=== PATIENT | female | born 1955 | race Caucasian/White ===

== ENCOUNTER → 2016-07-16 | Outpatient (CLI) | payer BC, OTHER ==
[~2016-07-16] MED LIST: AMLO-110 PO; ISOS30TA51 PO; LABE100T16 PO; LISI40TA PO; MULT-506 PO
--- NOTE | 2016-07-16 12:46 | DIAGNOSTIC IMAGING REPORT ---
CT OF THE ABDOMEN AND PELVIS WITHOUT CONTRAST CLINICAL HISTORY: Evaluate for abdominal vascular calcifications. COMPARISON STUDY: CT of the abdomen and pelvis October 08, 2013 and abdominal ultrasound July 08, 2015. TECHNIQUE: Axial images of the abdomen and pelvis were obtained without IV contrast. Images were reviewed in the axial, sagittal, and coronal planes. FINDINGS: A 4 mm right middle lobe nodule shown on axial image 28 of 481 is unchanged since earlier exams. This is benign given stability. The liver is essentially replaced by numerous simple and complex cysts. The appearance is unchanged. The liver is markedly enlarged. Similarly, the kidneys are replaced by innumerable simple and complex cysts. These lesions are suboptimally assessed on this unenhanced exam. The appearance is similar to CT of October 08, 2013. Mild splenomegaly is unchanged. A small amount of abdominal and pelvic ascites is unchanged. There is a small amount of ascites within an umbilical hernia which was present on prior exam. There is sigmoid diverticulosis without evidence for acute diverticulitis. No pneumatosis, free air or portal venous gas is present. There is no evidence for a bowel obstruction. No lymphadenopathy is identified on this unenhanced study. No suspicious skeletal lesions are identified. The adrenal glands are obscured on this examination. The pancreas is also largely obscured but no gross abnormalities identified. There is mild calcified atherosclerotic plaque of the abdominal aorta which is normal in caliber. No significant calcified plaque of the celiac axis or superior mesenteric artery is identified. No calcified plaque of the bilateral common iliac, internal iliac, external iliac or common femoral arteries is noted. There is no significant calcified atherosclerotic plaque of the visualized portions of the bilateral superficial femoral arteries. IMPRESSION: 1. Mild calcified atherosclerotic plaque of the abdominal aorta with no significant calcified plaque of the bilateral common iliac, internal iliac, external iliac or common femoral arteries. 2. Innumerable hepatic and renal cysts consistent with autosomal dominant polycystic kidney disease. Stable marked hepatomegaly and bilateral renal enlargement. Stable mild splenomegaly. 3. No significant change in a small amount of abdominal and pelvic ascites. 4. No bowel obstruction. Electronically signed by: Reji Shelley M.D. 07/16/2016 12:45 PM Dictated Date/Time: 07/16/2016 12:33 PM
== END ==
LOC: C.CTS 11:47
PROVIDERS: ATTEND Transplant Surgery
DX: N18.6 End stage renal disease (principal)

== ENCOUNTER → 2017-02-27 | Outpatient (CLI) | payer OTHER ==
--- NOTE | 2017-02-27 08:43 | DIAGNOSTIC IMAGING REPORT ---
ABD/PELVIS WITHOUT FOR STONE CLINICAL HISTORY: 61 years-old Female presenting with evaluate liver, gallbladder, pancreas, spleen, needed kidneys for calcifications prior to transplant. TECHNIQUE: Multidetector CT of the abdomen and pelvis was performed without the use of intravenous contrast. IV contrast: None. A dose lowering technique was used consistent with the principles of ALARA (as low as reasonably achievable). COMPARISON: 07/16/2016. CT DOSE (mGy.cm): The estimated cumulative dose is 1107.41 mGy.cm. FINDINGS: [employer] topogram: Unremarkable. Lung bases: Minimal dependent changes likely atelectasis. Top normal heart size. Aortic valve and coronary artery calcification. Trace pericardial effusion. Trace left pleural effusion. Liver: Hepatomegaly secondary to innumerable hepatic cysts. There may be exophytic extension of a cyst or rupture of the cyst into a ventral hernia, which contains multilocular fluid collection similar to the appearance of the subjacent hepatic cysts, though this may represent loculated ascites. Calcification of cyst andrea noted at the right hepatic dome similar to prior exam. Biliary: Evaluation of the bowel ducts is limited. Normal gallbladder. Pancreas: Normal noncontrast appearance. Spleen: Enlarged measuring over 15 cm in maximal sagittal dimension. No parenchymal calcification. Adrenal glands: Normal noncontrast appearance of the left adrenal gland. Right adrenal gland not well visualized.. Kidneys and ureters: Innumerable cysts of varying densities expand the bilateral kidneys as on prior exam. Few scattered small calcifications may represent nonobstructing calculi, measuring up to 3 mm on the right. Additionally, scattered parenchymal calcification is evident in the left kidney predominantly in the interpolar region to lower pole. No gross evidence of hydronephrosis. Ureters poorly visualized. Bladder: Incompletely evaluated secondary to underdistention. Pelvic organs: Normal noncontrast appearance. Bowel: Diverticulosis of the sigmoid colon. Mild colonic wall thickening primarily involving the transverse colon to the splenic flexure. No bowel obstruction. Peritoneal cavity: Small amount of abdominal pelvic ascites. Either dependent hyperdense debris or hemorrhage or alternatively peritoneal thickening is noted in the pelvis (series 3 image 73). Lymph nodes: No gross lymphadenopathy allowing for noncontrast technique. Vasculature: Atherosclerosis of the normal caliber abdominal aorta. IVC patent. Abdominal wall: Periumbilical hernia containing loculated fluid which appears to be emanating from the anterior aspect of the left hepatic lobe and may either represent an exophytic cyst or loculated fluid in the hernia sac. Musculoskeletal: Deformity of the left inferior pubic ramus consistent with old fracture. Degenerative changes of the spine and sacroiliac joints. IMPRESSION: 1. Unchanged degree of parenchymal calcification at the hepatic dome and parenchymal calcifications in the left kidney. Innumerable hepatic cysts and renal cysts compatible with autosomal dominant polycystic liver and kidney disease. 2. Remaining viscera do not demonstrate parenchymal calcifications. 3. Spinal megaly. 4. Small abdominal pelvic ascites either with layering high density fluid or peritoneal thickening. This is similar in appearance to prior exam in June. This potentially could be from prior cyst rupture. 5. Umbilical hernia containing either loculated fluid or an exophytic hepatic cyst. Electronically signed by: Blaine Faye M.D. 02/27/2017 8:42 AM Dictated Date/Time: 02/27/2017 8:32 AM
== END | disposition home or self-care (01) ==
LOC: C.CTS 08:11
PROVIDERS: ATTEND Internal Medicine Nephrology
DX: N18.6 End stage renal disease (principal); K76.89 Other specified diseases of liver; N28.1 Cyst of kidney, acquired; R18.8 Other ascites; K42.9 Umbilical hernia without obstruction or gangrene

== ENCOUNTER 2017-07-27 06:18 | Inpatient (IN) | payer BC, OTHER ==
[~2017-07-27] VITALS: Ht 157.5 cm; Wt 66.2 kg
[2017-07-27] VITALS (21 sets, daily range): BP systolic 138–176; BP diastolic 74–96; PULSE 79–97; TEMP 36.3–36.6; O2SAT 92–98; Ht 157.5 cm; Wt 66.2 kg
[~2017-07-27 06:18] MED LIST changes: -ISOS30TA51 PO; +ISR/30 PO
--- NOTE | 2017-07-27 06:43 | EMERGENCY ROOM VISIT NOTE ---
History First contact with patient: 06:35 Chief Complaint: FLU LIKE SX Stated Complaint: FLU LIKE SYMPTOMS History of Present Illness The patient is a 61 year old female who presents to the Emergency Room with complaints of cough x 1 week, shortness of breath and left sided back pain. She reports having gone to dialysis this morning and was sent here to the ED because she wasn't feeling well. She also reports 3 episodes of diarrhea without melena, hematochezia. Her cough is non-productive. She is oliguric but denies any urinary symptoms. She is nauseous. Denies h/o smoking. She has a history of PCKD. She does dialysis Saturday, and Saturday denies h/o smoking Denies calf tenderness, denies recent travel. pckd, HTN dialysis , , sat- kidney care Review of Systems See above for pertinent positives & negatives. A total of 10 systems reviewed and were otherwise negative. Past Medical/Surgical History Medical Problems: (1) Anemia (2) Chronic Kidney Disease, Stage Iii (Moderate) (3) End-stage renal disease on hemodialysis (4) Flank pain (5) Fracture Of Pubis-Closed (6) Hypertension (7) Hypertension Nos (8) Hypoxia (9) Hyptnsv Chr Kid Dis, Unspec, W Chr Kd Stage I-Iv Or Unsp (10) Polycystic Kidney,Autosomal Dominant (11) Secondary hyperparathyroidism of renal origin Social History Smoking Status: Never Smoker Alcohol Use: none Marital Status: Housing Status: lives with family Current/Historical Medications Scheduled Amlodipine (Norvasc), 5 MG PO BID Calcium Acetate (Phoslo 667 Mg), 2,668 MG PO WM Calcium Acetate (Phoslo 667 Mg), 1 CAP PO WITH SNACKS Isosorbide Mononitrate Ext Rel (Imdur Ext Rel), 30 MG PO QAM Labetalol Hcl (Normodyne), 100 MG PO BID Lisinopril (Zestril), 40 MG PO HS Multivitamin (Multivitamin), 1 TAB PO DAILY Physical Exam Vital Signs Date Time Temp Pulse Resp B/P (MAP) Pulse Ox O2 Delivery O2 Flow Rate FiO2 07/27/17 10:21 93 20 159/85 92 Nasal Cannula 2.0 07/27/17 09:44 93 Nasal Cannula 2.0 07/27/17 09:44 89 Room Air 07/27/17 08:35 96 18 181/98 95 Nasal Cannula 2.0 07/27/17 07:53 98 07/27/17 07:38 93 Nasal Cannula 3.0 07/27/17 07:37 100 18 175/97 86 Room Air 07/27/17 06:23 36.4 107 22 184/95 92 Room Air Physical Exam GENERAL: Patient is awake alert in no acute distress EYES: The conjunctivae are clear. The pupils are round and reactive. EARS, NOSE, MOUTH AND THROAT: The nose is without any evidence of any deformity. Mucous membranes are moist NECK: The neck is nontender and supple. RESPIRATORY: Normal respiratory effort is noted, crackles at the bases bilaterally, no wheezing CARDIOVASCULAR: Regular rate and rhythm noted there no murmurs rubs or gallops normal S1 normal S2 GASTROINTESTINAL: The abdomen is soft. Bowel sounds are present in all quadrants. Abdomen is nontender PELVIS: The Pelvis is stable. No tenderness to palpation is noted. BACK: left cva tenderness SKIN: There is no obvious evidence of any rash. There are no petechiae, pallor or cyanosis noted. NEUROLOGIC: Patient is awake alert and oriented x3 Medical Decision & Procedures Laboratory Results Test 07/27/17 06:40 07/27/17 07:30 07/27/17 07:48 Influenza Type A Antigen Neg for Influ A (NEG) Influenza Type B Antigen Neg for Influ B (NEG) Total Bilirubin 0.7 mg/dl (0.2-1) Aspartate Amino Transf (AST/SGOT) 17 U/L (15-37) Alanine Aminotransferase (ALT/SGPT) 16 U/L (12-78) Alkaline Phosphatase 108 U/L (45-117) Troponin I 0.016 ng/ml (0-0.045) Total Protein 8.1 gm/dl (6.4-8.2) Albumin 4.0 gm/dl (3.4-5.0) Globulin 4.1 gm/dl (2.5-4.0) Albumin/Globulin Ratio 1.0 (0.9-2) Hepatitis B Surface Antigen NEG (NEG) Hepatitis B Surface Antibody POS Bedside Hemoglobin 12.6 g/dl (12.0-16.0) Bedside Hematocrit 37 % (37-47) Bedside Sodium 139 mEq/L (135-144) Bedside Potassium 4.2 mEq/L (3.3-5.0) Bedside Chloride 102 mEq/L (101-112) Bedside Total CO2 27 mEq/l (24-31) Bedside Blood Urea Nitrogen 48 mg/dl (7-18) Bedside Creatinine 8.5 mg/dl (0.6-1.3) Bedside Glucose (other) 129 mg/dl (70-99) Bedside Ionized Calcium (Gage) 1.21 mmol/l (1.12-1.32) Medications Administered Medications (Trade) Dose Ordered Sig/Jose C Route Start Time Stop Time Status Last Admin Dose Admin Ondansetron HCl (Zofran Inj) 4 mg NOW STAT IV 07/27/17 07:26 07/27/17 07:27 DC 07/27/17 07:33 4 MG Labetalol HCl (Normodyne Tab) 100 mg NOW STAT PO 07/27/17 09:13 07/27/17 09:15 DC 07/27/17 09:48 100 MG Isosorbide Dinitrate (Isordil Tab) 30 mg NOW STAT PO 07/27/17 09:14 07/27/17 09:15 DC 07/27/17 09:48 30 MG Amlodipine Besylate (Norvasc Tab) 5 mg NOW STAT PO 07/27/17 09:14 07/27/17 09:15 DC 07/27/17 09:47 5 MG Al Hydrox/Mg Hydrox/Simethicone (Maalox Max Susp) 15 ml Q4H PRN PO 07/27/17 11:00 08/26/17 10:59 07/27/17 22:49 15 ML ED Course 0630 Patient was seen in B2. A complete history and physical was performed 0650 Labs and imaging ordered 0725 Patient had an episode of vomiting. Zofran ordered Medical Decision This is a 61 y/o F who presents with non productive cough, mild shortness of breath. DDx: Pneumonia, CHF, Bronchitis, PE, anemia, influenza, viral illness etc. Chest X-ray does show signs of volume overload but also questions aspiration. CBC does not reveal any leucocytosis or anemia. CMP shows elevated creatinine consistent with ESRD. There is concern for CHF as well as aspiration pneumonia (though not obvious on X-ray). She is not aware of any cardiac abnormalities and does not recall having an echo recently. She was not in any acute resp distress but required 2-3 L of O2 to maintain her saturations. I explained that she would need further evaluation to investigate the cause of her shortness of breath and new oxygen requirement. The case was discussed with [facility] hospitalist and they will evaluate the patient further. She was also complaining of diarrhea; C.diff and stool cultures are pending collection. Impression Primary Impression: Shortness of breath Departure Information Dispostion Being Evaluated By Hospitalist Referrals Isaias Dickerson M.D. (PCP) Patient Instructions My [facility]
[2017-07-27] MEDS ORDERED: ISOS30TA3 PO (06:54)
[2017-07-27] MEDS ORDERED: CALC667C4 PO ×2 (06:57→06:59)
--- NOTE | 2017-07-27 07:12 | DIAGNOSTIC IMAGING REPORT ---
CHEST ONE VIEW PORTABLE CLINICAL HISTORY: 61 years-old Female presenting with shortness of breath. TECHNIQUE: Portable upright AP view of the chest was obtained. COMPARISON: 05/19/2014. FINDINGS: Atherosclerosis of aortic arch. Cardiac silhouette enlarged. Pulmonary vascular prominence. Bibasilar opacities greater on the right. Trace pleural effusions may be present. No pneumothorax. Calcification projects over the right hemidiaphragm, possibly pleural plaque. Osseous structures normal. Upper abdomen normal. IMPRESSION: 1. Mild cardiomegaly with findings most suggestive of volume overload and pulmonary edema. Differential considerations include aspiration. Electronically signed by: Blaine Faye M.D. 07/27/2017 7:10 AM Dictated Date/Time: 07/27/2017 7:09 AM
[2017-07-27 07:13] LABS: INFLUENZA B ANTIGEN Neg for Influ B (NEG)
[2017-07-27] MEDS ORDERED: ONDANSETRON INJ 2 MG/ML 2 ML VIAL IV STA (07:26)
[2017-07-27 08:01] LABS: ISTAT CREATININE 8.5 mg/dl (0.6-1.3); ISTAT IONIZED CALCIUM 1.21 mmol/l (1.12-1.32); ISTAT POTASSIUM 4.2 mEq/L (3.3-5.0)
[2017-07-27 08:11] LABS: CALCIUM 9.9 mg/dl (8.5-10.1); CREATININE 8.27 mg/dl (0.60-1.20); POTASSIUM 4.2 mmol/L (3.5-5.1); TOTAL PROTEIN 8.1 gm/dl (6.4-8.2)
[2017-07-27 08:18] LABS: BASO % 0.1 %; BASO ABS # 0.01 K/uL (0-0.2); EOS % 2.1 %; EOS ABS # 0.16 K/uL (0-0.5); HEMATOCRIT 37.6 % (37-47); HEMOGLOBIN 11.8 g/dL (12.0-16.0); IG# 0.03 K/uL (0.00-0.02); LYMPH ABS # 1.13 K/uL (1.2-3.4); MEAN CELL VOLUME 93.5 fL (80-100); MEAN CORPUSCULAR HEMOGLOBIN 29.4 pg (25-34); MEAN CORPUSCULAR HGB CONC 31.4 g/dl (32-36); MEAN PLATELET VOLUME 10.7 fL (7.4-10.4); MONO % 5.7 %; MONO ABS # 0.43 K/uL (0.11-0.59); NEUT % 76.7 %; NEUT ABS # 5.75 K/uL (1.4-6.5); PLATELET COUNT 230 K/uL (130-400); RED CELL DISTRIBUTION WIDTH CV 15.1 % (11.5-14.5); RED CELL DISTRIBUTION WIDTH SD 51.5 fL (36.4-46.3); WHITE BLOOD COUNT 7.51 K/uL (4.8-10.8)
[2017-07-27] MEDS ORDERED: NURSING DECISION MEDICATION ORDER SCH (08:45)
[2017-07-27] MEDS ORDERED: LABETALOL HCL 100 MG TAB PO STA (09:13)
[2017-07-27] MEDS ORDERED: ISOSORBIDE DINITRATE 10 MG TAB PO STA (09:14)
[2017-07-27] MEDS ORDERED: AMLODIPINE BESYLATE 5 MG TAB PO STA (09:14)
[2017-07-27] MEDS ORDERED: ONDANSETRON INJ 2 MG/ML 2 ML VIAL IV PRN (11:00)
[2017-07-27] MEDS ORDERED: ALUMINUM/MAGNESIUM/SIMETH (MAALOX MAX) 30 ML UDC PO PRN (11:00)
[2017-07-27] MEDS ORDERED: ACETAMINOPHEN 325 MG TAB PO PRN (11:00)
[2017-07-27] MEDS ORDERED: NITROGLYCERIN 0.4 MG SL PER TAB CHARGE SL PRN (11:00)
--- NOTE | 2017-07-27 11:57 | Nephrology Consultation ---
Nephrology Consultation Date & Providers Date of Consultation: Jul 27, 2017. Primary Care Provider: Isaias Dickerson M.D. Referring Provider: Reason for Consultation End-stage renal disease on hemodialysis. History of Present Illness Ary is a 61-year-old female with past medical history significant for hypertension and end-stage renal disease secondary to polycystic kidney disease presented to the hospital with left flank pain, shortness of breath and . Electronic medical records including labs and imaging are reviewed in detail during patient's visit. Orly has end-stage renal disease has been on dialysis for several years, via left brachiocephalic AV fistula. End-stage renal disease secondary to polycystic kidney disease. She is currently on 4 hours dialysis at [facility] unit on Saturday, , Saturday. Last dialysis was and she was due for dialysis this morning went to the unit but was not feeling well and brought to the ER by her daughter. She has been otherwise feeling well until last night when she started to have cough and shortness of breath. Denies any fever or chills. She still have makes urine but denies any hematuria or dysuria. She also started to have left flank pain since this morning which now slightly better. On admission electrolyte panel was normal. Blood pressure stable. Chest x-ray showed mild pulmonary vascular congestion. She has history of polycystic kidney disease, has bilateral enlarged kidney. She is currently on wait list for transplant however during her recent visit at the transplant center, surgeon recommended unilateral nephrectomy in upcoming months because of increased size of the kidneys however node date was set yet. She has been very regular for dialysis, never had issues with fluid overload. Currently her flank pain is slightly better. She is waiting for CT abdomen pelvis. Allergies Uncoded Allergies: NARCOTIC ANALGESICS (Adverse Reaction, Intermediate, N/V, 07/27/17) Social History Smoking Status: Never Smoker Marital Status: Housing Status: lives alone Review of Systems A complete review of systems was performed. Pertinent positives are noted above. All other systems are negative. Physical Exam Date Time Temp Pulse Resp B/P (MAP) Pulse Ox O2 Delivery O2 Flow Rate FiO2 07/27/17 10:21 93 20 159/85 92 Nasal Cannula 2.0 07/27/17 09:44 93 Nasal Cannula 2.0 07/27/17 09:44 89 Room Air 07/27/17 08:35 96 18 181/98 95 Nasal Cannula 2.0 07/27/17 07:53 98 07/27/17 07:38 93 Nasal Cannula 3.0 07/27/17 07:37 100 18 175/97 86 Room Air 07/27/17 06:23 36.4 107 22 184/95 92 Room Air GENERAL: Middle-aged female, AAA x 3, pleasant, healthy-appearing, in mild distress. HEENT: Atraumatic, normocephalic. NECK: Supple, no JVD, no carotid bruit appreciated. ENT: No sinus tenderness MOUTH and THROAT: Moist oral mucosa, no oral ulcer or pharyngeal erythema RESPIRATORY: Normal breathing efforts, no accessory muscle use, clear to auscultation bilaterally, no wheezes or rales. CARDIOVASCULAR: S1, S2 normal, rate rhythm regular. ABDOMEN: Soft, nontender, positive bowel sound. MUSCULOSKELETAL: No CVA tenderness. No joint swelling, erythema or tenderness. Normal range of motion. SKIN: No skin rash EXTREMITY: No lower extremity edema, left radiocephalic AVF with thrill, bruit, stable aneurysm. NEURO: No gross focal neurological deficit, speech fluent. PSYCHIATRY: Normal mood and judgment Laboratory Results Last 24 Hours Test 07/27/17 06:40 07/27/17 07:30 07/27/17 07:48 Influenza Type A Antigen Neg for Influ A Influenza Type B Antigen Neg for Influ B White Blood Count 7.51 K/uL Red Blood Count 4.02 M/uL Hemoglobin 11.8 g/dL Hematocrit 37.6 % Mean Corpuscular Volume 93.5 fL Mean Corpuscular Hemoglobin 29.4 pg Mean Corpuscular Hemoglobin Concent 31.4 g/dl Platelet Count 230 K/uL Mean Platelet Volume 10.7 fL Neutrophils (%) (Auto) 76.7 % Lymphocytes (%) (Auto) 15.0 % Monocytes (%) (Auto) 5.7 % Eosinophils (%) (Auto) 2.1 % Basophils (%) (Auto) 0.1 % Neutrophils # (Auto) 5.75 K/uL Lymphocytes # (Auto) 1.13 K/uL Monocytes # (Auto) 0.43 K/uL Eosinophils # (Auto) 0.16 K/uL Basophils # (Auto) 0.01 K/uL RDW Standard Deviation 51.5 fL RDW Coefficient of Variation 15.1 % Immature Granulocyte % (Auto) 0.4 % Immature Granulocyte # (Auto) 0.03 K/uL Sodium Level 137 mmol/L Potassium Level 4.2 mmol/L Chloride Level 100 mmol/L Carbon Dioxide Level 26 mmol/L Anion Gap 10.0 mmol/L 15.0 mmol/L Blood Urea Nitrogen 50 mg/dl Creatinine 8.27 mg/dl Est Creatinine Clear Calc Drug Dose 6.2 ml/min Estimated GFR () 5.4 Estimated GFR (Non- 4.7 BUN/Creatinine Ratio 6.2 Random Glucose 129 mg/dl Calcium Level 9.9 mg/dl Total Bilirubin 0.7 mg/dl Aspartate Amino Transf (AST/SGOT) 17 U/L Alanine Aminotransferase (ALT/SGPT) 16 U/L Alkaline Phosphatase 108 U/L Troponin I 0.016 ng/ml Total Protein 8.1 gm/dl Albumin 4.0 gm/dl Globulin 4.1 gm/dl Albumin/Globulin Ratio 1.0 Bedside Hemoglobin 12.6 g/dl Bedside Hematocrit 37 % Bedside Sodium 139 mEq/L Bedside Potassium 4.2 mEq/L Bedside Chloride 102 mEq/L Bedside Total CO2 27 mEq/l Bedside Blood Urea Nitrogen 48 mg/dl Bedside Creatinine 8.5 mg/dl Bedside Glucose (other) 129 mg/dl Bedside Ionized Calcium (Gage) 1.21 mmol/l Impression (1) End-stage renal disease on hemodialysis (2) Anemia (3) Secondary hyperparathyroidism of renal origin (4) Hypertension (5) Hematuria (6) Flank pain (7) Polycystic Kidney,Autosomal Dominant Ary is a 61-year-old female with end-stage renal disease secondary to polycystic kidney disease, currently on hemodialysis, Saturday, , Saturday at [facility] via left Radiocephalic AV fistula. She had last dialysis , missed dialysis this morning as she presented to ER. She was having left flank pain, cough and shortness of breath and presented to ER for further evaluation. Has history of polycystic kidney disease with bilateral enlarged kidney, recently there was plan for unilateral nephrectomy for increased size of the kidney however no state was no date was set yet. On admission her blood pressure, electrolyte acceptable. Chest x-ray showing have pulmonary edema. She is currently saturating well on 2 liters binasal cannula. Pending abdomen pelvis CT scan considering left flank pain and bilateral enlarged kidney. Recommendations --Will schedule for urgent dialysis with 3 K bath as her regular schedule, UF as tolerated to reach estimated dry weight. --unclear etiology for her symptoms including fluid overload which is pretty unusual for her. CXR with no pneumonia, no leukocytosis. May need cardiac evaluation and evaluation for possible PE. --suggest checking EKG, troponin, Echo. --hemoglobin acceptable and no need for PATI at this point. --avoid IV fluid, dose medications for GFR less than 10, left arm nephrology precaution. --continue on renal diet --continue renal vitamin and phosphate binder with meal --if there is any concerning finding from CT abdomen pelvis such as cyst rupture or increased size of the kidney or cyst may need urological evaluation Thank you for allowing me to participate in your patient's care. It was a pleasure to see Orly
--- NOTE | 2017-07-27 12:10 | HISTORY & PHYSICAL EXAMINATION ---
DATE OF ADMISSION: 07/27/2017 CHIEF COMPLAINT: Shortness of breath and left flank pain. HISTORY OF PRESENT ILLNESS: This is a 61-year-old male with past medical history significant for polycystic kidney disease and anemia, congenital cystic liver disease, hypertension, chronic kidney disease, requiring chronic dialysis, comes because of having left flank pain since last night and also had episode of nausea and vomiting. Pain is about 5/10 in severity. Denies any fever, chills, no cough, no chest pain, no shortness of breath, mild abdominal discomfort. No headaches, occasional dizziness after dialysis. No blurred vision, no earache, no sore throat, no difficulty swallowing. Appetite is okay. Normal bowel and bladder movements. Ambulates okay at home. Lives with her son and at dialysis today as she was not feeling well. She was sent here, in the ER, she was slightly hypoxic, requiring 2 liters of oxygen. Chest x-ray shows volume overload. ALLERGIES: No known drug allergies. PAST MEDICAL HISTORY: As mentioned above. PAST SURGICAL HISTORY: Colonoscopy with polypectomy, tubal ligation, and D&C. MEDICATIONS: The patient is on amlodipine 5 mg p.o. b.i.d., Imdur 30 mg p.o. daily, Lipitor 100 mg p.o. b.i.d., lisinopril 40 mg p.o. daily, multivitamins with minerals 1 tablet daily. FAMILY HISTORY: Daughter has polycystic kidney disease, son has polycystic kidney disease on peritoneal dialysis. SOCIAL HISTORY: . No alcohol use. No smoking history. No drug use. REVIEW OF SYMPTOMS: As per HPI. Rest of review of symptoms negative. PHYSICAL EXAMINATION: GENERAL: The patient is thin and frail, not in distress. VITAL SIGNS: Temperature 36.4, pulse 93, respiratory rate 20, blood pressure 159/85, oxygen 92% on 2 liters. HEENT: No pallor, no icterus. Pupils equal, round react to light. NECK: No JVD, no neck masses, no carotid bruit. RESPIRATORY: Clear to auscultation bilaterally. No wheezing. Mild bibasilar crackles. CARDIOVASCULAR: S1, S2 heard, regular rate and rhythm, no murmur, no gallop. ABDOMEN: Soft, bowel sounds present. Nontender. No distention. CENTRAL NERVOUS SYSTEM: Cranial nerves II-XII grossly intact. Nonfocal. EXTREMITIES: No edema, no erythema. LABS: WBC 7.5, hemoglobin 11.8, hematocrit 37.6, platelets 230. Sodium 137, potassium 4.2, chloride 100, bicarbonate 26, BUN 50, creatinine 8.2, serum glucose 129, calcium 9.9. Ionized calcium 1.2, total bilirubin 0.7, AST 17, ALT 16, alkaline phosphatase 108. Troponin 1 0.016. Influenza A and B negative. IMAGING DATA: Chest x-ray - mild cardiomegaly with findings most suggestive of volume overload and pulmonary edema. Differential considerations include aspiration. EKG: Sinus tachycardia at a rate of 101, nonspecific T-wave abnormalities. ASSESSMENT AND PLAN: This 61-year-old female who presents with episode of nausea and vomiting and left flank pain. 1. Left flank pain. The patient has history of polycystic kidney disease. We will get a CT scan of the abdomen and pelvis and monitor. 2. Hypoxia, volume overload on chest x-ray is due for dialysis today. volume overload secondary to renal failure?. Notified nephrology. Plan for dialysis today. 3. Episode of nausea and vomiting. Follow the CAT scan of the abdomen and pelvis. We will place on clears for now. 4. Hypertension. Continue amlodipine and Imdur, and lisinopril. Monitor blood pressure 5. Anemia of chronic disease. Will follow the labs. 6. Deep venous thrombosis prophylaxis. SCDs and TEDs for now. 7. Disposition: Admit to tele floor. Expect to discharge home and follow with family doctor. Level 1 full code. MTDD
--- NOTE | 2017-07-27 13:52 | DIAGNOSTIC IMAGING REPORT ---
ABD/PELVIS NO IV OR ORAL CONT CLINICAL HISTORY: 61 years-old Female presenting with nausea. left flank pain. hx of Polycystic kidney disease. TECHNIQUE: Multidetector CT of the abdomen and pelvis was performed without the use of intravenous contrast. IV contrast: None. A dose lowering technique was used consistent with the principles of ALARA (as low as reasonably achievable). COMPARISON: 02/27/2017. CT DOSE (mGy.cm): The estimated cumulative dose is 531.49 mGy.cm. FINDINGS: Tool Pusher topogram: Unremarkable. Lung bases: Interval development of extensive peribronchovascular consolidation and peripheral consolidation in the bilateral lower lobes. Small to moderate right and small left pleural effusions. Normal heart size. No pericardial or pleural effusion. Liver: Hepatomegaly with innumerable hypodense lesions compatible with known polycystic liver disease. Complex lesions in the right hepatic lobe near the dome which demonstrates suggestion of a thicker rim of soft tissue or complexity (series 3 image 64 and image 89). These are not significantly changed from the prior exam. Scattered parenchymal calcification as on prior. Biliary: No gross biliary ductal dilatation allowing for noncontrast technique. Poor visualization of the gallbladder. Pancreas: Normal noncontrast appearance. Spleen: Enlarged measuring over 13 cm in sagittal dimension. Adrenal glands: None visualization. Kidneys and ureters: Extensive cystic lesions expanding the renal contours with scattered parenchymal calcifications. Poor visualization of the ureters. No gross evidence of cyst rupture or new hemorrhage. Bladder: Normal. Pelvic organs: Normal noncontrast appearance. Bowel: Diverticulosis of the sigmoid colon. No bowel obstruction. Poor evaluation of the bowel. Peritoneal cavity: Moderate ascites minimally in the pelvis. Lymph nodes: No gross lymphadenopathy allowing for noncontrast technique. . Vasculature: Atherosclerosis of the normal caliber abdominal aorta. Abdominal wall: Periumbilical herniation containing ascites, which may be loculated in hernia sac. Skin thickening and subcutaneous infiltration in the infraumbilical region. Musculoskeletal: Degenerative changes of the spine. IMPRESSION: 1. Extensive peribronchovascular consolidation in the bilateral lower lobes concerning for aspiration or pneumonia. 2. Small to moderate right and small left pleural effusions. 3. Redemonstration of findings consistent with known polycystic liver and kidney disease. No gross evidence of cyst hemorrhage. Redemonstration of slightly complex appearing cysts in the right hepatic dome, which are incompletely characterized without contrast. 4. Overall limited evaluation without contrast. 5. Splenomegaly. 6. Moderate predominantly pelvic ascites. Electronically signed by: Blaine Faye M.D. 07/27/2017 1:51 PM Dictated Date/Time: 07/27/2017 1:43 PM
[2017-07-27] MEDS: CALCIUM ACETATE 667MG GELCAP PO SCH (15:02)
[2017-07-27 15:33] LABS: INFLUENZA A PCR Neg for Influ A (NEG); INFLUENZA B PCR Neg for Influ B (NEG)
--- NOTE | 2017-07-27 15:46 | EMERGENCY ROOM VISIT NOTE ---
ED Visit Note First contact with patient: 06:35 Resident Physician Supervision Note: I interviewed and examined the patient. Discussed with Dr. Betancourt and agree with findings and plan as documented in the note. Any exceptions or clarifications are listed here: This patient was evaluated and appeared to be in no significant distress. She was given IV Zofran for vomiting. Patient is found to be hypoxic on room air, likely combination of fluid overload and possibly aspiration from her vomiting. The patient's case was discussed with the hospitalist service will evaluate the patient for admission and further management. She will require hemodialysis. The patient and family are aware of the plan and agree. Documented By: Eloisa Pinedo
[2017-07-27] MEDS ORDERED: AMPICILLIN/SULBACTAM SOD INJ 1,500 MG in SODIUM CHLORIDE 0.9% 100ML 100 ML IV SCH (18:45)
[2017-07-27] MEDS ORDERED: AMPICILLIN/SULBACTAM CONSULT ACTIVE PRN (19:30)
[2017-07-27] MEDS: AMPICILLIN/SULBACTAM SOD INJ 3,000 MG in SODIUM CHLORIDE 0.9% 100ML 100 ML IV SCH (20:03)
[2017-07-27] MEDS ORDERED: LISINOPRIL 40 MG TAB PO ONE (21:00)
[2017-07-27] MEDS: LABETALOL HCL 100 MG TAB PO SCH (21:31)
[2017-07-27] MEDS: AMLODIPINE BESYLATE 5 MG TAB PO SCH (21:32)
[2017-07-28] VITALS (8 sets, daily range): BP systolic 135–158; BP diastolic 71–79; PULSE 83–98; TEMP 36.5–37.1; O2SAT 93–97
[2017-07-28 07:32] LABS: BASO % 0.2 %; BASO ABS # 0.01 K/uL (0-0.2); EOS % 2.2 %; EOS ABS # 0.11 K/uL (0-0.5); HEMATOCRIT 31.2 % (37-47); HEMOGLOBIN 9.9 g/dL (12.0-16.0); IG# 0.02 K/uL (0.00-0.02); LYMPH % 16.3 %; LYMPH ABS # 0.81 K/uL (1.2-3.4); MEAN CORPUSCULAR HEMOGLOBIN 29.2 pg (25-34); MEAN CORPUSCULAR HGB CONC 31.7 g/dl (32-36); MEAN PLATELET VOLUME 9.5 fL (7.4-10.4); MONO % 10.7 %; MONO ABS # 0.53 K/uL (0.11-0.59); NEUT % 70.2 %; NEUT ABS # 3.49 K/uL (1.4-6.5); PLATELET COUNT 151 K/uL (130-400); RED CELL DISTRIBUTION WIDTH CV 15.1 % (11.5-14.5); RED CELL DISTRIBUTION WIDTH SD 51.2 fL (36.4-46.3); WHITE BLOOD COUNT 4.97 K/uL (4.8-10.8)
[2017-07-28 08:14] LABS: CALCIUM 8.8 mg/dl (8.5-10.1); CREATININE 5.93 mg/dl (0.60-1.20); POTASSIUM 4.1 mmol/L (3.5-5.1)
[2017-07-28] MEDS ORDERED: LISINOPRIL 40 MG TAB PO SCH (09:00)
[2017-07-28] MEDS: CALCIUM ACETATE 667MG GELCAP PO SCH ×3 (09:32→17:45)
[2017-07-28] MEDS: ISOSORBIDE MONONITRATE 30 MG TABCR PO SCH (09:32)
[2017-07-28] MEDS: MULTIVITAMIN TAB PO SCH (09:32)
[2017-07-28] MEDS: LABETALOL HCL 100 MG TAB PO SCH ×2 (09:33→21:45)
[2017-07-28] MEDS: AMLODIPINE BESYLATE 5 MG TAB PO SCH ×2 (09:33→21:46)
--- NOTE | 2017-07-28 11:25 | DIAGNOSTIC IMAGING REPORT ---
NUCLEAR PULMONARY VENTILATION/PERFUSION SCAN CLINICAL HISTORY: Hypoxia. COMPARISON STUDY: Chest x-ray dated 07/27/2017. TECHNIQUE: Initially, ventilation images of both lungs are obtained following the inhalation of 33 mCi of aerosolized technetium 99m DTPA. Subsequently, perfusion images of both lungs were obtained following the IV administration of 5.2 mCi of technetium 99m MAA. Ventilation and perfusion images were acquired in the anterior, posterior, and oblique projections. FINDINGS: A chest x-ray performed 07/27/2017 shows cardiomegaly with evidence of congestive failure. There is bibasilar consolidation. The ventilation of both lungs is markedly heterogeneous. Inhaled tracer is seen within the esophagus and stomach. No perfusion defects are identified on the perfusion imaging. IMPRESSION: Findings are considered low probability for pulmonary embolus. Electronically signed by: Gustabo Levy M.D. 07/28/2017 11:24 AM Dictated Date/Time: 07/28/2017 11:22 AM
--- NOTE | 2017-07-28 11:27 | Progress Note ---
Internal Med Progress Note Date of Service: Jul 28, 2017. Provider Documentation: SUBJECTIVE: ambulating comfortably in room denies sob has some cough left flank pain improved tolerating clears ok no chest pain OBJECTIVE: Vital Signs-as noted below Exam: General-alert and Oriented. Not in distress. ENT-Normal hearing Neck-no neck masses Lungs-cta b/l no wheezing or crackles Heart-s1 and s2 heard regular no murmurs Abdomen-soft bowel sounds present non tender no distension Extremities-no erythema no edema Neuro-alert and awake moves extremities Lab data as noted below. ASSESSMENT & PLAN: This 61-year-old female who presents with episode of nausea and vomiting. 1. Left flank pain. The patient has history of polycystic kidney disease. CT scan of the abdomen and pelvis no cyst rupture. 2. Hypoxia, volume overload on chest x-ray is/p dialysis yesterday also aspiration ct scan starred on Unasyn speech evaluation. also check echo and v/q sacn di sia elevated 3. Episode of nausea and vomiting. Follow the CAT scan of the abdomen unremarkable. tolerating clears will advance diet. 4. Hypertension. Continue amlodipine and Imdur, and lisinopril. Monitor blood pressure 5. Anemia of chronic disease. Will follow the labs. 6. Deep venous thrombosis prophylaxis. SCDs and TEDs for now. 7. Disposition: Monitor in tele floor. Expect to discharge home and follow with family doctor. Level 1 full code. Vital Signs: Date Time Temp Pulse Resp B/P (MAP) Pulse Ox O2 Delivery O2 Flow Rate FiO2 07/28/17 07:25 36.9 83 18 153/79 (103) 93 Nasal Cannula 2.0 07/28/17 04:00 36.5 87 16 143/79 (100) 97 Nasal Cannula 2.0 07/28/17 04:00 97 Nasal Cannula 2.0 07/27/17 23:59 94 Nasal Cannula 2.0 07/27/17 23:59 36.6 84 16 144/77 (99) 94 Nasal Cannula 2.0 07/27/17 20:00 Nasal Cannula 2.0 07/27/17 18:56 36.5 97 20 170/81 (110) 98 Nasal Cannula 2.0 07/27/17 18:30 Nasal Cannula 2.0 07/27/17 18:07 36.4 95 20 173/79 (110) 95 Room Air 3.0 07/27/17 17:50 36.6 90 176/96 (122) 07/27/17 17:30 90 170/90 07/27/17 17:15 94 176/95 07/27/17 17:00 88 151/85 07/27/17 16:45 90 148/87 07/27/17 16:30 84 151/81 07/27/17 16:15 83 152/85 07/27/17 16:00 84 158/92 07/27/17 15:45 82 154/90 07/27/17 15:30 83 155/91 07/27/17 15:15 83 148/92 07/27/17 15:00 83 159/88 07/27/17 14:45 79 148/85 07/27/17 14:30 79 152/84 07/27/17 14:15 85 148/85 07/27/17 14:00 36.6 92 158/85 (109) 07/27/17 13:12 36.3 87 16 138/74 (95) 95 Nasal Cannula 3.0 07/27/17 12:00 Nasal Cannula 2.0 Lab Results: Results Past 24 Hours Test 07/27/17 14:20 07/27/17 14:25 07/27/17 19:03 07/28/17 07:16 Range/Units Influenza Type A (RT-PCR) Neg for Influ A NEG Influenza Type B (RT-PCR) Neg for Influ B NEG Urine Color YELLOW Urine Appearance CLEAR CLEAR Urine pH >= 9.0 4.5-7.5 Urine Specific [place] 1.009 1.000-1.030 Urine Protein 2+ NEG Urine Glucose (UA) TRACE NEG Urine Ketones NEG NEG Urine Occult Blood 1+ NEG Urine Nitrite NEG NEG Urine Bilirubin NEG NEG Urine Urobilinogen NEG NEG Urine Leukocyte Esterase MODERATE NEG Urine WBC (Auto) 0-5 /hpf Urine RBC (Auto) 0-4 /hpf Urine Hyaline Casts (Auto) 0-5 /lpf Urine Epithelial Cells (Auto) 0-5 /lpf Urine Bacteria (Auto) NEG Urine RBC 0-4 0-4 /hpf Urine WBC 5-10 0-5 /hpf Urine Epithelial Cells >30 0-5 /lpf Urine Bacteria 1+ NEG D-Dimer 5500 0-500 ug/L FEU White Blood Count 4.97 4.8-10.8 K/uL Red Blood Count 3.39 4.2-5.4 M/uL Hemoglobin 9.9 12.0-16.0 g/dL Hematocrit 31.2 37-47 % Mean Corpuscular Volume 92.0 80-100 fL Mean Corpuscular Hemoglobin 29.2 25-34 pg Mean Corpuscular Hemoglobin Concent 31.7 32-36 g/dl Platelet Count 151 130-400 K/uL Mean Platelet Volume 9.5 7.4-10.4 fL Neutrophils (%) (Auto) 70.2 % Lymphocytes (%) (Auto) 16.3 % Monocytes (%) (Auto) 10.7 % Eosinophils (%) (Auto) 2.2 % Basophils (%) (Auto) 0.2 % Neutrophils # (Auto) 3.49 1.4-6.5 K/uL Lymphocytes # (Auto) 0.81 1.2-3.4 K/uL Monocytes # (Auto) 0.53 0.11-0.59 K/uL Eosinophils # (Auto) 0.11 0-0.5 K/uL Basophils # (Auto) 0.01 0-0.2 K/uL RDW Standard Deviation 51.2 36.4-46.3 fL RDW Coefficient of Variation 15.1 11.5-14.5 % Immature Granulocyte % (Auto) 0.4 % Immature Granulocyte # (Auto) 0.02 0.00-0.02 K/uL Sodium Level 136 136-145 mmol/L Potassium Level 4.1 3.5-5.1 mmol/L Chloride Level 99 98-107 mmol/L Carbon Dioxide Level 29 21-32 mmol/L Anion Gap 8.0 3-11 mmol/L Blood Urea Nitrogen 29 7-18 mg/dl Creatinine 5.93 0.60-1.20 mg/dl Est Creatinine Clear Calc Drug Dose 8.6 ml/min Estimated GFR () 8.1 Estimated GFR (Non- 7.0 BUN/Creatinine Ratio 4.9 10-20 Random Glucose 96 70-99 mg/dl Calcium Level 8.8 8.5-10.1 mg/dl Magnesium Level 2.2 1.8-2.4 mg/dl
--- NOTE | 2017-07-28 11:48 | DIAGNOSTIC IMAGING REPORT ---
ULTRASOUND BILATERAL LOWER EXTREMITY VENOUS CLINICAL HISTORY: Hypoxia. COMPARISON STUDY: No priors. TECHNIQUE: Real-time, grayscale, and color Doppler sonography of the deep veins of the right and left lower extremity was performed from the inguinal crease to the calf. Compression and augmentation were utilized. FINDINGS: There is no sonographic evidence of deep venous thrombosis identified in the right or left lower extremity. The common femoral, superficial femoral, and popliteal veins are patent and normally compressible bilaterally. The greater saphenous vein and the profunda femoris vein at the junction with the common femoral vein are clear in both legs. The visualized calf veins are patent bilaterally. IMPRESSION: There is no sonographic evidence of deep venous thrombosis identified in the right or left lower extremity. Electronically signed by: Gustabo Levy M.D. 07/28/2017 11:47 AM Dictated Date/Time: 07/28/2017 11:46 AM
--- NOTE | 2017-07-28 12:32 | Nephrology Progress Note ---
Nephrology Progress Note Date of Service Jul 28, 2017. Chief Complaint End-stage renal disease on hemodialysis. Subjective Orly was seen and examined this morning. She has been feeling better shortness of breath improved and denies any further episode of cough. No fever or chills. Had dialysis yesterday, 2 liters UF. Blood pressure running slightly elevated. Electrolyte acceptable. Review of Systems A complete review of systems was performed. Pertinent positives are noted above. All other systems are negative. Vital Signs Last 8 Hrs Date Time Temp Pulse Resp B/P (MAP) Pulse Ox O2 Delivery O2 Flow Rate FiO2 07/28/17 07:25 36.9 83 18 153/79 (103) 93 Nasal Cannula 2.0 07/28/17 04:00 36.5 87 16 143/79 (100) 97 Nasal Cannula 2.0 07/28/17 04:00 97 Nasal Cannula 2.0 Last Recorded Weight Weight (Kilograms): 65.300 Physical Exam GENERAL: Middle-aged female , AAA x 3, pleasant, healthy-appearing, not in any distress. NECK: Supple, no JVD. RESPIRATORY: Normal breathing efforts, no accessory muscle use, decreased BS at bases, no wheezes or rales. CARDIOVASCULAR: S1, S2 normal, rate rhythm regular. EXTREMITY: No lower extremity edema NEURO: speech fluent. PSYCHIATRY: Normal mood and judgment Social History Smoking Status: Never smoker Marital Status: Housing Status: lives alone Laboratory Results Past 24 Hours 07/28/17 07:16 Red Blood Count 3.39, Mean Corpuscular Volume 92.0, Mean Corpuscular Hemoglobin 29.2, Mean Corpuscular Hemoglobin Concent 31.7, Mean Platelet Volume 9.5, Neutrophils (%) (Auto) 70.2, Lymphocytes (%) (Auto) 16.3, Monocytes (%) (Auto) 10.7, Eosinophils (%) (Auto) 2.2, Basophils (%) (Auto) 0.2, Neutrophils # (Auto ) 3.49, Lymphocytes # (Auto) 0.81, Monocytes # (Auto) 0.53, Eosinophils # (Auto ) 0.11, Basophils # (Auto) 0.01 07/28/17 07:16 Test 07/27/17 14:20 07/27/17 14:25 07/27/17 19:03 07/28/17 07:16 Influenza Type A (RT-PCR) Neg for Influ A (NEG) Influenza Type B (RT-PCR) Neg for Influ B (NEG) Urine Color YELLOW Urine Appearance CLEAR (CLEAR) Urine pH >= 9.0 (4.5-7.5) Urine Specific [place] 1.009 (1.000-1.030) Urine Protein 2+ (NEG) Urine Glucose (UA) TRACE (NEG) Urine Ketones NEG (NEG) Urine Occult Blood 1+ (NEG) Urine Nitrite NEG (NEG) Urine Bilirubin NEG (NEG) Urine Urobilinogen NEG (NEG) Urine Leukocyte Esterase MODERATE (NEG) Urine WBC (Auto) /hpf (0-5) Urine RBC (Auto) /hpf (0-4) Urine Hyaline Casts (Auto) /lpf (0-5) Urine Epithelial Cells (Auto) /lpf (0-5) Urine Bacteria (Auto) (NEG) Urine RBC 0-4 /hpf (0-4) Urine WBC 5-10 /hpf (0-5) Urine Epithelial Cells >30 /lpf (0-5) Urine Bacteria 1+ (NEG) D-Dimer 5500 ug/L FEU (0-500) White Blood Count 4.97 K/uL (4.8-10.8) Red Blood Count 3.39 M/uL (4.2-5.4) Hemoglobin 9.9 g/dL (12.0-16.0) Hematocrit 31.2 % (37-47) Mean Corpuscular Volume 92.0 fL (80-100) Mean Corpuscular Hemoglobin 29.2 pg (25-34) Mean Corpuscular Hemoglobin Concent 31.7 g/dl (32-36) Platelet Count 151 K/uL (130-400) Mean Platelet Volume 9.5 fL (7.4-10.4) Neutrophils (%) (Auto) 70.2 % Lymphocytes (%) (Auto) 16.3 % Monocytes (%) (Auto) 10.7 % Eosinophils (%) (Auto) 2.2 % Basophils (%) (Auto) 0.2 % Neutrophils # (Auto) 3.49 K/uL (1.4-6.5) Lymphocytes # (Auto) 0.81 K/uL (1.2-3.4) Monocytes # (Auto) 0.53 K/uL (0.11-0.59) Eosinophils # (Auto) 0.11 K/uL (0-0.5) Basophils # (Auto) 0.01 K/uL (0-0.2) RDW Standard Deviation 51.2 fL (36.4-46.3) RDW Coefficient of Variation 15.1 % (11.5-14.5) Immature Granulocyte % (Auto) 0.4 % Immature Granulocyte # (Auto) 0.02 K/uL (0.00-0.02) Anion Gap 8.0 mmol/L (3-11) Est Creatinine Clear Calc Drug Dose 8.6 ml/min Estimated GFR () 8.1 Estimated GFR (Non- 7.0 BUN/Creatinine Ratio 4.9 (10-20) Calcium Level 8.8 mg/dl (8.5-10.1) Magnesium Level 2.2 mg/dl (1.8-2.4) Allergies Uncoded Allergies: NARCOTIC ANALGESICS (Adverse Reaction, Intermediate, N/V, 07/27/17) Medications Current Inpatient Medications Medications (Trade) Dose Ordered Sig/Jose C Route Start Time Stop Time Status Last Admin Dose Admin Acetaminophen (Tylenol Tab) 650 mg Q4H PRN PO 07/27/17 11:00 08/26/17 10:59 Al Hydrox/Mg Hydrox/Simethicone (Maalox Max Susp) 15 ml Q4H PRN PO 07/27/17 11:00 08/26/17 10:59 07/27/17 22:49 15 ML Ondansetron HCl (Zofran Inj) 4 mg Q6H PRN IV 07/27/17 11:00 08/26/17 10:59 Nitroglycerin (Nitrostat Tab) 0.4 mg UD PRN SL 07/27/17 11:00 08/26/17 10:59 Amlodipine Besylate (Norvasc Tab) 5 mg BID PO 07/27/17 21:00 08/26/17 20:59 07/28/17 09:33 5 MG Calcium Acetate (Phoslo Cap) 667 mg TIDM PO 07/27/17 16:45 08/26/17 16:44 07/28/17 09:32 667 MG Isosorbide Mononitrate (Imdur Ext Rel Tab) 30 mg QAM PO 07/28/17 09:00 08/27/17 08:59 07/28/17 09:32 30 MG Labetalol HCl (Normodyne Tab) 100 mg BID PO 07/27/17 21:00 08/26/17 20:59 07/28/17 09:33 100 MG Multivitamins (Multivitamin Tab) 1 tab DAILY PO 07/28/17 09:00 08/27/17 08:59 07/28/17 09:32 1 TAB Ampicillin Sodium/ Sulbactam Sodium (Consult) 1 ea UD PRN N/A 07/27/17 19:30 08/26/17 19:29 Ampicillin Sodium/ Sulbactam Sodium 3000 mg/Sodium Chloride 108 ml @ 216 mls/hr Q24H IV 07/27/17 20:00 08/03/17 19:59 07/27/17 20:03 216 MLS/HR Lisinopril (Zestril Tab) 40 mg HS PO 07/28/17 21:00 08/27/17 08:59 Impression (1) End-stage renal disease on hemodialysis (2) Anemia (3) Secondary hyperparathyroidism of renal origin (4) Hypertension (5) Hematuria (6) Flank pain (7) Polycystic Kidney,Autosomal Dominant Ary is a 61-year-old female with end-stage renal disease secondary to polycystic kidney disease, currently on hemodialysis, Saturday, , Saturday at [facility] via left Radiocephalic AV fistula. She had last dialysis , missed dialysis this morning as she presented to ER. She was having left flank pain, cough and shortness of breath and presented to ER for further evaluation. Has history of polycystic kidney disease with bilateral enlarged kidney, recently there was plan for unilateral nephrectomy for increased size of the kidney however no state was no date was set yet. On admission her blood pressure, electrolyte acceptable. Chest x-ray showing have pulmonary edema. She is currently saturating well on 2 liters nasal cannula. Pending abdomen pelvis CT scan considering left flank pain and bilateral enlarged kidney. VQ scan and LE doppler was negative. Troponin normal. Recommendations --had dialysis yesterday currently electrolyte, volume status and blood pressure acceptable. --on antibiotic for pneumonia, may switch to oral soon --hemoglobin acceptable and no need for PATI at this point. --avoid IV fluid, dose medications for GFR less than 10, left arm nephrology precaution. --continue on renal diet --continue renal vitamin and phosphate binder with meal Will follow
--- NOTE | 2017-07-28 16:45 | ECHOCARDIOGRAM REPORT ---
*NOTICE TO RECEIVING LIBERTARIAN AGENCY This information is strictly Confidential and protected under [place] law. [place] law prohibits you from making any further disclosure of this information unless further disclosure is expressly permitted by the written consent of the person to whom it pertains or is authorized by law. A general authorization for the release of medical or other information is not sufficient for this purpose. Hospital accepts no responsibility if the information is made available to any other person, INCLUDING THE PATIENT. Interpretation Summary * Name: CHARITY DELACRUZ Study Date: 07/28/2017 09:03 AM BP: 143/79 mmHg * Patient Location: C.2T\S\E221\S\1 HR: 87 * : 1955 (M/d/yyyy) Gender: Female Height: 62 in * Age: 61 yrs Ethnicity: CA Weight: 143 lb * Ordering Physician: Artie Wolf * Referring Physician: Self, Referred * Performed By: Cailin Whiting RDCS * * Reason For Study: Pulmonary Embolism, Congestive Heart Failure * BSA: 1.7 m2 * -- Conclusions -- * The left ventricle is moderately dilated. * There is moderate concentric left ventricular hypertrophy. * Left ventricular systolic function is severely reduced. * Ejection Fraction = 15-20%. * No thrombus but spontaneous contrast noted in the cardiac chambers. * The right ventricular systolic function is normal. * The left atrium is moderately dilated. * Right atrial size is normal. * No significant valvular pathology. Procedure Details * A complete two-dimensional transthoracic echocardiogram was performed (2D, M-mode, Doppler and color flow Doppler). Left Ventricle * The left ventricle is moderately dilated. * No thrombus but spontaneous contrast noted in the cardiac chambers. * There is moderate concentric left ventricular hypertrophy. * Ejection Fraction = 15-20%. * Left ventricular systolic function is severely reduced. Right Ventricle * The right ventricle is normal size. * The right ventricular systolic function is normal. Atria * The left atrium is moderately dilated. * Right atrial size is normal. * No ASD detected; PFO is not assessed. Mitral Valve * The mitral valve leaflets appear thickened, but open well. * Significant mitral regurgitation is absent. Tricuspid Valve * The tricuspid valve leaflets are thickened and/or calcified, but open well. * Significant tricuspid regurgitation is absent. Aortic Valve * The aortic valve is tricuspid. The leaflet thickness if normal. There is no aortic stenosis, and no significant insufficiency. * Aortic stenosis is absent. * There is no significant aortic regurgitation. Pulmonic Valve * The pulmonic valve is not well seen, but is grossly normal. * There is no significant pulmonary regurgitation. Great Vessels * The aortic root and proximal ascending aorta are normal sized. Pericardium/Pleural * Small pericardial effusion. Left Ventricular Diastolic Function * Grade I diastolic dysfunction, (abnormal relaxation pattern). MMode 2D Measurements and Calculations IVSd 1.0 cm IVSs 1.1 cm LVIDd 3.9 cm LVIDs 2.9 cm LVPWd 1.2 cm LVPWs 1.3 cm IVS/LVPW 0.84 FS 24.6 % EDV(Teich) 65.2 ml ESV(Teich) 33.0 ml EF(Teich) 49.5 % EDV(cubed) 58.6 ml ESV(cubed) 25.1 ml EF(cubed) 57.2 % % IVS thick 9.4 % % LVPW thick 10.1 % LV mass(C)d 139.6 grams LV mass(C)dI 84.2 grams/m\S\2 LV mass(C)s 107.0 grams LV mass(C)sI 64.5 grams/m\S\2 SV(Teich) 32.3 ml SI(Teich) 19.5 ml/m\S\2 SV(cubed) 33.5 ml SI(cubed) 20.2 ml/m\S\2 Ao root diam 2.7 cm Ao root area 5.6 cm\S\2 ACS 1.6 cm LA dimension 3.5 cm LA/Ao 1.3 LVAd ap4 37.5 cm\S\2 LVLd ap4 9.1 cm EDV(MOD-sp4) 127.9 ml EDV(sp4-el) 131.6 ml LVAs ap4 25.3 cm\S\2 LVLs ap4 7.8 cm ESV(MOD-sp4) 70.5 ml ESV(sp4-el) 70.0 ml EF(MOD-sp4) 44.8 % EF(sp4-el) 46.8 % LVAd ap2 40.9 cm\S\2 LVLd ap2 9.6 cm EDV(MOD-sp2) 150.8 ml EDV(sp2-el) 148.6 ml LVAs ap2 26.7 cm\S\2 LVLs ap2 8.6 cm ESV(MOD-sp2) 75.4 ml ESV(sp2-el) 70.3 ml EF(MOD-sp2) 50.0 % EF(sp2-el) 52.7 % LVLd %diff 4.9 % EDV(MOD-bp) 141.8 ml LVLs %diff 9.6 % ESV(MOD-bp) 77.0 ml EF(MOD-bp) 45.7 % SV(MOD-sp4) 57.3 ml SI(MOD-sp4) 34.6 ml/m\S\2 SV(MOD-sp2) 75.4 ml SI(MOD-sp2) 45.5 ml/m\S\2 SV(MOD-bp) 64.8 ml SI(MOD-bp) 39.1 ml/m\S\2 SV(sp4-el) 61.6 ml SI(sp4-el) 37.1 ml/m\S\2 SV(sp2-el) 78.3 ml SI(sp2-el) 47.2 ml/m\S\2 Doppler Measurements and Calculations MV E max scot 85.7 cm/sec MV A max scot 111.1 cm/sec MV E/A 0.77 MV dec time 0.23 sec Ao V2 max 130.5 cm/sec Ao max PG 6.8 mmHg Ao max PG (full) 2.5 mmHg LV V1 max PG 4.3 mmHg LV V1 max 104.1 cm/sec PA V2 max 101.7 cm/sec PA max PG 4.1 mmHg PI max scot 195.3 cm/sec PI max PG 15.3 mmHg PI dec slope 71.9 cm/sec\S\2 PI P1/2t 795.5 msec TR max scot 305.8 cm/sec
[2017-07-28] MEDS: AMPICILLIN/SULBACTAM SOD INJ 3,000 MG in SODIUM CHLORIDE 0.9% 100ML 100 ML IV SCH (20:07)
[2017-07-28] MEDS: LISINOPRIL 40 MG TAB PO SCH (21:45)
[2017-07-29] VITALS (8 sets, daily range): BP systolic 150–185; BP diastolic 78–88; PULSE 72–102; TEMP 36.7–37.1; O2SAT 93–95
[2017-07-29 07:48] LABS: BASO % 0.2 %; BASO ABS # 0.01 K/uL (0-0.2); EOS % 2.7 %; EOS ABS # 0.14 K/uL (0-0.5); HEMOGLOBIN 9.9 g/dL (12.0-16.0); IG# 0.01 K/uL (0.00-0.02); LYMPH % 16.3 %; LYMPH ABS # 0.86 K/uL (1.2-3.4); MEAN CELL VOLUME 90.6 fL (80-100); MEAN CORPUSCULAR HEMOGLOBIN 28.9 pg (25-34); MEAN CORPUSCULAR HGB CONC 31.9 g/dl (32-36); MEAN PLATELET VOLUME 10.1 fL (7.4-10.4); MONO % 10.2 %; MONO ABS # 0.54 K/uL (0.11-0.59); NEUT % 70.4 %; NEUT ABS # 3.72 K/uL (1.4-6.5); PLATELET COUNT 148 K/uL (130-400); RED CELL DISTRIBUTION WIDTH CV 14.9 % (11.5-14.5); RED CELL DISTRIBUTION WIDTH SD 49.9 fL (36.4-46.3); WHITE BLOOD COUNT 5.28 K/uL (4.8-10.8)
[2017-07-29] MEDS: VANCOMYCIN HCL 125 MG/2.5ML SOLN PO SCH ×4 (08:19→23:46)
[2017-07-29] MEDS: RASPBERRY SYRUP 5 ML UDP PO SCH ×4 (08:19→23:46)
[2017-07-29] MEDS: MULTIVITAMIN TAB PO SCH (08:20)
[2017-07-29] MEDS: AMLODIPINE BESYLATE 5 MG TAB PO SCH ×2 (08:20→21:00)
[2017-07-29] MEDS: CALCIUM ACETATE 667MG GELCAP PO SCH ×3 (08:20→16:52)
[2017-07-29] MEDS: ISOSORBIDE MONONITRATE 30 MG TABCR PO SCH (08:20)
[2017-07-29] MEDS: LABETALOL HCL 100 MG TAB PO SCH ×2 (08:20→20:57)
[2017-07-29 08:27] LABS: CALCIUM 8.7 mg/dl (8.5-10.1); CREATININE 7.92 mg/dl (0.60-1.20); POTASSIUM 4.2 mmol/L (3.5-5.1)
--- NOTE | 2017-07-29 09:54 | Progress Note ---
Internal Med Progress Note Date of Service: Jul 29, 2017. Provider Documentation: SUBJECTIVE: resting comfortably had one episode of loose stools today denies any nausea or abdominal pain denies chest pain sob resolved and off of oxygen afebrile OBJECTIVE: Vital Signs-as noted below Exam: General-alert and Oriented. Not in distress. ENT-Normal hearing Neck-no neck masses Lungs-cta b/l no wheezing or crackles Heart-s1 and s2 heard regular no murmurs Abdomen-soft bowel sounds present non tender no distension Extremities-no erythema no edema Neuro-alert and awake moves extremities Lab data as noted below. ASSESSMENT & PLAN: This 61-year-old female who presents with episode of nausea and vomiting, left flank pain and hypoxia.. 1. Left flank pain. The patient has history of polycystic kidney disease. CT scan of the abdomen and pelvis no cyst rupture.pain resolved 2. Hypoxia, volume overload on chest x-ray is/p dialysis yesterday also aspiration ct scan starred on Unasyn speech evaluation. di dimer elevated v/q scan-low probability No DVT on venous Doppler Echo shows new chf with EF 15-20% 3.Acute systolic chf new onset. on presentation ef 15-20% on echo consulted cardiology- adjusting meds and wants to monitor response 4. Episode of nausea and vomiting. Follow the CAT scan of the abdomen unremarkable. tolerating clears will advance diet.aspiration? await speech evaluation 5. Hypertension. Continue amlodipine and Imdur, and lisinopril. Monitor blood pressure 6 Anemia of chronic disease. hb 9.9Will follow the labs. 7. C DIFF POSITIVE STARTED ON PO VANCO- TO COMPLETE 10DAY COURSE 6. Deep venous thrombosis prophylaxis. SCDs and TEDs for now. 7. Disposition: Monitor in tele floor. Expect to discharge home and follow with family doctor. Level 1 full code. Vital Signs: Date Time Temp Pulse Resp B/P (MAP) Pulse Ox O2 Delivery O2 Flow Rate FiO2 07/29/17 19:35 37.1 90 16 150/88 (108) 95 Room Air 07/29/17 16:00 95 Room Air 07/29/17 15:57 97 162/78 (106) 07/29/17 15:33 36.7 102 18 185/83 (117) 95 Room Air 07/29/17 12:00 Room Air 3/5/18 11:31 36.9 72 16 153/80 (104) 93 Room Air 07/29/17 07:38 37.0 72 16 157/80 (105) 93 07/29/17 04:00 Room Air 07/29/17 03:45 37.0 88 17 151/82 (105) 93 Room Air 07/28/17 23:59 Room Air 07/28/17 23:30 37.1 85 17 148/76 (100) 94 Room Air 07/28/17 20:00 Room Air 07/28/17 19:56 36.9 98 16 158/71 (100) 93 Room Air Lab Results: Results Past 24 Hours Test 07/29/17 07:21 Range/Units White Blood Count 5.28 4.8-10.8 K/uL Red Blood Count 3.42 4.2-5.4 M/uL Hemoglobin 9.9 12.0-16.0 g/dL Hematocrit 31.0 37-47 % Mean Corpuscular Volume 90.6 80-100 fL Mean Corpuscular Hemoglobin 28.9 25-34 pg Mean Corpuscular Hemoglobin Concent 31.9 32-36 g/dl Platelet Count 148 130-400 K/uL Mean Platelet Volume 10.1 7.4-10.4 fL Neutrophils (%) (Auto) 70.4 % Lymphocytes (%) (Auto) 16.3 % Monocytes (%) (Auto) 10.2 % Eosinophils (%) (Auto) 2.7 % Basophils (%) (Auto) 0.2 % Neutrophils # (Auto) 3.72 1.4-6.5 K/uL Lymphocytes # (Auto) 0.86 1.2-3.4 K/uL Monocytes # (Auto) 0.54 0.11-0.59 K/uL Eosinophils # (Auto) 0.14 0-0.5 K/uL Basophils # (Auto) 0.01 0-0.2 K/uL RDW Standard Deviation 49.9 36.4-46.3 fL RDW Coefficient of Variation 14.9 11.5-14.5 % Immature Granulocyte % (Auto) 0.2 % Immature Granulocyte # (Auto) 0.01 0.00-0.02 K/uL Sodium Level 134 136-145 mmol/L Potassium Level 4.2 3.5-5.1 mmol/L Chloride Level 97 98-107 mmol/L Carbon Dioxide Level 27 21-32 mmol/L Anion Gap 10.0 3-11 mmol/L Blood Urea Nitrogen 42 7-18 mg/dl Creatinine 7.92 0.60-1.20 mg/dl Est Creatinine Clear Calc Drug Dose 6.4 ml/min Estimated GFR () 5.7 Estimated GFR (Non- 4.9 BUN/Creatinine Ratio 5.2 10-20 Random Glucose 96 70-99 mg/dl Calcium Level 8.7 8.5-10.1 mg/dl Magnesium Level 2.2 1.8-2.4 mg/dl Microbiology Results 07/29/17 C.difficile Toxin B Gene (PCR) - Final, Complete Positive for C. difficile toxin B gene 07/29/17 Shiga Toxin Test, Received Pending 07/29/17 Stool Culture, Received Pending
--- NOTE | 2017-07-29 10:19 | Nephrology Progress Note ---
Nephrology Progress Note Date of Service Jul 29, 2017. Chief Complaint End-stage renal disease on hemodialysis. Subjective Orly was seen and examined this morning. She has been feeling better, shortness of breath improved and denies any further episode of cough. No fever or chills. Had dialysis Saturday, 2 liters UF. Blood pressure , volume status and Electrolyte acceptable. Review of Systems A complete review of systems was performed. Pertinent positives are noted above. All other systems are negative. Vital Signs Last 8 Hrs Date Time Temp Pulse Resp B/P (MAP) Pulse Ox O2 Delivery O2 Flow Rate FiO2 07/29/17 07:38 37.0 72 16 157/80 (105) 93 07/29/17 04:00 Room Air 07/29/17 03:45 37.0 88 17 151/82 (105) 93 Room Air Last Recorded Weight Weight (Kilograms): 65.000 Physical Exam GENERAL: Middle-aged female , AAA x 3, pleasant, healthy-appearing, not in any distress. NECK: Supple, no JVD. RESPIRATORY: Normal breathing efforts, no accessory muscle use, decreased BS at bases, no wheezes or rales. CARDIOVASCULAR: S1, S2 normal, rate rhythm regular. EXTREMITY: No lower extremity edema NEURO: speech fluent. PSYCHIATRY: Normal mood and judgment Social History Smoking Status: Never smoker Marital Status: Housing Status: lives alone Laboratory Results Past 24 Hours 07/29/17 07:21 Red Blood Count 3.42, Mean Corpuscular Volume 90.6, Mean Corpuscular Hemoglobin 28.9, Mean Corpuscular Hemoglobin Concent 31.9, Mean Platelet Volume 10.1, Neutrophils (%) (Auto) 70.4, Lymphocytes (%) (Auto) 16.3, Monocytes (%) (Auto) 10.2, Eosinophils (%) (Auto) 2.7, Basophils (%) (Auto) 0.2, Neutrophils # (Auto ) 3.72, Lymphocytes # (Auto) 0.86, Monocytes # (Auto) 0.54, Eosinophils # (Auto ) 0.14, Basophils # (Auto) 0.01 07/29/17 07:21 Test 07/29/17 07:21 White Blood Count 5.28 K/uL (4.8-10.8) Red Blood Count 3.42 M/uL (4.2-5.4) Hemoglobin 9.9 g/dL (12.0-16.0) Hematocrit 31.0 % (37-47) Mean Corpuscular Volume 90.6 fL (80-100) Mean Corpuscular Hemoglobin 28.9 pg (25-34) Mean Corpuscular Hemoglobin Concent 31.9 g/dl (32-36) Platelet Count 148 K/uL (130-400) Mean Platelet Volume 10.1 fL (7.4-10.4) Neutrophils (%) (Auto) 70.4 % Lymphocytes (%) (Auto) 16.3 % Monocytes (%) (Auto) 10.2 % Eosinophils (%) (Auto) 2.7 % Basophils (%) (Auto) 0.2 % Neutrophils # (Auto) 3.72 K/uL (1.4-6.5) Lymphocytes # (Auto) 0.86 K/uL (1.2-3.4) Monocytes # (Auto) 0.54 K/uL (0.11-0.59) Eosinophils # (Auto) 0.14 K/uL (0-0.5) Basophils # (Auto) 0.01 K/uL (0-0.2) RDW Standard Deviation 49.9 fL (36.4-46.3) RDW Coefficient of Variation 14.9 % (11.5-14.5) Immature Granulocyte % (Auto) 0.2 % Immature Granulocyte # (Auto) 0.01 K/uL (0.00-0.02) Anion Gap 10.0 mmol/L (3-11) Est Creatinine Clear Calc Drug Dose 6.4 ml/min Estimated GFR () 5.7 Estimated GFR (Non- 4.9 BUN/Creatinine Ratio 5.2 (10-20) Calcium Level 8.7 mg/dl (8.5-10.1) Magnesium Level 2.2 mg/dl (1.8-2.4) Date/Time Source Procedure Growth Status 07/29/17 03:40 Stool C.difficile Toxin B Gene (PCR) - Final Positive for C. difficile toxin B gene Complete Allergies Uncoded Allergies: NARCOTIC ANALGESICS (Adverse Reaction, Intermediate, N/V, 07/27/17) Medications Current Inpatient Medications Medications (Trade) Dose Ordered Sig/Jose C Route Start Time Stop Time Status Last Admin Dose Admin Acetaminophen (Tylenol Tab) 650 mg Q4H PRN PO 07/27/17 11:00 08/26/17 10:59 Al Hydrox/Mg Hydrox/Simethicone (Maalox Max Susp) 15 ml Q4H PRN PO 07/27/17 11:00 08/26/17 10:59 07/27/17 22:49 15 ML Ondansetron HCl (Zofran Inj) 4 mg Q6H PRN IV 07/27/17 11:00 08/26/17 10:59 Nitroglycerin (Nitrostat Tab) 0.4 mg UD PRN SL 07/27/17 11:00 08/26/17 10:59 Amlodipine Besylate (Norvasc Tab) 5 mg BID PO 07/27/17 21:00 08/26/17 20:59 07/29/17 08:20 5 MG Calcium Acetate (Phoslo Cap) 667 mg TIDM PO 07/27/17 16:45 08/26/17 16:44 07/29/17 08:20 667 MG Isosorbide Mononitrate (Imdur Ext Rel Tab) 30 mg QAM PO 07/28/17 09:00 08/27/17 08:59 07/29/17 08:20 30 MG Labetalol HCl (Normodyne Tab) 100 mg BID PO 07/27/17 21:00 08/26/17 20:59 07/29/17 08:20 100 MG Multivitamins (Multivitamin Tab) 1 tab DAILY PO 07/28/17 09:00 08/27/17 08:59 07/29/17 08:20 1 TAB Ampicillin Sodium/ Sulbactam Sodium (Consult) 1 ea UD PRN N/A 07/27/17 19:30 08/26/17 19:29 Ampicillin Sodium/ Sulbactam Sodium 3000 mg/Sodium Chloride 108 ml @ 216 mls/hr Q24H IV 07/27/17 20:00 08/03/17 19:59 07/28/17 20:07 216 MLS/HR Lisinopril (Zestril Tab) 40 mg HS PO 07/28/17 21:00 08/27/17 08:59 07/28/17 21:45 40 MG Vancomycin HCl (Vancomycin Oral Soln) 125 mg Q6 PO 07/29/17 07:30 08/12/17 07:29 07/29/17 08:19 125 MG Raspberry (Raspberry Syrup 5ml Cup) 5 ml Q6 PO 07/29/17 07:30 08/12/17 07:29 07/29/17 08:19 5 ML Impression (1) End-stage renal disease on hemodialysis (2) Anemia (3) Secondary hyperparathyroidism of renal origin (4) Hypertension (5) Hematuria (6) Flank pain (7) Polycystic Kidney,Autosomal Dominant Ary is a 61-year-old female with end-stage renal disease secondary to polycystic kidney disease, currently on hemodialysis, Saturday, , Saturday at [facility] via left Radiocephalic AV fistula. She had last dialysis , missed dialysis this morning as she presented to ER. She was having left flank pain, cough and shortness of breath and presented to ER for further evaluation. Has history of polycystic kidney disease with bilateral enlarged kidney, recently there was plan for unilateral nephrectomy for increased size of the kidney however no state was no date was set yet. On admission her blood pressure, electrolyte acceptable. Chest x-ray showing have pulmonary edema. She is currently saturating well on 2 liters nasal cannula. Pending abdomen pelvis CT scan considering left flank pain and bilateral enlarged kidney. VQ scan and LE doppler was negative. Troponin normal. C diff positive. Echo with EF only 25% with prior known normal EF few years ago , unclear etiology. Recommendations --had dialysis Saturday currently electrolyte, volume status and blood pressure acceptable. --on antibiotic for pneumonia, may switch to oral soon --hemoglobin acceptable and no need for PATI at this point. --avoid IV fluid, dose medications for GFR less than 10, left arm nephrology precaution. --continue on renal diet --continue renal vitamin and phosphate binder with meal --getting evaluated by cardiology for significant drop in EF --on oral Vanco for c diff. Will follow
[2017-07-29] MEDS ORDERED: EPOETIN ALFA 10,000 UNITS/ML VIAL IV SCH (11:00)
--- NOTE | 2017-07-29 12:08 | Clinical Documentation Query ---
QUERY 1 OF [address] NEWMAN, In your clinical opinion is this patient being managed for: ( ) possible Aspiration Pneumonia ( ) Not Agree ( ) Other explanation of clinical findings (Please Explain) ( ) Unable to determine (Please Define) ( ) Need to Discuss The medical record reflects the following clinical findings, treatment, and risk factors. Clinical Indicators:61 yo female presenting with flank pain and N/V. CXR suggested volume overload and pulmonary edema with a differential including aspiration. Treatment:Speech therapy eval, IV ampicillin, vancomycin po, Risk Factors: nausea and vomiting QUERY 2 OF 2 In your clinical opinion is this patient being managed for: ( ) Acute combined systolic and diastolic CHF ( ) Not Agree ( ) Other explanation of clinical findings (Please Explain) ( ) Unable to determine (Please Define) ( ) Need to Discuss The medical record reflects the following clinical findings, treatment, and risk factors. Clinical Indicators: Pt presented with volume overload. Lungs with bibasilar crackles, hypoxic on O2 (92% on 2L). ECHO showed EF 15-20% and grade I diastolic dysfunction Treatment:nephrology and cardiology consult, dialysis tx, ECHO, O2 support, tele, I/O, daily wts Risk Factors: ESRD Please clarify and document your clinical opinion in the progress notes and discharge summary. Terms such as "probable", "suspected", "likely", "questionable", "possible", or "still to be ruled out" are acceptable. IF IN AGREEMENT, YOU MUST DOCUMENT ABOVE DIAGNOSTIC STATEMENT IN DAILY PROGRESS NOTES AND DISCHARGE SUMMARY. This document is not part of the patient's record. Thank You, Bree Adam, RN [phone]
--- NOTE | 2017-07-29 13:21 | Cardiology Consultation ---
Cardiology Consultation Date of Service Jul 29, 2017. Cardiology Consultation Indication: Consultation for cardiomyopathy History: This is a 61-year-old female with polycystic kidney and liver disease who has been on dialysis for the past 3-4 years. She has no prior history of heart disease. Last week she started with a dry cough. She has not been feeling well in general with malaise and dyspnea. Patient was at dialysis and mentioned her symptoms and was referred for admission. The patient had a resting echocardiogram completed that shows severe LV dysfunction consistent with a newly discovered cardiomyopathy. She denies chest pain. She's had no heart palpitations or tachycardia. Allergies: Narcotics and analgesics Reported Home Medications Medications Dose Route/Sig Max Daily Dose Days Date Category Dose Instructions Phoslo 667 Mg (Calcium Acetate) 667 Mg Cap 1 Cap PO WITH SNACKS 07/27/17 Reported Phoslo 667 Mg (Calcium Acetate) 667 Mg Cap 2,668 Mg PO WM 07/27/17 Reported 4 CAPSULE DOSE Imdur Ext Rel (Isosorbide Mononitrate) 30 Mg Ertab 30 Mg PO QAM 07/27/17 Reported Multivitamin (Multivitamins) Tab 1 Tab PO DAILY 07/06/13 Reported Zestril (Lisinopril) 40 Mg Tab 40 Mg PO HS 07/06/13 Reported Norvasc (Amlodipine Besylate) 5 Mg Tab 5 Mg PO BID 07/06/13 Reported Normodyne (Labetalol HCl) 100 Mg Tab 100 Mg PO BID 07/06/13 Reported Past medical history: The majority of her past medical history is related to her polycystic kidney and liver disease along with dialysis. Social history: The patient is a nonsmoker. Family medical history: The patient lives with her son who also has polycystic kidney disease and is on peritoneal dialysis General: The patient denies weight change, night sweats, fever, chills. Head: The patient denies headache and prior head trauma. Cardiovascular: The patient denies chest pain or chest discomfort, dyspnea on exertion, palpitations, PND, orthopnea, edema, spontaneous shortness of breath, syncope and near syncope. Pulmonary: The patient denies cough, wheeze, pleurisy, hemoptysis, sputum, and excessive snoring. Gastrointestinal: The patient denies nausea, vomiting, diarrhea, constipation, bloating, hematemesis, hematochezia, and abdominal pain. Skin: The patient denies diaphoresis and rash. Musculoskeletal: The patient denies joint pain, joint swelling, myalgia, back pain, neck pain and prior injuries. Neurological: The patient denies prior stroke and seizures Vital Signs Past 12 Hours Date Time Temp Pulse Resp B/P (MAP) Pulse Ox O2 Delivery O2 Flow Rate FiO2 07/29/17 11:31 36.9 72 16 153/80 (104) 93 Room Air 07/29/17 07:38 37.0 72 16 157/80 (105) 93 07/29/17 04:00 Room Air 07/29/17 03:45 37.0 88 17 151/82 (105) 93 Room Air General Appearance: Alert and Oriented x3. NAD. Head: Normocephalic Atraumatic. Eyes: PERRLA, EOMI, conjunctiva and sclera clear Neck: Supple. No carotid bruits noted. No JVD. No HJD. Respiratory: Breath sounds clear to auscultation bilaterally. No w/r/r. Cardiovascular: Reg rate and rhythm. S1 and S2 noted. No murmurs, rubs, gallops. PMI non displace. Abdomen: The abdomen is distended with a fluid wave Extremities: No edema, no clubbing or cyanosis. distal pulses 2/4 bilaterally. Neuro: No focal deficits. Psychiatric: Normal affect. Last 24 Hours Test 07/29/17 07:21 White Blood Count 5.28 K/uL Red Blood Count 3.42 M/uL Hemoglobin 9.9 g/dL Hematocrit 31.0 % Mean Corpuscular Volume 90.6 fL Mean Corpuscular Hemoglobin 28.9 pg Mean Corpuscular Hemoglobin Concent 31.9 g/dl Platelet Count 148 K/uL Mean Platelet Volume 10.1 fL Neutrophils (%) (Auto) 70.4 % Lymphocytes (%) (Auto) 16.3 % Monocytes (%) (Auto) 10.2 % Eosinophils (%) (Auto) 2.7 % Basophils (%) (Auto) 0.2 % Neutrophils # (Auto) 3.72 K/uL Lymphocytes # (Auto) 0.86 K/uL Monocytes # (Auto) 0.54 K/uL Eosinophils # (Auto) 0.14 K/uL Basophils # (Auto) 0.01 K/uL RDW Standard Deviation 49.9 fL RDW Coefficient of Variation 14.9 % Immature Granulocyte % (Auto) 0.2 % Immature Granulocyte # (Auto) 0.01 K/uL Sodium Level 134 mmol/L Potassium Level 4.2 mmol/L Chloride Level 97 mmol/L Carbon Dioxide Level 27 mmol/L Anion Gap 10.0 mmol/L Blood Urea Nitrogen 42 mg/dl Creatinine 7.92 mg/dl Est Creatinine Clear Calc Drug Dose 6.4 ml/min Estimated GFR () 5.7 Estimated GFR (Non- 4.9 BUN/Creatinine Ratio 5.2 Random Glucose 96 mg/dl Calcium Level 8.7 mg/dl Magnesium Level 2.2 mg/dl Impression: 1. Newly discovered dilated cardiomyopathy with severe LV dysfunction 2. Polycystic kidney and liver disease 3. Hemodialysis Recommendations: I think we should take this opportunity to switch this patient to guideline directed medicine for heart failure. I don't have a good reason why she has suddenly presented with a cardiomyopathy other than perhaps due to long-term hypertension and kidney disease. She is currently clinically stable. I would recommend that we wean her from the labetalol and start carvedilol for her. She is already on an JAEL inhibitor. I will have further recommendations following the above. Thank you Dr. Garcia
[2017-07-29] MEDS ORDERED: CARVEDILOL 3.125 MG TAB PO ONE (13:30)
[2017-07-29] MEDS: AMPICILLIN/SULBACTAM SOD INJ 3,000 MG in SODIUM CHLORIDE 0.9% 100ML 100 ML IV SCH (20:55)
[2017-07-29] MEDS: LISINOPRIL 40 MG TAB PO SCH (20:59)
[2017-07-29] MEDS ORDERED: CARVEDILOL 3.125 MG TAB PO SCH (21:00)
[2017-07-30] VITALS (24 sets, daily range): BP systolic 130–170; BP diastolic 77–98; PULSE 88–112; TEMP 36.4–37; O2SAT 92–99
[2017-07-30] MEDS ORDERED: LEVALBUTEROL/IPRATROPIUM NEB INH STA (03:46)
[2017-07-30] MEDS ORDERED: IPRATROPIUM BROMIDE NEB SOLN 0.02% 2.5 ML VIAL INH STA (03:48)
[2017-07-30] MEDS ORDERED: LEVALBUTEROL 1.25MG/0.5ML NEB INH STA (03:48)
[2017-07-30] MEDS ORDERED: METHYLPREDNISOLONE IV 40 MG in SYRINGE 0 ML IV STA (03:49)
[2017-07-30] MEDS ORDERED: LEVALBUTEROL/IPRATROPIUM NEB INH PRN (04:00)
[2017-07-30] MEDS ORDERED: LEVALBUTEROL 1.25MG/0.5ML NEB INH PRN (04:00)
[2017-07-30] MEDS ORDERED: IPRATROPIUM BROMIDE NEB SOLN 0.02% 2.5 ML VIAL INH PRN (04:00)
[2017-07-30] MEDS ORDERED: FUROSEMIDE INJ 120 MG in SYRINGE 0 ML IV SCH (04:05)
[2017-07-30 04:32] LABS: BASO % 0.2 %; BASO ABS # 0.02 K/uL (0-0.2); EOS % 3.2 %; EOS ABS # 0.29 K/uL (0-0.5); HEMATOCRIT 34.4 % (37-47); HEMOGLOBIN 11.1 g/dL (12.0-16.0); IG# 0.04 K/uL (0.00-0.02); LYMPH % 11.6 %; LYMPH ABS # 1.04 K/uL (1.2-3.4); MEAN CELL VOLUME 90.1 fL (80-100); MEAN CORPUSCULAR HEMOGLOBIN 29.1 pg (25-34); MEAN CORPUSCULAR HGB CONC 32.3 g/dl (32-36); MEAN PLATELET VOLUME 10.4 fL (7.4-10.4); MONO % 5.7 %; MONO ABS # 0.51 K/uL (0.11-0.59); NEUT % 78.9 %; PLATELET COUNT 192 K/uL (130-400); RED CELL DISTRIBUTION WIDTH CV 14.9 % (11.5-14.5); RED CELL DISTRIBUTION WIDTH SD 49.1 fL (36.4-46.3)
[2017-07-30 04:41] LABS: PTT PATIENT 33.6 SECONDS (21.0-31.0)
[2017-07-30] MEDS ORDERED: PROCHLORPERAZINE INJ 5 MG in SYRINGE 4 ML IV PRN (05:00)
[2017-07-30 05:02] LABS: CALCIUM 8.4 mg/dl (8.5-10.1); CREATININE 9.25 mg/dl (0.60-1.20); POTASSIUM 4.8 mmol/L (3.5-5.1)
[2017-07-30] MEDS: RASPBERRY SYRUP 5 ML UDP PO SCH ×4 (05:51→23:49)
[2017-07-30] MEDS: VANCOMYCIN HCL 125 MG/2.5ML SOLN PO SCH ×4 (05:51→23:49)
--- NOTE | 2017-07-30 07:20 | DIAGNOSTIC IMAGING REPORT ---
SINGLE VIEW CHEST CLINICAL HISTORY: Dyspnea. FINDINGS: An AP, portable, upright chest radiograph is compared to study dated 07/27/2017. The examination is degraded by portable technique and patient rotation. The heart is enlarged and there is atherosclerotic calcification of the thoracic aorta. There is pulmonary vascular congestion with interstitial edema. Layering pleural effusions are identified with bibasilar consolidation. No pneumothorax is seen. The skeletal structures are osteopenic. The bony thorax is grossly intact. IMPRESSION: 1. Cardiomegaly with evidence of congestive failure and interstitial edema. This is similar to the 07/27/2017 examination. 2. Layering pleural effusions with bibasilar consolidation. Electronically signed by: Gustabo Levy M.D. 07/30/2017 7:19 AM Dictated Date/Time: 07/30/2017 7:18 AM
[2017-07-30] MEDS: CALCIUM ACETATE 667MG GELCAP PO SCH ×3 (08:16→19:11)
[2017-07-30] MEDS: MULTIVITAMIN TAB PO SCH (08:16)
[2017-07-30] MEDS ORDERED: EPOETIN ALFA 10,000 UNITS/ML VIAL IV SCH (10:30)
--- NOTE | 2017-07-30 11:52 | Nephrology Progress Note ---
Nephrology Progress Note Date of Service Jul 30, 2017. Chief Complaint End-stage renal disease on hemodialysis. April Villalba was seen and examined in her room this morning. She had an episode of worsening shortness of breath and twister tender paper around 2:30 a.m., had chest x- ray suggestive of pulmonary congestion. She received nebulizer treatment, now breathing better with nasal cannula oxygen. Blood pressure stable. Review of Systems A complete review of systems was performed. Pertinent positives are noted above. All other systems are negative. Vital Signs Last 8 Hrs Date Time Temp Pulse Resp B/P (MAP) Pulse Ox O2 Delivery O2 Flow Rate FiO2 07/30/17 08:00 Nasal Cannula 4.0 07/30/17 07:30 36.4 88 18 130/78 (95) 98 Nasal Cannula 5.0 07/30/17 04:00 Non-Rebreather 15.0 07/30/17 04:00 37.0 112 18 156/90 (112) 92 Non-Rebreather 15.0 Last Recorded Weight Weight (Kilograms): 66.400 Physical Exam GENERAL: Middle-aged female , AAA x 3, pleasant, ill-appearing, not in any distress. NECK: Supple, no JVD. RESPIRATORY: Normal breathing efforts, no accessory muscle use, decreased BS and rales at bases. CARDIOVASCULAR: S1, S2 normal, rate rhythm regular. EXTREMITY: No lower extremity edema NEURO: speech fluent. PSYCHIATRY: Normal mood and judgment Social History Smoking Status: Never smoker Marital Status: Housing Status: lives alone Laboratory Results Past 24 Hours 07/30/17 04:16 Red Blood Count 3.82, Mean Corpuscular Volume 90.1, Mean Corpuscular Hemoglobin 29.1, Mean Corpuscular Hemoglobin Concent 32.3, Mean Platelet Volume 10.4, Neutrophils (%) (Auto) 78.9, Lymphocytes (%) (Auto) 11.6, Monocytes (%) (Auto) 5.7, Eosinophils (%) (Auto) 3.2, Basophils (%) (Auto) 0.2, Neutrophils # (Auto) 7.10, Lymphocytes # (Auto) 1.04, Monocytes # (Auto) 0.51, Eosinophils # (Auto) 0.29, Basophils # (Auto) 0.02 07/30/17 04:16 Test 07/30/17 04:16 White Blood Count 9.00 K/uL (4.8-10.8) Red Blood Count 3.82 M/uL (4.2-5.4) Hemoglobin 11.1 g/dL (12.0-16.0) Hematocrit 34.4 % (37-47) Mean Corpuscular Volume 90.1 fL (80-100) Mean Corpuscular Hemoglobin 29.1 pg (25-34) Mean Corpuscular Hemoglobin Concent 32.3 g/dl (32-36) Platelet Count 192 K/uL (130-400) Mean Platelet Volume 10.4 fL (7.4-10.4) Neutrophils (%) (Auto) 78.9 % Lymphocytes (%) (Auto) 11.6 % Monocytes (%) (Auto) 5.7 % Eosinophils (%) (Auto) 3.2 % Basophils (%) (Auto) 0.2 % Neutrophils # (Auto) 7.10 K/uL (1.4-6.5) Lymphocytes # (Auto) 1.04 K/uL (1.2-3.4) Monocytes # (Auto) 0.51 K/uL (0.11-0.59) Eosinophils # (Auto) 0.29 K/uL (0-0.5) Basophils # (Auto) 0.02 K/uL (0-0.2) RDW Standard Deviation 49.1 fL (36.4-46.3) RDW Coefficient of Variation 14.9 % (11.5-14.5) Immature Granulocyte % (Auto) 0.4 % Immature Granulocyte # (Auto) 0.04 K/uL (0.00-0.02) Activated Partial Thromboplast Time 33.6 SECONDS (21.0-31.0) Partial Thromboplastin Ratio 1.3 Arterial Blood pH 7.37 (7.35-7.45) Arterial Blood Partial Pressure CO2 44 mmHg (35-46) Arterial Blood Partial Pressure O2 94 mm/Hg (80-95) Arterial Blood HCO3 25 mmol/L (19-24) Arterial Blood Oxygen Saturation 92.8 % (90-95) Arterial Blood Base Excess -0.6 mEq/L (-9-1.8) Arterial Blood Gas Delivery 16L Carl Test POS (POS) Anion Gap 12.0 mmol/L (3-11) Est Creatinine Clear Calc Drug Dose 5.5 ml/min Estimated GFR () 4.7 Estimated GFR (Non- 4.1 BUN/Creatinine Ratio 6.0 (10-20) Calcium Level 8.4 mg/dl (8.5-10.1) Magnesium Level 2.3 mg/dl (1.8-2.4) Allergies Uncoded Allergies: NARCOTIC ANALGESICS (Adverse Reaction, Intermediate, N/V, 07/27/17) Medications Current Inpatient Medications Medications (Trade) Dose Ordered Sig/Jose C Route Start Time Stop Time Status Last Admin Dose Admin Acetaminophen (Tylenol Tab) 650 mg Q4H PRN PO 07/27/17 11:00 08/26/17 10:59 Al Hydrox/Mg Hydrox/Simethicone (Maalox Max Susp) 15 ml Q4H PRN PO 07/27/17 11:00 08/26/17 10:59 07/27/17 22:49 15 ML Ondansetron HCl (Zofran Inj) 4 mg Q6H PRN IV 07/27/17 11:00 08/26/17 10:59 07/30/17 03:07 4 MG Nitroglycerin (Nitrostat Tab) 0.4 mg UD PRN SL 07/27/17 11:00 08/26/17 10:59 Amlodipine Besylate (Norvasc Tab) 5 mg BID PO 07/27/17 21:00 08/26/17 20:59 07/29/17 21:00 5 MG Calcium Acetate (Phoslo Cap) 667 mg TIDM PO 07/27/17 16:45 08/26/17 16:44 07/30/17 11:35 667 MG Isosorbide Mononitrate (Imdur Ext Rel Tab) 30 mg QAM PO 07/28/17 09:00 08/27/17 08:59 07/29/17 08:20 30 MG Labetalol HCl (Normodyne Tab) 100 mg BID PO 07/27/17 21:00 08/26/17 20:59 07/29/17 20:57 100 MG Multivitamins (Multivitamin Tab) 1 tab DAILY PO 07/28/17 09:00 08/27/17 08:59 07/30/17 08:16 1 TAB Ampicillin Sodium/ Sulbactam Sodium (Consult) 1 ea UD PRN N/A 07/27/17 19:30 08/26/17 19:29 Ampicillin Sodium/ Sulbactam Sodium 3000 mg/Sodium Chloride 108 ml @ 216 mls/hr Q24H IV 07/27/17 20:00 08/03/17 19:59 07/29/17 20:55 216 MLS/HR Lisinopril (Zestril Tab) 40 mg HS PO 07/28/17 21:00 08/27/17 08:59 07/29/17 20:59 40 MG Vancomycin HCl (Vancomycin Oral Soln) 125 mg Q6 PO 07/29/17 07:30 08/12/17 07:29 07/30/17 11:35 125 MG Raspberry (Raspberry Syrup 5ml Cup) 5 ml Q6 PO 07/29/17 07:30 08/12/17 07:29 07/30/17 11:35 5 ML Carvedilol (Coreg Tab) 3.125 mg BID PO 07/29/17 21:00 08/28/17 20:59 07/29/17 20:59 3.125 MG Ipratropium [place] (Atrovent 0.02% 0.5MG/2.5ML Neb) 0.5 mg Q4H PRN INH 07/30/17 04:00 08/29/17 03:59 Levalbuterol (Xopenex 1.25MG/ 0.5ML Neb) 1.25 mg Q4H PRN INH 07/30/17 04:00 08/29/17 03:59 Prochlorperazine Edisylate 5 mg/ Syringe 5 ml @ 5 mls/min Q6H PRN IV 07/30/17 05:00 08/29/17 04:59 Epoetin Pillo (Procrit Inj) 10,000 units TODAY@1030 IV 07/30/17 10:30 07/30/17 13:59 Impression (1) End-stage renal disease on hemodialysis (2) Anemia (3) Secondary hyperparathyroidism of renal origin (4) Hypertension (5) Hematuria (6) Flank pain (7) Polycystic Kidney,Autosomal Dominant Ary is a 61-year-old female with end-stage renal disease secondary to polycystic kidney disease, currently on hemodialysis, Saturday, , Saturday at [facility] via left Radiocephalic AV fistula. She had last dialysis , missed dialysis this morning as she presented to ER. She was having left flank pain, cough and shortness of breath and presented to ER for further evaluation. Has history of polycystic kidney disease with bilateral enlarged kidney, recently there was plan for unilateral nephrectomy for increased size of the kidney however no state was no date was set yet. On admission her blood pressure, electrolyte acceptable. Chest x-ray showing have pulmonary edema. She is currently saturating well on 2 liters nasal cannula. Pending abdomen pelvis CT scan considering left flank pain and bilateral enlarged kidney. VQ scan and LE doppler was negative. Troponin normal. C diff positive. Echo with EF only 25% with prior known normal EF few years ago , unclear etiology. Recommendations --Plan for dialysis today as her regular schedule, will increase her time to 4 hours to increase the rate of ultra filtration --Epogen [id number] units with dialysis today --avoid IV fluid, dose medications for GFR less than 10, left arm nephrology precaution. --unclear etiology for this acute severe cardiomyopathy as patient never had any issues with volume overload or symptoms suggestive chronic congestive heart failure. Appreciate Cardiology recommendation regarding further management. Will follow
--- NOTE | 2017-07-30 14:47 | Cardiology Follow-Up ---
Subjective Subjective Date of Service: Jul 30, 2017. Pt evaluation today including: conversation w/ patient, physical exam, chart review, lab review, review of studies, review of inpatient medication list Additional Details: The patient had an uneventful night. She is currently receiving dialysis. Our plan will be to discontinue the labetalol today and increase her dose of carvedilol. Problem List Medical Problems: (1) Shortness of breath Status: Acute Objective Vital Signs Last Vital Signs Documentation Date Time Temp Pulse Resp B/P (MAP) Pulse Ox O2 Delivery O2 Flow Rate FiO2 07/30/17 12:00 Nasal Cannula 4.0 07/30/17 11:57 36.5 90 20 149/77 (101 97 Physical Exam: General Appearance: no apparent distress ENT: normal ENT inspection Neck: supple, thyroid normal, no JVD Respiratory/Chest: lungs clear, normal breath sounds Cardiovascular: regular rate, rhythm, no gallop, no JVD, no murmur Abdomen: normal bowel sounds, non tender, soft Extremities: normal inspection, no pedal edema 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 Polycystic kidney and liver disease 2. End-stage kidney disease on renal dialysis 3. Idiopathic dilated cardiomyopathy Recommendations: The patient is currently stable. I'm going to take this opportunity to discontinue the labetalol auto titrating the carvedilol.
--- NOTE | 2017-07-30 16:50 | Progress Note ---
Internal Med Progress Note Date of Service: Jul 30, 2017. Provider Documentation: SUBJECTIVE: Patient sitting on chair, appears comfortable No complaint of dyspnea on exertion shortness of breath Denies of any abdomen discomfort, no flank pain On 2 L oxygen via nasal cannula Was not on home O2 Had dialysis today OBJECTIVE: Vital Signs-as noted below Exam: General-very pleasant, no apparent distress Eyes-sclera anicteric, EOMI/PERRLA ENT- moist oral mucosa Neck-no JVD no carotid bruit, Lungs-diminished no wheezing Heart-regular S1-S2 Abdomen-soft nontender Extremities-no rash or different Neuro-awake alert oriented 3, no focal neurological deficit Lab data as noted below. ASSESSMENT & PLAN: 1,End-stage renal disease/polycystic kidney disease: -On Saturday hemodialysis -Has left wrist AV fistula for dialysis access -Underwent dialysis today - -Appreciate input from nephrology -Volume status/shortness of breath much improved postdialysis 2.Idiopathic dilated cardiomyopathy: New diagnosis during this admission Ejection fraction 15-20% ECHO: The left ventricle is moderately dilated. There is moderate concentric left ventricular hypertrophy. Left ventricular systolic function is severely reduced. Ejection Fraction = 15-20%. Appreciate input from cardiology Patient started on Coreg DC labetalol Continue to monitor volume status via dialysis Hypoxia shortness of breath possibly due to above will need to step exercise prior to discharge to assess home O2 needs 3. C. difficile colitis: -Continue p.o. vancomycin for total 10 days -Contact precaution CODE STATUS: Full code DVT PROPHYLAXIS SCDs and teds DISPOSITION Expected to be discharged home when medically stable. will need to step exercise prior to discharge to assess home O2 needs Service consulted for discharge planning. Vital Signs: Date Time Temp Pulse Resp B/P (MAP) Pulse Ox O2 Delivery O2 Flow Rate FiO2 07/30/17 19:48 36.6 98 20 161/82 (108) 99 Nasal Cannula 4.0 07/30/17 19:09 36.9 96 170/95 (120) 07/30/17 18:30 96 151/89 07/30/17 18:15 99 157/87 07/30/17 18:00 95 162/91 07/30/17 17:45 95 155/97 07/30/17 17:30 96 157/90 07/30/17 17:15 95 159/87 07/30/17 17:00 98 162/98 07/30/17 16:45 95 166/96 07/30/17 16:30 93 157/88 07/30/17 16:15 93 159/90 07/30/17 16:00 94 Nasal Cannula 3.0 07/30/17 16:00 94 157/92 07/30/17 15:45 92 160/91 07/30/17 15:30 94 157/93 07/30/17 15:17 36.9 90 20 154/92 (112) 94 Nasal Cannula 4.0 07/30/17 15:15 92 154/88 07/30/17 15:00 90 154/82 07/30/17 14:46 90 158/85 07/30/17 14:35 36.9 99 161/92 (115) 07/30/17 12:00 Nasal Cannula 4.0 07/30/17 11:57 36.5 90 20 149/77 (101) 97 Nasal Cannula 4.0 07/30/17 08:00 Nasal Cannula 4.0 07/30/17 07:30 36.4 88 18 130/78 (95) 98 Nasal Cannula 5.0 07/30/17 04:00 Non-Rebreather 15.0 07/30/17 04:00 37.0 112 18 156/90 (112) 92 Non-Rebreather 15.0 07/30/17 01:57 Room Air 07/29/17 23:50 37.0 97 17 159/81 (107) 93 Room Air Lab Results: Results Past 24 Hours Test 07/30/17 04:16 Range/Units White Blood Count 9.00 4.8-10.8 K/uL Red Blood Count 3.82 4.2-5.4 M/uL Hemoglobin 11.1 12.0-16.0 g/dL Hematocrit 34.4 37-47 % Mean Corpuscular Volume 90.1 80-100 fL Mean Corpuscular Hemoglobin 29.1 25-34 pg Mean Corpuscular Hemoglobin Concent 32.3 32-36 g/dl Platelet Count 192 130-400 K/uL Mean Platelet Volume 10.4 7.4-10.4 fL Neutrophils (%) (Auto) 78.9 % Lymphocytes (%) (Auto) 11.6 % Monocytes (%) (Auto) 5.7 % Eosinophils (%) (Auto) 3.2 % Basophils (%) (Auto) 0.2 % Neutrophils # (Auto) 7.10 1.4-6.5 K/uL Lymphocytes # (Auto) 1.04 1.2-3.4 K/uL Monocytes # (Auto) 0.51 0.11-0.59 K/uL Eosinophils # (Auto) 0.29 0-0.5 K/uL Basophils # (Auto) 0.02 0-0.2 K/uL RDW Standard Deviation 49.1 36.4-46.3 fL RDW Coefficient of Variation 14.9 11.5-14.5 % Immature Granulocyte % (Auto) 0.4 % Immature Granulocyte # (Auto) 0.04 0.00-0.02 K/uL Activated Partial Thromboplast Time 33.6 21.0-31.0 SECONDS Partial Thromboplastin Ratio 1.3 Arterial Blood pH 7.37 7.35-7.45 Arterial Blood Partial Pressure CO2 44 35-46 mmHg Arterial Blood Partial Pressure O2 94 80-95 mm/Hg Arterial Blood HCO3 25 19-24 mmol/L Arterial Blood Oxygen Saturation 92.8 90-95 % Arterial Blood Base Excess -0.6 -9-1.8 mEq/L Arterial Blood Gas Delivery 16L Carl Test POS POS Sodium Level 129 136-145 mmol/L Potassium Level 4.8 3.5-5.1 mmol/L Chloride Level 94 98-107 mmol/L Carbon Dioxide Level 23 21-32 mmol/L Anion Gap 12.0 3-11 mmol/L Blood Urea Nitrogen 55 7-18 mg/dl Creatinine 9.25 0.60-1.20 mg/dl Est Creatinine Clear Calc Drug Dose 5.5 ml/min Estimated GFR () 4.7 Estimated GFR (Non- 4.1 BUN/Creatinine Ratio 6.0 10-20 Random Glucose 185 70-99 mg/dl Calcium Level 8.4 8.5-10.1 mg/dl Magnesium Level 2.3 1.8-2.4 mg/dl Microbiology Results 07/30/17 Blood Culture, Received Pending 07/30/17 Blood Culture, Received Pending
[2017-07-30] MEDS: ISOSORBIDE MONONITRATE 30 MG TABCR PO SCH (19:11)
[2017-07-30] MEDS: AMLODIPINE BESYLATE 5 MG TAB PO SCH ×2 (19:12→20:26)
[2017-07-30] MEDS: AMPICILLIN/SULBACTAM SOD INJ 3,000 MG in SODIUM CHLORIDE 0.9% 100ML 100 ML IV SCH (20:25)
[2017-07-30] MEDS: CARVEDILOL 6.25 MG TAB PO SCH (20:26)
[2017-07-30] MEDS: LISINOPRIL 40 MG TAB PO SCH (20:27)
[2017-07-31 03:07] VITALS: BP 154/80; PULSE 74; TEMP 36.8; O2SAT 98
[2017-07-31] MEDS: VANCOMYCIN HCL 125 MG/2.5ML SOLN PO SCH ×4 (06:06→23:42)
[2017-07-31] MEDS: RASPBERRY SYRUP 5 ML UDP PO SCH ×4 (06:06→23:42)
[2017-07-31 07:57] VITALS: BP 152/76; PULSE 88; TEMP 36.6; O2SAT 97
[2017-07-31] MEDS: AMLODIPINE BESYLATE 5 MG TAB PO SCH ×2 (08:00→21:22)
[2017-07-31] MEDS: MULTIVITAMIN TAB PO SCH (08:00)
[2017-07-31] MEDS: CARVEDILOL 6.25 MG TAB PO SCH (08:01)
[2017-07-31] MEDS: CALCIUM ACETATE 667MG GELCAP PO SCH ×3 (08:01→16:34)
[2017-07-31] MEDS: ISOSORBIDE MONONITRATE 30 MG TABCR PO SCH (08:01)
--- NOTE | 2017-07-31 09:25 | DIAGNOSTIC IMAGING REPORT ---
CHEST 2 VIEWS ROUTINE CLINICAL HISTORY: CHF dyspnea COMPARISON STUDY: 07/30/2017 FINDINGS: Improving findings of congestive failure. Bibasilar atelectasis. Small bilateral pleural effusions. Diminished pulmonary vasculature. IMPRESSION: Improving congestive failure. The above report was generated using voice recognition software. It may contain grammatical, syntax or spelling errors. Electronically signed by: Sixto Goldsmith M.D. 07/31/2017 9:24 AM Dictated Date/Time: 07/31/2017 9:23 AM
--- NOTE | 2017-07-31 10:53 | Nephrology Progress Note ---
Nephrology Progress Note Date of Service Jul 31, 2017. Chief Complaint End-stage renal disease on hemodialysis. Subjective Orly was seen and examined in her room this morning. She has been otherwise feeling well, denies any shortness of breath or chest pain, no overnight events. Had dialysis yesterday had almost 3 liters UF, for 4 hours, tolerated well. Blood pressure well controlled. Review of Systems A complete review of systems was performed. Pertinent positives are noted above. All other systems are negative. Vital Signs Last 8 Hrs Date Time Temp Pulse Resp B/P (MAP) Pulse Ox O2 Delivery O2 Flow Rate FiO2 07/31/17 08:00 Nasal Cannula 2.0 07/31/17 07:57 36.6 88 20 152/76 (101) 97 Nasal Cannula 4.0 07/31/17 04:00 Nasal Cannula 4.0 07/31/17 03:07 36.8 74 17 154/80 (104) 98 Nasal Cannula 4.0 Last Recorded Weight Weight (Kilograms): 66.700 Physical Exam GENERAL: Middle-aged female , AAA x 3, pleasant, not in any distress. NECK: Supple, no JVD. RESPIRATORY: Normal breathing efforts, decreased BS and rales at bases. CARDIOVASCULAR: S1, S2 normal, rate rhythm regular. EXTREMITY: No lower extremity edema NEURO: speech fluent. PSYCHIATRY: Normal mood and judgment Social History Smoking Status: Never smoker Marital Status: Housing Status: lives alone Allergies Uncoded Allergies: NARCOTIC ANALGESICS (Adverse Reaction, Intermediate, N/V, 07/27/17) Medications Current Inpatient Medications Medications (Trade) Dose Ordered Sig/Jose C Route Start Time Stop Time Status Last Admin Dose Admin Acetaminophen (Tylenol Tab) 650 mg Q4H PRN PO 07/27/17 11:00 08/26/17 10:59 Al Hydrox/Mg Hydrox/Simethicone (Maalox Max Susp) 15 ml Q4H PRN PO 07/27/17 11:00 08/26/17 10:59 07/27/17 22:49 15 ML Ondansetron HCl (Zofran Inj) 4 mg Q6H PRN IV 07/27/17 11:00 08/26/17 10:59 07/30/17 03:07 4 MG Nitroglycerin (Nitrostat Tab) 0.4 mg UD PRN SL 07/27/17 11:00 08/26/17 10:59 Amlodipine Besylate (Norvasc Tab) 5 mg BID PO 07/27/17 21:00 08/26/17 20:59 07/31/17 08:00 5 MG Calcium Acetate (Phoslo Cap) 667 mg TIDM PO 07/27/17 16:45 08/26/17 16:44 07/31/17 08:01 667 MG Isosorbide Mononitrate (Imdur Ext Rel Tab) 30 mg QAM PO 07/28/17 09:00 08/27/17 08:59 07/31/17 08:01 30 MG Multivitamins (Multivitamin Tab) 1 tab DAILY PO 07/28/17 09:00 08/27/17 08:59 07/31/17 08:00 1 TAB Ampicillin Sodium/ Sulbactam Sodium (Consult) 1 ea UD PRN N/A 07/27/17 19:30 08/26/17 19:29 Ampicillin Sodium/ Sulbactam Sodium 3000 mg/Sodium Chloride 108 ml @ 216 mls/hr Q24H IV 07/27/17 20:00 08/03/17 19:59 07/30/17 20:25 216 MLS/HR Lisinopril (Zestril Tab) 40 mg HS PO 07/28/17 21:00 08/27/17 08:59 07/30/17 20:27 40 MG Vancomycin HCl (Vancomycin Oral Soln) 125 mg Q6 PO 07/29/17 07:30 08/12/17 07:29 07/31/17 06:06 125 MG Raspberry (Raspberry Syrup 5ml Cup) 5 ml Q6 PO 07/29/17 07:30 08/12/17 07:29 07/31/17 06:06 5 ML Ipratropium [place] (Atrovent 0.02% 0.5MG/2.5ML Neb) 0.5 mg Q4H PRN INH 07/30/17 04:00 08/29/17 03:59 Levalbuterol (Xopenex 1.25MG/ 0.5ML Neb) 1.25 mg Q4H PRN INH 07/30/17 04:00 08/29/17 03:59 Prochlorperazine Edisylate 5 mg/ Syringe 5 ml @ 5 mls/min Q6H PRN IV 07/30/17 05:00 08/29/17 04:59 Carvedilol (Coreg Tab) 6.25 mg BID PO 07/30/17 21:00 08/28/17 20:59 07/31/17 08:01 6.25 MG Impression (1) End-stage renal disease on hemodialysis (2) Anemia (3) Secondary hyperparathyroidism of renal origin (4) Hypertension (5) Hematuria (6) Flank pain (7) Polycystic Kidney,Autosomal Dominant Ary is a 61-year-old female with end-stage renal disease secondary to polycystic kidney disease, currently on hemodialysis, Saturday, , Saturday at [facility] via left Radiocephalic AV fistula. She had last dialysis , missed dialysis this morning as she presented to ER. She was having left flank pain, cough and shortness of breath and presented to ER for further evaluation. Has history of polycystic kidney disease with bilateral enlarged kidney, recently there was plan for unilateral nephrectomy for increased size of the kidney however no state was no date was set yet. On admission her blood pressure, electrolyte acceptable. Chest x-ray showing have pulmonary edema. She is currently saturating well on 2 liters nasal cannula. Pending abdomen pelvis CT scan considering left flank pain and bilateral enlarged kidney. VQ scan and LE doppler was negative. Troponin normal. C diff positive. Echo with EF only 25% with prior known normal EF few years ago , unclear etiology. Recommendations --continue her on 4 hours intermittent hemodialysis --start on Lasix 80 milligram orally once a day as patient still has some urine output --okay to be discharged from nephrology standpoint, she has spot available at [facility] unit for tomorrow if she gets discharged later today Will follow while in hospital
[2017-07-31 11:32] VITALS: BP 151/76; PULSE 88; TEMP 36.9; O2SAT 95
--- NOTE | 2017-07-31 13:23 | Cardiology Follow-Up ---
Subjective Subjective Date of Service: Jul 31, 2017. Pt evaluation today including: conversation w/ patient, physical exam, chart review, lab review, review of inpatient medication list Additional Details: The patient had an uneventful night. Tolerating the carvedilol. No new complaints. Problem List Medical Problems: (1) Shortness of breath Status: Acute Objective Vital Signs Last Vital Signs Documentation Date Time Temp Pulse Resp B/P (MAP) Pulse Ox O2 Delivery O2 Flow Rate FiO2 07/31/17 12:00 Room Air 07/31/17 11:32 36.9 88 20 151/76 (101) 95 07/31/17 08:00 2.0 Physical Exam: General Appearance: no apparent distress ENT: normal ENT inspection Neck: supple, thyroid normal, no JVD Respiratory/Chest: lungs clear, normal breath sounds Cardiovascular: regular rate, rhythm, no gallop, no JVD, no murmur Abdomen: normal bowel sounds, non tender, soft, + distended Extremities: normal inspection, no pedal edema 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 Polycystic kidney and liver disease 2. End-stage kidney disease on renal dialysis 3. Idiopathic dilated cardiomyopathy Recommendations: We will titrate the carvedilol up to 12.5 mg twice daily. I anticipate that if all goes well from a cardiac standpoint the patient could be discharged by tomorrow. Medications: Current Inpatient Medications Medications (Trade) Dose Ordered Sig/Jose C Route Start Time Stop Time Status Last Admin Dose Admin Acetaminophen (Tylenol Tab) 650 mg Q4H PRN PO 07/27/17 11:00 08/26/17 10:59 Al Hydrox/Mg Hydrox/Simethicone (Maalox Max Susp) 15 ml Q4H PRN PO 07/27/17 11:00 08/26/17 10:59 07/27/17 22:49 15 ML Ondansetron HCl (Zofran Inj) 4 mg Q6H PRN IV 07/27/17 11:00 08/26/17 10:59 07/30/17 03:07 4 MG Nitroglycerin (Nitrostat Tab) 0.4 mg UD PRN SL 07/27/17 11:00 08/26/17 10:59 Amlodipine Besylate (Norvasc Tab) 5 mg BID PO 07/27/17 21:00 08/26/17 20:59 07/31/17 08:00 5 MG Calcium Acetate (Phoslo Cap) 667 mg TIDM PO 07/27/17 16:45 08/26/17 16:44 07/31/17 11:39 667 MG Isosorbide Mononitrate (Imdur Ext Rel Tab) 30 mg QAM PO 07/28/17 09:00 08/27/17 08:59 07/31/17 08:01 30 MG Multivitamins (Multivitamin Tab) 1 tab DAILY PO 07/28/17 09:00 08/27/17 08:59 07/31/17 08:00 1 TAB Ampicillin Sodium/ Sulbactam Sodium (Consult) 1 ea UD PRN N/A 07/27/17 19:30 08/26/17 19:29 Ampicillin Sodium/ Sulbactam Sodium 3000 mg/Sodium Chloride 108 ml @ 216 mls/hr Q24H IV 07/27/17 20:00 08/03/17 19:59 07/30/17 20:25 216 MLS/HR Lisinopril (Zestril Tab) 40 mg HS PO 07/28/17 21:00 08/27/17 08:59 07/30/17 20:27 40 MG Vancomycin HCl (Vancomycin Oral Soln) 125 mg Q6 PO 07/29/17 07:30 08/12/17 07:29 07/31/17 11:40 125 MG Raspberry (Raspberry Syrup 5ml Cup) 5 ml Q6 PO 07/29/17 07:30 08/12/17 07:29 07/31/17 11:40 5 ML Ipratropium [place] (Atrovent 0.02% 0.5MG/2.5ML Neb) 0.5 mg Q4H PRN INH 07/30/17 04:00 08/29/17 03:59 Levalbuterol (Xopenex 1.25MG/ 0.5ML Neb) 1.25 mg Q4H PRN INH 07/30/17 04:00 08/29/17 03:59 Prochlorperazine Edisylate 5 mg/ Syringe 5 ml @ 5 mls/min Q6H PRN IV 07/30/17 05:00 08/29/17 04:59 Furosemide (Lasix Tab) 80 mg QAM PO 08/01/17 09:00 08/31/17 08:59 Carvedilol (Coreg Tab) 12.5 mg BID PO 07/31/17 21:00 08/28/17 20:59
[2017-07-31 15:43] VITALS: BP 149/78; PULSE 80; TEMP 36.8; O2SAT 96
--- NOTE | 2017-07-31 19:15 | Progress Note ---
Internal Med Progress Note Date of Service: Jul 31, 2017. Provider Documentation: SUBJECTIVE: Patient is currently in room air, with adequate oxygenation No complaint of shortness of breath, no orthopnea, no chest heaviness Vitals remain stable OBJECTIVE: Vital Signs-as noted below Exam: General-very pleasant, no apparent distress Eyes-sclera anicteric, EOMI/PERRLA ENT- moist oral mucosa Neck-no JVD no carotid bruit, Lungs-diminished no wheezing Heart-regular S1-S2 Abdomen-soft nontender Extremities-no rash or different Neuro-awake alert oriented 3, no focal neurological deficit Lab data as noted below. ASSESSMENT & PLAN: 1,End-stage renal disease/polycystic kidney disease: -On Saturday hemodialysis -Has left wrist AV fistula for dialysis access -Underwent dialysis yesterday with removal of approximately 3 L of fluid -Volume status/shortness of breath improved postdialysis -Chest x-ray today shows improvement of pulmonary vascular congestion -Nephrology following, appreciate input. -Patient started on Lasix 80 mg p.o. daily -Patient will will continue outpatient scheduled dialysis on discharge 2.Idiopathic dilated cardiomyopathy: New diagnosis during this admission Ejection fraction 15-20% ECHO: The left ventricle is moderately dilated. There is moderate concentric left ventricular hypertrophy. Left ventricular systolic function is severely reduced. Ejection Fraction = 15-20%. Appreciate input from cardiology Patient started on Coreg-for cardiac benefit in the setting of dilated cardiomyopathy -Dose increased to 12.5 twice daily today -Labetalol discontinued -Patient's hypoxia has resolved, not requiring supplemental O2 -Volume status-euvolemic after dialysis -Plan to observe in telemetry overnight, as the Coreg dose just increased -Possible discharge home tomorrow if no episode of hypotensive noted 3. C. difficile colitis: -No complaint of diarrhea, abdominal pain -Continue p.o. vancomycin for total 10 days -Contact precaution CODE STATUS: Full code DVT PROPHYLAXIS SCDs and teds -Patient is ambulatory at baseline DISPOSITION Plan for discharge home in a.m. if blood pressure remains stable. Patient gets dialysis on at 5 AM in the morning in an outpatient -will discussed with nephrology, to set up outpatient dialysis for later part of the day -Medicine follow-up with Dr. Dickerson at [facility] -Nephrology follow-up with Dr. Herzog. Vital Signs: Date Time Temp Pulse Resp B/P (MAP) Pulse Ox O2 Delivery O2 Flow Rate FiO2 08/01/17 04:09 36.7 89 19 169/88 (115) 95 Room Air 08/01/17 04:00 Room Air 07/31/17 23:59 Room Air 07/31/17 23:46 36.4 96 18 167/82 (110) 94 Room Air 07/31/17 20:00 Room Air 07/31/17 19:59 37.0 89 18 169/85 (113) 93 Room Air 07/31/17 16:00 Room Air 07/31/17 15:43 36.8 80 18 149/78 (101) 96 07/31/17 12:00 Room Air 07/31/17 11:32 36.9 88 20 151/76 (101) 95 Room Air 07/31/17 08:00 Nasal Cannula 2.0 07/31/17 07:57 36.6 88 20 152/76 (101) 97 Nasal Cannula 4.0
[2017-07-31 19:59] VITALS: BP 169/85; PULSE 89; TEMP 37; O2SAT 93
[2017-07-31] MEDS: CARVEDILOL 12.5 MG TAB PO SCH (21:23)
[2017-07-31] MEDS: LISINOPRIL 40 MG TAB PO SCH (21:23)
[2017-07-31 23:46] VITALS: BP 167/82; PULSE 96; TEMP 36.4; O2SAT 94
[2017-08-01 04:09] VITALS: BP 169/88; PULSE 89; TEMP 36.7; O2SAT 95
[2017-08-01] MEDS: RASPBERRY SYRUP 5 ML UDP PO SCH (05:38)
[2017-08-01] MEDS: VANCOMYCIN HCL 125 MG/2.5ML SOLN PO SCH (05:39)
[2017-08-01 08:04] VITALS: BP 169/90; PULSE 93; TEMP 37; O2SAT 96
[2017-08-01] MEDS ORDERED: LSX80 PO (08:22)
[2017-08-01] MEDS ORDERED: CRG125 PO ×2 (08:22→09:44)
--- NOTE | 2017-08-01 08:23 | Discharge Instructions ---
Discharge Instructions Date of Service Aug 01, 2017. Admission Reason for Admission: Flank Pain,Hypoxia Discharge Discharge Diagnosis / Problem: ACUTE SYSTOLIC CHF /ESRD ON DIALYSIS/C diff Discharge Goals Goal(s): Decrease discomfort, Improve function, Improve disease control, Diagnostic testing, Therapeutic intervention Activity Recommendations Activity Limitations: resume your previous activity . Instructions / Follow-Up Instructions / Follow-Up HOSPITAL FOLLOW UP : 08/07/2017 11:00 AM Shiva Nj MD Internal Medicine [facility] CARDIOLOGY FOLLOW UP : With Dr Garcia , Cardiology office will call with appointment COMPLETE PO VANCOMYCIN DOSE INSTRUCTED FOR C DIFF YOU MAY STILL REMAINS CONTAGIOUS 7-10 AFTER COMPLETING ANTIBIOTIC PLEASE WASH HANDS WITH SOAP AND WATER EVERY TIME AFTER USING BATHROOM REST OF THE MEMBERS OF [employer]HOLD SHOULD DO THE SAME YOU CAN WIPE SINK , TOILET RIM WITH CLORAX WIPE TO PREVENT SPREAD OF C DIFF HAVE ALL YOU PERSONAL ITEMS -CUP /GLASS /PLATES /TOWELS ETC SEPARATE Call your Primary Care doctor if any of the following symptoms or problems start or get worse: * Shortness of breath or difficulty breathing * Wake up at night short of breath * Chest pain * Cough * Swelling of your hands, feet, or legs * More fatigued or tired with your normal activity * Palpitations - sudden fast heart beats WEIGHT * Weigh yourself every morning after using the bathroom. * Use the same scale. * Wear the same amount of clothing. * Write your weight down on a chart. * Call your Primary Care doctor if you gain more than 2-3 pounds in 1-2 days. MEDICATIONS * Use this discharge instruction sheet for medication instructions. * Take your medications at the time your doctor ordered. * Do not skip a dose of your medicines. * If you miss a dose of medicine, take it as soon as possible, but DO NOT DOUBLE A DOSE. * Read your medicine information when you get home. * Know all of the side effects of your medicine. If in doubt, ask your pharmacist * Call your Primary Care doctor's office if you have any side effects. * Be sure all of your doctors know what medicine and herbs you take (including cold, flu, and herbal medicine). Take the following with you to your follow-up doctor appointments: * Weight Chart * Medication List * List of questions Do not drink excessive alcohol, beer or wine. Current Hospital Diet Patient's current hospital diet: Renal Diet Discharge Diet Recommended Diet: Renal Diet Pending Studies Studies pending at discharge: no Medical Emergencies . Who to Call and When: Call 911 or go to the Emergency Room if: * If at any time you feel your situation is an emergency * You have tightness or pain in your chest that does not go away with rest or Nitroglycerin * You are very short of breath even with rest . Non-Emergent Contact Non-Emergency issues call your: Primary Care Provider . . "Provider Documentation" section prepared by Elidia Irizarry. .
[2017-08-01] MEDS: CARVEDILOL 12.5 MG TAB PO SCH (08:34)
[2017-08-01] MEDS ORDERED: VANC1SUS PO (08:39)
[2017-08-01] MEDS ORDERED: NURSING VERBAL MED ORDER ONE (08:45)
[2017-08-01] MEDS ORDERED: FUROSEMIDE 80 MG TAB PO SCH (09:00)
[2017-08-01] MEDS: AMLODIPINE BESYLATE 5 MG TAB PO SCH (09:00)
[2017-08-01] MEDS ORDERED: CARVEDILOL 12.5 MG TAB PO ONE ×2 (09:00→10:15)
[2017-08-01] MEDS: MULTIVITAMIN TAB PO SCH (09:00)
[2017-08-01] MEDS: ISOSORBIDE MONONITRATE 30 MG TABCR PO SCH (09:00)
[2017-08-01 09:01] VITALS: BP 169/90; PULSE 93; TEMP 37; O2SAT 96
[2017-08-01] MEDS: CALCIUM ACETATE 667MG GELCAP PO SCH (09:14)
[2017-08-01 09:38] VITALS: BP 152/79; PULSE 90
[2017-08-01] MEDS ORDERED: CARVEDILOL 12.5 MG TAB PO SCH (21:00)
--- NOTE | 2017-08-01 22:51 | Discharge Summary ---
Discharge Summary Date of Service Aug 01, 2017. Discharge Summary Admission Date: Jul 27, 2017 at 11:04 Discharge Date: Aug 01, 2017 Hospital Course 1,End-stage renal disease/polycystic kidney disease: -On Saturday hemodialysis -Has left wrist AV fistula for dialysis access -Underwent dialysis yesterday with removal of approximately 3 L of fluid -Volume status/shortness of breath improved postdialysis -Chest x-ray today shows improvement of pulmonary vascular congestion -Nephrology following, appreciate input. -Patient started on Lasix 80 mg p.o. daily -Patient will will continue outpatient scheduled dialysis on discharge 2.Idiopathic dilated cardiomyopathy: New diagnosis during this admission Ejection fraction 15-20% ECHO: The left ventricle is moderately dilated. There is moderate concentric left ventricular hypertrophy. Left ventricular systolic function is severely reduced. Ejection Fraction = 15-20%. Appreciate input from cardiology Patient started on Coreg-for cardiac benefit in the setting of dilated cardiomyopathy -Dose increased to 12.5 twice daily today -Labetalol discontinued -Patient's hypoxia has resolved, not requiring supplemental O2 -Volume status-euvolemic after dialysis -Plan to observe in telemetry overnight, as the Coreg dose just increased -Possible discharge home tomorrow if no episode of hypotensive noted 3. C. difficile colitis: -No complaint of diarrhea, abdominal pain -Continue p.o. vancomycin for total 10 days -Contact precaution CODE STATUS: Full code DVT PROPHYLAXIS SCDs and teds -Patient is ambulatory at baseline DISPOSITION Plan for discharge home in a.m. if blood pressure remains stable. Patient gets dialysis on at 5 AM in the morning in an outpatient -will discussed with nephrology, to set up outpatient dialysis for later part of the day -Medicine follow-up with Dr. Dickerson at [facility] -Nephrology follow-up with Dr. Herzog. Total time spent on discharge = This includes examination of the patient, discharge planning, medication reconciliation, and communication with other providers.
== END 2017-08-01 10:17 | disposition home or self-care (01) | DRG 314 ==
LOC: C.EDB 06:18 → C.2T 11:04 → ENRESERV 11:09
PROVIDERS: ADMIT Internal Medicine; ATTEND Hospitalist
DX: I42.0 Dilated cardiomyopathy (principal); I50.21 Acute systolic (congestive) heart failure; N18.6 End stage renal disease; A04.72 Enterocolitis due to Clostridium difficile, not specified as recurrent; N25.81 Secondary hyperparathyroidism of renal origin; Q61.3 Polycystic kidney, unspecified; R09.02 Hypoxemia; I10 Essential (primary) hypertension; Z79.899 Other long term (current) drug therapy; Z99.2 Dependence on renal dialysis; Z88.5 Allergy status to narcotic agent; Z82.71 Family history of polycystic kidney

== ENCOUNTER 2018-01-05 12:28 | Emergency (ER) | payer BC, OTHER ==
[~2018-01-05] VITALS: Ht 157.5 cm; Wt 62.9 kg
[~2018-01-05 12:28] MED LIST changes: -AMLO-110 PO; +AMLO5TAB3 PO; +CALC667C4 PO; +CRG125 PO; +ISOS30TA3 PO; -ISR/30 PO; -LABE100T16 PO; +LSX80 PO; +VANC1SUS PO
[2018-01-05 12:31] VITALS: TEMP 36.7; Ht 157.5 cm; Wt 62.9 kg
--- NOTE | 2018-01-05 13:17 | EMERGENCY ROOM VISIT NOTE ---
History Report prepared by Lyndon: Karon Brewster Under the Supervision of: Dr. Eloisa Pinedo M.D. First contact with patient: 13:08 Chief Complaint: BACK PAIN Stated Complaint: PAIN LOWER LEFT BACK History of Present Illness The patient is a 62 year old female who presents to the Emergency Room with complaints of left lower back pain beginning 2 days ago. She reports that her pain is sharp when she stands but is dull when she is laying down. The patient denies any fall or injury to the area. The patient denies having a cough, shortness of breath, vomiting, diarrhea, and abdominal pain. She reports that she has polycystic kidney disease and that she goes to dialysis 3 times per week. The patient reports that she still makes urine and denies seeing any blood in her urine. The patient also reports being diagnosed with C. Diff at this time but denies having any trouble with that currently. The patient reports having ascites and states that her abdomen is more distended than it was. The patient states that she broke her pelvis in 2013 and states that her pain today feels the same as this ache was. She also reports a history of a UTI. The patient states that she had a cyst burst 7 years ago and that she had blood in her urine. Source of History: patient Onset: 2 days ago Position: back (left lower ) Quality: sharp, dull, other (pain) Modifying Factors (Worsening): other (standing ) Associated Symptoms: No cough, No SOB, No vomiting, No abdominal pain, No diarrhea Review of Systems See HPI for pertinent positives & negatives. A total of 10 systems reviewed and were otherwise negative. 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,Autosomal Dominant (11) Secondary hyperparathyroidism of renal origin Family History Heart disease Hypertension Social History Smoking Status: Never Smoker Alcohol Use: none Marital Status: Housing Status: lives with family Current/Historical Medications Scheduled Amlodipine (Norvasc), 5 MG PO BID Calcium Acetate (Phoslo 667 Mg), 2,668 MG PO WM Calcium Acetate (Phoslo 667 Mg), 1 CAP PO WITH SNACKS Carvedilol (Carvedilol), 25 MG PO BID Furosemide (Furosemide), 80 MG PO QAM Isosorbide Mononitrate Ext Rel (Imdur Ext Rel), 30 MG PO QAM Lisinopril (Zestril), 40 MG PO HS Multivitamin (Multivitamin), 1 TAB PO DAILY Allergies Uncoded Allergies: NARCOTIC ANALGESICS (Adverse Reaction, Intermediate, N/V, 07/27/17) Physical Exam Vital Signs Date Time Temp Pulse Resp B/P (MAP) Pulse Ox O2 Delivery O2 Flow Rate FiO2 01/05/18 16:48 90 16 163/87 97 01/05/18 15:10 83 16 154/81 96 Room Air 01/05/18 14:43 84 20 171/87 98 Room Air 01/05/18 12:31 36.7 96 18 182/94 96 Room Air Physical Exam Vital signs reviewed. General: Chronically ill-appearing female, in no significant distress. HEENT: No scleral icterus, PERRLA, neck supple. Atraumatic. Cardiovascular: Regular rate and rhythm, no extra sounds. Pulmonary: Clear to auscultation bilaterally, normal work of breathing. Abdomen: Soft, nontender, distended and somewhat firm, positive bowel sounds. No tympany to percussion. Musculoskeletal: Atraumatic, minimal peripheral edema bilaterally. No CVA tenderness. Neurologic: Patient awake alert and oriented x 3 Skin: Warm, dry, no rash Medical Decision & Procedures ER Provider Diagnostic Interpretation: Radiology results as stated below per my review and radiologist interpretation: CT OF THE ABDOMEN AND PELVIS WITHOUT CONTRAST CLINICAL HISTORY: ESRD, polycystic kidney disease, Left flank pain. COMPARISON STUDY: CT of the abdomen and pelvis July 27, 2017. TECHNIQUE: Axial images of the abdomen and pelvis were obtained without IV contrast. Images were reviewed in the axial, sagittal, and coronal planes. A dose lowering technique was utilized adhering to the principles of ALARA. FINDINGS: Bibasilar opacities within the lungs favor atelectasis. Evaluation of the abdomen and pelvis is suboptimal on this unenhanced exam. The heart is mildly enlarged. No pneumatosis, free air or portal venous gas is present. Small to moderate abdominal and pelvic ascites has slightly increased since prior exam of July 27, 2017. Moderate splenomegaly has mildly increased. The liver and both kidneys are replaced and enlarged with innumerable cysts. Multiple complex cysts are noted. The appearance is similar to exam of July 27, 2017. There is no hydronephrosis. There is no evidence for a bowel obstruction. Sigmoid diverticulosis is noted. There is no evidence for acute diverticulitis although sensitivity is diminished on this examination. Ascites containing umbilical hernia is noted. There are no suspicious osseous lesions. Unenhanced images of the pancreas are unremarkable. The adrenal glands are not well visualized on this examination. IMPRESSION: 1. Small to moderate abdominal and pelvic ascites, slightly increased since CT of July 27, 2017. 2. Markedly enlarged liver and kidneys consistent with autosomal polycystic disease. 3. Moderate splenomegaly, slightly increased since prior exam. 4. No bowel obstruction. 5. Suboptimal evaluation of the abdomen and pelvis on this unenhanced exam. Electronically signed by: Reji Shelley M.D. 01/05/2018 3:24 PM Dictated Date/Time: 01/05/2018 3:15 PM Laboratory Results 01/05/18 13:43 Red Blood Count 4.24, Mean Corpuscular Volume 90.8, Mean Corpuscular Hemoglobin 27.8, Mean Corpuscular Hemoglobin Concent 30.6, Mean Platelet Volume 10.1, Neutrophils (%) (Auto) 51.8, Lymphocytes (%) (Auto) 32.3, Monocytes (%) (Auto) 11.8, Eosinophils (%) (Auto) 3.1, Basophils (%) (Auto) 0.3, Neutrophils # (Auto ) 1.49, Lymphocytes # (Auto) 0.93, Monocytes # (Auto) 0.34, Eosinophils # (Auto ) 0.09, Basophils # (Auto) 0.01 01/05/18 13:43 Test 01/05/18 13:43 01/05/18 15:50 White Blood Count 2.88 K/uL (4.8-10.8) Red Blood Count 4.24 M/uL (4.2-5.4) Hemoglobin 11.8 g/dL (12.0-16.0) Hematocrit 38.5 % (37-47) Mean Corpuscular Volume 90.8 fL (80-100) Mean Corpuscular Hemoglobin 27.8 pg (25-34) Mean Corpuscular Hemoglobin Concent 30.6 g/dl (32-36) Platelet Count 122 K/uL (130-400) Mean Platelet Volume 10.1 fL (7.4-10.4) Neutrophils (%) (Auto) 51.8 % Lymphocytes (%) (Auto) 32.3 % Monocytes (%) (Auto) 11.8 % Eosinophils (%) (Auto) 3.1 % Basophils (%) (Auto) 0.3 % Neutrophils # (Auto) 1.49 K/uL (1.4-6.5) Lymphocytes # (Auto) 0.93 K/uL (1.2-3.4) Monocytes # (Auto) 0.34 K/uL (0.11-0.59) Eosinophils # (Auto) 0.09 K/uL (0-0.5) Basophils # (Auto) 0.01 K/uL (0-0.2) RDW Standard Deviation 55.6 fL (36.4-46.3) RDW Coefficient of Variation 16.7 % (11.5-14.5) Immature Granulocyte % (Auto) 0.7 % Immature Granulocyte # (Auto) 0.02 K/uL (0.00-0.02) Anion Gap 8.0 mmol/L (3-11) Est Creatinine Clear Calc Drug Dose 7.7 ml/min Estimated GFR () 7.3 Estimated GFR (Non- 6.3 BUN/Creatinine Ratio 6.6 (10-20) Calcium Level 8.9 mg/dl (8.5-10.1) Magnesium Level 2.4 mg/dl (1.8-2.4) Total Bilirubin 0.4 mg/dl (0.2-1) Direct Bilirubin 0.1 mg/dl (0-0.2) Aspartate Amino Transf (AST/SGOT) 17 U/L (15-37) Alanine Aminotransferase (ALT/SGPT) 20 U/L (12-78) Alkaline Phosphatase 115 U/L (45-117) Total Protein 7.3 gm/dl (6.4-8.2) Albumin 3.3 gm/dl (3.4-5.0) Urine Color YELLOW Urine Appearance CLEAR (CLEAR) Urine pH 8.5 (4.5-7.5) Urine Specific Hayden 1.006 (1.000-1.030) Urine Protein 2+ (NEG) Urine Glucose (UA) NEG (NEG) Urine Ketones NEG (NEG) Urine Occult Blood TRACE (NEG) Urine Nitrite NEG (NEG) Urine Bilirubin NEG (NEG) Urine Urobilinogen NEG (NEG) Urine Leukocyte Esterase MODERATE (NEG) Urine WBC (Auto) 5-10 /hpf (0-5) Urine RBC (Auto) 0-4 /hpf (0-4) Urine Hyaline Casts (Auto) 1-5 /lpf (0-5) Urine Epithelial Cells (Auto) >30 /lpf (0-5) Urine Bacteria (Auto) NEG (NEG) Laboratory results per my review. Medications Administered Medications (Trade) Dose Ordered Sig/Jose C Route Start Time Stop Time Status Last Admin Dose Admin Acetaminophen 650 mg/Empty Bag 65 ml @ 260 mls/hr NOW STAT IV 01/05/18 13:34 01/05/18 13:48 DC 01/05/18 13:34 260 MLS/HR ECG Per My Interpretation Indication: back/shoulder pain Rate (beats per minute): 84 Rhythm: normal sinus Findings: no acute ischemic change, other (previous septal infarct, T wave flattening in the lateral leads) ED Course 1310: Past medical records reviewed. The patient was evaluated in room C8. A complete history and physical examination was performed. Medical Decision Differential diagnosis: Etiologies such as renal colic, appendicitis, diverticulitis, mesenteric ischemia, aortic pathology, infections, inflammatory bowel disease, PUD, biliary pathology, UTI, ruptured renal cyst, as well as others were entertained. This patient was evaluated and appeared to be in no significant distress. Physical examination reveals a chronically ill-appearing female, in no distress. Patient's abdomen is distended, no tympany to percussion. CT scan of the abdomen pelvis was performed and reveals a markedly enlarged liver and kidneys with multiple cysts consistent with her known polycystic kidney disease. There is a slightly enlarged spleen from previous imaging, it is unclear if this is causing the patient's pain or if she had a cyst rupture. There does not appear to be any acute bleeding. Patient's urinalysis is negative. She was given IV Tylenol with some relief. Patient was informed of the findings. She states she does use Tylenol occasionally for pain. She is on renal dialysis. Patient will follow up with her PCP this week for reevaluation and return to the ED for worsening of symptoms or any medical concerns. Medication Reconcilliation Current Medication List: was personally reviewed by me Blood Pressure Screening Patient's blood pressure: Elevated blood pressure Blood pressure disposition: Referred to PCP Impression Primary Impression: Acute left flank pain Additional Impressions: Polycystic kidney disease Splenomegaly, congestive, chronic Polycystic liver disease Scribe Attestation The scribe's documentation has been prepared under my direction and personally reviewed by me in its entirety. I confirm that the note above accurately reflects all work, treatment, procedures, and medical decision making performed by me. Departure Information Dispostion Home / Self-Care Referrals Isaias Dickerson M.D. (PCP) Forms HOME CARE DOCUMENTATION FORM, IMPORTANT VISIT INFORMATION Patient Instructions My [facility] Additional Instructions Diagnosis: Acute left flank pain, polycystic kidney disease, polycystic liver disease, splenomegaly Use Tylenol 650 mg every 6 hours as needed for pain sparingly. Warm compresses to help alleviate the discomfort. Follow-up with her primary care physician this week for reevaluation if symptoms persist. Return to the ED for worsening of symptoms or any medical concerns. Problem Qualifiers
[2018-01-05] MEDS ORDERED: ACETAMINOPHEN IV 650 MG in EMPTY BAG 0 ML IV STA (13:34)
[2018-01-05 13:52] LABS: BASO % 0.3 %; BASO ABS # 0.01 K/uL (0-0.2); EOS % 3.1 %; EOS ABS # 0.09 K/uL (0-0.5); HEMATOCRIT 38.5 % (37-47); HEMOGLOBIN 11.8 g/dL (12.0-16.0); IG# 0.02 K/uL (0.00-0.02); LYMPH % 32.3 %; LYMPH ABS # 0.93 K/uL (1.2-3.4); MEAN CELL VOLUME 90.8 fL (80-100); MEAN CORPUSCULAR HEMOGLOBIN 27.8 pg (25-34); MEAN CORPUSCULAR HGB CONC 30.6 g/dl (32-36); MEAN PLATELET VOLUME 10.1 fL (7.4-10.4); MONO % 11.8 %; MONO ABS # 0.34 K/uL (0.11-0.59); NEUT % 51.8 %; NEUT ABS # 1.49 K/uL (1.4-6.5); PLATELET COUNT 122 K/uL (130-400); RED CELL DISTRIBUTION WIDTH CV 16.7 % (11.5-14.5); RED CELL DISTRIBUTION WIDTH SD 55.6 fL (36.4-46.3); WHITE BLOOD COUNT 2.88 K/uL (4.8-10.8)
[2018-01-05 14:26] LABS: ALBUMIN 3.3 gm/dl (3.4-5.0); CALCIUM 8.9 mg/dl (8.5-10.1); CREATININE 6.42 mg/dl (0.60-1.20); POTASSIUM 4.5 mmol/L (3.5-5.1); TOTAL PROTEIN 7.3 gm/dl (6.4-8.2)
--- NOTE | 2018-01-05 15:25 | DIAGNOSTIC IMAGING REPORT ---
CT OF THE ABDOMEN AND PELVIS WITHOUT CONTRAST CLINICAL HISTORY: ESRD, polycystic kidney disease, Left flank pain. COMPARISON STUDY: CT of the abdomen and pelvis July 27, 2017. TECHNIQUE: Axial images of the abdomen and pelvis were obtained without IV contrast. Images were reviewed in the axial, sagittal, and coronal planes. A dose lowering technique was utilized adhering to the principles of ALARA. FINDINGS: Bibasilar opacities within the lungs favor atelectasis. Evaluation of the abdomen and pelvis is suboptimal on this unenhanced exam. The heart is mildly enlarged. No pneumatosis, free air or portal venous gas is present. Small to moderate abdominal and pelvic ascites has slightly increased since prior exam of July 27, 2017. Moderate splenomegaly has mildly increased. The liver and both kidneys are replaced and enlarged with innumerable cysts. Multiple complex cysts are noted. The appearance is similar to exam of July 27, 2017. There is no hydronephrosis. There is no evidence for a bowel obstruction. Sigmoid diverticulosis is noted. There is no evidence for acute diverticulitis although sensitivity is diminished on this examination. Ascites containing umbilical hernia is noted. There are no suspicious osseous lesions. Unenhanced images of the pancreas are unremarkable. The adrenal glands are not well visualized on this examination. IMPRESSION: 1. Small to moderate abdominal and pelvic ascites, slightly increased since CT of July 27, 2017. 2. Markedly enlarged liver and kidneys consistent with autosomal polycystic disease. 3. Moderate splenomegaly, slightly increased since prior exam. 4. No bowel obstruction. 5. Suboptimal evaluation of the abdomen and pelvis on this unenhanced exam. Electronically signed by: Reji Shelley M.D. 01/05/2018 3:24 PM Dictated Date/Time: 01/05/2018 3:15 PM
[2018-01-05 16:48] VITALS: BP 163/87; PULSE 90; O2SAT 97
== END 2018-01-05 16:35 | disposition home or self-care (01) ==
LOC: C.EDB 12:30 → C.EDC 16:35
DX: Q61.3 Polycystic kidney, unspecified (principal); Q44.6 Cystic disease of liver; R16.1 Splenomegaly, not elsewhere classified; N18.3 Chronic kidney disease, stage 3 (moderate); I12.9 Hypertensive chronic kidney disease with stage 1 through stage 4 chronic kidney disease, or unspecified chronic kidney disease; Z99.2 Dependence on renal dialysis; Z79.899 Other long term (current) drug therapy

== ENCOUNTER 2018-07-10 05:58 | Inpatient (IN) ==
[2018-07-10] MEDS ORDERED: RAPID SEQUENCE INDUCTION BAG ONE (06:02)
[2018-07-10] MEDS ORDERED: PROPOFOL IV EMULSION 10 MG/ML 100 ML VIAL IV ONE (06:11)
[2018-07-10 06:22] LABS: Basophils # (auto) 0.02 K/uL (0-0.2); Basophils % (auto) 0.3 %; Eosinophils # (auto) 0.05 K/uL (0-0.5); Eosinophils % (auto) 0.7 %; Hematocrit (blood only) 46.7 % (37-47); Hemoglobin 14.3 g/dL (12.0-16.0); Immature Granulocytes # (auto) 0.01 K/uL (0.00-0.02); Immature Granulocytes % (auto) 0.1 %; Lymphocytes # (auto) 1.79 K/uL (1.2-3.4); Lymphocytes % (auto) 25.5 %; Mean Corpuscular Hgb Conc 30.6 g/dL (32-36); Mean Corpuscular Volume 94.3 fL (80-100); Mean Platelet Volume 10.7 fL (7.4-10.4); Monocytes # (auto) 0.33 K/uL (0.11-0.59); Monocytes % (auto) 4.7 %; Neutrophils # (auto) 4.83 K/uL (1.4-6.5); Neutrophils % (auto) 68.7 %; Platelet Count 176 K/uL (130-400); RDW Coefficient of Variation 16.8 % (11.5-14.5); RDW Standard Deviation 57.7 fL (36.4-46.3); Red Blood Count 4.95 M/uL (4.2-5.4); White Blood Count 7.03 K/uL (4.8-10.8)
[2018-07-10 06:30] LABS: INR 1.2 (0.9-1.1); Partial Thromboplastin Time 26.1 Seconds (21.0-31.0); Prothrombin Time 11.6 Seconds (9.0-12.0)
--- NOTE | 2018-07-10 06:40 | XRay Report ---
XR chest 1V portable CLINICAL HISTORY: SOB dyspnea COMPARISON STUDY: 04/30/2018 FINDINGS: Pulmonary edema. Increased pulmonary vasculature. Diaphragms are smooth. IMPRESSION: Pulmonary edema The above report was generated using voice recognition software. It may contain grammatical, syntax or spelling errors. Electronically signed by: Sixto Goldsmith M.D. 07/10/2018 6:38 AM
--- NOTE | 2018-07-10 06:42 | XRay Report ---
XR chest 1V portable CLINICAL HISTORY: Respiratory failure COMPARISON STUDY: 07/10/2018 FINDINGS: The endotracheal tube has been inserted which is 33 mm above the ulisses. There is a nasogas tric tube which passes into the stomach. There are persistent extensive bilateral pulmonary airspace opacities, likely representing pulmonary edema.[ IMPRESSION: 1. Extensive bilateral pulmonary edema pattern 2. Interval placement of an endotracheal tube 33 mm above the ulisses 3. Interval placement of a nasogastric tube which passes into the stomach Electronically signed by: Cipriano Rivero M.D. 07/10/2018 6:41 AM
[2018-07-10 06:54] LABS: Alanine Aminotransferase 19 U/L (12-78); Albumin Globulin Ratio 0.7 (0.9-2); Albumin Level 3.3 gm/dl (3.4-5.0); Alkaline Phosphatase 106 U/L (45-117); Aspartate Aminotransferase 21 U/L (15-37); Bilirubin,Total 0.5 mg/dl (0.2-1); Blood Urea Nitrogen 52 mg/dl (7-18); Calcium 8.8 mg/dl (8.5-10.1); Carbon Dioxide 28 mmol/L (21-32); Chloride 96 mmol/L (98-107); Est GFR (African American) 5.1; Est GFR (Non-African American) 4.4; Globulin 4.4 gm/dl (2.5-4.0); Glucose 195 mg/dl (70-99); Potassium 4.7 mmol/L (3.5-5.1); Sodium 135 mmol/L (136-145); Total Protein 7.7 gm/dl (6.4-8.2); Troponin I 0.027 ng/ml (0-0.045)
[2018-07-10 07:16] LABS: iSTAT Arterial Blood Gas HCO3 22 meg/L (19-24); iSTAT Carbon Dioxide 22 mEq/l (24-31)
--- NOTE | 2018-07-10 08:01 | Critical Care Consultation ---
Date of Consultation July 10, 2018 Assessment & Plan (1) In critical condition: 62 year old female with hx of ESRD on HD (//sat), idiopathic cardiomyopathy (EF 30-35%), HTN, polycystic kidney disease and congenital cystic liver and anemia presented from dialysis center as she was not feeling well, had sob and productive cough for a few days. Found to have significant bilateral pulmonary edema with hypoxia requiring intubation likely in the setting of orsening volume setting and acute influenza A infection. NEURO: Sedated and paralyzed on mechanical ventilation. Pt was alert and oriented prior to mechanical ventilation On propofol 30mcg/kg/min RASS -3 On Nimbex drip with 12mg bolus; BIS 33 Pain Rx: On Fentanyl and tylenol PRN Received vecuronium 10mg x 2 CARDIAC/VASCULAR: HD stable PMhx: HTN, idiopathic cardiomyopathy with EF 30-35% EK sinus tach QTc 462 ECHO 04/29: Severe LV systolic function reduction with severe global hypokinesis EF 30-35%, Grade II diastolic dysfunction, borderline MV stenosis with mild MV regurg 2/2 moderate calcifications, mild LA enlargement, and extra cardiac bulbous lesions in abdomen Trop 0.015 -> 0.027 On home amlodipine, coreg, isosorbide mononitrate and lisinopril Repeat ECHO ordered Trend troponin PULM: In RF requiring mechanical ventilation 2/2 pulmonary edema likely from worsening volume status in the setting of acute influenza A infection On APRV mode: High Pres 22, time high 4, low pres 3, time low 1, FiO2 50% PSV 10 , flow 2L/min ABG initial: 7.53, CO2 26, pO2 66, HCO3 22 CXR: extensive bilateral pulmonary edema GI: LFT wnl On protonix NPO RENAL/LYTES: ESRD on HD with volume overload; dry weight increased by 4kg BUN/Cr 52/8.58 Mild hyponatremia and hypochloredemia: Na 135 and Cl 96 Nephrology consulted HD today : Grossman in place draining yellow urine ENDO: BSG check and SSI per ICU protocol On Novolog for SSI HEME: No WBC elevation H/H and plt ct wnl Coags: mildly elevated INR of 1.2 Continue to monitor CBC and coags ID: Influenza A infection BCx x 2 pending UCx pending Influenza A positive Nasal MRSA negative Started on Tamiflu LINES: PIVs x 2 [address] RC AV fistula - functional DVT prophylaxis: Heparin 5000u SQ Q12H Full Code Dispo: pending clinical improvement (2) Respiratory failure: (3) Pulmonary edema: (4) Cardiomyopathy: (5) End-stage renal disease on hemodialysis: (6) Hypertension: (7) Polycystic kidney disease: Supervising Physician Co-Signing Physician Notes Dr. Leahy was resident physician during care of patient. I separately evaluated patient for ball portions of the history and the exam. I was present during the critical portion of medical decision making, and I discussed the case with the resident. I generally agree with the findings and plan. Acute hypoxic respiratory failure secondary to volume overload and influenza A. Patient had acute respiratory alkalosis which prompted us to use a PRV for profound hypoxia. Patient resolved after dialysis. To facilitate a PRV ventilation patient was on neuromuscular blockade temporarily. We have discontinued antibiotics in the setting of influenza A. Patient's on Tamiflu renally adjusted. Patient lives with her son who is also on hemodialysis secondary to polycystic kidney disease I have advised him to follow-up with his primary care provider or composition floor layer for possible Tamiflu prophylaxis. I have personally spent 60 minutes of critical care time in the direct management of this patient. This is a life/limb threatening event. This includes time spent evaluating patient, direct bedside care, chart review, placing orders, interpretation of diagnostic studies, discussion with consultants, patient, and/or family members regarding treatment decisions, as well as other required patient management activities. This time is exclusive of all separately billable procedures, and teaching time and separate from and in addition to any other critical care service time. History of Present Illness Attending Physician: Artie Wolf MD History of Present Illness 62 year old female with hx of ESRD on HD (//sat), idiopathic cardiomyopathy (EF 30-35%), HTN, polycystic kidney disease and congenital cystic liver and anemia presented from dialysis center as she was not feeling well, sob and having a productive cough for a few days. A/w vomiting x 1 yesterday per EMS. Per ED note and EMS, the patient drove herself to her dialysis appointment (scheduled for this morning) but did not receive treatment. Her O2 saturation was 53% on room air when she was picked up by them. Upon arrival, her O2 saturation was 69% on CPAP. She was intubated. Of note: Pt had recent admission for similar sob in Apr 2018 and was discharged on May 03. During last admission, pt also had pulmonary edema which improved with Lasix and HD. She required O2 overnight and was sent with O2 home but passed her 2 step. Allergies Allergy/AdvReac Type Severity Reaction Status Date / Time morphine AdvReac Intermediate Nausea Verified 07/10/18 08:19 Home Medications Home Medications Medication Instructions Recorded Confirmed Type amlodipine 5 mg PO BID 04/29/18 07/10/18 History carvedilol 12.5 mg PO DAILY 04/29/18 07/10/18 History furosemide 80 mg PO DAILY 04/29/18 07/10/18 History isosorbide mononitrate 30 mg PO DAILY 04/29/18 07/10/18 History lisinopril 40 mg PO DAILY 04/29/18 07/10/18 History multivitamin [Multiple Vitamins] 1 tab PO DAILY 04/29/18 07/10/18 History calcium acetate 2,668 mg PO TIDM 07/10/18 07/10/18 History Patient History Medical History Cardiomyopathy Anemia End-stage renal disease on hemodialysis Hypertension (Chronic) Hypoxia Polycystic kidney disease (Acute) Surgical History Hx of tubal ligation (Resolved) Social History marital status: / Current Living Situation: Family Current Living Situation Comment: lives with her son Other Information That Helps Us Care for You: No Feels Safe at Home: Yes Smoking Status: Never smoker Hx Alcohol Use: No Hx Substance Use: No Beliefs That Will Affect Care: None Communication Ability: Unable Review of Systems Limited ROS due to pt being sedated and on ventilator. See HPI Physical Exam 2 Vital Signs (Past 24 Hours): Last Vital Signs Temp 37 C 07/10/18 06:06 Pulse 78 07/10/18 07:43 Resp 16 07/10/18 07:43 BP 134/81 07/10/18 07:43 Pulse Ox 100 07/10/18 07:43 Physical Exam: General: Sedated and paralyzed on mechanical ventilation CV: RRR, no m/r/g Pulm: coarse breath sounds on mechanical ventilation, equal breath sounds bilaterally Abdomen: +BS, distended, protuberant abdomen, palpable cysts on abdominal exam, no response to palpation in all quadrants LE: No LE edema or calf tenderness Results & Data Laboratory Results Abnormal lab results 07/10/18 07/10/18 07/10/18 Range/Units 06:11 06:11 06:11 MCHC 30.6 L (32-36) g/dL RDW Std Deviation 57.7 H (36.4-46.3) fL RDW Coeff of Igor 16.8 H (11.5-14.5) % MPV 10.7 H (7.4-10.4) fL INR 1.2 H (0.9-1.1) POC pH (7.35-7.45) POC pCO2 (35-46) mmHg POC pO2 (80-95) mmHg POC Total CO2 (24-31) mEq/l POC Base Excess (-9-1.8) gabriel/L POC ABG O2 Sat (90-95) % Sodium 135 L (136-145) mmol/L Chloride 96 L (98-107) mmol/L BUN 52 H (7-18) mg/dl Creatinine 8.58 H* (0.6-1.2) mg/dl BUN/Creatinine Ratio 6.0 L (10-20) Glucose 195 H (70-99) mg/dl POC Glucose (70-99) Albumin 3.3 L (3.4-5.0) gm/dl Globulin 4.4 H (2.5-4.0) gm/dl Albumin/Globulin Ratio 0.7 L (0.9-2) Influenza Type A (PCR) (Neg) 07/10/18 07/10/18 07/10/18 Range/Units 07:01 07:10 08:30 MCHC (32-36) g/dL RDW Std Deviation (36.4-46.3) fL RDW Coeff of Igor (11.5-14.5) % MPV (7.4-10.4) fL INR (0.9-1.1) POC pH 7.53 H* (7.35-7.45) POC pCO2 26 L (35-46) mmHg POC pO2 66 L (80-95) mmHg POC Total CO2 22 L (24-31) mEq/l POC Base Excess (-9-1.8) gabriel/L POC ABG O2 Sat (90-95) % Sodium (136-145) mmol/L Chloride (98-107) mmol/L BUN (7-18) mg/dl Creatinine (0.6-1.2) mg/dl BUN/Creatinine Ratio (10-20) Glucose (70-99) mg/dl POC Glucose 109 H (70-99) Albumin (3.4-5.0) gm/dl Globulin (2.5-4.0) gm/dl Albumin/Globulin Ratio (0.9-2) Influenza Type A (PCR) Pos for Influ A A* (Neg) 07/10/18 Range/Units 09:03 MCHC (32-36) g/dL RDW Std Deviation (36.4-46.3) fL RDW Coeff of Igor (11.5-14.5) % MPV (7.4-10.4) fL INR (0.9-1.1) POC pH 7.60 H* (7.35-7.45) POC pCO2 24 L (35-46) mmHg POC pO2 197 H (80-95) mmHg POC Total CO2 (24-31) mEq/l POC Base Excess 2.0 H (-9-1.8) gabriel/L POC ABG O2 Sat 100.0 H (90-95) % Sodium (136-145) mmol/L Chloride (98-107) mmol/L BUN (7-18) mg/dl Creatinine (0.6-1.2) mg/dl BUN/Creatinine Ratio (10-20) Glucose (70-99) mg/dl POC Glucose (70-99) Albumin (3.4-5.0) gm/dl Globulin (2.5-4.0) gm/dl Albumin/Globulin Ratio (0.9-2) Influenza Type A (PCR) (Neg) Diagnostic Findings XR chest 1V portable CLINICAL HISTORY: Respiratory failure COMPARISON STUDY: 07/10/2018 FINDINGS: The endotracheal tube has been inserted which is 33 mm above the ulisses. There is a nasogastric tube which passes into the stomach. There are persistent extensive bilateral pulmonary airspace opacities, likely representing pulmonary edema.[ IMPRESSION: 1. Extensive bilateral pulmonary edema pattern 2. Interval placement of an endotracheal tube 33 mm above the ulisses 3. Interval placement of a nasogastric tube which passes into the stomach Medications Administered Current Inpatient Medications Acetaminophen (Tylenol) 650 mg PO Q6 PRN PRN Reason: Fever Stop: 08/09/18 10:49 Amlodipine Besylate (Norvasc) 5 mg PO BID [facility] Stop: 08/09/18 08:59 Carvedilol (Coreg) 12.5 mg PO DAILY JW Stop: 08/09/18 08:59 Dextrose (Dextrose 50%) 25 - 50 ml IV UD PRN; Protocol PRN Reason: Hypoglycemia Protocol Stop: 08/09/18 08:09 Fentanyl Citrate (Fentanyl Citrate) 50 mcg IV Q2H PRN PRN Reason: Moderate Pain (4,5,6) Stop: 07/24/18 08:09 Last Admin: 07/10/18 10:18 Dose: 50 mcg Fentanyl Citrate (Fentanyl Citrate) 100 mcg IV Q2H PRN PRN Reason: Severe Pain (7,8,9,10) Stop: 07/24/18 08:09 Glucagon (Glucagen) 1 mg SQ UD PRN; Protocol PRN Reason: Hypoglycemia Protocol Stop: 08/09/18 08:09 Glucose (Glucose 40%) 15 - 30 gm PO UD PRN; Protocol PRN Reason: Hypoglycemia Protocol Stop: 08/09/18 08:09 Glucose (Dex4 Glucose) 4 - 8 tabs PO UD PRN; Protocol PRN Reason: Hypoglycemia Protocol Stop: 08/09/18 08:09 Heparin Sodium (Porcine) (Heparin Sodium (Porcine)) 5,000 units SQ Q12 JW Stop: 08/09/18 08:59 Propofol (Diprivan) 1,000 mg in 100 mls @ 13.65 mls/hr IV .Q24H JW; Protocol Stop: 07/13/18 08:09 Last Titration: 07/10/18 10:30 Dose: 45 mcg/kg/min, 17.6 mls/hr Pantoprazole Sodium 40 mg/ (Syringe) 10 mls @ 5 mls/min IV DAILY@1100 [facility] Stop: 08/09/18 10:59 Last Admin: 07/10/18 10:44 Dose: 5 mls/min Cisatracurium Besylate 40 mg/ (Sodium Chloride) 100 mls @ 9.75 mls/hr IV .[id number] JW; Protocol Stop: 08/09/18 08:36 Last Titration: 07/10/18 10:47 Dose: 1.1 mcg/kg/min, 10.7 mls/hr Sodium Chloride (Nss 1000ml) 1,000 mls @ 0 mls/hr IV .Q0M PRN PRN Reason: For Hemodialysis Use ONLY Stop: 07/10/18 14:41 Insulin Aspart (Novolog Flexpen) 0 units SC ACHS [facility] Stop: 08/09/18 08:09 Last Admin: 07/10/18 09:04 Dose: Not Given Isosorbide Mononitrate (Imdur Extended Rel) 30 mg PO DAILY [facility] Stop: 08/09/18 08:59 Lisinopril (Zestril) 40 mg PO DAILY [facility] Stop: 08/09/18 08:59 Miscellaneous (Icu Protocol For Hyperglycemia) 1 ea N/A PRN PRN; Protocol PRN Reason: Hyperglycemia Protocol Stop: 07/12/18 08:09 Miscellaneous (Carbohydrates For Hypoglycemia) 15 - 30 gm PO UD PRN PRN Reason: Hypoglycemia Treatment Stop: 08/09/18 08:09 Resident Activity Tracking Resident Involvement: Resident Care Provided Care Provided: Adult [facility] _ (1) Pulmonary edema Chronicity: acute Qualified Code(s): J81.0 - Acute pulmonary edema (2) Respiratory failure Chronicity: acute Respiratory failure complication: hypoxia Qualified Code(s ): J96.01 - Acute respiratory failure with hypoxia
[2018-07-10] MEDS ORDERED: VECURONIUM BROMIDE 10 MG VIAL ONE (08:06)
[2018-07-10] MEDS ORDERED: CARBOHYDRATES FOR HYPOGLYCEMIA PO PRN (08:10)
[2018-07-10] MEDS ORDERED: ICU PROTOCOL FOR HYPERGLYCEMIA PRN (08:10)
[2018-07-10] MEDS ORDERED: fentaNYL citrate 100 MCG/2 ML VIAL IV PRN ×2 (08:10)
[2018-07-10] MEDS ORDERED: DEXTROSE 50% 50 ML SYRINGE IV PRN (08:10)
[2018-07-10] MEDS ORDERED: GLUCAGON FOR INJ 1 MG VIAL SQ PRN (08:10)
[2018-07-10] MEDS ORDERED: GLUCOSE 10 TABS/TUBE PO PRN (08:10)
[2018-07-10] MEDS ORDERED: GLUCOSE 40% GEL 15 GM TUBE PO PRN (08:10)
[2018-07-10] MEDS ORDERED: VECURONIUM BROMIDE 10 MG VIAL IV STA (08:12)
[2018-07-10 08:18] LABS: Influenza B virus by PCR Neg for Influ B (Neg)
[2018-07-10] MEDS ORDERED: CISATRACURIUM BESYLATE 40 MG in 0.9 % SODIUM CHLORIDE 80 ML IV SCH (08:37)
[2018-07-10] MEDS ORDERED: SODIUM CHLORIDE 0.9% 1000ML 1,000 ML IV PRN (08:42)
--- NOTE | 2018-07-10 08:42 | Emergency Department Note ---
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 Per EMS, the patient drove herself to her dialysis appointment (scheduled for this morning) but did not receive treatment. EMS states that her O2 saturation was at 53% on room air when she was picked up by them. Upon arrival, her O2 saturation was at 69% on a CPAP. Per EMS, the patient vomited once yesterday. EMS states that she had has a productive cough for a few days. The patient reports that this is similar to a previous episode of difficulty breathing, noting that fluid in her lungs was the cause. HPI and ROS limited secondary to respiratory distress. Home Medications Home Medications Medication Instructions Recorded Confirmed Type amlodipine 5 mg PO BID 04/29/18 07/10/18 History carvedilol 12.5 mg PO DAILY 04/29/18 07/10/18 History furosemide 80 mg PO DAILY 04/29/18 07/10/18 History isosorbide mononitrate 30 mg PO DAILY 04/29/18 07/10/18 History lisinopril 40 mg PO DAILY 04/29/18 07/10/18 History multivitamin [Multiple Vitamins] 1 tab PO DAILY 04/29/18 07/10/18 History calcium acetate 2,668 mg PO TIDM 07/10/18 07/10/18 History Allergies Allergy/AdvReac Type Severity Reaction Status Date / Time morphine AdvReac Intermediate Nausea Verified 07/10/18 08:19 Past Med/Surg History Medical History Cardiomyopathy Anemia End-stage renal disease on hemodialysis Hypertension (Chronic) Hypoxia Polycystic kidney disease (Acute) Surgical History Hx of tubal ligation (Resolved) Social History marital status: / Current Living Situation: Family Current Living Situation Comment: lives with her son Other Information That Helps Us Care for You: No Feels Safe at Home: Yes Smoking Status: Never smoker Hx Alcohol Use: No Hx Substance Use: No Beliefs That Will Affect Care: None Communication Ability: Unable Review of Systems Other (HPI and ROS limited secondary to respiratory distress.) Physical Exam Vital Signs Vital Signs - 24 hr 07/10/18 06:02 07/10/18 06:06 07/10/18 06:10 Temperature 37 C Temperature Source Oral Rectal Temperature Sepsis Recent Fever Within 48 Hours No Sepsis Action Taken by Nursing No Action Required Pulse Rate 113 H 97 H 118 H Pulse Rate [Apical] Pulse Rate [Right Finger] Pulse Rhythm Regular Pulse Rhythm [Apical] Pulse Strength Normal Respiratory Rate 36 H Respiratory Effort / Characteristics Labored Respiratory Depth Deep Respiratory Pattern Tachypnea Blood Pressure - Lying Blood Pressure 178/95 H 178/95 H 187/112 H Blood Pressure [Right Arm] Blood Pressure Mean 122 122 137 Blood Pressure Mean [Right Arm] Blood Pressure Position Blood Pressure Position [Right Arm] Pulse Oximetry 80 L 62 L 93 Oxygen Delivery Method Room Air Oxygen Flow Rate Fraction of Inspired Oxygen 07/10/18 06:21 07/10/18 06:25 07/10/18 06:26 Temperature Temperature Source Rectal Temperature Sepsis Recent Fever Within 48 Hours Sepsis Action Taken by Nursing Pulse Rate 96 H 95 H Pulse Rate [Apical] Pulse Rate [Right Finger] 106 H Pulse Rhythm Pulse Rhythm [Apical] Pulse Strength Respiratory Rate 16 Respiratory Effort / Characteristics Mechanically Ventilated Respiratory Depth Normal Respiratory Pattern Regular Blood Pressure - Lying Blood Pressure 158/93 H 177/93 H Blood Pressure [Right Arm] 158/93 H Blood Pressure Mean 114 121 Blood Pressure Mean [Right Arm] 114 Blood Pressure Position Blood Pressure Position [Right Arm] Pulse Oximetry 92 96 94 Oxygen Delivery Method Mechanical Vent Oxygen Flow Rate Fraction of Inspired Oxygen 07/10/18 06:29 07/10/18 06:31 07/10/18 06:40 Temperature Temperature Source Rectal Temperature Sepsis Recent Fever Within 48 Hours Sepsis Action Taken by Nursing Pulse Rate 89 84 Pulse Rate [Apical] Pulse Rate [Right Finger] Pulse Rhythm Pulse Rhythm [Apical] Pulse Strength Respiratory Rate Respiratory Effort / Characteristics Respiratory Depth Respiratory Pattern Blood Pressure - Lying Blood Pressure 129/76 157/87 H Blood Pressure [Right Arm] Blood Pressure Mean 93 110 Blood Pressure Mean [Right Arm] Blood Pressure Position Blood Pressure Position [Right Arm] Pulse Oximetry 97 95 96 Oxygen Delivery Method Mechanical Vent Oxygen Flow Rate Fraction of Inspired Oxygen 07/10/18 06:45 07/10/18 06:51 07/10/18 06:55 Temperature Temperature Source Rectal Temperature Sepsis Recent Fever Within 48 Hours Sepsis Action Taken by Nursing Pulse Rate 85 83 83 Pulse Rate [Apical] Pulse Rate [Right Finger] Pulse Rhythm Pulse Rhythm [Apical] Pulse Strength Respiratory Rate 23 Respiratory Effort / Characteristics Respiratory Depth Respiratory Pattern Blood Pressure - Lying Blood Pressure 110/78 Blood Pressure [Right Arm] Blood Pressure Mean 88 Blood Pressure Mean [Right Arm] Blood Pressure Position Blood Pressure Position [Right Arm] Pulse Oximetry 96 96 98 Oxygen Delivery Method Oxygen Flow Rate Fraction of Inspired Oxygen 100 07/10/18 07:00 07/10/18 07:10 07/10/18 07:20 Temperature Temperature Source Rectal Temperature Sepsis Recent Fever Within 48 Hours Sepsis Action Taken by Nursing Pulse Rate 82 78 78 Pulse Rate [Apical] Pulse Rate [Right Finger] Pulse Rhythm Pulse Rhythm [Apical] Pulse Strength Respiratory Rate Respiratory Effort / Characteristics Respiratory Depth Respiratory Pattern Blood Pressure - Lying Blood Pressure 115/73 104/72 112/75 Blood Pressure [Right Arm] Blood Pressure Mean 87 82 87 Blood Pressure Mean [Right Arm] Blood Pressure Position Blood Pressure Position [Right Arm] Pulse Oximetry 98 97 100 Oxygen Delivery Method Oxygen Flow Rate Fraction of Inspired Oxygen 80 07/10/18 07:30 07/10/18 07:43 07/10/18 08:01 Temperature 37.8 C H Temperature Source Rectal Temperature Sepsis Recent Fever Within 48 Hours Sepsis Action Taken by Nursing Pulse Rate 80 78 77 Pulse Rate [Apical] Pulse Rate [Right Finger] Pulse Rhythm Pulse Rhythm [Apical] Pulse Strength Respiratory Rate 16 24 Respiratory Effort / Characteristics Respiratory Depth Respiratory Pattern Blood Pressure - Lying Blood Pressure 125/80 134/81 155/96 H Blood Pressure [Right Arm] Blood Pressure Mean 95 115 Blood Pressure Mean [Right Arm] Blood Pressure Position Blood Pressure Position [Right Arm] Pulse Oximetry 100 100 99 Oxygen Delivery Method Room Air Oxygen Flow Rate Fraction of Inspired Oxygen 80 07/10/18 08:18 07/10/18 08:30 07/10/18 08:45 Temperature Temperature Source Rectal Temperature Sepsis Recent Fever Within 48 Hours Sepsis Action Taken by Nursing Pulse Rate 78 79 73 Pulse Rate [Apical] Pulse Rate [Right Finger] Pulse Rhythm Pulse Rhythm [Apical] Pulse Strength Respiratory Rate Respiratory Effort / Characteristics Mechanically Ventilated Respiratory Depth Normal Respiratory Pattern Regular Blood Pressure - Lying Blood Pressure 112/78 117/75 126/79 Blood Pressure [Right Arm] Blood Pressure Mean 89 89 94 Blood Pressure Mean [Right Arm] Blood Pressure Position Blood Pressure Position [Right Arm] Pulse Oximetry 100 100 100 Oxygen Delivery Method Mechanical Vent Oxygen Flow Rate Fraction of Inspired Oxygen 80 80 80 07/10/18 09:00 07/10/18 09:15 07/10/18 09:30 Temperature Temperature Source Rectal Temperature Sepsis Recent Fever Within 48 Hours Sepsis Action Taken by Nursing Pulse Rate 73 79 78 Pulse Rate [Apical] Pulse Rate [Right Finger] Pulse Rhythm Pulse Rhythm [Apical] Pulse Strength Respiratory Rate Respiratory Effort / Characteristics Respiratory Depth Respiratory Pattern Blood Pressure - Lying Blood Pressure 133/79 145/86 H 145/89 H Blood Pressure [Right Arm] Blood Pressure Mean 97 105 107 Blood Pressure Mean [Right Arm] Blood Pressure Position Blood Pressure Position [Right Arm] Pulse Oximetry 100 98 100 Oxygen Delivery Method Oxygen Flow Rate Fraction of Inspired Oxygen 80 80 80 07/10/18 09:45 07/10/18 10:00 07/10/18 10:01 Temperature 37.8 C H Temperature Source Oral Rectal Temperature Sepsis Recent Fever Within 48 Hours Sepsis Action Taken by Nursing Pulse Rate 79 79 Pulse Rate [Apical] 77 Pulse Rate [Right Finger] 78 Pulse Rhythm Pulse Rhythm [Apical] Regular Pulse Strength Respiratory Rate 24 24 Respiratory Effort / Characteristics Mechanically Ventilated Respiratory Depth Respiratory Pattern Blood Pressure - Lying Blood Pressure 155/90 H 153/88 H Blood Pressure [Right Arm] 153/88 H Blood Pressure Mean 111 109 Blood Pressure Mean [Right Arm] 109 Blood Pressure Position Blood Pressure Position [Right Arm] Lying Pulse Oximetry 97 99 95 Oxygen Delivery Method Mechanical Vent Mechanical Vent Oxygen Flow Rate Fraction of Inspired Oxygen 80 80 07/10/18 11:00 07/10/18 11:15 07/10/18 11:25 Temperature 37.1 C Temperature Source Axillary Rectal Temperature Sepsis Recent Fever Within 48 Hours Sepsis Action Taken by Nursing Pulse Rate 80 78 Pulse Rate [Apical] 79 Pulse Rate [Right Finger] Pulse Rhythm Pulse Rhythm [Apical] Regular Pulse Strength Respiratory Rate Respiratory Effort / Characteristics Respiratory Depth Respiratory Pattern Blood Pressure - Lying 150/88 H Blood Pressure 130/75 150/88 H Blood Pressure [Right Arm] Blood Pressure Mean 93 108 Blood Pressure Mean [Right Arm] Blood Pressure Position Blood Pressure Position [Right Arm] Pulse Oximetry 99 100 Oxygen Delivery Method Mechanical Vent Mechanical Vent Oxygen Flow Rate Fraction of Inspired Oxygen 80 50 07/10/18 11:30 07/10/18 11:45 07/10/18 12:00 Temperature Temperature Source Rectal Temperature 38.4 C H Sepsis Recent Fever Within 48 Hours Sepsis Action Taken by Nursing Pulse Rate 79 82 84 Pulse Rate [Apical] Pulse Rate [Right Finger] Pulse Rhythm Pulse Rhythm [Apical] Pulse Strength Respiratory Rate Respiratory Effort / Characteristics Respiratory Depth Respiratory Pattern Blood Pressure - Lying Blood Pressure 145/84 H 154/86 H 155/65 H Blood Pressure [Right Arm] Blood Pressure Mean 104 111 Blood Pressure Mean [Right Arm] Blood Pressure Position Lying Lying Blood Pressure Position [Right Arm] Pulse Oximetry 100 100 Oxygen Delivery Method Mechanical Vent Mechanical Vent Oxygen Flow Rate Fraction of Inspired Oxygen 50 50 07/10/18 12:12 07/10/18 12:15 07/10/18 12:30 Temperature Temperature Source Rectal Temperature Sepsis Recent Fever Within 48 Hours Sepsis Action Taken by Nursing Pulse Rate 77 80 80 Pulse Rate [Apical] Pulse Rate [Right Finger] Pulse Rhythm Pulse Rhythm [Apical] Pulse Strength Respiratory Rate 16 Respiratory Effort / Characteristics Respiratory Depth Respiratory Pattern Blood Pressure - Lying Blood Pressure 152/87 H 137/85 Blood Pressure [Right Arm] Blood Pressure Mean Blood Pressure Mean [Right Arm] Blood Pressure Position Lying Lying Blood Pressure Position [Right Arm] Pulse Oximetry 100 Oxygen Delivery Method Oxygen Flow Rate Fraction of Inspired Oxygen 50 07/10/18 12:45 07/10/18 13:00 07/10/18 13:15 Temperature Temperature Source Rectal Temperature 38.0 C H Sepsis Recent Fever Within 48 Hours Sepsis Action Taken by Nursing Pulse Rate 81 81 78 Pulse Rate [Apical] Pulse Rate [Right Finger] Pulse Rhythm Pulse Rhythm [Apical] Pulse Strength Respiratory Rate Respiratory Effort / Characteristics Respiratory Depth Respiratory Pattern Blood Pressure - Lying Blood Pressure 105/76 94/68 L 85/60 L Blood Pressure [Right Arm] Blood Pressure Mean 76 Blood Pressure Mean [Right Arm] Blood Pressure Position Lying Lying Lying Blood Pressure Position [Right Arm] Pulse Oximetry 100 Oxygen Delivery Method Mechanical Vent Oxygen Flow Rate Fraction of Inspired Oxygen 50 07/10/18 13:30 07/10/18 13:45 07/10/18 14:00 Temperature Temperature Source Rectal Temperature Sepsis Recent Fever Within 48 Hours Sepsis Action Taken by Nursing Pulse Rate 75 72 74 Pulse Rate [Apical] Pulse Rate [Right Finger] Pulse Rhythm Pulse Rhythm [Apical] Pulse Strength Respiratory Rate Respiratory Effort / Characteristics Respiratory Depth Respiratory Pattern Blood Pressure - Lying Blood Pressure 86/47 L 112/74 115/73 Blood Pressure [Right Arm] Blood Pressure Mean 87 Blood Pressure Mean [Right Arm] Blood Pressure Position Lying Lying Lying Blood Pressure Position [Right Arm] Pulse Oximetry 100 Oxygen Delivery Method Mechanical Vent Oxygen Flow Rate Fraction of Inspired Oxygen 07/10/18 14:02 07/10/18 14:15 07/10/18 14:30 Temperature Temperature Source Rectal Temperature Sepsis Recent Fever Within 48 Hours Sepsis Action Taken by Nursing Pulse Rate 72 73 75 Pulse Rate [Apical] Pulse Rate [Right Finger] Pulse Rhythm Pulse Rhythm [Apical] Pulse Strength Respiratory Rate 21 Respiratory Effort / Characteristics Respiratory Depth Respiratory Pattern Blood Pressure - Lying Blood Pressure 132/81 133/61 Blood Pressure [Right Arm] Blood Pressure Mean Blood Pressure Mean [Right Arm] Blood Pressure Position Lying Lying Blood Pressure Position [Right Arm] Pulse Oximetry 100 Oxygen Delivery Method Oxygen Flow Rate Fraction of Inspired Oxygen 40 07/10/18 14:45 07/10/18 15:00 07/10/18 15:01 Temperature Temperature Source Rectal Temperature Sepsis Recent Fever Within 48 Hours Sepsis Action Taken by Nursing Pulse Rate 73 73 74 Pulse Rate [Apical] Pulse Rate [Right Finger] Pulse Rhythm Pulse Rhythm [Apical] Pulse Strength Respiratory Rate Respiratory Effort / Characteristics Respiratory Depth Respiratory Pattern Blood Pressure - Lying Blood Pressure 130/82 107/74 107/74 Blood Pressure [Right Arm] Blood Pressure Mean 85 Blood Pressure Mean [Right Arm] Blood Pressure Position Lying Lying Blood Pressure Position [Right Arm] Pulse Oximetry 100 Oxygen Delivery Method Oxygen Flow Rate Fraction of Inspired Oxygen 07/10/18 15:15 07/10/18 15:38 07/10/18 16:00 Temperature 36.6 C Temperature Source Oral Rectal Temperature Sepsis Recent Fever Within 48 Hours Sepsis Action Taken by Nursing Pulse Rate 74 74 Pulse Rate [Apical] Pulse Rate [Right Finger] Pulse Rhythm Pulse Rhythm [Apical] Regular Pulse Strength Respiratory Rate Respiratory Effort / Characteristics Mechanically Ventilated Respiratory Depth Normal Respiratory Pattern Blood Pressure - Lying Blood Pressure 116/75 Blood Pressure [Right Arm] 144/85 H Blood Pressure Mean Blood Pressure Mean [Right Arm] Blood Pressure Position Lying Blood Pressure Position [Right Arm] Lying Pulse Oximetry Oxygen Delivery Method Mechanical Vent Oxygen Flow Rate Fraction of Inspired Oxygen 40 07/10/18 16:01 07/10/18 17:01 07/10/18 17:15 Temperature 36.6 C Temperature Source Rectal Temperature Sepsis Recent Fever Within 48 Hours Sepsis Action Taken by Nursing Pulse Rate 76 83 Pulse Rate [Apical] Pulse Rate [Right Finger] Pulse Rhythm Pulse Rhythm [Apical] Pulse Strength Respiratory Rate 21 Respiratory Effort / Characteristics Respiratory Depth Respiratory Pattern Blood Pressure - Lying Blood Pressure 153/102 H 162/93 H Blood Pressure [Right Arm] Blood Pressure Mean 119 116 Blood Pressure Mean [Right Arm] Blood Pressure Position Blood Pressure Position [Right Arm] Pulse Oximetry 98 98 Oxygen Delivery Method Oxygen Flow Rate Fraction of Inspired Oxygen 40 07/10/18 17:31 07/10/18 18:01 07/10/18 18:46 Temperature 36.8 C Temperature Source Rectal Temperature Sepsis Recent Fever Within 48 Hours Sepsis Action Taken by Nursing Pulse Rate 88 82 80 Pulse Rate [Apical] Pulse Rate [Right Finger] Pulse Rhythm Pulse Rhythm [Apical] Pulse Strength Respiratory Rate Respiratory Effort / Characteristics Respiratory Depth Respiratory Pattern Blood Pressure - Lying Blood Pressure 147/83 H 153/83 H 153/83 H Blood Pressure [Right Arm] Blood Pressure Mean 104 106 106 Blood Pressure Mean [Right Arm] Blood Pressure Position Blood Pressure Position [Right Arm] Pulse Oximetry 99 97 98 Oxygen Delivery Method Oxygen Flow Rate Fraction of Inspired Oxygen 07/10/18 19:00 07/10/18 19:01 07/10/18 19:16 Temperature Temperature Source Rectal Temperature Sepsis Recent Fever Within 48 Hours Sepsis Action Taken by Nursing Pulse Rate 82 82 90 Pulse Rate [Apical] Pulse Rate [Right Finger] Pulse Rhythm Pulse Rhythm [Apical] Pulse Strength Respiratory Rate Respiratory Effort / Characteristics Respiratory Depth Respiratory Pattern Blood Pressure - Lying Blood Pressure 158/90 H 163/90 H Blood Pressure [Right Arm] Blood Pressure Mean 112 114 Blood Pressure Mean [Right Arm] Blood Pressure Position Blood Pressure Position [Right Arm] Pulse Oximetry 97 98 Oxygen Delivery Method Oxygen Flow Rate Fraction of Inspired Oxygen 07/10/18 19:17 07/10/18 19:31 07/10/18 19:46 Temperature Temperature Source Rectal Temperature Sepsis Recent Fever Within 48 Hours Sepsis Action Taken by Nursing Pulse Rate 84 85 85 Pulse Rate [Apical] Pulse Rate [Right Finger] Pulse Rhythm Pulse Rhythm [Apical] Pulse Strength Respiratory Rate Respiratory Effort / Characteristics Respiratory Depth Respiratory Pattern Blood Pressure - Lying Blood Pressure 157/91 H 169/89 H Blood Pressure [Right Arm] Blood Pressure Mean 113 115 Blood Pressure Mean [Right Arm] Blood Pressure Position Blood Pressure Position [Right Arm] Pulse Oximetry 97 98 98 Oxygen Delivery Method Oxygen Flow Rate Fraction of Inspired Oxygen 07/10/18 19:50 07/10/18 20:00 07/10/18 20:01 Temperature Temperature Source Rectal Temperature Sepsis Recent Fever Within 48 Hours Sepsis Action Taken by Nursing Pulse Rate 91 H 91 H Pulse Rate [Apical] Pulse Rate [Right Finger] Pulse Rhythm Pulse Rhythm [Apical] Pulse Strength Respiratory Rate Respiratory Effort / Characteristics Non-Labored Respiratory Depth Normal Respiratory Pattern Regular Blood Pressure - Lying Blood Pressure 171/90 H Blood Pressure [Right Arm] Blood Pressure Mean 117 Blood Pressure Mean [Right Arm] Blood Pressure Position Blood Pressure Position [Right Arm] Pulse Oximetry 99 98 Oxygen Delivery Method Oxymask Oxygen Flow Rate 6 Fraction of Inspired Oxygen 07/10/18 20:16 07/10/18 20:31 07/10/18 20:46 Temperature Temperature Source Rectal Temperature Sepsis Recent Fever Within 48 Hours Sepsis Action Taken by Nursing Pulse Rate 88 91 H 90 Pulse Rate [Apical] Pulse Rate [Right Finger] Pulse Rhythm Pulse Rhythm [Apical] Pulse Strength Respiratory Rate Respiratory Effort / Characteristics Respiratory Depth Respiratory Pattern Blood Pressure - Lying Blood Pressure 176/91 H 175/93 H 176/94 H Blood Pressure [Right Arm] Blood Pressure Mean 119 120 121 Blood Pressure Mean [Right Arm] Blood Pressure Position Blood Pressure Position [Right Arm] Pulse Oximetry 97 99 98 Oxygen Delivery Method Oxygen Flow Rate Fraction of Inspired Oxygen 07/10/18 21:00 07/10/18 21:01 07/10/18 21:16 Temperature Temperature Source Rectal Temperature Sepsis Recent Fever Within 48 Hours Sepsis Action Taken by Nursing Pulse Rate 90 89 97 H Pulse Rate [Apical] Pulse Rate [Right Finger] Pulse Rhythm Pulse Rhythm [Apical] Pulse Strength Respiratory Rate Respiratory Effort / Characteristics Respiratory Depth Respiratory Pattern Blood Pressure - Lying Blood Pressure 175/92 H 175/91 H Blood Pressure [Right Arm] Blood Pressure Mean 119 119 Blood Pressure Mean [Right Arm] Blood Pressure Position Blood Pressure Position [Right Arm] Pulse Oximetry 97 97 97 Oxygen Delivery Method Oxygen Flow Rate Fraction of Inspired Oxygen 07/10/18 21:31 07/10/18 21:36 07/10/18 21:46 Temperature Temperature Source Rectal Temperature Sepsis Recent Fever Within 48 Hours Sepsis Action Taken by Nursing Pulse Rate 94 H 89 87 Pulse Rate [Apical] Pulse Rate [Right Finger] Pulse Rhythm Pulse Rhythm [Apical] Pulse Strength Respiratory Rate Respiratory Effort / Characteristics Respiratory Depth Respiratory Pattern Blood Pressure - Lying Blood Pressure 177/91 H 177/91 H 166/86 H Blood Pressure [Right Arm] Blood Pressure Mean 119 112 Blood Pressure Mean [Right Arm] Blood Pressure Position Blood Pressure Position [Right Arm] Pulse Oximetry 98 99 Oxygen Delivery Method Oxygen Flow Rate Fraction of Inspired Oxygen 07/10/18 22:01 Temperature Temperature Source Rectal Temperature Sepsis Recent Fever Within 48 Hours Sepsis Action Taken by Nursing Pulse Rate 85 Pulse Rate [Apical] Pulse Rate [Right Finger] Pulse Rhythm Pulse Rhythm [Apical] Pulse Strength Respiratory Rate Respiratory Effort / Characteristics Respiratory Depth Respiratory Pattern Blood Pressure - Lying Blood Pressure 155/75 H Blood Pressure [Right Arm] Blood Pressure Mean 101 Blood Pressure Mean [Right Arm] Blood Pressure Position Blood Pressure Position [Right Arm] Pulse Oximetry 98 Oxygen Delivery Method Oxygen Flow Rate Fraction of Inspired Oxygen General: Semi-responsive. Severe respiratory distress. HEENT: Head - normocephalic and atraumatic Pupils are equal, round, and reactive to light. Extraocular eye muscles are intact, and sclera are anicteric. Nose - moist nasal mucosa without discharge. Mouth - moist buccal mucosa. Neck: Supple; no JVD, nuchal rigidity, cervical lymphadenopathy. Heart: Tachycardic rate and regular rhythm. There is a normal S1 and S2 with no murmurs, clicks, or gallops appreciated. Lungs: No wheezes or rhonchi. Diffuse rales in all lung marinelli. Abdomen:significantly distended but soft. There are no palpable pulsatile masses or hepatosplenomegaly. There is no guarding, rigidity, or rebound noted. Extremities: No evidence of cyanosis, clubbing, or edema. There are easily palpable peripheral pulses. Skin: warm and diaphoretic with good turgor and no rashes. Procedures Free Text Procedures Endotracheal Intubation Indication: Respiratory failure Administrative Supervisor Manny performed the procedure under my direct supervision The patient was on 100% oxygen via CPAP prior to the procedure. Suction, airway equipment, RSI drugs, respiratory equipment, and appropriate personnel were prepared prior to the initiation of the procedure. A time out was taken. Induction was performed with 20 mg etomadate and 80 mg succinylcholine. After observing the clinical benefit of the medications, the airway was easily visualized utilizing a glide scope. A 7.0 size ETT tube was placed atraumatically to 20 cm using standard technique. The cuff inflated without signs of malfunction. There were bilateral breath sounds, positive colormetric change, no gastric sounds, and post procedure pulse oximetry was 100%. Post intubation sedation was administered using propofol. There were no complications. Course 0558: Past medical records reviewed. The patient was evaluated in room B01, and a complete history and physical examination were performed. The patient was intubated. An IV lock was initiated, and labs were drawn as above. A 12-lead EKG was performed. A portable chest x-ray was performed which showed significant pulmonary edema. Endotracheal intubation was performed using RSI as described in the procedure note. 0611: Propofol IV was initiated for sedation. And NG tube was placed and a post intubation x-ray was obtained. 0633: I checked on the patient. She was hemodynamically stable. 0649: I spoke to the patient's family. I spoke with the respiratory therapist at the bedside about the pressure control settings. 0658: I talked to Dr. Holt, [facility] Volunteer Services Specialist, about the patient's case. He will further evaluate the patient. 0707: I spoke to Dr. Holt at the patient's bedside. 0708: I reviewed the results for the ABG. pH=7.5. PCO2=25. PO2= 66. BiCarb= 21. Underlying respiratory rate is 30, so I decided to paralyze the patient to take away her work of breathing. She will be getting 8 of Vecuronium. 0721: The patient appears much more comfortable. Vital signs are stable. Respiratory findings were improved as the vent settings were adjusted. Consultations Consultation #1: I talked to Dr. Holt, [facility] Volunteer Services Specialist, about the patient' s case. He will further evaluate the patient. Time: 06:58 Administered Medications Acetaminophen (Tylenol) 650 mg PO Q6 PRN PRN Reason: Fever Stop: 08/09/18 10:49 Last Admin: 07/10/18 12:11 Dose: 650 mg Amlodipine Besylate (Norvasc) 5 mg PO BID JW Stop: 08/09/18 08:59 Last Admin: 07/10/18 21:16 Dose: Not Given Admin: 07/10/18 12:07 Dose: Not Given Carvedilol (Coreg) 12.5 mg PO DAILY [facility] Stop: 08/09/18 08:59 Last Admin: 07/10/18 16:10 Dose: 12.5 mg Fentanyl Citrate (Fentanyl Citrate) 50 mcg IV Q2H PRN PRN Reason: Moderate Pain (4,5,6) Stop: 07/24/18 08:09 Last Admin: 07/10/18 10:18 Dose: 50 mcg Heparin Sodium (Porcine) (Heparin Sodium (Porcine)) 5,000 units SQ Q12 [facility] Stop: 08/09/18 08:59 Last Admin: 07/10/18 21:37 Dose: 5,000 units Admin: 07/10/18 12:08 Dose: 5,000 units Propofol (Diprivan) 1,000 mg in 100 mls @ 0 mls/hr IV .Q17H6M [facility]; Protocol Stop: 07/13/18 08:09 Last Titration: 07/10/18 16:59 Dose: 0 mcg/kg/min, 0 mls/hr Titration: 07/10/18 16:37 Dose: 15 mcg/kg/min, 5.9 mls/hr Titration: 07/10/18 16:11 Dose: 20 mcg/kg/min, 7.8 mls/hr Titration: 07/10/18 15:26 Dose: 40 mcg/kg/min, 15.6 mls/hr Admin: 07/10/18 12:05 Dose: 45 mcg/kg/min, 17.6 mls/hr Titration: 07/10/18 12:05 Dose: 45 mcg/kg/min, 17.6 mls/hr Titration: 07/10/18 10:30 Dose: 45 mcg/kg/min, 17.6 mls/hr Titration: 07/10/18 10:00 Dose: 40 mcg/kg/min, 15.6 mls/hr Titration: 07/10/18 09:27 Dose: 35 mcg/kg/min, 13.7 mls/hr Admin: 07/10/18 09:04 Dose: 30 mcg/kg/min, 11.7 mls/hr Pantoprazole Sodium 40 mg/ (Syringe) 10 mls @ 5 mls/min IV DAILY@1100 [facility] Stop: 08/09/18 10:59 Last Admin: 07/10/18 10:44 Dose: 5 mls/min Cisatracurium Besylate 40 mg/ (Sodium Chloride) 100 mls @ 0 mls/hr IV .Q0M [facility] ; Protocol Stop: 08/09/18 08:36 Last Titration: 07/10/18 12:23 Dose: 0 mcg/kg/min, 0 mls/hr Admin: 07/10/18 10:19 Dose: 1 mcg/kg/min, 9.8 mls/hr Insulin Aspart (Novolog Flexpen) 0 units SC ACHS [facility] Stop: 08/09/18 08:09 Last Admin: 07/10/18 21:37 Dose: Not Given Admin: 07/10/18 16:41 Dose: Not Given Admin: 07/10/18 12:30 Dose: Not Given Admin: 07/10/18 09:04 Dose: Not Given Isosorbide Mononitrate (Imdur Extended Rel) 30 mg PO DAILY [facility] Stop: 08/09/18 08:59 Last Admin: 07/10/18 16:11 Dose: 30 mg Lisinopril (Zestril) 40 mg PO DAILY [facility] Stop: 08/09/18 08:59 Last Admin: 07/10/18 16:11 Dose: 40 mg Metoprolol Tartrate (Lopressor) 2.5 mg IV Q4 PRN PRN Reason: Blood Pressure - High Stop: 08/10/18 00:00 Last Admin: 07/10/18 21:36 Dose: 2.5 mg Miscellaneous (Pending Order) 1 ea N/A DAILY@1600 [facility] Stop: 07/14/18 16:01 Last Admin: 07/10/18 16:12 Dose: Not Given Oseltamivir Phosphate (Tamiflu) 30 mg PO DAILY PRN PRN Reason: after dialysis Stop: 07/15/18 14:13 Last Admin: 07/10/18 17:03 Dose: 30 mg Discontinued Medications Cisatracurium Besylate 12 mg/ (Syringe) 6 mls @ 36 mls/min IV NOW STA Stop: 07/10/18 12:01 Last Admin: 07/10/18 12:22 Dose: 36 mls/min Miscellaneous () Confirm Administered Dose 1 ea .ROUTE .STK-MED ONE Stop: 07/10/18 06:03 Last Admin: 07/10/18 06:37 Dose: 1 ea Oseltamivir Phosphate (Tamiflu) 30 mg PO ONE ONE Stop: 07/10/18 09:31 Last Admin: 07/10/18 09:52 Dose: 30 mg Propofol (Diprivan) Confirm Administered Dose 1,000 mg IV .STK-MED ONE Stop: 07/10/18 06:12 Last Admin: 07/10/18 06:15 Dose: 1,000 mg Vecuronium [place] (Norcuron) Confirm Administered Dose 10 mg .ROUTE .STK-MED ONE Stop: 07/10/18 08:07 Last Admin: 07/10/18 09:04 Dose: Not Given Vecuronium [place] (Norcuron) 10 mg IV NOW STA Stop: 07/10/18 08:13 Last Admin: 07/10/18 09:03 Dose: 10 mg Medical Decision Making Differential Diagnosis The differential diagnosis includes: PE, PNA, CHF, pulmonary edema Medical Records Attestation: I reviewed the patient's medical records. Home Medications Current Medication List: was personally reviewed by me Laboratory Data Attestation: I reviewed the patient's lab results. Result diagrams: 07/10/18 06:11 07/10/18 06:11 Lab Results 07/10/18 07/10/18 07/10/18 Range/Units 06:11 06:11 06:11 WBC 7.03 (4.8-10.8) K/uL RBC 4.95 (4.2-5.4) M/uL Hgb 14.3 (12.0-16.0) g/dL Hct 46.7 (37-47) % MCV 94.3 (80-100) fL MCH 28.9 (25-34) pg MCHC 30.6 L (32-36) g/dL RDW Std Deviation 57.7 H (36.4-46.3) fL RDW Coeff of Igor 16.8 H (11.5-14.5) % Plt Count 176 (130-400) K/uL MPV 10.7 H (7.4-10.4) fL Immature Gran % (Auto) 0.1 % Neut % (Auto) 68.7 % Lymph % (Auto) 25.5 % Divide % (Auto) 4.7 % Eos % (Auto) 0.7 % Baso % (Auto) 0.3 % Immature Gran # (Auto) 0.01 (0.00-0.02) K/uL Neut # (Auto) 4.83 (1.4-6.5) K/uL Lymph # (Auto) 1.79 (1.2-3.4) K/uL Divide # (Auto) 0.33 (0.11-0.59) K/uL Eos # (Auto) 0.05 (0-0.5) K/uL Baso # (Auto) 0.02 (0-0.2) K/uL PT 11.6 (9.0-12.0) Seconds INR 1.2 H (0.9-1.1) APTT 26.1 (21.0-31.0) Seconds PTT Ratio 1.0 Sample Site POC pH (7.35-7.45) POC pCO2 (35-46) mmHg POC pO2 (80-95) mmHg POC HCO3 (19-24) gabriel/L POC Total CO2 (24-31) mEq/l POC Base Excess (-9-1.8) gabriel/L POC ABG O2 Sat (90-95) % Carl Test O2 Delivery Device Minute Ventilation POC FiO2 % PEEP Time High Time Low Sodium 135 L (136-145) mmol/L Potassium 4.7 (3.5-5.1) mmol/L Chloride 96 L (98-107) mmol/L Carbon Dioxide 28 (21-32) mmol/L Anion Gap 11.0 (3-11) BUN 52 H (7-18) mg/dl Creatinine 8.58 H* (0.6-1.2) mg/dl Est Cr Clr Drug Dosing Not Reportable Est GFR ( Amer) 5.1 Est GFR (Non-Af Amer) 4.4 BUN/Creatinine Ratio 6.0 L (10-20) Glucose 195 H (70-99) mg/dl POC Glucose (70-99) Calcium 8.8 (8.5-10.1) mg/dl Total Bilirubin 0.5 (0.2-1) mg/dl AST 21 (15-37) U/L ALT 19 (12-78) U/L Alkaline Phosphatase 106 (45-117) U/L Troponin I 0.027 (0-0.045) ng/ml Total Protein 7.7 (6.4-8.2) gm/dl Albumin 3.3 L (3.4-5.0) gm/dl Globulin 4.4 H (2.5-4.0) gm/dl Albumin/Globulin Ratio 0.7 L (0.9-2) Nasal Screen MRSA (PCR) (Negative) Influenza Type A (PCR) (Neg) Influenza Type B (PCR) (Neg) 07/10/18 07/10/18 07/10/18 Range/Units 07:01 07:10 08:20 WBC (4.8-10.8) K/uL RBC (4.2-5.4) M/uL Hgb (12.0-16.0) g/dL Hct (37-47) % MCV (80-100) fL MCH (25-34) pg MCHC (32-36) g/dL RDW Std Deviation (36.4-46.3) fL RDW Coeff of Igor (11.5-14.5) % Plt Count (130-400) K/uL MPV (7.4-10.4) fL Immature Gran % (Auto) % Neut % (Auto) % Lymph % (Auto) % Divide % (Auto) % Eos % (Auto) % Baso % (Auto) % Immature Gran # (Auto) (0.00-0.02) K/uL Neut # (Auto) (1.4-6.5) K/uL Lymph # (Auto) (1.2-3.4) K/uL Divide # (Auto) (0.11-0.59) K/uL Eos # (Auto) (0-0.5) K/uL Baso # (Auto) (0-0.2) K/uL PT (9.0-12.0) Seconds INR (0.9-1.1) APTT (21.0-31.0) Seconds PTT Ratio Sample Site POC pH 7.53 H* (7.35-7.45) POC pCO2 26 L (35-46) mmHg POC pO2 66 L (80-95) mmHg POC HCO3 22 (19-24) gabriel/L POC Total CO2 22 L (24-31) mEq/l POC Base Excess -1.0 (-9-1.8) gabriel/L POC ABG O2 Sat 95.0 (90-95) % Carl Test O2 Delivery Device Minute Ventilation POC FiO2 % PEEP Time High Time Low Sodium (136-145) mmol/L Potassium (3.5-5.1) mmol/L Chloride (98-107) mmol/L Carbon Dioxide (21-32) mmol/L Anion Gap (3-11) BUN (7-18) mg/dl Creatinine (0.6-1.2) mg/dl Est Cr Clr Drug Dosing Est GFR ( Amer) Est GFR (Non-Af Amer) BUN/Creatinine Ratio (10-20) Glucose (70-99) mg/dl POC Glucose (70-99) Calcium (8.5-10.1) mg/dl Total Bilirubin (0.2-1) mg/dl AST (15-37) U/L ALT (12-78) U/L Alkaline Phosphatase (45-117) U/L Troponin I (0-0.045) ng/ml Total Protein (6.4-8.2) gm/dl Albumin (3.4-5.0) gm/dl Globulin (2.5-4.0) gm/dl Albumin/Globulin Ratio (0.9-2) Nasal Screen MRSA (PCR) Negative (Negative) Influenza Type A (PCR) Pos for Influ A A* (Neg) Influenza Type B (PCR) Neg for Influ B (Neg) 07/10/18 07/10/18 07/10/18 Range/Units 08:30 09:03 11:53 WBC (4.8-10.8) K/uL RBC (4.2-5.4) M/uL Hgb (12.0-16.0) g/dL Hct (37-47) % MCV (80-100) fL MCH (25-34) pg MCHC (32-36) g/dL RDW Std Deviation (36.4-46.3) fL RDW Coeff of Igor (11.5-14.5) % Plt Count (130-400) K/uL MPV (7.4-10.4) fL Immature Gran % (Auto) % Neut % (Auto) % Lymph % (Auto) % Divide % (Auto) % Eos % (Auto) % Baso % (Auto) % Immature Gran # (Auto) (0.00-0.02) K/uL Neut # (Auto) (1.4-6.5) K/uL Lymph # (Auto) (1.2-3.4) K/uL Divide # (Auto) (0.11-0.59) K/uL Eos # (Auto) (0-0.5) K/uL Baso # (Auto) (0-0.2) K/uL PT (9.0-12.0) Seconds INR (0.9-1.1) APTT (21.0-31.0) Seconds PTT Ratio Sample Site R Radial POC pH 7.60 H* (7.35-7.45) POC pCO2 24 L (35-46) mmHg POC pO2 197 H (80-95) mmHg POC HCO3 23 (19-24) gabriel/L POC Total CO2 24 (24-31) mEq/l POC Base Excess 2.0 H (-9-1.8) gabriel/L POC ABG O2 Sat 100.0 H (90-95) % Carl Test Pass O2 Delivery Device Ventilator Minute Ventilation 6.6 POC FiO2 80 % PEEP 3 Time High 4 Time Low 1 Sodium (136-145) mmol/L Potassium (3.5-5.1) mmol/L Chloride (98-107) mmol/L Carbon Dioxide (21-32) mmol/L Anion Gap (3-11) BUN (7-18) mg/dl Creatinine (0.6-1.2) mg/dl Est Cr Clr Drug Dosing Est GFR ( Amer) Est GFR (Non-Af Amer) BUN/Creatinine Ratio (10-20) Glucose (70-99) mg/dl POC Glucose 109 H (70-99) Calcium (8.5-10.1) mg/dl Total Bilirubin (0.2-1) mg/dl AST (15-37) U/L ALT (12-78) U/L Alkaline Phosphatase (45-117) U/L Troponin I 0.314 H* (0-0.045) ng/ml Total Protein (6.4-8.2) gm/dl Albumin (3.4-5.0) gm/dl Globulin (2.5-4.0) gm/dl Albumin/Globulin Ratio (0.9-2) Nasal Screen MRSA (PCR) (Negative) Influenza Type A (PCR) (Neg) Influenza Type B (PCR) (Neg) 07/10/18 07/10/18 07/10/18 Range/Units 12:26 16:29 20:27 WBC (4.8-10.8) K/uL RBC (4.2-5.4) M/uL Hgb (12.0-16.0) g/dL Hct (37-47) % MCV (80-100) fL MCH (25-34) pg MCHC (32-36) g/dL RDW Std Deviation (36.4-46.3) fL RDW Coeff of Igor (11.5-14.5) % Plt Count (130-400) K/uL MPV (7.4-10.4) fL Immature Gran % (Auto) % Neut % (Auto) % Lymph % (Auto) % Divide % (Auto) % Eos % (Auto) % Baso % (Auto) % Immature Gran # (Auto) (0.00-0.02) K/uL Neut # (Auto) (1.4-6.5) K/uL Lymph # (Auto) (1.2-3.4) K/uL Divide # (Auto) (0.11-0.59) K/uL Eos # (Auto) (0-0.5) K/uL Baso # (Auto) (0-0.2) K/uL PT (9.0-12.0) Seconds INR (0.9-1.1) APTT (21.0-31.0) Seconds PTT Ratio Sample Site POC pH (7.35-7.45) POC pCO2 (35-46) mmHg POC pO2 (80-95) mmHg POC HCO3 (19-24) gabriel/L POC Total CO2 (24-31) mEq/l POC Base Excess (-9-1.8) gabriel/L POC ABG O2 Sat (90-95) % Carl Test O2 Delivery Device Minute Ventilation POC FiO2 % PEEP Time High Time Low Sodium (136-145) mmol/L Potassium (3.5-5.1) mmol/L Chloride (98-107) mmol/L Carbon Dioxide (21-32) mmol/L Anion Gap (3-11) BUN (7-18) mg/dl Creatinine (0.6-1.2) mg/dl Est Cr Clr Drug Dosing Est GFR ( Amer) Est GFR (Non-Af Amer) BUN/Creatinine Ratio (10-20) Glucose (70-99) mg/dl POC Glucose 84 93 93 (70-99) Calcium (8.5-10.1) mg/dl Total Bilirubin (0.2-1) mg/dl AST (15-37) U/L ALT (12-78) U/L Alkaline Phosphatase (45-117) U/L Troponin I (0-0.045) ng/ml Total Protein (6.4-8.2) gm/dl Albumin (3.4-5.0) gm/dl Globulin (2.5-4.0) gm/dl Albumin/Globulin Ratio (0.9-2) Nasal Screen MRSA (PCR) (Negative) Influenza Type A (PCR) (Neg) Influenza Type B (PCR) (Neg) 07/10/18 Range/Units 20:28 WBC (4.8-10.8) K/uL RBC (4.2-5.4) M/uL Hgb (12.0-16.0) g/dL Hct (37-47) % MCV (80-100) fL MCH (25-34) pg MCHC (32-36) g/dL RDW Std Deviation (36.4-46.3) fL RDW Coeff of Igor (11.5-14.5) % Plt Count (130-400) K/uL MPV (7.4-10.4) fL Immature Gran % (Auto) % Neut % (Auto) % Lymph % (Auto) % Divide % (Auto) % Eos % (Auto) % Baso % (Auto) % Immature Gran # (Auto) (0.00-0.02) K/uL Neut # (Auto) (1.4-6.5) K/uL Lymph # (Auto) (1.2-3.4) K/uL Divide # (Auto) (0.11-0.59) K/uL Eos # (Auto) (0-0.5) K/uL Baso # (Auto) (0-0.2) K/uL PT (9.0-12.0) Seconds INR (0.9-1.1) APTT (21.0-31.0) Seconds PTT Ratio Sample Site POC pH (7.35-7.45) POC pCO2 (35-46) mmHg POC pO2 (80-95) mmHg POC HCO3 (19-24) gabriel/L POC Total CO2 (24-31) mEq/l POC Base Excess (-9-1.8) gabriel/L POC ABG O2 Sat (90-95) % Carl Test O2 Delivery Device Minute Ventilation POC FiO2 % PEEP Time High Time Low Sodium (136-145) mmol/L Potassium (3.5-5.1) mmol/L Chloride (98-107) mmol/L Carbon Dioxide (21-32) mmol/L Anion Gap (3-11) BUN (7-18) mg/dl Creatinine (0.6-1.2) mg/dl Est Cr Clr Drug Dosing Est GFR ( Amer) Est GFR (Non-Af Amer) BUN/Creatinine Ratio (10-20) Glucose (70-99) mg/dl POC Glucose (70-99) Calcium (8.5-10.1) mg/dl Total Bilirubin (0.2-1) mg/dl AST (15-37) U/L ALT (12-78) U/L Alkaline Phosphatase (45-117) U/L Troponin I 0.278 H* (0-0.045) ng/ml Total Protein (6.4-8.2) gm/dl Albumin (3.4-5.0) gm/dl Globulin (2.5-4.0) gm/dl Albumin/Globulin Ratio (0.9-2) Nasal Screen MRSA (PCR) (Negative) Influenza Type A (PCR) (Neg) Influenza Type B (PCR) (Neg) Imaging Data Radiologist's Impression: Radiology results as stated below per my review and the radiologist's interpretation: XR chest 1V portable CLINICAL HISTORY: SOB dyspnea COMPARISON STUDY: 04/30/2018 FINDINGS: Pulmonary edema. Increased pulmonary vasculature. Diaphragms are smooth. IMPRESSION: Pulmonary edema The above report was generated using voice recognition software. It may contain grammatical, syntax or spelling errors. Electronically signed by: Sixto Goldsmith M.D. 07/10/2018 6:38 AM XR chest 1V portable CLINICAL HISTORY: Respiratory failure COMPARISON STUDY: 07/10/2018 FINDINGS: The endotracheal tube has been inserted which is 33 mm above the ulisses. There is a nasogastric tube which passes into the stomach. There are persistent extensive bilateral pulmonary airspace opacities, likely representing pulmonary edema.[ IMPRESSION: 1. Extensive bilateral pulmonary edema pattern 2. Interval placement of an endotracheal tube 33 mm above the ulisses 3. Interval placement of a nasogastric tube which passes into the stomach Electronically signed by: Cipriano Rivero M.D. 07/10/2018 6:41 AM ECG Data Attestation: I personally reviewed and interpreted this ECG as follows: Indication: other (respiratory problems) Rate (beats per minute): 110 Rhythm: sinus tachycardia Findings: + ST depression (laterally, unchanged from previous EKG); no ectopy Change: the following changes noted (unchange from previous EKG) Blood Pressure Blood Pressure Findings: Elevated blood pressure Blood Pressure Disposition: elevated BP felt to be situational MDM Narrative The patient is a 62 year old female who presents to the Emergency Room with complaints of respiratory problems that began this morning. The patient has a history of end-stage renal disease and is on hemodialysis. She had a very sudden onset of shortness of breath today before her dialysis treatment. O2 saturations in the field were between 50 and 60%. Upon arrival here in the emergency department, the patient was in severe respiratory distress. She received RSI and was electively intubated. The procedure went well and she was placed on a ventilator and sedated with propofol. The patient then required vecuronium for long-term paralysis. Chest x-ray showed evidence of severe pulmonary edema. She will require emergent dialysis. I discussed the case with the [facility] spinning room worker and they will evaluate for further management. Impression & Plan Respiratory failure, Hypoxia, Pulmonary edema Critical Care Time I have personally spent greater than 60 minutes of critical care time in the direct management of this patient. This includes bedside care, interpretation of diagnostic studies, and testing, discussion with consultants, patient, and family members, and other required patient management activities. This 60 minutes is in excess of all separately billable procedures. Critical Care Time: Yes Total Critical Care Time: 60 Discharge Plan Visit Data *Final* Discharge Date/Time: 07/10/18 07:43 Chief Complaint: Respiratory Problems ED Provider: Gosia Valerio Discharge Problem: Respiratory failure, Hypoxia, Pulmonary edema Patient Disposition: Admitted As Inpatient Discharge Instructions Interventions: ED Discharge Assessment Last Done: 07/10/18 07:43 The scribe's documentation has been prepared under my direction and personally reviewed by me in its entirety. I confirm that the note above accurately reflects all work, treatment, procedures, and medical decision making performed by me.
[2018-07-10] MEDS: INSULIN ASPART 100 UNITS/ML 3 ML PEN SC SCH ×4 (09:04→21:37)
[2018-07-10] MEDS: PROPOFOL 1,000 MG/100 ML VIAL IV SCH ×2 (09:04→12:05)
--- NOTE | 2018-07-10 09:16 | History & Physical Report ---
Date of Service July 10, 2018 Assessment & Plan (1) Respiratory failure: Acute hypoxic respiratory failure with O2 sat in the 50's at dialysis center. Required intubation and mechanical ventilation. Underlying etiology appears to be CHF +/- influenza. Vent management per Critical Care Medicine. (2) Cardiomyopathy: History of systolic CHF with LVEF 30-35% in Apr 2018. Now with acute on chronic left ventricular systolic heart failure. Fluid management with diuretics and hemodialysis. (3) Pulmonary edema: Secondary to acute on chronic left ventricular systolic heart failure as discussed above. 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 Oseltamivir ordered. (5) End-stage renal disease on hemodialysis: Management per Nephrology. (6) Hypertension: Hemodynamically stable. Follow and titrate meds. (7) DVT prophylaxis: SQ heparin. (8) Discharge planning issues: Anticipated discharge to home. Family Medicine follow-up with Dr. Dickerson. History of Present Illness Chief Complaint: shortness of breath Primary Care Provider: Isaias Dickerson 62 YO female followed by Dr. Dickerson. History of systolic CHF, CKD V due to polycystic kidney disease, and other problems. She was scheduled for hemodialysis today. When she arrived at the hemodialysis center she was noted to be SOB and O2 sat was 53% on RA. Reportedly has had a cough for the past few days. Reportedly vomited the day prior to admission. EMS summoned. CPAP applied in the field. Upon arrival to ED, patient was in respiratory distress and lethargic. She was intubated and admitted to the ICU. Allergies Allergy/AdvReac Type Severity Reaction Status Date / Time morphine AdvReac Intermediate Nausea Verified 07/10/18 08:19 Home Medications Home Medications Medication Instructions Recorded Confirmed Type amlodipine 5 mg PO BID 04/29/18 07/10/18 History carvedilol 12.5 mg PO DAILY 04/29/18 07/10/18 History furosemide 80 mg PO DAILY 04/29/18 07/10/18 History isosorbide mononitrate 30 mg PO DAILY 04/29/18 07/10/18 History lisinopril 40 mg PO DAILY 04/29/18 07/10/18 History multivitamin [Multiple Vitamins] 1 tab PO DAILY 04/29/18 07/10/18 History calcium acetate 2,668 mg PO TIDM 07/10/18 07/10/18 History Past Med/Surg History Medical History Cardiomyopathy (Chronic) echo 04/29/18 showed diffuse hypokinesis, LVEF 30-35% Anemia (Chronic) End-stage renal disease on hemodialysis (Chronic) Hypertension (Chronic) Polycystic kidney disease (Chronic) Surgical History Hx of tubal ligation (Chronic) Social History marital status: / Current Living Situation: Family Current Living Situation Comment: lives with her son Other Information That Helps Us Care for You: No Feels Safe at Home: Yes Smoking Status: Never smoker Hx Alcohol Use: No Hx Substance Use: No Beliefs That Will Affect Care: None Communication Ability: Unable Review of Systems Unobtainable due to reduced consciousness Physical Exam 2 Vital Signs (Past 24 Hours): Last Vital Signs Temp 37 C 07/10/18 06:06 Pulse 78 07/10/18 07:43 Resp 16 07/10/18 07:43 BP 134/81 07/10/18 07:43 Pulse Ox 100 07/10/18 07:43 Constitutional: + ill appearing and + thin Eyes: PERRL, conjunctivae normal, anicteric sclerae ENMT: Mouth: + oropharynx abnormality (oral ETT, oral GT) Neck: trachea midline, no thyromegaly Respiratory: Auscultation: + rales (bilat) Cardiovascular: Rate/Rhythm: regular rate, regular rhythm and + tachycardic Vessels: + JVD Extremities: + edema (1+ pretibial) Gastrointestinal (Abdomen): Inspection/Auscultation: + abnormal bowel sounds ( quiet) Percussion/Palpation: abdomen soft and + abdominal mass (large nodular / cystic masses) Neurologic: + obtunded (sedated) Lymphatic: no cervical lymphadenopathy Results & Data Laboratory Results Laboratory Results - last 24 hr 07/10/18 07/10/18 07/10/18 06:11 06:11 06:11 WBC 7.03 RBC 4.95 Hgb 14.3 Hct 46.7 MCV 94.3 MCH 28.9 MCHC 30.6 L RDW Std Deviation 57.7 H RDW Coeff of Igor 16.8 H Plt Count 176 MPV 10.7 H Immature Gran % (Auto) 0.1 Neut % (Auto) 68.7 Lymph % (Auto) 25.5 [place] % (Auto) 4.7 Eos % (Auto) 0.7 Baso % (Auto) 0.3 Immature Gran # (Auto) 0.01 Neut # (Auto) 4.83 Lymph # (Auto) 1.79 [place] # (Auto) 0.33 Eos # (Auto) 0.05 Baso # (Auto) 0.02 PT 11.6 INR 1.2 H APTT 26.1 PTT Ratio 1.0 POC pH POC pCO2 POC pO2 POC HCO3 POC Total CO2 POC Base Excess POC ABG O2 Sat Sodium 135 L Potassium 4.7 Chloride 96 L Carbon Dioxide 28 Anion Gap 11.0 BUN 52 H Creatinine 8.58 H* Est Cr Clr Drug Dosing Not Reportable Est GFR ( Amer) 5.1 Est GFR (Non-Af Amer) 4.4 BUN/Creatinine Ratio 6.0 L Glucose 195 H POC Glucose Calcium 8.8 Total Bilirubin 0.5 AST 21 ALT 19 Alkaline Phosphatase 106 Troponin I 0.027 Total Protein 7.7 Albumin 3.3 L Globulin 4.4 H Albumin/Globulin Ratio 0.7 L Influenza Type A (PCR) Influenza Type B (PCR) 07/10/18 07/10/18 07/10/18 07:01 07:10 08:30 WBC RBC Hgb Hct MCV MCH MCHC RDW Std Deviation RDW Coeff of Igor Plt Count MPV Immature Gran % (Auto) Neut % (Auto) Lymph % (Auto) [place] % (Auto) Eos % (Auto) Baso % (Auto) Immature Gran # (Auto) Neut # (Auto) Lymph # (Auto) [place] # (Auto) Eos # (Auto) Baso # (Auto) PT INR APTT PTT Ratio POC pH 7.53 H* POC pCO2 26 L POC pO2 66 L POC HCO3 22 POC Total CO2 22 L POC Base Excess -1.0 POC ABG O2 Sat 95.0 Sodium Potassium Chloride Carbon Dioxide Anion Gap BUN Creatinine Est Cr Clr Drug Dosing Est GFR ( Amer) Est GFR (Non-Af Amer) BUN/Creatinine Ratio Glucose POC Glucose 109 H Calcium Total Bilirubin AST ALT Alkaline Phosphatase Troponin I Total Protein Albumin Globulin Albumin/Globulin Ratio Influenza Type A (PCR) Pos for Influ A A* Influenza Type B (PCR) Neg for Influ B Diagnostic Findings Chest x-ray reviewed by the undersigned and formally interpreted by Cardiology. Borderline cardiomegaly + pulmonary edema. ECG Additional Comments: EKG performed at [address] at 110 / min, LVH, [id number]'s. _ (1) Respiratory failure Chronicity: acute Respiratory failure complication: hypoxia Qualified Code(s ): J96.01 - Acute respiratory failure with hypoxia (2) Pulmonary edema Chronicity: acute Qualified Code(s): J81.0 - Acute pulmonary edema
[2018-07-10 09:18] LABS: iSTAT Allen Test Pass; iSTAT Arterial Blood Gas HCO3 23 meg/L (19-24); iSTAT Carbon Dioxide 24 mEq/l (24-31); iSTAT FiO2 80 %
--- NOTE | 2018-07-10 09:26 | Nephrology Consultation ---
Date of Consultation July 10, 2018 Assessment & Plan (1) Respiratory failure: -- Orders for HD have been entered into the EMR and discussed with the dialysis nurse loss prevention guard -- UF 4 L as tolerated (2) End-stage renal disease on hemodialysis: -- Typical Rx: 4 hrs 180 350/800 2K 140 Na and 32 HCO3; EDW 60.5 kg; 16 g needles -- Heparin 1000 bolus and 500/hr -- Medications are currently acceptably dosed for kidney function (3) Polycystic kidney disease: -- Repeat imaging would be suggested when clinical status improves (4) In critical condition: 45 minutes of critical care time provided today History of Present Illness Reason for Consultation: ESRD on HD Requesting Physician: Heri Fowler MD Attending Physician: Heri Fowler MD History of Present Illness Orly Cagle is a 62-year-old female with end-stage renal disease secondary to an adult polycystic kidney disease, hypertension, history of idiopathic cardiomyopathy admitted to the hospital with respiratory failure secondary to volume overload and possible pneumonia. Nephrology consult was requested to manage hemodialysis and volume status while in hospital. Electronic medical records including labs and imaging are reviewed in detail during patient's visit. The patient was admitted to [facility] from 04/29-05/03 with a similar presentation. UF goals have been increased EDW has been reduced from 68.4 to 60 kg since February. Treatment time extended for UF. Typical fluid gains are less than 1.5 L. However, staff at the dialysis unit have expressed concerns about weight loss and increasing abdominal distention. Orly has ESRD and is managed on hemodialysis via left RC AV fistula. She dialysis on Saturday, , Saturday at to [facility] dialysis unit. Her last dialysis treatment was Saturday she had full treatment, had 1.4 liter of UF and she left the dialysis 60 kg. AV fistula has been functioning well. She clears appropriately with 16 g needles. Orly felt well following her treatment on Saturday. She was in her usual state of health yesterday. However, yesterday evening did complain of cough and dyspnea. She drove herself to dialysis this morning but was referred directly from HD to the ER due to severe hypoxia and tachycardia. The patient was intubated shortly after arrival. CXR demonstrates extensive pulmonary edema. The patient is influenza A positive. Orly does not have a documented history of coronary artery disease. She was admitted to the hospital in July 2017 with respiratory failure and volume overload. She was found to have EF of 15-20 percent with prior normal EF. Workup was otherwise unremarkable and she was concluded to have idiopathic cardiomyopathy. She was started on beta-kathi, dialysis time was increased to 4 hours from 3 and 0.5 hours. Over next few months EF improved, her volume status remain acceptable without any further episode of volume overload or respiratory distress. Allergies Allergy/AdvReac Type Severity Reaction Status Date / Time morphine AdvReac Intermediate Nausea Verified 07/10/18 08:19 Home Medications Home Medications Medication Instructions Recorded Confirmed Type amlodipine 5 mg PO BID 04/29/18 07/10/18 History carvedilol 12.5 mg PO DAILY 04/29/18 07/10/18 History furosemide 80 mg PO DAILY 04/29/18 07/10/18 History isosorbide mononitrate 30 mg PO DAILY 04/29/18 07/10/18 History lisinopril 40 mg PO DAILY 04/29/18 07/10/18 History multivitamin [Multiple Vitamins] 1 tab PO DAILY 04/29/18 07/10/18 History calcium acetate 2,668 mg PO TIDM 07/10/18 07/10/18 History Patient History Medical History Cardiomyopathy Anemia End-stage renal disease on hemodialysis Hypertension (Chronic) Hypoxia Polycystic kidney disease (Acute) Surgical History Hx of tubal ligation (Resolved) Social History marital status: / Current Living Situation: Family Feels Safe at Home: Yes Smoking Status: Never smoker Hx Alcohol Use: No Hx Substance Use: No Beliefs That Will Affect Care: None Preferred Language: Khmer Review of Systems Unable to obtain due to ventilator dependent respiratory failure Physical Exam 2 Vital Signs (Past 24 Hours): Last Vital Signs Temp 37 C 07/10/18 06:06 Pulse 78 07/10/18 07:43 Resp 16 07/10/18 07:43 BP 134/81 07/10/18 07:43 Pulse Ox 100 07/10/18 07:43 Constitutional: well developed and + thin Eyes: + anicteric sclerae; no scleral abnormality and no corneal abnormality ENMT: ETT tube intact Neck: normal visual inspection and trachea midline Respiratory: Auscultation: + rales and + rhonchi Cardiovascular: Rate/Rhythm: + tachycardic Heart Sounds: normal S1, normal S2 and + murmur; no gallop and no cardiac rub Gastrointestinal (Abdomen): Inspection/Auscultation: + abdomen distended Percussion/Palpation: + abdomen firm Musculoskeletal: Extremities: no cyanosis and no clubbing Skin: normal turgor; no rashes Neurologic: sedated, Results & Data Laboratory Results Laboratory Results - last 24 hr 07/10/18 07/10/18 07/10/18 06:11 06:11 06:11 WBC 7.03 RBC 4.95 Hgb 14.3 Hct 46.7 MCV 94.3 MCH 28.9 MCHC 30.6 L RDW Std Deviation 57.7 H RDW Coeff of Igor 16.8 H Plt Count 176 MPV 10.7 H Immature Gran % (Auto) 0.1 Neut % (Auto) 68.7 Lymph % (Auto) 25.5 [place] % (Auto) 4.7 Eos % (Auto) 0.7 Baso % (Auto) 0.3 Immature Gran # (Auto) 0.01 Neut # (Auto) 4.83 Lymph # (Auto) 1.79 [place] # (Auto) 0.33 Eos # (Auto) 0.05 Baso # (Auto) 0.02 PT 11.6 INR 1.2 H APTT 26.1 PTT Ratio 1.0 Sample Site POC pH POC pCO2 POC pO2 POC HCO3 POC Total CO2 POC Base Excess POC ABG O2 Sat Carl Test O2 Delivery Device Minute Ventilation POC FiO2 PEEP Time High Time Low Sodium 135 L Potassium 4.7 Chloride 96 L Carbon Dioxide 28 Anion Gap 11.0 BUN 52 H Creatinine 8.58 H* Est Cr Clr Drug Dosing Not Reportable Est GFR ( Amer) 5.1 Est GFR (Non-Af Amer) 4.4 BUN/Creatinine Ratio 6.0 L Glucose 195 H POC Glucose Calcium 8.8 Total Bilirubin 0.5 AST 21 ALT 19 Alkaline Phosphatase 106 Troponin I 0.027 Total Protein 7.7 Albumin 3.3 L Globulin 4.4 H Albumin/Globulin Ratio 0.7 L Influenza Type A (PCR) Influenza Type B (PCR) 07/10/18 07/10/18 07/10/18 07:01 07:10 08:30 WBC RBC Hgb Hct MCV MCH MCHC RDW Std Deviation RDW Coeff of Igor Plt Count MPV Immature Gran % (Auto) Neut % (Auto) Lymph % (Auto) [place] % (Auto) Eos % (Auto) Baso % (Auto) Immature Gran # (Auto) Neut # (Auto) Lymph # (Auto) [place] # (Auto) Eos # (Auto) Baso # (Auto) PT INR APTT PTT Ratio Sample Site POC pH 7.53 H* POC pCO2 26 L POC pO2 66 L POC HCO3 22 POC Total CO2 22 L POC Base Excess -1.0 POC ABG O2 Sat 95.0 Carl Test O2 Delivery Device Minute Ventilation POC FiO2 PEEP Time High Time Low Sodium Potassium Chloride Carbon Dioxide Anion Gap BUN Creatinine Est Cr Clr Drug Dosing Est GFR ( Amer) Est GFR (Non-Af Amer) BUN/Creatinine Ratio Glucose POC Glucose 109 H Calcium Total Bilirubin AST ALT Alkaline Phosphatase Troponin I Total Protein Albumin Globulin Albumin/Globulin Ratio Influenza Type A (PCR) Pos for Influ A A* Influenza Type B (PCR) Neg for Influ B 07/10/18 09:03 WBC RBC Hgb Hct MCV MCH MCHC RDW Std Deviation RDW Coeff of Igor Plt Count MPV Immature Gran % (Auto) Neut % (Auto) Lymph % (Auto) [place] % (Auto) Eos % (Auto) Baso % (Auto) Immature Gran # (Auto) Neut # (Auto) Lymph # (Auto) [place] # (Auto) Eos # (Auto) Baso # (Auto) PT INR APTT PTT Ratio Sample Site R Radial POC pH 7.60 H* POC pCO2 24 L POC pO2 197 H POC HCO3 23 POC Total CO2 24 POC Base Excess 2.0 H POC ABG O2 Sat 100.0 H Carl Test Pass O2 Delivery Device Ventilator Minute Ventilation 6.6 POC FiO2 80 PEEP 3 Time High 4 Time Low 1 Sodium Potassium Chloride Carbon Dioxide Anion Gap BUN Creatinine Est Cr Clr Drug Dosing Est GFR ( Amer) Est GFR (Non-Af Amer) BUN/Creatinine Ratio Glucose POC Glucose Calcium Total Bilirubin AST ALT Alkaline Phosphatase Troponin I Total Protein Albumin Globulin Albumin/Globulin Ratio Influenza Type A (PCR) Influenza Type B (PCR) _ (1) Respiratory failure Chronicity: acute Respiratory failure complication: hypoxia Qualified Code(s ): J96.01 - Acute respiratory failure with hypoxia
[2018-07-10] MEDS ORDERED: OSELTAMIVIR PHOSPHATE SUSP 30 MG/5 ML UDP PO ONE (09:30)
[2018-07-10] MEDS ORDERED: ACETAMINOPHEN SOL 650 MG/20.3 ML UDC PO PRN (10:50)
[2018-07-10] MEDS ORDERED: PANTOprazole 40 MG in SYRINGE 0 ML IV SCH (11:00)
[2018-07-10] MEDS ORDERED: CISATRACURIUM BESYLATE IV SOLN 2 MG/ML 10 ML VIAL IV ONE (11:09)
[2018-07-10] MEDS ORDERED: CISATRACURIUM BESYLATE IV SOLN 2 MG/ML 10 ML VIAL IV STA (11:58)
[2018-07-10] MEDS ORDERED: CISATRACURIUM BESYLATE IV STA (12:00)
[2018-07-10] MEDS: AMLODIPINE BESYLATE 5 MG TAB PO SCH ×2 (12:07→21:16)
[2018-07-10] MEDS: HEPARIN SOD 5,000 UNIT/0.5 ML VIAL SQ SCH ×2 (12:08→21:37)
[2018-07-10] MEDS ORDERED: PNEUMOCOCCAL POLYSACCHARIDES 25 MCG/0.5 ML VIAL/SYR IM ONE (12:30)
[2018-07-10] MEDS ORDERED: PNEUMOCOCCAL ADMINISTRATION CHARGE ONE (12:30)
[2018-07-10] MEDS ORDERED: OSELTAMIVIR PHOSPHATE SUSP 30 MG/5 ML UDP PO PRN (14:14)
[2018-07-10] MEDS ORDERED: VECURONIUM BROMIDE 10 MG VIAL IV ONE (16:03)
[2018-07-10] MEDS ORDERED: ETOMIDATE 2 MG/ML 20 ML VIAL IV ONE (16:03)
[2018-07-10] MEDS ORDERED: SODIUM CHLORIDE 0.9% INJ 10 ML VIAL IV ONE (16:03)
[2018-07-10] MEDS ORDERED: SUCCINYLCHOLINE CHLORIDE 20 MG/ML 10 ML VIAL IV ONE (16:03)
[2018-07-10] MEDS: CARVEDILOL 12.5 MG TAB PO SCH (16:10)
[2018-07-10] MEDS: ISOSORBIDE MONO EXTENDED REL 30 MG TABCR PO SCH (16:11)
[2018-07-10] MEDS: LISINOPRIL 40 MG TAB PO SCH (16:11)
[2018-07-10] MEDS ORDERED: METOPROLOL TARTRATE 1 MG/ML VIAL IV PRN (21:13)
[2018-07-11 04:42] LABS: Hematocrit (blood only) 37.5 % (37-47); Hemoglobin 11.7 g/dL (12.0-16.0); Immature Granulocytes # (auto) 0.01 K/uL (0.00-0.02); Immature Granulocytes % (auto) 0.2 %; Lymphocytes # (auto) 0.68 K/uL (1.2-3.4); Lymphocytes % (auto) 13.2 %; Mean Corpuscular Hgb Conc 31.2 g/dL (32-36); Mean Corpuscular Volume 89.9 fL (80-100); Mean Platelet Volume 11.3 fL (7.4-10.4); Monocytes # (auto) 0.39 K/uL (0.11-0.59); Monocytes % (auto) 7.5 %; Neutrophils # (auto) 4.09 K/uL (1.4-6.5); Neutrophils % (auto) 79.1 %; Platelet Count 108 K/uL (130-400); RDW Coefficient of Variation 16.9 % (11.5-14.5); RDW Standard Deviation 55.9 fL (36.4-46.3); Red Blood Count 4.17 M/uL (4.2-5.4); White Blood Count 5.17 K/uL (4.8-10.8)
[2018-07-11 05:20] LABS: BUN Creatinine Ratio 5.6 (10-20); Calcium 8.1 mg/dl (8.5-10.1); Creatinine Clr Calc Pharmacy 7.4 ml/min; Est GFR (Non-African American) 6.1; Phosphorus 6.2 mg/dl (2.5-4.9)
[2018-07-11 06:34] LABS: Estimated Average Glucose 88 mg/dl
[2018-07-11] MEDS: PROPOFOL 1,000 MG/100 ML VIAL IV SCH (07:25)
--- NOTE | 2018-07-11 07:57 | Critical Care Progress Note ---
Date of Service July 11, 2018 Assessment & Plan (1) In critical condition: 62 year old female with hx of ESRD on HD (//sat), idiopathic cardiomyopathy (EF 25-30%), HTN, polycystic kidney disease and congenital cystic liver and anemia presented from dialysis center as she was not feeling well, had sob and productive cough for a few days. Found to have significant bilateral pulmonary edema with hypoxia requiring intubation likely in the setting of worsening volume status and acute influenza A infection. NOW extubated on NC with improved hypoxia. NEURO: Pt is alert and oriented Off propofol and nimbex Pain Rx:Tylenol PRN CARDIAC/VASCULAR: HD stable PMhx: HTN, idiopathic cardiomyopathy with EF 20-25% Initial EK sinus tach QTc 462 ECHO 07/10: Unchanged except: small cicrumferencial pericardial effusion, Severe LV systolic function reduction with severe global hypokinesis EF 25-30%, Grade I diastolic dysfunction, borderline MV stenosis with mild MV regurg 2/2 moderate calcifications, mild LA enlargement, and extra cardiac bulbous lesions in abdomen Trop elevated to 0.314 -> 0.278 downtrended On home amlodipine, coreg, isosorbide mononitrate and lisinopril PULM: Pt was in RF requiring mechanical ventilation 2/2 pulmonary edema likely from worsening volume status in the setting of acute influenza A infection - NOW on NC ABG initial: 7.53, CO2 26, pO2 66, HCO3 22 Initia CXR: extensive bilateral pulmonary edema Repeat CXR: marked improvement in pulmonary edema, no concern for PNA On tamiflu for influenza A GI: LFT wnl Diet: renal and HH RENAL/LYTES: ESRD on HD BUN/Cr 52/8.58 -> 38/6.6 - post dialysis on 07/10 Mild hyponatremia - Na 133 Hyperphosphatemia 6.2- pt is not on a phosphate binder (defer to nephrology) Nephrology consulted HD tomorrow : Ngoc dced ENDO: HgA1C 4.7 BSG check and SSI per ICU protocol On Novolog for SSI HEME: No WBC elevation Hgb 11.7 (baseline around 11) Plt ct 108 Continue to monitor CBC ID: Influenza A infection Influenza A positive Nasal MRSA negative On Tamiflu 30mg daily (renally dosed) x 5 days LINES: PIVs x 2 L RC AV fistula - functional DVT prophylaxis: Heparin 5000u SQ Q12H Full Code Dispo: stable for downgrade (2) Respiratory failure: (3) Pulmonary edema: (4) Cardiomyopathy: (5) End-stage renal disease on hemodialysis: (6) Hypertension: (7) Polycystic kidney disease: Supervising Physician Co-Signing Physician Notes Dr. Leahy was resident physician during care of patient. I separately evaluated patient for ball portions of the history and the exam. I was present during the critical portion of medical decision making, and I discussed the case with the resident. I generally agree with the findings and plan. Acute hypoxic respiratory failure secondary to influenza A and volume overload. Patient successfully liberated from the ventilator yesterday greater than 12 hours. Patient stable for downgrade today continued on Tamiflu. Subjective This AM pt is extubated on NC and off propofol and nimbex. Pt reporting breathing much improved. Pt still coughing. Denies any f/c, LOPEZ/dizziness, cp, sob, abdominal pain, n/v, LE pain Grossman was in place - plan for removal today Physical Exam 2 Vital Signs (Past 24 Hours): Last Vital Signs Temp 37.6 C H 07/11/18 04:01 Pulse 80 07/11/18 06:01 Resp 20 07/11/18 06:01 BP 147/71 H 07/11/18 06:01 Pulse Ox 97 07/11/18 06:01 Physical Exam: General: In NAD, pleasant, resting in bed CV: RRR, no m/r/g Pulm: occasional rhonchi and bibasilar crackles appreciated, equal breath sounds bilaterally Abdomen: +BS, distended, protuberant abdomen, non-tender to palpation in all quadrants, palpable cysts on abdominal exam, umbilical hernia LE: No LE edema or calf tenderness Results & Data Laboratory Results Abnormal lab results 07/10/18 07/10/18 07/11/18 Range/Units 11:53 20:28 04:06 RBC 4.17 L (4.2-5.4) M/uL Hgb 11.7 L (12.0-16.0) g/dL MCHC 31.2 L (32-36) g/dL RDW Std Deviation 55.9 H (36.4-46.3) fL RDW Coeff of Igor 16.9 H (11.5-14.5) % Plt Count 108 L (130-400) K/uL MPV 11.3 H (7.4-10.4) fL Lymph # (Auto) 0.68 L (1.2-3.4) K/uL Sodium (136-145) mmol/L BUN (7-18) mg/dl Creatinine (0.6-1.2) mg/dl BUN/Creatinine Ratio (10-20) Calcium (8.5-10.1) mg/dl Phosphorus (2.5-4.9) mg/dl Troponin I 0.314 H* 0.278 H* (0-0.045) ng/ml 07/11/18 Range/Units 04:06 RBC (4.2-5.4) M/uL Hgb (12.0-16.0) g/dL MCHC (32-36) g/dL RDW Std Deviation (36.4-46.3) fL RDW Coeff of Igor (11.5-14.5) % Plt Count (130-400) K/uL MPV (7.4-10.4) fL Lymph # (Auto) (1.2-3.4) K/uL Sodium 133 L (136-145) mmol/L BUN 38 H (7-18) mg/dl Creatinine 6.60 H* D (0.6-1.2) mg/dl BUN/Creatinine Ratio 5.6 L (10-20) Calcium 8.1 L (8.5-10.1) mg/dl Phosphorus 6.2 H (2.5-4.9) mg/dl Troponin I (0-0.045) ng/ml Diagnostic Findings XR chest 1V portable CLINICAL HISTORY: pulmonary edema COMPARISON STUDY: Chest radiograph July 10, 2018. FINDINGS: Endotracheal and nasogastric tubes have been removed. Bilateral opacities have markedly improved since exam performed one day earlier. There are persistent mild perihilar and bibasilar opacities. There is pulmonary vascular congestion. No pneumothorax or pleural effusion is identified. IMPRESSION: 1. Marked improvement in pulmonary edema. 2. Persistent mild perihilar and bibasilar opacities. Medications Administered Current Inpatient Medications Acetaminophen (Tylenol) 650 mg PO Q6 PRN PRN Reason: Fever Stop: 08/09/18 10:49 Last Admin: 07/10/18 12:11 Dose: 650 mg Amlodipine Besylate (Norvasc) 5 mg PO BID JW Stop: 08/09/18 08:59 Last Admin: 07/11/18 08:35 Dose: 5 mg Carvedilol (Coreg) 12.5 mg PO DAILY JW Stop: 08/09/18 08:59 Last Admin: 07/11/18 08:35 Dose: 12.5 mg Dextrose (Dextrose 50%) 25 - 50 ml IV UD PRN; Protocol PRN Reason: Hypoglycemia Protocol Stop: 08/09/18 08:09 Glucagon (Glucagen) 1 mg SQ UD PRN; Protocol PRN Reason: Hypoglycemia Protocol Stop: 08/09/18 08:09 Glucose (Glucose 40%) 15 - 30 gm PO UD PRN; Protocol PRN Reason: Hypoglycemia Protocol Stop: 08/09/18 08:09 Glucose (Dex4 Glucose) 4 - 8 tabs PO UD PRN; Protocol PRN Reason: Hypoglycemia Protocol Stop: 08/09/18 08:09 Heparin Sodium (Porcine) (Heparin Sodium (Porcine)) 5,000 units SQ Q12 JW Stop: 08/09/18 08:59 Last Admin: 07/11/18 08:35 Dose: 5,000 units Insulin Aspart (Novolog Flexpen) 0 units SC ACHS JW Stop: 08/09/18 08:09 Last Admin: 07/11/18 09:29 Dose: Not Given Isosorbide Mononitrate (Imdur Extended Rel) 30 mg PO DAILY JW Stop: 08/09/18 08:59 Last Admin: 07/11/18 08:34 Dose: 30 mg Lisinopril (Zestril) 40 mg PO DAILY JW Stop: 08/09/18 08:59 Last Admin: 07/11/18 08:34 Dose: 40 mg Miscellaneous (Icu Protocol For Hyperglycemia) 1 ea N/A PRN PRN; Protocol PRN Reason: Hyperglycemia Protocol Stop: 07/12/18 08:09 Miscellaneous (Carbohydrates For Hypoglycemia) 15 - 30 gm PO UD PRN PRN Reason: Hypoglycemia Treatment Stop: 08/09/18 08:09 Miscellaneous (Pending Order) 1 ea N/A DAILY@1600 JW Stop: 07/14/18 16:01 Last Admin: 07/10/18 16:12 Dose: Not Given Oseltamivir Phosphate (Tamiflu) 30 mg PO DAILY PRN PRN Reason: after dialysis Stop: 07/15/18 14:13 Last Admin: 07/10/18 17:03 Dose: 30 mg Resident Activity Tracking Resident Involvement: Resident Care Provided Care Provided: Adult Hospital Medicine _ (1) Pulmonary edema Chronicity: acute Qualified Code(s): J81.0 - Acute pulmonary edema (2) Respiratory failure Chronicity: acute Respiratory failure complication: hypoxia Qualified Code(s ): J96.01 - Acute respiratory failure with hypoxia
--- NOTE | 2018-07-11 07:58 | XRay Report ---
XR chest 1V portable CLINICAL HISTORY: pulmonary edema COMPARISON STUDY: Chest radiograph July 10, 2018. FINDINGS: Endotracheal and nasogastric tubes have been removed. Bilateral opacities have markedly imp roved since exam performed one day earlier. There are persistent mild perihilar and bibasilar opaciti es. There is pulmonary vascular congestion. No pneumothorax or pleural effusion is identified. IMPRESSION: 1. Marked improvement in pulmonary edema. 2. Persistent mild perihilar and bibasilar opacities. Electronically signed by: Reji Shelley M.D. 07/11/2018 7:57 AM
[2018-07-11] MEDS: LISINOPRIL 40 MG TAB PO SCH (08:34)
[2018-07-11] MEDS: ISOSORBIDE MONO EXTENDED REL 30 MG TABCR PO SCH (08:34)
[2018-07-11] MEDS: CARVEDILOL 12.5 MG TAB PO SCH (08:35)
[2018-07-11] MEDS: AMLODIPINE BESYLATE 5 MG TAB PO SCH ×2 (08:35→21:11)
[2018-07-11] MEDS: HEPARIN SOD 5,000 UNIT/0.5 ML VIAL SQ SCH ×2 (08:35→21:12)
--- NOTE | 2018-07-11 08:56 | Nephrology Progress Note ---
Date of Service July 11, 2018 Assessment & Plan (1) Respiratory failure: -- Clinical presentation consistent with acute pulmonary edema associated with influenza infection -- Clinically improved with supportive care and UF -- Volume status acceptable -- TTE reviewed today, no significant acute change -- Noted similar presentation last month: EDW adjusted, IDWG has not been excessive (2) End-stage renal disease on hemodialysis: -- Typical Rx: 4 hrs optiflux-180 350/800 2K 140 Na and 32 HCO3; EDW 60.5 kg; 16 g needles -- Plan next HD tomorrow per TTS schedule -- BP, volume status and electrolytes are currently acceptable -- Heparin 1000 bolus and 500/hr -- Medications are currently acceptably dosed for kidney function -- Tamiflu dosing 30 mg post HD (3) Polycystic kidney disease: -- Patient is scheduled for follow up transplant evaluation at [facility] in August and notes CT scan is scheduled to be repeated at that time (4) In critical condition: 30 minutes of critical care time provided today Subjective No acute events overnight. Orly is resting comfortably in her bedside chair this morning. She denies significant dyspnea at rest. No fevers or chills. Denies pain. Tolerated HD well yesterday prior to extubation. Net UF ~2.7 L. CXR demonstrates improved pulmonary edema. Review of Systems All systems reviewed & are unremarkable except as noted in HPI & below Physical Exam 2 Vital Signs (Past 24 Hours): Last Vital Signs Temp 37.8 C H 07/11/18 08:00 Pulse 82 07/11/18 08:00 Resp 21 07/11/18 08:00 BP 125/66 07/11/18 08:00 Pulse Ox 97 07/11/18 08:00 Constitutional: well developed and + thin Eyes: + anicteric sclerae; no scleral abnormality and no corneal abnormality ENMT: Mouth: oral mucous membranes not dry Neck: normal visual inspection and trachea midline Respiratory: no respiratory distress and no labored breathing Auscultation : + wheezes Cardiovascular: Heart Sounds: normal S1, normal S2 and + murmur; no gallop and no cardiac rub Gastrointestinal (Abdomen): Inspection/Auscultation: + abdomen distended Percussion/Palpation: + abdomen firm; abdomen nontender Musculoskeletal: Extremities: no cyanosis and no clubbing Skin: normal turgor; no rashes Results & Data Laboratory Results Laboratory Results - last 24 hr 07/10/18 07/10/18 07/10/18 08:20 09:03 11:53 WBC RBC Hgb Hct MCV MCH MCHC RDW Std Deviation RDW Coeff of Igor Plt Count MPV Immature Gran % (Auto) Neut % (Auto) Lymph % (Auto) [place] % (Auto) Eos % (Auto) Baso % (Auto) Immature Gran # (Auto) Neut # (Auto) Lymph # (Auto) [place] # (Auto) Eos # (Auto) Baso # (Auto) Sample Site R Radial POC pH 7.60 H* POC pCO2 24 L POC pO2 197 H POC HCO3 23 POC Total CO2 24 POC Base Excess 2.0 H POC ABG O2 Sat 100.0 H Carl Test Pass O2 Delivery Device Ventilator Minute Ventilation 6.6 POC FiO2 80 PEEP 3 Time High 4 Time Low 1 Sodium Potassium Chloride Carbon Dioxide Anion Gap BUN Creatinine Est Cr Clr Drug Dosing Est GFR ( Amer) Est GFR (Non-Af Amer) BUN/Creatinine Ratio Glucose POC Glucose Estimat Average Glucose Hemoglobin A1c Calcium Phosphorus Magnesium Troponin I 0.314 H* Nasal Screen MRSA (PCR) Negative 07/10/18 07/10/18 07/10/18 12:26 16:29 20:27 WBC RBC Hgb Hct MCV MCH MCHC RDW Std Deviation RDW Coeff of Igor Plt Count MPV Immature Gran % (Auto) Neut % (Auto) Lymph % (Auto) [place] % (Auto) Eos % (Auto) Baso % (Auto) Immature Gran # (Auto) Neut # (Auto) Lymph # (Auto) [place] # (Auto) Eos # (Auto) Baso # (Auto) Sample Site POC pH POC pCO2 POC pO2 POC HCO3 POC Total CO2 POC Base Excess POC ABG O2 Sat Carl Test O2 Delivery Device Minute Ventilation POC FiO2 PEEP Time High Time Low Sodium Potassium Chloride Carbon Dioxide Anion Gap BUN Creatinine Est Cr Clr Drug Dosing Est GFR ( Amer) Est GFR (Non-Af Amer) BUN/Creatinine Ratio Glucose POC Glucose 84 93 93 Estimat Average Glucose Hemoglobin A1c Calcium Phosphorus Magnesium Troponin I Nasal Screen MRSA (PCR) 07/10/18 07/11/18 07/11/18 20:28 00:23 04:06 WBC 5.17 RBC 4.17 L Hgb 11.7 L Hct 37.5 MCV 89.9 MCH 28.1 MCHC 31.2 L RDW Std Deviation 55.9 H RDW Coeff of Igor 16.9 H Plt Count 108 L MPV 11.3 H Immature Gran % (Auto) 0.2 Neut % (Auto) 79.1 Lymph % (Auto) 13.2 [place] % (Auto) 7.5 Eos % (Auto) 0.0 Baso % (Auto) 0.0 Immature Gran # (Auto) 0.01 Neut # (Auto) 4.09 Lymph # (Auto) 0.68 L [place] # (Auto) 0.39 Eos # (Auto) 0.00 Baso # (Auto) 0.00 Sample Site POC pH POC pCO2 POC pO2 POC HCO3 POC Total CO2 POC Base Excess POC ABG O2 Sat Carl Test O2 Delivery Device Minute Ventilation POC FiO2 PEEP Time High Time Low Sodium Potassium Chloride Carbon Dioxide Anion Gap BUN Creatinine Est Cr Clr Drug Dosing Est GFR ( Amer) Est GFR (Non-Af Amer) BUN/Creatinine Ratio Glucose POC Glucose 91 Estimat Average Glucose Hemoglobin A1c Calcium Phosphorus Magnesium Troponin I 0.278 H* Nasal Screen MRSA (PCR) 07/11/18 07/11/18 07/11/18 04:06 04:06 06:22 WBC RBC Hgb Hct MCV MCH MCHC RDW Std Deviation RDW Coeff of Igor Plt Count MPV Immature Gran % (Auto) Neut % (Auto) Lymph % (Auto) [place] % (Auto) Eos % (Auto) Baso % (Auto) Immature Gran # (Auto) Neut # (Auto) Lymph # (Auto) [place] # (Auto) Eos # (Auto) Baso # (Auto) Sample Site POC pH POC pCO2 POC pO2 POC HCO3 POC Total CO2 POC Base Excess POC ABG O2 Sat Carl Test O2 Delivery Device Minute Ventilation POC FiO2 PEEP Time High Time Low Sodium 133 L Potassium 4.0 Chloride 99 Carbon Dioxide 25 Anion Gap 9.0 BUN 38 H Creatinine 6.60 H* D Est Cr Clr Drug Dosing 7.4 Est GFR ( Amer) 7.0 Est GFR (Non-Af Amer) 6.1 BUN/Creatinine Ratio 5.6 L Glucose 84 POC Glucose 81 Estimat Average Glucose 88 Hemoglobin A1c 4.7 Calcium 8.1 L Phosphorus 6.2 H Magnesium 2.0 Troponin I Nasal Screen MRSA (PCR) _ (1) Respiratory failure Chronicity: acute Respiratory failure complication: hypoxia Qualified Code(s ): J96.01 - Acute respiratory failure with hypoxia
[2018-07-11] MEDS: INSULIN ASPART 100 UNITS/ML 3 ML PEN SC SCH ×3 (09:29→17:45)
--- NOTE | 2018-07-11 10:23 | Hospitalist Progress Note ---
Date of Service July 11, 2018 Assessment & Plan (1) Respiratory failure: Acute hypoxic respiratory failure with O2 sat in the 50's at dialysis center. Required intubation and mechanical ventilation. Underlying etiology appears to be CHF +/- influenza. Respiratory status improved. Weaned off vent. Oxygenating well on NC. (2) Cardiomyopathy: History of systolic CHF with LVEF 30-35% in Apr 2018. Presented with acute on chronic left ventricular systolic heart failure. Fluid management with diuretics and hemodialysis. Improved. (3) Pulmonary edema: Secondary to acute on chronic left ventricular systolic heart failure as discussed above. (4) Influenza A: [employer] GR[employer]ER swab + for influenza A. Receiving oseltamivir. (5) End-stage renal disease on hemodialysis: Management per Nephrology. (6) Hypertension: Hemodynamically stable. Follow and titrate meds. (7) DVT prophylaxis: SQ heparin. (8) Discharge planning issues: Anticipated discharge to home. Family Medicine follow-up with Dr. Dickerson. Subjective Recheck for multiple problems. Pt seen in her room around 10:30. Received dialysis yesterday. Respiratory status improved and patient was extubated last evening. Maintaining sats on RA. Febrile this morning. Dyspnea improved. Occasional nonproductive cough. No chest pain. No nausea, vomiting, diarrhea. Grossman cath removed. Physical Exam 2 Vital Signs (Past 24 Hours): Last Vital Signs Temp 37.8 C H 07/11/18 08:00 Pulse 81 07/11/18 09:00 Resp 17 07/11/18 09:00 BP 129/67 07/11/18 09:00 Pulse Ox 100 07/11/18 09:00 Constitutional: + ill appearing and + thin Respiratory: Auscultation: + rales (bilat) Cardiovascular: Rate/Rhythm: regular rate, regular rhythm and + tachycardic Vessels: + JVD Extremities: + edema (1+ pretibial) Gastrointestinal (Abdomen): Inspection/Auscultation: + abnormal bowel sounds ( quiet) Percussion/Palpation: abdomen soft and + abdominal mass (large nodular / cystic masses) Results & Data Laboratory Results Laboratory Results - last 24 hr 07/10/18 07/10/18 07/11/18 20:27 20:28 00:23 WBC RBC Hgb Hct MCV MCH MCHC RDW Std Deviation RDW Coeff of Igor Plt Count MPV Immature Gran % (Auto) Neut % (Auto) Lymph % (Auto) [place] % (Auto) Eos % (Auto) Baso % (Auto) Immature Gran # (Auto) Neut # (Auto) Lymph # (Auto) [place] # (Auto) Eos # (Auto) Baso # (Auto) Sodium Potassium Chloride Carbon Dioxide Anion Gap BUN Creatinine Est Cr Clr Drug Dosing Est GFR ( Amer) Est GFR (Non-Af Amer) BUN/Creatinine Ratio Glucose POC Glucose 93 91 Estimat Average Glucose Hemoglobin A1c Calcium Phosphorus Magnesium Troponin I 0.278 H* 07/11/18 07/11/18 07/11/18 04:06 04:06 04:06 WBC 5.17 RBC 4.17 L Hgb 11.7 L Hct 37.5 MCV 89.9 MCH 28.1 MCHC 31.2 L RDW Std Deviation 55.9 H RDW Coeff of Igor 16.9 H Plt Count 108 L MPV 11.3 H Immature Gran % (Auto) 0.2 Neut % (Auto) 79.1 Lymph % (Auto) 13.2 [place] % (Auto) 7.5 Eos % (Auto) 0.0 Baso % (Auto) 0.0 Immature Gran # (Auto) 0.01 Neut # (Auto) 4.09 Lymph # (Auto) 0.68 L [place] # (Auto) 0.39 Eos # (Auto) 0.00 Baso # (Auto) 0.00 Sodium 133 L Potassium 4.0 Chloride 99 Carbon Dioxide 25 Anion Gap 9.0 BUN 38 H Creatinine 6.60 H* D Est Cr Clr Drug Dosing 7.4 Est GFR ( Amer) 7.0 Est GFR (Non-Af Amer) 6.1 BUN/Creatinine Ratio 5.6 L Glucose 84 POC Glucose Estimat Average Glucose 88 Hemoglobin A1c 4.7 Calcium 8.1 L Phosphorus 6.2 H Magnesium 2.0 Troponin I 07/11/18 07/11/18 07/11/18 06:22 11:18 16:27 WBC RBC Hgb Hct MCV MCH MCHC RDW Std Deviation RDW Coeff of Igor Plt Count MPV Immature Gran % (Auto) Neut % (Auto) Lymph % (Auto) [place] % (Auto) Eos % (Auto) Baso % (Auto) Immature Gran # (Auto) Neut # (Auto) Lymph # (Auto) [place] # (Auto) Eos # (Auto) Baso # (Auto) Sodium Potassium Chloride Carbon Dioxide Anion Gap BUN Creatinine Est Cr Clr Drug Dosing Est GFR ( Amer) Est GFR (Non-Af Amer) BUN/Creatinine Ratio Glucose POC Glucose 81 105 H 84 Estimat Average Glucose Hemoglobin A1c Calcium Phosphorus Magnesium Troponin I Diagnostic Findings Chest x-ray reviewed by the undersigned and formally interpreted by Radiology. ETT removed cardiomegaly pulmonary edema improved bibasilar infiltrates _ (1) Respiratory failure Chronicity: acute Respiratory failure complication: hypoxia Qualified Code(s ): J96.01 - Acute respiratory failure with hypoxia (2) Pulmonary edema Chronicity: acute Qualified Code(s): J81.0 - Acute pulmonary edema
[2018-07-11] MEDS ORDERED: SODIUM CHLORIDE 0.9% 1000ML 1,000 ML IV PRN (16:03)
[2018-07-12 05:52] LABS: Hematocrit (blood only) 32.8 % (37-47); Hemoglobin 10.1 g/dL (12.0-16.0); Mean Corpuscular Hgb Conc 30.8 g/dL (32-36); Mean Corpuscular Volume 89.4 fL (80-100); RDW Coefficient of Variation 16.7 % (11.5-14.5); Red Blood Count 3.67 M/uL (4.2-5.4); White Blood Count 4.55 K/uL (4.8-10.8)
[2018-07-12 06:25] LABS: Mean Platelet Volume 11.3 fL (7.4-10.4); Platelet Count 94 K/uL (130-400)
[2018-07-12 06:29] LABS: Eosinophils # (auto) 0.05 K/uL (0-0.5); Eosinophils % (auto) 1.1 %; Lymphocytes # (auto) 0.94 K/uL (1.2-3.4); Lymphocytes % (auto) 20.7 %; Monocytes % (auto) 6.6 %; Neutrophils # (auto) 3.26 K/uL (1.4-6.5); Neutrophils % (auto) 71.6 %; Spherocytes 1+; Toxic Vacuolation 1+
[2018-07-12 06:32] LABS: BUN Creatinine Ratio 8.1 (10-20); Calcium 7.8 mg/dl (8.5-10.1); Est GFR (African American) 4.8; Est GFR (Non-African American) 4.2; Phosphorus 7.3 mg/dl (2.5-4.9); Potassium 4.3 mmol/L (3.5-5.1)
[2018-07-12] MEDS: HEPARIN SOD 5,000 UNIT/0.5 ML VIAL SQ SCH ×2 (08:31→21:18)
--- NOTE | 2018-07-12 10:36 | Nephrology Progress Note ---
Date of Service July 12, 2018 Assessment & Plan (1) Respiratory failure: -- Presented with acute pulmonary edema associated with influenza infection -- Clinically improved with supportive care and UF -- Volume status acceptable -- TTE reviewed , no significant acute changes -- Noted similar presentation last month: EDW adjusted, IDWG has not been excessive (2) End-stage renal disease on hemodialysis: -- Typical Rx: 4 hrs optiflux-180 Qb350/Qd800 2K / 140Na and 32 HCO3; EDW 60.5 kg; 16 g needles -- Heparin 1000 bolus and 500/hr with HD -- HD today, UF goal 2 L to challenge EDW - bed scale weight 62 kg this AM -- BP, volume status and electrolytes remain acceptable -- Medications are currently acceptably dosed for kidney function -- Tamiflu dosing 30 mg post HD -- For anemia Hgb <10, EPO 4000 units to be provided with HD today (3) Polycystic kidney disease: -- Patient is scheduled for follow up transplant evaluation at [facility] in August and notes CT scan is scheduled to be repeated at that time Subjective No acute events overnight. Orly was seen and evaluated during hemodialysis this morning. She denies significant dyspnea at rest. No fevers or chills. Denies cough. Overall, Orly states that she is slightly weak but feels well. She has not experienced chest pain or palpitations. Review of Systems All systems reviewed & are unremarkable except as noted in HPI & below Physical Exam 2 Vital Signs (Past 24 Hours): Last Vital Signs Temp 37.2 C 07/12/18 09:30 Pulse 61 07/12/18 09:45 Resp 18 07/12/18 07:40 BP 122/69 07/12/18 09:45 Pulse Ox 97 07/12/18 07:40 Constitutional: well developed and + thin Eyes: + anicteric sclerae; no scleral abnormality and no corneal abnormality ENMT: Mouth: oral mucous membranes not dry Neck: normal visual inspection and trachea midline Respiratory: no respiratory distress and no labored breathing Auscultation : lungs clear to auscultation bilaterally and + rales (few basilar); no rhonchi Cardiovascular: Heart Sounds: normal S1, normal S2 and + murmur; no gallop and no cardiac rub Gastrointestinal (Abdomen): Inspection/Auscultation: + abdomen distended Percussion/Palpation: + abdomen firm; abdomen nontender Musculoskeletal: Extremities: no cyanosis and no clubbing Skin: normal turgor; no rashes Results & Data Laboratory Results Laboratory Results - last 24 hr 07/11/18 07/11/18 07/12/18 11:18 16:27 05:34 WBC 4.55 L RBC 3.67 L Hgb 10.1 L Hct 32.8 L MCV 89.4 MCH 27.5 MCHC 30.8 L RDW Std Deviation 55.0 H RDW Coeff of Igor 16.7 H Plt Count 94 L MPV 11.3 H Immature Gran % (Auto) 0.0 Neut % (Auto) 71.6 Lymph % (Auto) 20.7 [place] % (Auto) 6.6 Eos % (Auto) 1.1 Baso % (Auto) 0.0 Immature Gran # (Auto) 0.00 Neut # (Auto) 3.26 Lymph # (Auto) 0.94 L [place] # (Auto) 0.30 Eos # (Auto) 0.05 Baso # (Auto) 0.00 Toxic Vacuolation 1+ Platelet Estimate Decreased Spherocytes 1+ Sodium Potassium Chloride Carbon Dioxide Anion Gap BUN Creatinine Est Cr Clr Drug Dosing Est GFR ( Amer) Est GFR (Non-Af Amer) BUN/Creatinine Ratio Glucose POC Glucose 105 H 84 Calcium Phosphorus Magnesium 07/12/18 05:34 WBC RBC Hgb Hct MCV MCH MCHC RDW Std Deviation RDW Coeff of Igor Plt Count MPV Immature Gran % (Auto) Neut % (Auto) Lymph % (Auto) [place] % (Auto) Eos % (Auto) Baso % (Auto) Immature Gran # (Auto) Neut # (Auto) Lymph # (Auto) [place] # (Auto) Eos # (Auto) Baso # (Auto) Toxic Vacuolation Platelet Estimate Spherocytes Sodium 132 L Potassium 4.3 Chloride 95 L Carbon Dioxide 25 Anion Gap 12.0 H BUN 73 H D Creatinine 8.99 H* D Est Cr Clr Drug Dosing 5.0 Est GFR ( Amer) 4.8 Est GFR (Non-Af Amer) 4.2 BUN/Creatinine Ratio 8.1 L Glucose 78 POC Glucose Calcium 7.8 L Phosphorus 7.3 H Magnesium 2.0 _ (1) Respiratory failure Chronicity: acute Respiratory failure complication: hypoxia Qualified Code(s ): J96.01 - Acute respiratory failure with hypoxia
[2018-07-12] MEDS ORDERED: EPOETIN ALFA 3,000 UNITS in SYRINGE 0 ML IV SCH ×2 (10:45→11:00)
[2018-07-12] MEDS: CARVEDILOL 12.5 MG TAB PO SCH (14:00)
[2018-07-12] MEDS: LISINOPRIL 40 MG TAB PO SCH (14:01)
[2018-07-12] MEDS: AMLODIPINE BESYLATE 5 MG TAB PO SCH ×2 (14:01→21:18)
[2018-07-12] MEDS: ISOSORBIDE MONO EXTENDED REL 30 MG TABCR PO SCH (14:01)
[2018-07-12] MEDS ORDERED: OSELTAMIVIR PHOSPHATE SUSP 30 MG/5 ML UDP PO SCH (16:00)
--- NOTE | 2018-07-12 17:51 | Hospitalist Progress Note ---
Date of Service July 12, 2018 Assessment & Plan (1) Respiratory failure: Acute hypoxic respiratory failure with O2 sat in the 50's at dialysis center. Required intubation and mechanical ventilation. Underlying etiology appears to be CHF +/- influenza. Respiratory status improved. Weaned off vent. Oxygenating well on NC. Increase activity with assistance. Check f/u chest x-ray in a.m. (2) Cardiomyopathy: History of systolic CHF with LVEF 30-35% in Apr 2018. Presented with acute on chronic left ventricular systolic heart failure. Fluid management with diuretics and hemodialysis. Improved. (3) Pulmonary edema: Secondary to acute on chronic left ventricular systolic heart failure as discussed above. 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 Receiving oseltamivir. (5) End-stage renal disease on hemodialysis: Management per Nephrology. (6) Hypertension: Hemodynamically stable. Follow and titrate meds. (7) DVT prophylaxis: SQ heparin. (8) Discharge planning issues: Anticipated discharge to home. Family Medicine follow-up with Dr. Dickerson. Subjective Recheck for multiple problems. Pt seen in her room around 1520. Tired after undergoing hemodialysis earlier today. Fever last night. Cough improved. Less SOB. No chest pain. No nausea, vomiting, diarrhea. Voids occasionally, no dysuria. Not yet ambulating out of room. Physical Exam 2 Vital Signs (Past 24 Hours): Last Vital Signs Temp 36.9 C 07/12/18 15:26 Pulse 74 07/12/18 15:26 Resp 16 07/12/18 15:26 BP 110/61 07/12/18 15:26 Pulse Ox 92 07/12/18 15:26 Constitutional: + ill appearing and + thin Respiratory: Auscultation: + rales (few bibasilar) and + wheezes (mild) Cardiovascular: Rate/Rhythm: regular rate and regular rhythm Vessels: + JVD Extremities: + edema (trace pretibial) Gastrointestinal (Abdomen): Inspection/Auscultation: + abnormal bowel sounds ( quiet) Percussion/Palpation: abdomen soft and + abdominal mass (large nodular / cystic masses) Psychiatric: A+Ox3, euthymic affect Results & Data Laboratory Results Laboratory Results - last 24 hr 07/11/18 07/12/18 07/12/18 16:27 05:34 05:34 WBC 4.55 L RBC 3.67 L Hgb 10.1 L Hct 32.8 L MCV 89.4 MCH 27.5 MCHC 30.8 L RDW Std Deviation 55.0 H RDW Coeff of Igor 16.7 H Plt Count 94 L MPV 11.3 H Immature Gran % (Auto) 0.0 Neut % (Auto) 71.6 Lymph % (Auto) 20.7 [place] % (Auto) 6.6 Eos % (Auto) 1.1 Baso % (Auto) 0.0 Immature Gran # (Auto) 0.00 Neut # (Auto) 3.26 Lymph # (Auto) 0.94 L [place] # (Auto) 0.30 Eos # (Auto) 0.05 Baso # (Auto) 0.00 Toxic Vacuolation 1+ Platelet Estimate Decreased Spherocytes 1+ Sodium 132 L Potassium 4.3 Chloride 95 L Carbon Dioxide 25 Anion Gap 12.0 H BUN 73 H D Creatinine 8.99 H* D Est Cr Clr Drug Dosing 5.0 Est GFR ( Amer) 4.8 Est GFR (Non-Af Amer) 4.2 BUN/Creatinine Ratio 8.1 L Glucose 78 POC Glucose 84 Calcium 7.8 L Phosphorus 7.3 H Magnesium 2.0 _ (1) Respiratory failure Chronicity: acute Respiratory failure complication: hypoxia Qualified Code(s ): J96.01 - Acute respiratory failure with hypoxia (2) Pulmonary edema Chronicity: acute Qualified Code(s): J81.0 - Acute pulmonary edema
[2018-07-13 06:08] LABS: Eosinophils # (auto) 0.06 K/uL (0-0.5); Eosinophils % (auto) 1.4 %; Hematocrit (blood only) 34.8 % (37-47); Hemoglobin 10.7 g/dL (12.0-16.0); Immature Granulocytes # (auto) 0.01 K/uL (0.00-0.02); Immature Granulocytes % (auto) 0.2 %; Lymphocytes # (auto) 0.88 K/uL (1.2-3.4); Lymphocytes % (auto) 20.3 %; Mean Corpuscular Hgb Conc 30.7 g/dL (32-36); Mean Corpuscular Volume 90.4 fL (80-100); Mean Platelet Volume 11.3 fL (7.4-10.4); Monocytes # (auto) 0.33 K/uL (0.11-0.59); Monocytes % (auto) 7.6 %; Neutrophils # (auto) 3.05 K/uL (1.4-6.5); Neutrophils % (auto) 70.5 %; Platelet Count 103 K/uL (130-400); RDW Coefficient of Variation 16.4 % (11.5-14.5); RDW Standard Deviation 54.3 fL (36.4-46.3); Red Blood Count 3.85 M/uL (4.2-5.4); White Blood Count 4.33 K/uL (4.8-10.8)
[2018-07-13 06:53] LABS: BUN Creatinine Ratio 7.4 (10-20); Calcium 7.9 mg/dl (8.5-10.1); Creatinine Clr Calc Pharmacy 7.3 ml/min; Est GFR (African American) 7.6; Est GFR (Non-African American) 6.6; Magnesium 1.9 mg/dl (1.8-2.4); Potassium 3.8 mmol/L (3.5-5.1)
--- NOTE | 2018-07-13 07:59 | XRay Report ---
XR chest 1V portable CLINICAL HISTORY: Congestive failure. Influenza. COMPARISON STUDY: 07/11/2018 FINDINGS: The heart is the upper limits of normal in size. There are basilar airspace opacities with a linear configuration suggesting subsegmental atelectatic change. There is no lobar consolidation. T here is no overt failure. There are no pleural effusions.[ IMPRESSION: Linear basilar opacities favoring subsegmental atelectasis Electronically signed by: Cipriano Rivero M.D. 07/13/2018 7:58 AM
[2018-07-13] MEDS: AMLODIPINE BESYLATE 5 MG TAB PO SCH ×2 (08:00→20:44)
[2018-07-13] MEDS: HEPARIN SOD 5,000 UNIT/0.5 ML VIAL SQ SCH ×2 (08:02→20:43)
[2018-07-13] MEDS: ISOSORBIDE MONO EXTENDED REL 30 MG TABCR PO SCH (08:09)
[2018-07-13] MEDS: LISINOPRIL 40 MG TAB PO SCH (08:09)
[2018-07-13] MEDS: CARVEDILOL 12.5 MG TAB PO SCH (08:10)
--- NOTE | 2018-07-13 10:27 | Nephrology Progress Note ---
Date of Service July 13, 2018 Assessment & Plan (1) Respiratory failure: -- Presented with acute pulmonary edema associated with influenza infection -- Clinically improved with supportive care and UF -- Volume status acceptable -- TTE reviewed , no significant acute changes -- Noted similar presentation last month: EDW adjusted -- Current weight post HD is 57.8 kg which will be communicated to her outpatient dialysis unit (2) End-stage renal disease on hemodialysis: -- Typical Rx: 4 hrs optiflux-180 Qb350/Qd800 2K / 140Na and 32 HCO3; EDW 60.5 kg; 16 g needles -- Heparin 1000 bolus and 500/hr with HD -- TTS schedule -- BP, volume status and electrolytes remain acceptable -- Medications are currently acceptably dosed for kidney function -- Tamiflu dosing 30 mg post HD -- For anemia EPO 4000 units was provided with HD yesterday (3) Polycystic kidney disease: -- Patient is scheduled for follow up transplant evaluation at [facility] in August; CT scan is scheduled to be repeated at that time Subjective No acute events overnight. Orly was sitting comfortably in her bedside chair this morning. She feels slightly weak but overall well. She notes that she felt cold following dialysis yesterday and warm overnight in her hospital room. Tmax 37.6. No chills. She tolerated HD well. Weight this AM documented at 57.8 kg. She denies lightheadedness or dizziness. She denies chest pain or palpitations. She expects to be discharged home today or tomorrow. She denies significant dyspnea at rest. Denies cough. Overall, Orly states that she is slightly weak but feels well. I discussed the plan of care with Dr. Fowler this morning. Review of Systems All systems reviewed & are unremarkable except as noted in HPI & below Physical Exam 2 Vital Signs (Past 24 Hours): Last Vital Signs Temp 37.0 C 07/13/18 08:21 Pulse 73 07/13/18 08:21 Resp 18 07/13/18 08:21 BP 132/70 07/13/18 08:21 Pulse Ox 98 07/13/18 08:21 Constitutional: well developed and + thin Eyes: + anicteric sclerae; no scleral abnormality and no corneal abnormality ENMT: Mouth: oral mucous membranes not dry Neck: normal visual inspection and trachea midline Respiratory: no respiratory distress and no labored breathing Auscultation : lungs clear to auscultation bilaterally Cardiovascular: Heart Sounds: normal S1, normal S2 and + murmur; no gallop and no cardiac rub Extremities: + AV fistula Gastrointestinal (Abdomen): Inspection/Auscultation: + abdomen distended Percussion/Palpation: + abdomen firm; abdomen nontender Musculoskeletal: Extremities: no cyanosis and no clubbing Skin: normal turgor; no rashes Neurologic: Motor/Sensory: no tremor and no asterixis Results & Data Laboratory Results Laboratory Results - last 24 hr 07/13/18 07/13/18 05:42 05:42 WBC 4.33 L RBC 3.85 L Hgb 10.7 L Hct 34.8 L MCV 90.4 MCH 27.8 MCHC 30.7 L RDW Std Deviation 54.3 H RDW Coeff of Igor 16.4 H Plt Count 103 L MPV 11.3 H Immature Gran % (Auto) 0.2 Neut % (Auto) 70.5 Lymph % (Auto) 20.3 [place] % (Auto) 7.6 Eos % (Auto) 1.4 Baso % (Auto) 0.0 Immature Gran # (Auto) 0.01 Neut # (Auto) 3.05 Lymph # (Auto) 0.88 L [place] # (Auto) 0.33 Eos # (Auto) 0.06 Baso # (Auto) 0.00 Sodium 134 L Potassium 3.8 Chloride 99 Carbon Dioxide 25 Anion Gap 10.0 BUN 46 H Creatinine 6.19 H* D Est Cr Clr Drug Dosing 7.3 Est GFR ( Amer) 7.6 Est GFR (Non-Af Amer) 6.6 BUN/Creatinine Ratio 7.4 L Glucose 90 Calcium 7.9 L Phosphorus 4.0 D Magnesium 1.9 _ (1) Respiratory failure Chronicity: acute Respiratory failure complication: hypoxia Qualified Code(s ): J96.01 - Acute respiratory failure with hypoxia
--- NOTE | 2018-07-13 11:34 | Hospitalist Progress Note ---
Date of Service July 13, 2018 Assessment & Plan (1) Respiratory failure: Acute hypoxic respiratory failure with O2 sat in the 50's at dialysis center. Required intubation and mechanical ventilation. Underlying etiology appears to be CHF +/- influenza. Respiratory status improved. Weaned off vent. Weaned off supplemental O2. Follow-up chest x-ray improved. Increase activity with assistance. (2) Cardiomyopathy: History of systolic CHF with LVEF 30-35% in Apr 2018. Presented with acute on chronic left ventricular systolic heart failure. Fluid management with diuretics and hemodialysis. Improved. (3) Pulmonary edema: Secondary to acute on chronic left ventricular systolic heart failure as discussed above. 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 Receiving oseltamivir. (5) End-stage renal disease on hemodialysis: Management per Nephrology. (6) Hypertension: Hemodynamically stable. Follow and titrate meds. (7) DVT prophylaxis: SQ heparin. (8) Discharge planning issues: Anticipated discharge to home. Family Medicine follow-up with Dr. Dickerson. Subjective Recheck for multiple problems. Pt seen in her room this morning. Afebrile. Cough improved. Less SOB. No chest pain. No nausea, vomiting, diarrhea. Voids occasionally, no dysuria. Not yet ambulating out of room. Physical Exam 2 Vital Signs (Past 24 Hours): Last Vital Signs Temp 37.0 C 07/13/18 08:21 Pulse 73 07/13/18 08:21 Resp 18 07/13/18 08:21 BP 132/70 07/13/18 08:21 Pulse Ox 98 07/13/18 08:21 Constitutional: + thin; no acute distress Neck: trachea midline, no thyromegaly Respiratory: Auscultation: + rales (few bibasilar) Cardiovascular: Rate/Rhythm: regular rate and regular rhythm Vessels: + JVD Extremities: + edema (trace pretibial) Gastrointestinal (Abdomen): Inspection/Auscultation: normal bowel sounds Percussion/Palpation: abdomen soft and + abdominal mass (large nodular / cystic masses) Neurologic: + obtunded (sedated) Psychiatric: A+Ox3, euthymic affect Results & Data Laboratory Results Laboratory Results - last 24 hr 07/13/18 07/13/18 07/13/18 05:42 05:42 11:27 WBC 4.33 L RBC 3.85 L Hgb 10.7 L Hct 34.8 L MCV 90.4 MCH 27.8 MCHC 30.7 L RDW Std Deviation 54.3 H RDW Coeff of Igor 16.4 H Plt Count 103 L MPV 11.3 H Immature Gran % (Auto) 0.2 Neut % (Auto) 70.5 Lymph % (Auto) 20.3 [place] % (Auto) 7.6 Eos % (Auto) 1.4 Baso % (Auto) 0.0 Immature Gran # (Auto) 0.01 Neut # (Auto) 3.05 Lymph # (Auto) 0.88 L [place] # (Auto) 0.33 Eos # (Auto) 0.06 Baso # (Auto) 0.00 Sodium 134 L Potassium 3.8 Chloride 99 Carbon Dioxide 25 Anion Gap 10.0 BUN 46 H Creatinine 6.19 H* D Est Cr Clr Drug Dosing 7.3 Est GFR ( Amer) 7.6 Est GFR (Non-Af Amer) 6.6 BUN/Creatinine Ratio 7.4 L Glucose 90 POC Glucose 110 H Calcium 7.9 L Phosphorus 4.0 D Magnesium 1.9 _ (1) Respiratory failure Chronicity: acute Respiratory failure complication: hypoxia Qualified Code(s ): J96.01 - Acute respiratory failure with hypoxia (2) Pulmonary edema Chronicity: acute Qualified Code(s): J81.0 - Acute pulmonary edema
[2018-07-14] MEDS: AMLODIPINE BESYLATE 5 MG TAB PO SCH (07:40)
[2018-07-14] MEDS: LISINOPRIL 40 MG TAB PO SCH (07:40)
[2018-07-14] MEDS: HEPARIN SOD 5,000 UNIT/0.5 ML VIAL SQ SCH (07:40)
[2018-07-14] MEDS: CARVEDILOL 12.5 MG TAB PO SCH (07:41)
[2018-07-14] MEDS: ISOSORBIDE MONO EXTENDED REL 30 MG TABCR PO SCH (07:41)
[2018-07-14 08:20] LABS: BUN Creatinine Ratio 8.8 (10-20); Calcium 8.2 mg/dl (8.5-10.1); Creatinine Clr Calc Pharmacy 5.4 ml/min; Est GFR (African American) 5.3; Est GFR (Non-African American) 4.6; Potassium 3.8 mmol/L (3.5-5.1)
--- NOTE | 2018-07-14 10:39 | Nephrology Progress Note ---
Date of Service July 14, 2018 Assessment & Plan (1) Respiratory failure: -- Presented with acute pulmonary edema associated with influenza infection -- Clinically improved with supportive care and UF -- New target EDW of 57.5 kg has been called to the [facility] dialysis unit this am -- No acute indication for HD today. If discharge is anticipated please have patient resume her regular TTS outpatient HD schedule at [facility] (2) End-stage renal disease on hemodialysis: -- Typical Rx: TTS 4 hrs optiflux-180 Qb350/Qd800 2K / 140Na and 32 HCO3 ; EDW 57.5 kg; 16 g needles -- Heparin 1000 bolus and 500/hr with HD -- For anemia EPO 4000 units was provided with HD 07/12 (3) Polycystic kidney disease: -- Patient is scheduled for follow up transplant evaluation at [facility] in August; CT scan is scheduled to be repeated at that time Subjective Ms. Cagle was seen & examined in her hospital room this morning. She was afebrile overnight and currently denies angina, cough or sputum production. She is breathing comfortably on RA. Ms. Cagle voices no new medical concerns this am. Physical Exam 2 Vital Signs (Past 24 Hours): Last Vital Signs Temp 36.8 C 07/14/18 07:46 Pulse 72 07/14/18 07:46 Resp 16 07/14/18 07:46 BP 138/70 07/14/18 07:46 Pulse Ox 98 07/14/18 07:46 Eyes: PERRL, conjunctivae normal, anicteric sclerae Neck: trachea midline, no thyromegaly Respiratory: normal respiratory effort, lungs clear to auscultation Cardiovascular: RRR, no murmur, no edema Gastrointestinal (Abdomen): Inspection/Auscultation: + abdomen distended ( massively enlarged kidneys, easily palpable) Percussion/Palpation: no guarding and + abdomen not soft Results & Data Laboratory Results Laboratory Tests 07/13/18 07/14/18 05:42 07:19 WBC 4.33 L Hgb 10.7 L Hct 34.8 L Plt Count 103 L Sodium 134 L Potassium 3.8 Chloride 97 L Carbon Dioxide 23 BUN 72 H D Creatinine 8.37 H* D Glucose 116 H Calcium 8.2 L _ (1) Respiratory failure Chronicity: acute Respiratory failure complication: hypoxia Qualified Code(s ): J96.01 - Acute respiratory failure with hypoxia
[2018-07-14] MEDS ORDERED: OSELTAMIVIR PHOSPHATE SUSP 30 MG/5 ML UDP PO STA (14:14)
--- NOTE | 2018-07-14 16:22 | Hospitalist Progress Note ---
Date of Service July 14, 2018 Assessment & Plan (1) Respiratory failure: Acute hypoxic respiratory failure with O2 sat in the 50's at dialysis center. Required intubation and mechanical ventilation. Underlying etiology appears to be CHF +/- influenza. Respiratory status improved. Weaned off vent. Weaned off supplemental O2. Follow-up chest x-ray improved. (2) Cardiomyopathy: History of systolic CHF with LVEF 30-35% in Apr 2018. Presented with acute on chronic left ventricular systolic heart failure. Fluid management with diuretics and hemodialysis. Improved. Continue furosemide, carvedilol and lisinopril. (3) Pulmonary edema: Secondary to acute on chronic left ventricular systolic heart failure as discussed above. 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 Received course of oseltamivir. (5) End-stage renal disease on hemodialysis: Hemodialysis management per Nephrology. (6) Hypertension: Hemodynamically stable. Follow and titrate meds. (7) DVT prophylaxis: SQ heparin. (8) Discharge planning issues: Discharge to home. Family Medicine follow-up with Dr. Dickerson. Subjective Recheck for multiple problems. Pt seen in her room around 1400. Afebrile. Cough essentially resolved. No SOB. No chest pain. No nausea, vomiting, diarrhea. Ambulating. Physical Exam 2 Vital Signs (Past 24 Hours): Last Vital Signs Temp 36.4 C L 07/14/18 15:35 Pulse 79 07/14/18 15:35 Resp 16 07/14/18 15:35 BP 171/79 H 07/14/18 15:35 Pulse Ox 92 07/14/18 15:35 Constitutional: + ill appearing and + thin; no acute distress Respiratory: normal respiratory effort, lungs clear to auscultation Cardiovascular: Rate/Rhythm: regular rate, regular rhythm and + tachycardic Vessels: + JVD Extremities: no edema Gastrointestinal (Abdomen): Inspection/Auscultation: normal bowel sounds Percussion/Palpation: abdomen soft and + abdominal mass (large nodular / cystic masses) Psychiatric: A+Ox3, euthymic affect _ (1) Respiratory failure Chronicity: acute Respiratory failure complication: hypoxia Qualified Code(s ): J96.01 - Acute respiratory failure with hypoxia (2) Pulmonary edema Chronicity: acute Qualified Code(s): J81.0 - Acute pulmonary edema
--- NOTE | 2018-07-15 05:03 | Discharge Summary ---
Date of Service Date of admission: 07/10/18 Date of discharge: 07/14/18 Admission HPI Per Admitting Provider 62 [address]O female followed by Dr. Dickerson. History of systolic CHF, CKD V due to polycystic kidney disease, and other problems. She was scheduled for hemodialysis today. When she arrived at the hemodialysis center she was noted to be SOB and O2 sat was 53% on RA. Reportedly has had a cough for the past few days. Reportedly vomited the day prior to admission. EMS summoned. CPAP applied in the field. Upon arrival to ED, patient was in respiratory distress and lethargic. She was intubated and admitted to the ICU. Admission Exam Per Admitting Provider Constitutional: + ill appearing and + thin Eyes: PERRL, conjunctivae normal, anicteric sclerae ENMT: Mouth: + oropharynx abnormality (oral ETT, oral GT) Neck: trachea midline, no thyromegaly Respiratory: Auscultation: + rales (bilat) Cardiovascular: Rate/Rhythm: regular rate, regular rhythm and + tachycardic Vessels: + JVD Extremities: + edema (1+ pretibial) Gastrointestinal (Abdomen): Inspection/Auscultation: + abnormal bowel sounds ( quiet) Percussion/Palpation: abdomen soft and + abdominal mass (large nodular / cystic masses) Neurologic: + obtunded (sedated) Lymphatic: no cervical lymphadenopathy Principal Diagnosis acute hypoxic respiratory failure pulmonary edema acute on chronic left ventricular systolic heart failure influenza A hypertension CKD V on hemodialysis polycystic kidney disease Discharge Data Allergies Allergy/AdvReac Type Severity Reaction Status Date / Time morphine AdvReac Intermediate Nausea Verified 07/10/18 08:19 Consultations 07/10/18 07:29 Consult Nephrology Routine 07/10/18 08:10 Consult Case Management - Discharge Planning Routine Hospital Course (1) Respiratory failure: Acute hypoxic respiratory failure with O2 sat in the 50's at dialysis center. Required intubation and mechanical ventilation. Underlying etiology appears to be CHF +/- influenza. Respiratory status improved. Weaned off vent. Weaned off supplemental O2. Follow-up chest x-ray improved. (2) Cardiomyopathy: History of systolic CHF with LVEF 30-35% in Apr 2018. Presented with acute on chronic left ventricular systolic heart failure. Fluid management with diuretics and hemodialysis. Improved. Continue furosemide, carvedilol and lisinopril. (3) Pulmonary edema: Secondary to acute on chronic left ventricular systolic heart failure as discussed above. 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 Received course of oseltamivir. (5) End-stage renal disease on hemodialysis: Hemodialysis management per Nephrology. (6) Hypertension: Hemodynamically stable. Follow and titrate meds. (7) DVT prophylaxis: SQ heparin. (8) Discharge planning issues: Discharge to home. Family Medicine follow-up with Dr. Dickerson. Total Time Total Time Spent Total Time Spent (In Minutes): 40 Discharge Plan Discharge Items Patient Disposition: Home - Self-Care Reason For Visit: trouble breathing Discharge Diagnosis: influenza pulmonary edema (too much fluid in lungs) Condition: Good Discharge Goals: Decrease discomfort and Improve disease control Activity: Per 'Additional Instructions' section Lifting: Gradually increase as tolerated Exercise/Sports: Gradually increase as tolerated Non-emergency contact: Primary Care Provider, Hospitalist and Warehouse Loader Call non-emergency contact if: you have any medication questions, your symptoms worsen and your temperature is above 101 Follow-up/Referrals: Isaias Dickerson MD [Primary Care Provider] - (07/18/2018 10:00 AM Juan Miguel Pereyra MD (covering for Dr. Dickerson) Internal Medicine [facility]) Diet: Dialysis Renal Addtl Provider Instructions: Resume your usual dialysis schedule on [id number]. Please wear a surgical mask when you go to dialysis unit or at other times when you are around other people. May stop using the mask after 1 week. Seek medical attention if you have: * temperature above 101 * chest pain or trouble breathing * abdominal pain, nausea, vomiting * diarrhea, dark stools or bloody stools * any unanswered questions or concerns Call 911 if symptoms are severe. Call if you have any questions or problems. My cell # is [phone]. You can also reach a [facility] hospitalist on duty at [facility] 24 hours a day by calling [phone]. Prescriptions: Continue multivitamin [Multiple Vitamins] Tablet 1 tab PO DAILY RF: 0 carvedilol 12.5 mg tablet 12.5 mg PO BID RF: 0 isosorbide mononitrate 30 mg tablet extended release 24 hr 30 mg PO DAILY RF: 0 amlodipine 5 mg tablet 5 mg PO BID RF: 0 furosemide 80 mg tablet 80 mg PO DAILY RF: 0 lisinopril 40 mg tablet 40 mg PO DAILY RF: 0 calcium acetate 667 mg Capsule 2,668 mg PO TIDM RF: 0 Stand-Alone Forms: [facility] Discharge Orders: Discharge Order (Routine); Ordered 07/14/18 Ordered By: Heri Fowler Admission Data Admit Date/Time: 07/10/18 07:27 Attending Provider: Heri Fowler Admit Provider: Chris Holt Primary Care Provider: Isaias Dickerson Other Providers: Artie Wolf Kevin C. Service: Medical Other Interventions: Discharge Summary Assessment (RN) Last Done: 07/14/18 16:41 DC Date/Time DO NOT enter until pt leaves facility: 07/14/18 17:18
[2018-07-15] MEDS ORDERED: HEPARIN SOD (PORCINE) 1000 UNIT/ML 10 ML VIAL IV SCH ×2 (06:00→08:00)
[2018-07-15] MEDS ORDERED: SODIUM CHLORIDE 0.9% 1000ML 1,000 ML IV PRN (08:00)
== END 2018-07-14 17:18 | disposition home or self-care (01) ==
LOC: ED 05:58 → SUATTDRO 07:27 → 1E 07:27 → 2S 07-11 10:23 → 2W 07-13 11:34

== ENCOUNTER 2020-10-20 23:37 | Inpatient (IN) ==
[2020-10-21 01:36] LABS: Hematocrit (blood only) 25.9 % (37-47); Hemoglobin 8.3 g/dL (12.0-16.0); Mean Corpuscular Hemoglobin 32.5 pg (25-34); Mean Corpuscular Volume 101.6 fL (80-100); RDW Coefficient of Variation 16.6 % (11.5-14.5); RDW Standard Deviation 60.9 fL (36.4-46.3); Red Blood Count 2.55 M/uL (4.2-5.4); White Blood Count 3.05 K/uL (4.8-10.8)
[2020-10-21 01:49] LABS: INR 1.2 (0.9-1.1); Partial Thromboplastin Ratio 1.2; Partial Thromboplastin Time 31.1 Seconds (21.0-31.0); Prothrombin Time 11.9 Seconds (9.0-12.0)
[2020-10-21 01:50] LABS: Mean Platelet Volume 10.9 fL (7.4-10.4); Platelet Count 46 K/uL (130-400)
[2020-10-21 01:53] LABS: Albumin Level 2.2 gm/dl (3.4-5.0); BUN Creatinine Ratio 3.3 (10-20); Calcium 7.9 mg/dl (8.5-10.1); Est GFR (African American) 11.2 ml/min; Est GFR (Non-African American) 9.6 ml/min; Magnesium 2.1 mg/dl (1.8-2.4); Potassium 3.4 mmol/L (3.5-5.1)
[2020-10-21 01:56] LABS: Bilirubin,Total 0.5 mg/dl (0.2-1); Globulin 2.2 gm/dl (2.5-4.0); Total Protein 4.4 gm/dl (6.4-8.2)
[2020-10-21 02:11] LABS: Anisocytosis Present; Basophilic Stippling 1+; Immature Granulocytes # (auto) 0.28 K/uL (0.00-0.02); Immature Granulocytes % (auto) 9.2 %; Lymphocytes # (auto) 0.25 K/uL (1.2-3.4); Lymphocytes % (auto) 8.2 %; Monocytes # (auto) 0.16 K/uL (0.11-0.59); Monocytes % (auto) 5.2 %; Neutrophils # (auto) 2.36 K/uL (1.4-6.5); Neutrophils % (auto) 77.4 %; Polychromasia 1+
[2020-10-21] MEDS ORDERED: SODIUM CHLORIDE 0.9% 500 ML IV ONE (03:27)
--- NOTE | 2020-10-21 06:11 | Emergency Department Note ---
Impression & Plan Fever, Diarrhea ED Provider Note NAME: CHARITY DELACRUZ AGE: 64 SEX: F ARRIVES VIA: Walk-In INFORMANT: Patient ED PROVIDER(S): Gosia Valerio DO CHIEF COMPLAINT: Fever PLAN: Disposition: Admitted to the [facility] service Condition: Fair MEDICAL DECISION MAKING: This is a 64-year-old female patient with a history of end-stage renal disease and liver transplant who presents to the emergency department with fever, weakness and confusion. The patient has had significant diarrhea for the past 1 week and began to vomit today. Laboratory studies were not significantly abnormal from her usual values. However, the patient was extremely weak. The patient had no diarrheal bowel movements while here in the emergency department. I did discuss the case with the sales account coordinator at [facility] and we decided it would be best that the patient stayed here in the hospital for some g entle IV fluid hydration and to obtain a stool specimen for C. difficile. [facility] for [facility] management. Triage Nursing notes reviewed and agree them. Additional history obtained from the patient's daughter who is at the bedside Prior medical records reviewed Vital Signs: reviewed and remarkable for hypertension Differential diagnosis: Sepsis; C. difficile; electrolyte abnormality; dehydration ER treatment provided: IV fluids Diagnostics interpreted by me: ECG: Normal sinus rhythm at a rate of [address] segment elevation or signs of ischemia. There is no ectopic beats. Cardiac Monitoring: Normal sinus rhythm at a rate of 76 Laboratory studies: See below Imaging studies: As per my interpretation Chest x-ray: Small right-sided pleural effusion with no other pulmonary infiltrates or consolidations. Consultation(s): Dipti-sales account coordinator [facility] HPI: 64/F arrives for evaluation of fever. The patient has had diarrhea for the past 1 week and developed an episode of vomiting today. She has had increasing generalized weakness today and confusion and loss of appetite over the past couple of days. The patient is an end-stage renal disease patient and receives dialysis Saturday, Saturday, and Saturday. Patient has a history of liver transplant and has not been able to take her medications throughout the day today because of the nausea, vomiting and weakness. ROS: See above HPI for pertinent positives & negatives. A total of 10 systems reviewed and were otherwise negative. PAST MEDICAL HISTORY:See Below PAST SURGICAL HISTORY:See Below FAMILY HISTORY:See Below SOCIAL HISTORY:See Below HOME MEDICATIONS:See Below ALLERGIES:See Below VITALS:See Below PHYSICAL EXAMINATION: HEENT: Head - normocephalic and atraumatic Pupils are equal, round, and reactive to light. Extraocular eye muscles are intact, and sclera are anicteric. Nose - moist nasal mucosa without discharge. Mouth -dry buccal mucosa. Oropharynx is nonerythematous and there is no tonsillar exudate or edema noted. Neck: Supple; no cervical lymphadenopathy or thyromegaly Heart: Regular rate and rhythm. There is a normal S1 and S2 with no murmurs, clicks, or gallops appreciated. Lungs: Clear to auscultation bilaterally with no wheezes, rales, or rhonchi. Abdomen: Soft, completely nontender, nondistended, with good bowel sounds. There are no palpable pulsatile masses or hepatosplenomegaly. There is no guarding, rigidity, or rebound noted. Extremities: No evidence of cyanosis, clubbing, or edema. There are easily palpable peripheral pulses. Skin: Pale warm and dry with good turgor and no rashes. ED COURSE: Times/Reassessments: 0035: The patient was evaluated in room a 10. A complete history and physical was performed. Previous electronic medical records were reviewed. Laboratory studies were drawn as above. Chest x-ray was performed. An order was placed for continuous cardiac monitoring. The patient was in a normal sinus rhythm at a rate of 76. A twelve-lead EKG was obtained. 0250: The patient was reevaluated at this time and I reviewed the results of the laboratory studies with the patient and her daughter. Patient was given a bolus of normal saline solution. I discussed the case with the [facility] hospitalist. 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 Required: No Beliefs That Will Affect Care: None marital status: / Current Living Situation: Family Current Living Situation Comment: lives with her son Feels Safe at Home: Yes Assistive Devices: Oxygen - at Night Allergies Allergies Allergy/AdvReac Type Severity Reaction Status Date / Time morphine AdvReac Intermediate Nausea Verified 10/21/20 01:00 Home Meds Home Medications Medication Instructions Recorded Confirmed carvedilol 37.5 mg PO BID 07/03/20 10/21/20 B complex-vitamin C-folic acid 1 tab PO DAILY 10/21/20 10/21/20 [Juana-Bere] lisinopril 20 mg PO DAILY 10/21/20 10/21/20 omeprazole 2 mg PO BID 10/21/20 10/21/20 sulfamethoxazole-trimethoprim 1 tab PO 3XWK 10/21/20 10/21/20 tacrolimus [Prograf] See Rx Instructions .ROUTE .COMPLEX 10/21/20 10/21/20 valganciclovir 50 mg PO 2XWK 10/21/20 10/21/20 Previous Rx's Medication Instructions Recorded amlodipine 5 mg tablet 5 mg PO BID #180 tab 04/20/20 Results & Data (ED) Vital Signs Vital Signs - 24 hr 10/20/20 23:45 10/21/20 00:30 10/21/20 01:00 Temperature 36.8 C Temperature Source Temporal Artery Scan Pulse Rate 86 81 84 Pulse Rate from SpO2 Sensor 81 Respiratory Rate 20 19 17 Blood Pressure 176/81 H 169/78 H 178/90 H Blood Pressure Mean 112 108 119 Blood Pressure Position Sitting Pulse Oximetry 99 93 Oxygen Delivery Method Room Air Sepsis Recent Fever Within 48 Hours Yes Sepsis New/Unexplained Change in Mental Status No Sepsis Action Taken by Nursing No Action Required 10/21/20 03:41 10/21/20 04:00 10/21/20 04:30 Temperature Temperature Source Pulse Rate 81 79 78 Pulse Rate from SpO2 Sensor Respiratory Rate 21 26 H 21 Blood Pressure 166/89 H 191/81 H 182/79 H Blood Pressure Mean 114 117 113 Blood Pressure Position Pulse Oximetry Oxygen Delivery Method Sepsis Recent Fever Within 48 Hours Sepsis New/Unexplained Change in Mental Status Sepsis Action Taken by Nursing 10/21/20 05:00 10/21/20 05:01 10/21/20 05:30 Temperature Temperature Source Pulse Rate 78 76 76 Pulse Rate from SpO2 Sensor Respiratory Rate 19 22 23 Blood Pressure 192/85 H 162/80 H Blood Pressure Mean 120 107 Blood Pressure Position Pulse Oximetry Oxygen Delivery Method Sepsis Recent Fever Within 48 Hours Sepsis New/Unexplained Change in Mental Status Sepsis Action Taken by Nursing 10/21/20 06:00 Temperature Temperature Source Pulse Rate 83 Pulse Rate from SpO2 Sensor Respiratory Rate 22 Blood Pressure 182/87 H Blood Pressure Mean 118 Blood Pressure Position Pulse Oximetry Oxygen Delivery Method Sepsis Recent Fever Within 48 Hours Sepsis New/Unexplained Change in Mental Status Sepsis Action Taken by Nursing Laboratory Data Result diagrams: 10/21/20 01:13 10/21/20 01:13 Lab Results 10/21/20 10/21/20 10/21/20 Range/Units 00:30 00:30 01:13 WBC 3.05 L (4.8-10.8) K/uL RBC 2.55 L (4.2-5.4) M/uL Hgb 8.3 L (12.0-16.0) g/dL Hct 25.9 L (37-47) % MCV 101.6 H (80-100) fL MCH 32.5 (25-34) pg MCHC 32.0 (32-36) g/dL RDW Std Deviation 60.9 H (36.4-46.3) fL RDW Coeff of Igor 16.6 H (11.5-14.5) % Plt Count 46 L (130-400) K/uL MPV 10.9 H (7.4-10.4) fL Immature Gran % (Auto) 9.2 % Neut % (Auto) 77.4 % Lymph % (Auto) 8.2 % [place] % (Auto) 5.2 % Eos % (Auto) 0.0 % Baso % (Auto) 0.0 % Neut # (Auto) 2.36 (1.4-6.5) K/uL Lymph # (Auto) 0.25 L (1.2-3.4) K/uL [place] # (Auto) 0.16 (0.11-0.59) K/uL Eos # (Auto) 0.00 (0-0.5) K/uL Baso # (Auto) 0.00 (0-0.2) K/uL Immature Gran # (Auto) 0.28 H (0.00-0.02) K/uL Polychromasia 1+ Basophilic Stippling 1+ Anisocytosis Present PT (9.0-12.0) Seconds INR (0.9-1.1) APTT (21.0-31.0) Seconds PTT Ratio Sodium (136-145) mmol/L Potassium (3.5-5.1) mmol/L Chloride (98-107) mmol/L Carbon Dioxide (21-32) mmol/L Anion Gap (3-11) BUN (7-18) mg/dl Creatinine (0.6-1.2) mg/dl Est Cr Clr Drug Dosing ml/min Est GFR ( Amer) ml/min Est GFR (Non-Af Amer) ml/min BUN/Creatinine Ratio (10-20) Glucose (70-99) mg/dl Lactate (0.4-2.0) mmol/L Calcium (8.5-10.1) mg/dl Magnesium (1.8-2.4) mg/dl Total Bilirubin (0.2-1) mg/dl AST (15-37) U/L ALT (12-78) U/L Alkaline Phosphatase (45-117) U/L Ammonia (11-32) umol/L Total Protein (6.4-8.2) gm/dl Albumin (3.4-5.0) gm/dl Globulin (2.5-4.0) gm/dl Albumin/Globulin Ratio (0.9-2) COVID-19 Eval Order Covid19 at [facility] SARS-CoV-2 (PCR) NEGATIVE (Negative) 10/21/20 10/21/20 10/21/20 Range/Units 01:13 01:13 01:13 WBC (4.8-10.8) K/uL RBC (4.2-5.4) M/uL Hgb (12.0-16.0) g/dL Hct (37-47) % MCV (80-100) fL MCH (25-34) pg MCHC (32-36) g/dL RDW Std Deviation (36.4-46.3) fL RDW Coeff of Igor (11.5-14.5) % Plt Count (130-400) K/uL MPV (7.4-10.4) fL Immature Gran % (Auto) % Neut % (Auto) % Lymph % (Auto) % [place] % (Auto) % Eos % (Auto) % Baso % (Auto) % Neut # (Auto) (1.4-6.5) K/uL Lymph # (Auto) (1.2-3.4) K/uL [place] # (Auto) (0.11-0.59) K/uL Eos # (Auto) (0-0.5) K/uL Baso # (Auto) (0-0.2) K/uL Immature Gran # (Auto) (0.00-0.02) K/uL Polychromasia Basophilic Stippling Anisocytosis PT 11.9 (9.0-12.0) Seconds INR 1.2 H (0.9-1.1) APTT 31.1 H (21.0-31.0) Seconds PTT Ratio 1.2 Sodium 140 (136-145) mmol/L Potassium 3.4 L (3.5-5.1) mmol/L Chloride 102 (98-107) mmol/L Carbon Dioxide 32 (21-32) mmol/L Anion Gap 6.0 (3-11) BUN 15 (7-18) mg/dl Creatinine 4.46 H D (0.6-1.2) mg/dl Est Cr Clr Drug Dosing 10.0 ml/min Est GFR ( Amer) 11.2 ml/min Est GFR (Non-Af Amer) 9.6 ml/min BUN/Creatinine Ratio 3.3 L (10-20) Glucose 72 (70-99) mg/dl Lactate 0.7 (0.4-2.0) mmol/L Calcium 7.9 L (8.5-10.1) mg/dl Magnesium 2.1 (1.8-2.4) mg/dl Total Bilirubin 0.5 (0.2-1) mg/dl AST 54 H (15-37) U/L ALT 18 (12-78) U/L Alkaline Phosphatase 90 (45-117) U/L Ammonia (11-32) umol/L Total Protein 4.4 L (6.4-8.2) gm/dl Albumin 2.2 L (3.4-5.0) gm/dl Globulin 2.2 L (2.5-4.0) gm/dl Albumin/Globulin Ratio 1.0 (0.9-2) COVID-19 Eval Order SARS-CoV-2 (PCR) (Negative) 10/21/20 Range/Units 01:13 WBC (4.8-10.8) K/uL RBC (4.2-5.4) M/uL Hgb (12.0-16.0) g/dL Hct (37-47) % MCV (80-100) fL MCH (25-34) pg MCHC (32-36) g/dL RDW Std Deviation (36.4-46.3) fL RDW Coeff of Igor (11.5-14.5) % Plt Count (130-400) K/uL MPV (7.4-10.4) fL Immature Gran % (Auto) % Neut % (Auto) % Lymph % (Auto) % [place] % (Auto) % Eos % (Auto) % Baso % (Auto) % Neut # (Auto) (1.4-6.5) K/uL Lymph # (Auto) (1.2-3.4) K/uL [place] # (Auto) (0.11-0.59) K/uL Eos # (Auto) (0-0.5) K/uL Baso # (Auto) (0-0.2) K/uL Immature Gran # (Auto) (0.00-0.02) K/uL Polychromasia Basophilic Stippling Anisocytosis PT (9.0-12.0) Seconds INR (0.9-1.1) APTT (21.0-31.0) Seconds PTT Ratio Sodium (136-145) mmol/L Potassium (3.5-5.1) mmol/L Chloride (98-107) mmol/L Carbon Dioxide (21-32) mmol/L Anion Gap (3-11) BUN (7-18) mg/dl Creatinine (0.6-1.2) mg/dl Est Cr Clr Drug Dosing ml/min Est GFR ( Amer) ml/min Est GFR (Non-Af Amer) ml/min BUN/Creatinine Ratio (10-20) Glucose (70-99) mg/dl Lactate (0.4-2.0) mmol/L Calcium (8.5-10.1) mg/dl Magnesium (1.8-2.4) mg/dl Total Bilirubin (0.2-1) mg/dl AST (15-37) U/L ALT (12-78) U/L Alkaline Phosphatase (45-117) U/L Ammonia 19.0 (11-32) umol/L Total Protein (6.4-8.2) gm/dl Albumin (3.4-5.0) gm/dl Globulin (2.5-4.0) gm/dl Albumin/Globulin Ratio (0.9-2) COVID-19 Eval Order SARS-CoV-2 (PCR) (Negative) Administered Medications Discontinued Medications Sodium Chloride (Nss) 500 mls @ 999 mls/hr IV .Q31M ONE Stop: 10/21/20 03:57 Last Infusion: 10/21/20 05:31 Dose: 0 mls/hr Documented by: [id number] Admin: 10/21/20 03:43 Dose: 999 mls/hr Documented by: [id number] Imaging Data Radiologist's Impression: Chest X-Ray 10/21/20 00:47 XR chest 1V portable CLINICAL HISTORY: SEPSIS COMPARISON STUDY: 07/13/2018 FINDINGS: The heart is borderline enlarged. There are linear opacities at the l eft lung base likely represent subsegmental atelectatic change. There is a hazy opacity at the right lung base. A small right pleural effusion may be present. There is associated airspace opacities atelectatic versus infectious/inflammatory[there is no overt failure. IMPRESSION: 1. Suspected small right pleural effusion with associated right basilar atelectasis/consolidation 2. Linear opacities at the left lung base, likely representing subsegmental atelectasis ACT 112: Negative or not required by law. Electronically signed by: Cipriano Rivero M.D. 10/21/2020 7:08 AM Discharge Plan Visit Data Chief Complaint: Fever Stated Complaint: FEVER,ABNORMAL LABS,LIVER TRANSPLANT PATIENT ED Provider: Gosia Valerio Discharge Problem: Fever, Diarrhea Discharge Instructions Interventions: ED Discharge Assessment Last Done: 10/21/20 06:49 Discharge Problem: Fever Qualifiers: Fever type: unspecified Qualified Code(s): R50.9 - Fever, unspecified Diarrhea Qualifiers: Diarrhea type: unspecified type Qualified Code(s): R19.7 - Diarrhea, unspecified
--- NOTE | 2020-10-21 07:09 | XRay Report ---
XR chest 1V portable CLINICAL HISTORY: SEPSIS COMPARISON STUDY: 07/13/2018 FINDINGS: The heart is borderline enlarged. There are linear opacities at the left lung base likely r epresent subsegmental atelectatic change. There is a hazy opacity at the right lung base. A small rig ht pleural effusion may be present. There is associated airspace opacities atelectatic versus infecti ous/inflammatory[there is no overt failure. IMPRESSION: 1. Suspected small right pleural effusion with associated right basilar atelectasis/consolidation 2. Linear opacities at the left lung base, likely representing subsegmental atelectasis ACT 112: Negative or not required by law. Electronically signed by: Cipriano Rivero M.D. 10/21/2020 7:08 AM
[2020-10-21] MEDS ORDERED: ACETAMINOPHEN 325 MG TAB PO PRN (07:55)
[2020-10-21] MEDS ORDERED: ONDANSETRON INJ 2 MG/ML 2 ML VIAL IV PRN (07:55)
[2020-10-21] MEDS ORDERED: NITROGLYCERIN SL 0.4 MG/TAB TAB SL PRN (07:55)
[2020-10-21] MEDS ORDERED: VALGANCICLOVIR 50 MG/ML PO SCH (07:55)
[2020-10-21] MEDS ORDERED: SODIUM CHLORIDE 0.9% 1000ML 1,000 ML IV SCH (07:55)
[2020-10-21] MEDS: amLODIPine BESYLATE 5 MG TAB PO SCH ×2 (09:33→20:39)
[2020-10-21] MEDS: NSS + 20MEQ KCL 20 MEQ/1,000 ML BAG IV SCH (09:33)
[2020-10-21] MEDS: carvediloL 12.5 MG TAB PO SCH ×2 (09:33→20:41)
[2020-10-21] MEDS: lisinopril 20 MG TAB PO SCH (09:34)
[2020-10-21] MEDS: NEPHROCAPS PO SCH (09:34)
[2020-10-21] MEDS: PANTOprazole 40 MG TAB PO SCH ×2 (09:35→20:40)
[2020-10-21] MEDS: TACROLIMUS 1 MG CAP PO SCH ×2 (09:36→20:39)
--- NOTE | 2020-10-21 09:42 | History and Physical Report ---
DATE OF ADMISSION: 10/21/2020 CHIEF COMPLAINT: Diarrhea, nausea, vomiting, fever. HISTORY OF PRESENT ILLNESS: This is a 64-year-old female with past medical history significant for polycystic kidney disease autosomal dominant end-stage renal disease, on hemodialysis, congenital cystic liver disease, status post liver transplant in June of this year, history of dilated cardiomyopathy, chronic systolic CHF, EF of around 40%-45%, hypertension, anemia, lives with her daughter, ambulates with a walker, was brought in because since last 1 week, she is having diarrhea and since yesterday she has nausea, vomiting, could not eat anything and temperature of 101 degrees. The daughter called the transplant center, they asked her to come to the ER. In the ER, she is afebrile, hemodynamically stable, somewhat drowsy. Labs were okay. SARS-CoV-2 PCR negative. ER called the transplant center; they advised to give her some fluids and keep her here and monitor and get her dialysis today. The patient is due for dialysis today. The patient is somewhat drowsy but able to answer questions. Daughter in the room helps with history and physicals. As per daughter after her transplant in June, she had developed C. diff but that was treated, but since last 1 week, she is having some diarrhea. Denies any blood in stools or black stools. No abdominal pain. Yesterday had nausea, vomiting, not able to keep anything and had fever. Denies any headache, no blurred vision, no earache, no runny nose, no sore throat, no dysphagia, no chest pain or shortness of breath, no cough. ALLERGIES: MORPHINE. PAST MEDICAL HISTORY: As mentioned above. PAST SURGICAL HISTORY: Colonoscopy, exploration of abdomen, status post liver transplant, tubal ligation, D and C, thoracocentesis. MEDICATIONS: The patient is currently on amlodipine 5 mg p.o. b.i.d., [place]-Bere 1 tablet b.i.d., Coreg 3.375 mg p.o. b.i.d., lisinopril 20 mg p.o. daily, omeprazole 20 mg b.i.d., Bactrim 1 tablet p.o. 3 times a week on dialysis days, Prograf 3 mg in a.m. and 2 mg in p.m. and valganciclovir 50 mg p.o. 2 times a week. FAMILY HISTORY: Significant for daughter has polycystic kidney disease, son has polycystic kidney disease, on peritoneal dialysis. SOCIAL HISTORY: , currently lives with her daughter. No alcohol, no drug use. REVIEW OF SYMPTOMS: As per HPI. Rest of the review of systems is negative. PHYSICAL EXAMINATION: GENERAL: The patient is of moderate build, not in acute distress. VITAL SIGNS: Temperature 36.8, pulse 83, respiratory rate 22, blood pressure 182/87, oxygen 93% on room air. HEENT: Pupils equal, round, reactive to light. Oral mucosa dry. NECK: No JVD. No neck masses. CARDIOVASCULAR: S1, S2 heard, regular rate and rhythm, no murmur, no gallop. RESPIRATORY SYSTEM: Normal AP diameter. No accessory muscle use. No wheezing, no crackles. ABDOMEN: Soft, bowel sounds present, nontender. No distention. Umbilical hernia seen. Drain seen from recent liver transplant. There is no active drainage seen, no erythema seen. CENTRAL NERVOUS SYSTEM: Cranial nerves II-XII grossly intact. Nonfocal. EXTREMITIES: Mild edema, no erythema seen. LABORATORY DATA: WBC 3.05, hemoglobin 8.3, hematocrit 25.9, platelets 46. PTT 11.9, INR 1.2, APTT 31.1. Sodium 140, potassium 3.4, chloride 102, bicarbonate 32, BUN 15, creatinine 4.4, serum glucose 102, lactate 0.7, calcium 7.9, magnesium 2.1, total bilirubin 0.5, AST 54, ALT 18, alkaline phosphatase 90. Ammonia 19. SARS-CoV-2 PCR negative. IMAGING: Chest x-ray, no acute findings. ASSESSMENT AND PLAN: This is a 64-year-old female who presents with ongoing diarrhea, nausea, vomiting. 1. Diarrhea, nausea, vomiting, could be gastroenteritis, history of Clostridium difficile. We will check for Clostridium difficile. received fluids in the Emergency Room, we will give fluids @50ml/hr for 500 mL. Follow the stool cultures, stool for Clostridium difficile. For any other concerns, we will contact the transplant center.GI Consult for further recommendations. 2. End-stage renal disease, on hemodialysis, due for dialysis today. Nephrology consult. 3. Congenital cystic liver disease, status post liver transplant in 06/2020 at [facility]. Currently on Prograf and Bactrim and valganciclovir, which will be continued. 4. Hypertension. Continue her home amlodipine, Coreg, and lisinopril. We will monitor the blood pressure. 5. Gastroesophageal reflux disease, on omeprazole. 6. History of chronic systolic congestive heart failure, ejection fraction of about 45%. On dialysis. Monitor for volume overload. 7. Thrombocytopenia and pancytopenia from her liver disease with platelets of only 46. Monitor for any bleeding. Monitor the laboratories. 8. Deep venous thrombosis prophylaxis, sequential compression devices. DISPOSITION: Monitor in the med tele. PT and OT prior to discharge. Social service to help with discharge planning. Level 1 full code as per my discussion with the daughter. [employer]
--- NOTE | 2020-10-21 11:45 | Nephrology Consultation ---
Date of Consultation October 21, 2020 Assessment & Plan (1) End-stage renal disease on hemodialysis: ESRD, on HD, secondary to ADPKD, on MWF via AVF. History of liver transplant on 07/20/2020, CellCept on hold because of pancytopenia. Prograf dose was recently adjusted by transplant team because of elevated trough level. Admitted with fever, generalized weakness, nausea vomiting and hypertension. Concern for bacteremia or other opportunistic infection considering neutropenia in posttransplant state. Blood culture currently pending. Facial and upper extremity edema most likely related to hypoalbuminemia --dialysis today as regular schedule with 3K bath, minimum UF. --continue tacrolimus current dose, trough level pending --continue on Bactrim and ganciclovir --dose medications for GFR less than 10 --if no improvement clinically in next 24 hour, may need to consider transferri ng to [facility] for further management Will follow Thank you for allowing me to participate in your patient's care. It was a pleasure to see Orly (2) Anemia: (3) Secondary hyperparathyroidism of renal origin: (4) Polycystic kidney disease: (5) Hypertension: (6) Fever: (7) Neutropenia: History of Present Illness Reason for Consultation: End-stage renal disease on hemodialysis Attending Physician: Gerard Ruiz MD History of Present Illness Orly Cagle is a 64-year-old CF with ESRD on HD, HTN, ADPKD s/p liver Tx admitted to the hospital with fever, 1 week history of diarrhea and vomiting. Nephrology consult was requested for management of hemodialysis and immunosuppressive medications while in hospital. Electronic medical records including labs and imaging were reviewed in detail during patient's visit. Orly presented to ER yesterday with 1 week history of nausea/vomiting, diarrhea, decreased p.o. intake, generalized weakness and fever. Blood pressure was stable on admission. Initially she was given 1 L of normal saline and currently continued on normal saline at 50 mL/hour. Transplant center was contacted who has suggested to keep her here and continue with some IV hydration. She was continued on Bactrim and ganciclovir IV. Blood culture was drawn, currently pending. Albumin was low at 2.2. Hemoglobin 8.3, thrombocytopenia with platelet 46, WBC improved. She had liver transplant on 07/20/2020 for ADPKD. Transplant has been functioning well however she has been having multiple complication since surgery including laparotomy on 07/23/2020 for bleeding and after were stable of CAD a colitis while in hospital. Since then she has been somewhat stable. Last Transplant follow-up was on 09/21/2020. She was found to be severely neutropenic with WBC count 0.6 and elevated tacrolimus level above 15. She was given Neupogen and tacrolimus dose was just decreased and CellCept has been on hold since then. ESRD secondary to ADPKD on HD via left RC AV fistula. She dialysis on MWF at [facility] dialysis unit, had an eventful dialysis on Saturday. EDW 60 kg AV fistula has been functioning well. She clears appropriately with 16 g needles. She seems somewhat lethargic but denied any confusion, shortness of breath, chest pain. No further fever or chills. Allergies Allergy/AdvReac Type Severity Reaction Status Date / Time morphine AdvReac Intermediate Nausea Verified 10/21/20 01:00 Home Medications Medication Instructions Recorded Confirmed Type amlodipine 5 mg tablet 5 mg PO BID #180 tab 04/20/20 10/21/20 Rx carvedilol 37.5 mg PO BID 07/03/20 10/21/20 History B complex-vitamin C-folic acid 1 tab PO DAILY 10/21/20 10/21/20 History [Juana-Bere] lisinopril 20 mg PO DAILY 10/21/20 10/21/20 History omeprazole 2 mg PO BID 10/21/20 10/21/20 History sulfamethoxazole-trimethoprim 1 tab PO 3XWK 10/21/20 10/21/20 History tacrolimus [Prograf] See Rx Instructions .ROUTE .COMPLEX 10/21/20 10/21/20 History valganciclovir 50 mg PO 2XWK 10/21/20 10/21/20 History Patient History Medical History (Updated 10/21/20 @ 14:07 by Gerard Ruiz MD) Anemia Cardiomyopathy echo 04/29/18 showed diffuse hypokinesis, LVEF 30-35% End-stage renal disease on hemodialysis Hypertension Neutropenia Polycystic kidney disease Secondary hyperparathyroidism of renal origin Surgical History (Updated 10/21/20 @ 14:07 by Gerard Ruiz MD) Hx of tubal ligation Social History Smoking Status: Never smoker Hx Alcohol Use: No Hx Substance Use: No Preferred Language: Estonian Communication Ability: Effective Fashion Coordinator Required: No Beliefs That Will Affect Care: None marital status: / Current Living Situation: Family Current Living Situation Comment: Lives with Daughter. Other Information That Helps Us Care for You: No Feels Safe at Home: Yes Safety Concerns: Feels Safe At This Time Assistive Devices: Walker Review of Systems Review of Systems: All systems reviewed & are unremarkable except as noted in Subjective Physical Exam Constitutional: + ill appearing and + edematous; no acute distress Eyes: PERRL, conjunctivae normal, anicteric sclerae ENMT: external ear and nose normal, oropharynx normal Ears: no hearing impairment Neck: trachea midline Respiratory: normal respiratory effort, lungs clear to auscultation no cough Auscultation: no crackles, no rales and no wheezes Cardiovascular: Rate/Rhythm: regular rate and regular rhythm Heart Sounds: normal S1 and normal S2 Extremities: + edema and + AV fistula (Left radioceph alic AV fistula with thrill and bruit) Gastrointestinal (Abdomen): Inspection/Auscultation: normal bowel sounds Percussion/Palpation: abdomen soft; abdomen nontender, no guarding and abdomen not rigid Musculoskeletal: Head/Neck/Chest: normocephalic, head atraumatic and neck supple Extremities: extremities normal to inspection Skin: no rashes, warm and dry Neurologic: moves all extremities and awake; no focal motor deficits and not confused Psychiatric: A+Ox3, euthymic affect Results & Data ([facility]) Vital Signs (Past 12 Hours) Vital Signs Temp Pulse Pulse Resp BP Pulse Ox 10/21/20 11:22 69 126/68 10/21/20 11:18 36.3 C L 71 10/21/20 10:00 79 10/21/20 06:30 78 23 165/79 H 10/21/20 06:00 83 22 182/87 H 10/21/20 05:30 76 23 162/80 H 10/21/20 05:01 76 22 10/21/20 05:00 78 19 192/85 H 10/21/20 04:30 78 21 182/79 H 10/21/20 04:00 79 26 H 191/81 H 10/21/20 03:41 81 21 166/89 H 10/21/20 01:00 84 17 178/90 H 10/21/20 00:30 81 19 169/78 H 93 PG Care Time/CCT Total # of Minutes Spent Total Time Spent with Patient: Total time spent is greater than 50% in coordination of care (as documented) at patient's floor/unit and/or counseling patient: Coding Level of Care Code 96298 Initial Inpt Care Lvl 3 Diagnoses End-stage renal disease on hemodialysis N18.6; Z99.2 Anemia D64.9 Secondary hyperparathyroidism of renal origin N25.81 Polycystic kidney disease Q61.3 Hypertension I10 Fever R50.9 Fever type: unspecified Neutropenia D70.9 (1) Fever Fever type: unspecified Qualified Code(s): R50.9 - Fever, unspecified
--- NOTE | 2020-10-21 11:58 | Hospitalist Progress Note ---
Date of Service October 21, 2020 Assessment & Plan (1) Gastroenteritis: She is a status post liver transplant for congenital cystic liver disease in June of this month Presented with abdominal pain with nausea/vomiting and fever Likely secondary to gastroenteritis We will check a stool for C. difficile colitis Has been feeling much better since admission (2) Status post liver transplant: Status post liver transplantation due to congenital cystic liver disease in June of this year The transplant team have been contacted Advised to have continued care in this hospital If her condition deteriorates will need to be transferred (3) Neutropenia: Neutropenia has been improving Blood and urine culture have been sent No antibiotic yet (4) End-stage renal disease on hemodialysis: Appreciate nephrology input and recommendation Will have hemodialysis today and as a scheduled (5) Polycystic kidney disease: Status post renal transplantation (6) Cardiomyopathy: History of cardiomyopathy with EF around 40 to 45% No evidence of any fluid overload right now We will continue hemodialysis Admission and Anticipated Discharge Date Admission Date: October 21, 2020 Subjective 10/21/2020 The patient was seen and examined in medical telemetry unit She is a status post liver transplantation with ESRD on hemodialysis was admitted early this morning with fever, diarrhea and weakness She has been feeling a lot better since admission and denies to have any more fever and no chills Diarrhea seems to be improved Review of Systems Review of Systems: All systems reviewed and are unremarkable except as noted below Neurologic: + generalized weakness Physical Exam Physical Exam: Lying in bed comfortably Constitutional: + ill appearing and + thin Eyes: PERRL, conjunctivae normal, anicteric sclerae ENMT: external ear and nose normal, oropharynx normal Neck: trachea midline, no thyromegaly Respiratory: no respiratory distress Auscultation: lungs clear to auscultation bilaterally Cardiovascular: Rate/Rhythm: regular rate Heart Sounds: no murmur Extremities: + edema Gastrointestinal (Abdomen): Inspection/Auscultation: normal bowel sounds; abdomen not distended Percussion/Palpation: abdomen soft; abdomen nontender Musculoskeletal: No acute arthritis in any joint Neurologic: Alert, awake and oriented x3. Generally very weak and lethargic Psychiatric: A+Ox3, euthymic affect Lymphatic: no cervical or axillary lymphadenopathy Results & Data Results & Data ([facility]) Vital Signs (Past 12 Hours) Vital Signs Temp Pulse Pulse Resp BP Pulse Ox 10/21/20 11:40 69 140/75 10/21/20 11:22 69 126/68 10/21/20 11:18 36.3 C L 71 10/21/20 10:00 79 10/21/20 06:30 78 23 165/79 H 10/21/20 06:00 83 22 182/87 H 10/21/20 05:30 76 23 162/80 H 10/21/20 05:01 76 22 10/21/20 05:00 78 19 192/85 H 10/21/20 04:30 78 21 182/79 H 10/21/20 04:00 79 26 H 191/81 H 10/21/20 03:41 81 21 166/89 H 10/21/20 01:00 84 17 178/90 H 10/21/20 00:30 81 19 169/78 H 93 Laboratory Results Short CBC 10/21/20 Range/Units 01:13 WBC 3.05 L (4.8-10.8) K/uL Hgb 8.3 L (12.0-16.0) g/dL Hct 25.9 L (37-47) % Plt Count 46 L (130-400) K/uL BMP 10/21/20 01:13 Sodium 140 Potassium 3.4 L Chloride 102 Carbon Dioxide 32 BUN 15 Creatinine 4.46 H D Glucose 72 Calcium 7.9 L Liver Function 10/21/20 Range/Units 01:13 Total Bilirubin 0.5 (0.2-1) mg/dl AST 54 H (15-37) U/L ALT 18 (12-78) U/L Alkaline Phosphatase 90 (45-117) U/L Albumin 2.2 L (3.4-5.0) gm/dl Medications Administered Current Inpatient Medications Acetaminophen (Acetaminophen 325 Mg Tab) 650 mg PO Q4H PRN PRN Reason: Pain or Fever Stop: 11/20/20 07:54 Amlodipine Besylate (Amlodipine Besylate 5 Mg Tab) 5 mg PO BID JW Stop: 11/20/20 08:59 Last Admin: 10/21/20 09:33 Dose: 5 mg Documented by: Carvedilol (Carvedilol 12.5 Mg Tab) 37.5 mg PO BID JW Stop: 11/20/20 08:59 Last Admin: 10/21/20 09:33 Dose: 37.5 mg Documented by: Potassium Chloride/Sodium Chloride (Normal Saline W/20 Meq Kcl) 20 meq in 1,000 mls @ 70 mls/hr IV .[id number] [facility] Stop: 11/20/20 08:59 Last Admin: 10/21/20 09:33 Dose: 70 mls/hr Documented by: Ganciclovir Sodium 75 mg/ (Sodium Chloride) 101.5 mls @ 101.5 mls/hr IV MoFr@1800 [facility]; Protocol Stop: 11/20/20 17:59 Lisinopril (Lisinopril 20 Mg Tab) 20 mg PO DAILY [facility] Stop: 11/20/20 08:59 Last Admin: 10/21/20 09:34 Dose: 20 mg Documented by: Nitroglycerin (Nitroglycerin Sl 0.4 Mg/Tab Tab) 0.4 mg SL UD PRN PRN Reason: Chest Pain Stop: 11/20/20 07:54 Ondansetron HCl (Ondansetron Inj 2 Mg/Ml 2 Ml Vial) 4 mg IV Q6H PRN PRN Reason: Nausea Stop: 11/20/20 07:54 Pantoprazole Sodium (Pantoprazole 40 Mg Tab) 40 mg PO BID [facility]; Protocol Stop: 11/20/20 08:59 Last Admin: 10/21/20 09:35 Dose: 40 mg Documented by: Tacrolimus (Tacrolimus 1 Mg Cap) 3 mg PO QAM [facility] Stop: 11/20/20 08:59 Last Admin: 10/21/20 09:36 Dose: 3 mg Documented by: Tacrolimus (Tacrolimus 1 Mg Cap) 2 mg PO QPM [facility] Stop: 11/20/20 20:59 Trimethoprim/Sulfamethoxazole (Sulfa/Trimeth 400/80mg Tab) 1 tab PO MoWeFr@1600 [facility] Stop: 11/20/20 15:59 Vitamin B Complex/Folic Acid (Nephrocaps) 1 cap PO DAILY [facility] Stop: 11/20/20 08:59 Last Admin: 10/21/20 09:34 Dose: 1 cap Documented by:
--- NOTE | 2020-10-21 14:27 | Gastrointestinal Consultation ---
Date of Consultation October 21, 2020 Assessment & Plan (1) Diarrhea: This is a 64 y/o female with a complicated PMHX including recent liver transplant 07/20/20 with complicated post-operative course, ADPKD with ESRD, CellCept on hold because of pancytopenia; Prograf dose was recently adjusted by transplant team because of elevated trough level. Now admitted with fever, generalized weakness, n/v, diarrhea. She is somewhat hypertensive. C diff neg. With neutropenia and h/o transplant, need to r/o infectious etiology; also consider medication side effect. Abd is soft; currently getting dialysis. - Await blood cultures; pending - Check stool culture - Will check for CMV, EBV - Recommend CTAP to evaluate for neutropenic enterocolitis given fever and neutropenia - Recommend ID consult given her immunocompromised state - If infectious etiology r/o can consider Questran for diarrhea Thank you for allowing us to participate in the care of this patient. Please call with any acute changes, questions or concerns. Please see addendum below with additional recommendation from my supervising physician. Supervising Physician Co-Signing Physician Notes I saw and evaluated the patient in the dialysis unit. We are consulted for evaluation diarrhea. The patient notes that this started yesterday and seems to be improving over the last 24 hours. She is presently getting dialysis and therefore somewhat sleepy. She denies having any abdominal tenderness this afternoon. Physical examination Thin female, no obvious distress No obvious peritoneal signs or rebound tenderness noted Impression: Patient with a history of immunosuppression and numerous problems on evaluation for renal transplantation. Is quite possible that his diarrhea is related to an infectious etiology such as C diff or perhaps bacterial infection. Given her immune suppression we would recommend further evaluation for potential viral causes as well. Wonder if it would be prudent to obtain a infectious Disease consultation given the complexity of her history. Recommendations C diff PCR Stool culture O and P Consider sending serologies for CMV and EBV Consider a CT scan given her neutropenia History of Present Illness Reason for Consultation: n/v and diarrhea Requesting Physician: Dr. Wolf Attending Physician: Gerard Ruiz MD History of Present Illness This is a 64-year-old female with complicated past medical history including congenital polycystic liver disease SP liver transplant 07/20/20 at [facility] [place], autosomal dominant polycystic kidney disease with ESRD on dialysis, dilated cardiomyopathy, chronic systolic CHF, DM, HTN, anemia and others who was had a complicated postoperative course since her liver transplant in June she had a GI bleed postop, and EGD on 07/24/2020 noted esophageal and duodenal ulcers, and was started on PPI twice daily, in addition to C. difficile, diagnosed on 07/28/2020, treated with a course of vancomycin p.o, then on 07/30/[address] indicating pleural effusion/pneumonia underwent thoracentesis and was treated with cefepime for 3 days. CMV PCR was checked 08/05/2020 and was negative. Her immunosuppressive regimen consists of Prograf, Myfortic, and prednisone. Last Transplant follow-up was on 09/21/2020. She was found to be severely neutropenic with WBC count 0.6 and elevated tacrolimus level above 15. She was given Neupogen and tacrolimus dose was just decreased and CellCept has been on hold since then. She continues on Bactrim and ganciclovir. Fortunately, appears her transplant has been functioning well. She gets dialysis MWF. She was brought in today by her daughter, reporting diarrhea for the past week, along with intermittent low-grade fevers, yesterday had nausea and vomiting, decreased p.o. intake, generalized weakness, and was advised to come to the ER by the transplant center. Covid negative. Labs notable for pancytopenia, Hgb 8.3, WBC 3, platelet 46, potassium 3.4, AST 54, otherwise LFTs WNL, albumin 2.2. Blood cultures are pending. She was started on empiric antibiotics. C. diff testing neg. Stool culture pending. She is somewhat hypertensive, currently afebrile. Patient was evaluated today while she was getting dialysis. Patient appears somewhat lethargic, and history is somewhat limited as patient does not recall the specific events of her recent medical course. She states she has had somewhere between 4 and 6 loose bowels daily for the past several days. Denies abdominal pain, hematemesis, melena or hematochezia, bloating or gas, dysphagia, chest pain or shortness of breath. Last colonoscopy 2014: Left-sided diverticulosis, hemorrhoid Allergies Allergy/AdvReac Type Severity Reaction Status Date / Time morphine AdvReac Intermediate Nausea Verified 10/21/20 01:00 Home Medications Medication Instructions Recorded Confirmed Type amlodipine 5 mg tablet 5 mg PO BID #180 tab 04/20/20 10/21/20 Rx carvedilol 37.5 mg PO BID 07/03/20 10/21/20 History B complex-vitamin C-folic acid 1 tab PO DAILY 10/21/20 10/21/20 History [Juana-Bere] lisinopril 20 mg PO DAILY 10/21/20 10/21/20 History omeprazole 2 mg PO BID 10/21/20 10/21/20 History sulfamethoxazole-trimethoprim 1 tab PO 3XWK 10/21/20 10/21/20 History tacrolimus [Prograf] See Rx Instructions .ROUTE .COMPLEX 10/21/20 10/21/20 History valganciclovir 50 mg PO 2XWK 10/21/20 10/21/20 History Patient History Medical History (Updated 10/21/20 @ 14:07 by Gerard Ruiz MD) Anemia Cardiomyopathy echo 04/29/18 showed diffuse hypokinesis, LVEF 30-35% End-stage renal disease on hemodialysis Hypertension Neutropenia Polycystic kidney disease Secondary hyperparathyroidism of renal origin Surgical History (Updated 10/21/20 @ 14:07 by Gerard Ruiz MD) Hx of tubal ligation Social History Smoking Status: Never smoker Hx Alcohol Use: No Hx Substance Use: No Preferred Language: [place] Citizen Communication Ability: Effective Activity Coordinator Required: No Beliefs That Will Affect Care: None marital status: / Current Living Situation: Family Current Living Situation Comment: Lives with Daughter. Other Information That Helps Us Care for You: No Feels Safe at Home: Yes Safety Concerns: Feels Safe At This Time Assistive Devices: Walker Review of Systems Review of Systems: All systems reviewed & are unremarkable except as noted in HPI & below Physical Exam Constitutional: + ill appearing and + thin; no acute distress somewhat lethargic Respiratory: normal respiratory effort; no respiratory distress Auscultation: lungs clear to auscultation bilaterally Cardiovascular: Rate/Rhythm: regular rate and regular rhythm Gastrointestinal (Abdomen): Inspection/Auscultation: abdomen normal to inspection and normal bowel sounds; abdomen not distended Percussion/Palpation: abdomen soft; abdomen nontender and no guarding Skin: no rashes, warm and dry Psychiatric: A+Ox3, euthymic affect Results & Data ([place]) Vital Signs (Past 12 Hours) Vital Signs Temp Pulse Pulse Pulse Resp BP BP 10/21/20 14:00 74 160/85 H 10/21/20 13:40 73 155/84 H 10/21/20 13:20 73 152/84 H 10/21/20 13:00 70 134/76 10/21/20 12:40 71 148/85 H 10/21/20 12:20 69 134/70 10/21/20 12:00 69 139/74 10/21/20 11:40 69 140/75 10/21/20 11:22 69 126/68 10/21/20 11:18 36.3 C L 71 10/21/20 10:00 79 10/21/20 09:00 36.9 C 78 16 176/74 H 10/21/20 06:30 78 23 165/79 H 10/21/20 06:00 83 22 182/87 H 10/21/20 05:30 76 23 162/80 H 10/21/20 05:01 76 22 10/21/20 05:00 78 19 192/85 H 10/21/20 04:30 78 21 182/79 H 10/21/20 04:00 79 26 H 191/81 H 10/21/20 03:41 81 21 166/89 H Pulse Ox 10/21/20 14:00 10/21/20 13:40 10/21/20 13:20 10/21/20 13:00 10/21/20 12:40 10/21/20 12:20 10/21/20 12:00 10/21/20 11:40 10/21/20 11:22 10/21/20 11:18 10/21/20 10:00 10/21/20 09:00 93 10/21/20 06:30 10/21/20 06:00 10/21/20 05:30 10/21/20 05:01 10/21/20 05:00 10/21/20 04:30 10/21/20 04:00 10/21/20 03:41 Laboratory Results 10/21/20 10/21/20 10/21/20 Range/Units 10:05 01:13 01:13 WBC (4.8-10.8) K/uL RBC (4.2-5.4) M/uL Hgb (12.0-16.0) g/dL Hct (37-47) % MCV (80-100) fL MCH (25-34) pg MCHC (32-36) g/dL RDW Std Deviation (36.4-46.3) fL RDW Coeff of Igor (11.5-14.5) % Plt Count (130-400) K/uL MPV (7.4-10.4) fL Immature Gran % (Auto) % Neut % (Auto) % Lymph % (Auto) % [place] % (Auto) % Eos % (Auto) % Baso % (Auto) % Neut # (Auto) (1.4-6.5) K/uL Lymph # (Auto) (1.2-3.4) K/uL [place] # (Auto) (0.11-0.59) K/uL Eos # (Auto) (0-0.5) K/uL Baso # (Auto) (0-0.2) K/uL Immature Gran # (Auto) (0.00-0.02) K/uL Polychromasia Basophilic Stippling Anisocytosis PT (9.0-12.0) Seconds INR (0.9-1.1) APTT (21.0-31.0) Seconds PTT Ratio Sodium (136-145) mmol/L Potassium (3.5-5.1) mmol/L Chloride (98-107) mmol/L Carbon Dioxide (21-32) mmol/L Anion Gap (3-11) BUN (7-18) mg/dl Creatinine (0.6-1.2) mg/dl Est Cr Clr Drug Dosing ml/min Est GFR ( Amer) ml/min Est GFR (Non-Af Amer) ml/min BUN/Creatinine Ratio (10-20) Glucose (70-99) mg/dl Lactate 0.7 (0.4-2.0) mmol/L Calcium (8.5-10.1) mg/dl Magnesium (1.8-2.4) mg/dl Total Bilirubin (0.2-1) mg/dl AST (15-37) U/L ALT (12-78) U/L Alkaline Phosphatase (45-117) U/L Ammonia 19.0 (11-32) umol/L Total Protein (6.4-8.2) gm/dl Albumin (3.4-5.0) gm/dl Globulin (2.5-4.0) gm/dl Albumin/Globulin Ratio (0.9-2) Stl C. diff Tox B Gene Negative Cdiff Gene (Neg) COVID-19 Eval Order SARS-CoV-2 (PCR) (Negative) 10/21/20 10/21/20 10/21/20 Range/Units 01:13 01:13 01:13 WBC 3.05 L (4.8-10.8) K/uL RBC 2.55 L (4.2-5.4) M/uL Hgb 8.3 L (12.0-16.0) g/dL Hct 25.9 L (37-47) % MCV 101.6 H (80-100) fL MCH 32.5 (25-34) pg MCHC 32.0 (32-36) g/dL RDW Std Deviation 60.9 H (36.4-46.3) fL RDW Coeff of Igor 16.6 H (11.5-14.5) % Plt Count 46 L (130-400) K/uL MPV 10.9 H (7.4-10.4) fL Immature Gran % (Auto) 9.2 % Neut % (Auto) 77.4 % Lymph % (Auto) 8.2 % [place] % (Auto) 5.2 % Eos % (Auto) 0.0 % Baso % (Auto) 0.0 % Neut # (Auto) 2.36 (1.4-6.5) K/uL Lymph # (Auto) 0.25 L (1.2-3.4) K/uL [place] # (Auto) 0.16 (0.11-0.59) K/uL Eos # (Auto) 0.00 (0-0.5) K/uL Baso # (Auto) 0.00 (0-0.2) K/uL Immature Gran # (Auto) 0.28 H (0.00-0.02) K/uL Polychromasia 1+ Basophilic Stippling 1+ Anisocytosis Present PT 11.9 (9.0-12.0) Seconds INR 1.2 H (0.9-1.1) APTT 31.1 H (21.0-31.0) Seconds PTT Ratio 1.2 Sodium 140 (136-145) mmol/L Potassium 3.4 L (3.5-5.1) mmol/L Chloride 102 (98-107) mmol/L Carbon Dioxide 32 (21-32) mmol/L Anion Gap 6.0 (3-11) BUN 15 (7-18) mg/dl Creatinine 4.46 H D (0.6-1.2) mg/dl Est Cr Clr Drug Dosing 10.0 ml/min Est GFR ( Amer) 11.2 ml/min Est GFR (Non-Af Amer) 9.6 ml/min BUN/Creatinine Ratio 3.3 L (10-20) Glucose 72 (70-99) mg/dl Lactate (0.4-2.0) mmol/L Calcium 7.9 L (8.5-10.1) mg/dl Magnesium 2.1 (1.8-2.4) mg/dl Total Bilirubin 0.5 (0.2-1) mg/dl AST 54 H (15-37) U/L ALT 18 (12-78) U/L Alkaline Phosphatase 90 (45-117) U/L Ammonia (11-32) umol/L Total Protein 4.4 L (6.4-8.2) gm/dl Albumin 2.2 L (3.4-5.0) gm/dl Globulin 2.2 L (2.5-4.0) gm/dl Albumin/Globulin Ratio 1.0 (0.9-2) Stl C. diff Tox B Gene (Neg) COVID-19 Eval Order SARS-CoV-2 (PCR) (Negative) 10/21/20 10/21/20 Range/Units 00:30 00:30 WBC (4.8-10.8) K/uL RBC (4.2-5.4) M/uL Hgb (12.0-16.0) g/dL Hct (37-47) % MCV (80-100) fL MCH (25-34) pg MCHC (32-36) g/dL RDW Std Deviation (36.4-46.3) fL RDW Coeff of Igor (11.5-14.5) % Plt Count (130-400) K/uL MPV (7.4-10.4) fL Immature Gran % (Auto) % Neut % (Auto) % Lymph % (Auto) % [place] % (Auto) % Eos % (Auto) % Baso % (Auto) % Neut # (Auto) (1.4-6.5) K/uL Lymph # (Auto) (1.2-3.4) K/uL [place] # (Auto) (0.11-0.59) K/uL Eos # (Auto) (0-0.5) K/uL Baso # (Auto) (0-0.2) K/uL Immature Gran # (Auto) (0.00-0.02) K/uL Polychromasia Basophilic Stippling Anisocytosis PT (9.0-12.0) Seconds INR (0.9-1.1) APTT (21.0-31.0) Seconds PTT Ratio Sodium (136-145) mmol/L Potassium (3.5-5.1) mmol/L Chloride (98-107) mmol/L Carbon Dioxide (21-32) mmol/L Anion Gap (3-11) BUN (7-18) mg/dl Creatinine (0.6-1.2) mg/dl Est Cr Clr Drug Dosing ml/min Est GFR ( Amer) ml/min Est GFR (Non-Af Amer) ml/min BUN/Creatinine Ratio (10-20) Glucose (70-99) mg/dl Lactate (0.4-2.0) mmol/L Calcium (8.5-10.1) mg/dl Magnesium (1.8-2.4) mg/dl Total Bilirubin (0.2-1) mg/dl AST (15-37) U/L ALT (12-78) U/L Alkaline Phosphatase (45-117) U/L Ammonia (11-32) umol/L Total Protein (6.4-8.2) gm/dl Albumin (3.4-5.0) gm/dl Globulin (2.5-4.0) gm/dl Albumin/Globulin Ratio (0.9-2) Stl C. diff Tox B Gene (Neg) COVID-19 Eval Order Covid19 at [facility] SARS-CoV-2 (PCR) NEGATIVE (Negative) Diagnostic Findings CXR: 1. Suspected small right pleural effusion with associated right basilar atelectasis/consolidation 2. Linear opacities at the left lung base, likely representing subsegmental atelectasis (1) Diarrhea Diarrhea type: unspecified type Qualified Code(s): R19.7 - Diarrhea, unspecified
--- NOTE | 2020-10-21 15:38 | Electrocardiogram Report ---
Test Reason : Blood Pressure : / mmHG Vent. Rate : 085 BPM Atrial Rate : 085 BPM P-R Int : 146 ms QRS Dur : 078 ms QT Int : 394 ms P-R-T Axes : 047 -06 -13 degrees QTc Int : 468 ms Normal sinus rhythm Low voltage QRS Septal infarct , age undetermined Abnormal ECG When compared with ECG of 10-JUL-2018 06:26, T wave inversion now evident in Inferior leads Confirmed by Ramos Carias ([id number]) on 10/21/2020 3:38:04 PM Referred By: REFERRED SELF Confirmed By:Ramos Carias
[2020-10-21] MEDS: SULFA/TRIMETH 400/80MG TAB PO SCH (16:54)
[2020-10-21] MEDS: GANCICLOVIR SODIUM IV SCH (19:27)
[2020-10-21] MEDS: SODIUM CHLORIDE 0.9% IV SCH (19:27)
[2020-10-22 05:43] LABS: Hematocrit (blood only) 26.2 % (37-47); Hemoglobin 8.1 g/dL (12.0-16.0); Mean Corpuscular Hemoglobin 32.4 pg (25-34); Mean Corpuscular Hgb Conc 30.9 g/dL (32-36); Mean Corpuscular Volume 104.8 fL (80-100); RDW Coefficient of Variation 16.6 % (11.5-14.5); RDW Standard Deviation 63.5 fL (36.4-46.3); White Blood Count 1.63 K/uL (4.8-10.8)
[2020-10-22 05:56] LABS: Mean Platelet Volume 11.4 fL (7.4-10.4); Platelet Count 51 K/uL (130-400)
[2020-10-22] MEDS: NSS + 20MEQ KCL 20 MEQ/1,000 ML BAG IV SCH ×2 (06:00→20:47)
[2020-10-22 06:04] LABS: Immature Granulocytes # (auto) 0.15 K/uL (0.00-0.02); Immature Granulocytes % (auto) 9.2 %; Lymphocytes # (auto) 0.23 K/uL (1.2-3.4); Lymphocytes % (auto) 14.1 %; Monocytes # (auto) 0.14 K/uL (0.11-0.59); Monocytes % (auto) 8.6 %; Neutrophils # (auto) 1.11 K/uL (1.4-6.5); Neutrophils % (auto) 68.1 %
[2020-10-22 06:23] LABS: BUN Creatinine Ratio 2.9 (10-20); Calcium 7.3 mg/dl (8.5-10.1); Creatinine Clr Calc Pharmacy 14.1 ml/min; Est GFR (Non-African American) 14.7 ml/min; Magnesium 1.8 mg/dl (1.8-2.4); Potassium 3.8 mmol/L (3.5-5.1)
[2020-10-22] MEDS: NEPHROCAPS PO SCH (08:09)
[2020-10-22] MEDS: PANTOprazole 40 MG TAB PO SCH ×2 (08:09→20:51)
[2020-10-22] MEDS: carvediloL 12.5 MG TAB PO SCH ×2 (08:09→20:50)
[2020-10-22] MEDS: amLODIPine BESYLATE 5 MG TAB PO SCH ×2 (08:09→20:49)
[2020-10-22] MEDS: lisinopril 20 MG TAB PO SCH (08:10)
[2020-10-22] MEDS: TACROLIMUS 1 MG CAP PO SCH ×2 (08:10→20:52)
[2020-10-22 09:31] LABS: Dohle Bodies 2+; Polychromasia 1+; Toxic Vacuolation 1+
[2020-10-22 09:32] LABS: Tear Drop Cells Occasional
--- NOTE | 2020-10-22 12:03 | Nephrology Progress Note ---
Date of Service October 22, 2020 Assessment & Plan (1) End-stage renal disease on hemodialysis: ESRD due to ADPKD. HD MWF. AVF functioning well. BP and volume status currently acceptable. Clearance has been at goal. Electrolytes controlled. Anticipate next treatment Saturday. Medications appropriately dosed for IHD. [place]ro level pending, dosing per GI. Nephrocap. Repeat metabolic profile tomorrow AM. (2) Anemia: Pancytopenic. Cellcept held. Epogen 65084 units x 1 today. Monitor daily CBC. (3) Polycystic kidney disease: (4) Hypertension: BP acceptable. Continue amlodipine, carvedilol, and lisinopril as per home Rx. (5) Neutropenia: Per GI and hospitalist service. CMV levels pending. No clear infectious etiology. Serum histo antigen added to infectious work up. Admission and Anticipated Discharge Date Admission Date: October 21, 2020 Subjective No acute events overnight. Orly feels well this AM. No fevers or chills. Tolerated HD well yesterday without complications. Review of Systems Review of Systems: All systems reviewed & are unremarkable except as noted in HPI & below Physical Exam Constitutional: well developed; no acute distress Eyes: no scleral abnormality and no corneal abnormality ENMT: Mouth: no oral mucosal abnormality and oral mucous membranes not dry Neck: normal visual inspection and trachea midline Respiratory: normal respiratory effort Auscultation: lungs clear to auscultation bilaterally Cardiovascular: Rate/Rhythm: regular rate Heart Sounds: normal S1, normal S2 and + murmur Extremities: + AV fistula; no edema Musculoskeletal: Extremities: no cyanosis and no clubbing Skin: normal turgor; no lesions Neurologic: Motor/Sensory: no tremor and no asterixis Psychiatric: Orientation: alert and oriented x 3 Results & Data ([facility]) Vital Signs (Past 12 Hours) Vital Signs Temp Pulse Pulse Pulse Pulse Resp BP 10/22/20 08:08 36.5 C 74 18 146/76 H 10/22/20 07:55 37.1 C 79 18 161/68 H 10/22/20 07:46 77 10/22/20 03:13 37 C 79 18 162/70 H 10/22/20 00:12 78 Pulse Ox 10/22/20 08:08 96 10/22/20 07:55 95 10/22/20 07:46 10/22/20 03:13 94 10/22/20 00:12 Laboratory Results Laboratory Results - last 24 hr 10/21/20 10/22/20 10/22/20 10:05 05:15 05:15 WBC 1.63 L RBC 2.50 L Hgb 8.1 L Hct 26.2 L MCV 104.8 H MCH 32.4 MCHC 30.9 L RDW Std Deviation 63.5 H RDW Coeff of Igor 16.6 H Plt Count 51 L MPV 11.4 H Immature Gran % (Auto) 9.2 Neut % (Auto) 68.1 Lymph % (Auto) 14.1 [place] % (Auto) 8.6 Eos % (Auto) 0.0 Baso % (Auto) 0.0 Neut # (Auto) 1.11 L Lymph # (Auto) 0.23 L [place] # (Auto) 0.14 Eos # (Auto) 0.00 Baso # (Auto) 0.00 Immature Gran # (Auto) 0.15 H Toxic Vacuolation 1+ Dohle Bodies 2+ Polychromasia 1+ Tear Drop Cells Occasional Sodium Potassium Chloride Carbon Dioxide Anion Gap BUN Creatinine Est Cr Clr Drug Dosing Est GFR ( Amer) Est GFR (Non-Af Amer) BUN/Creatinine Ratio Glucose Calcium Magnesium Stl C. diff Tox B Gene Negative Cdiff Gene CMV IgM Ab Pending EBV Capsid Ag IgM Ab Pending 10/22/20 05:15 WBC RBC Hgb Hct MCV MCH MCHC RDW Std Deviation RDW Coeff of Igor Plt Count MPV Immature Gran % (Auto) Neut % (Auto) Lymph % (Auto) [place] % (Auto) Eos % (Auto) Baso % (Auto) Neut # (Auto) Lymph # (Auto) [place] # (Auto) Eos # (Auto) Baso # (Auto) Immature Gran # (Auto) Toxic Vacuolation Dohle Bodies Polychromasia Tear Drop Cells Sodium 141 Potassium 3.8 Chloride 107 Carbon Dioxide 29 Anion Gap 5.0 BUN 9 D Creatinine 3.15 H D Est Cr Clr Drug Dosing 14.1 Est GFR ( Amer) 17.0 Est GFR (Non-Af Amer) 14.7 BUN/Creatinine Ratio 2.9 L Glucose 65 L Calcium 7.3 L Magnesium 1.8 Stl C. diff Tox B Gene CMV IgM Ab EBV Capsid Ag IgM Ab PG Care Time/CCT Total # of Minutes Spent Total Time Spent with Patient: Total time spent is greater than 50% in coordination of care (as documented) at patient's floor/unit and/or counseling patient: Coding Level of Care Code 14775 Subseq Hosp Care Lvl 3 Diagnoses End-stage renal disease on hemodialysis N18.6; Z99.2 Anemia D64.9 Polycystic kidney disease Q61.3 Hypertension I10 Neutropenia D70.9
[2020-10-22] MEDS ORDERED: EPOETIN ALFA 10,000 UNITS/ML VIAL SQ ONE (12:07)
--- NOTE | 2020-10-22 12:28 | Hospitalist Progress Note ---
Date of Service October 22, 2020 Assessment & Plan (1) Gastroenteritis: She is a status post liver transplant for congenital cystic liver disease in June of this month Presented with abdominal pain with nausea/vomiting and fever Likely secondary to gastroenteritis Denies any abdominal discomfort, nausea, vomiting or diarrhea C. difficile has been negative and stool culture is negative to She is back to her baseline (2) Status post liver transplant: Status post liver transplantation due to congenital cystic liver disease in June of this year The transplant team have been contacted Advised to have continued care in this hospital If her condition deteriorates will need to be transferred Her condition is stable and is back to her baseline (3) Neutropenia: Neutropenia has been improving Blood and urine culture have been sent No antibiotic yet Cultures have been negative and blood counts are reasonable today though a little down compared with yesterday CMV and EBV are pending (4) End-stage renal disease on hemodialysis: Appreciate nephrology input and recommendation Will have hemodialysis today and as a scheduled (5) Polycystic kidney disease: Status post renal transplantation (6) Cardiomyopathy: History of cardiomyopathy with EF around 40 to 45% No evidence of any fluid overload right now We will continue hemodialysis DVT prophylaxis SCDs due to low platelet Admission and Anticipated Discharge Date Admission Date: October 21, 2020 Subjective 10/21/2020 The patient was seen and examined in medical telemetry unit She is a status post liver transplantation with ESRD on hemodialysis was admitted early this morning with fever, diarrhea and weakness She has been feeling a lot better since admission and denies to have any more fever and no chills Diarrhea seems to be improved 10/22/2020 The patient was seen and examined in medical telemetry unit She is back to her baseline and denies any significant symptoms No fever, chills, nausea, vomiting or diarrhea Review of Systems Review of Systems: All systems reviewed and are unremarkable except as noted below Neurologic: + generalized weakness Physical Exam Physical Exam: Sitting on a chair without any acute distress Constitutional: + thin; not ill appearing Eyes: PERRL, conjunctivae normal, anicteric sclerae ENMT: external ear and nose normal, oropharynx normal Neck: trachea midline, no thyromegaly Respiratory: no respiratory distress Auscultation: lungs clear to auscultation bilaterally Cardiovascular: Rate/Rhythm: regular rate Heart Sounds: no murmur Extremities: + edema Gastrointestinal (Abdomen): Inspection/Auscultation: normal bowel sounds; abdomen not distended Percussion/Palpation: abdomen soft; abdomen nontender Musculoskeletal: No acute arthritis in any joint Neurologic: Alert, awake and oriented x3. Generally weak but no focal neuro deficit Psychiatric: A+Ox3, euthymic affect Lymphatic: no cervical or axillary lymphadenopathy Results & Data Results & Data ([facility]) Vital Signs (Past 12 Hours) Vital Signs Temp Pulse Pulse Pulse Pulse Resp BP 10/22/20 08:08 36.5 C 74 18 146/76 H 10/22/20 07:55 37.1 C 79 18 161/68 H 10/22/20 07:46 77 10/22/20 03:13 37 C 79 18 162/70 H Pulse Ox 10/22/20 08:08 96 10/22/20 07:55 95 10/22/20 07:46 10/22/20 03:13 94 Laboratory Results Short CBC 10/22/20 Range/Units 05:15 WBC 1.63 L (4.8-10.8) K/uL Hgb 8.1 L (12.0-16.0) g/dL Hct 26.2 L (37-47) % Plt Count 51 L (130-400) K/uL BMP 10/22/20 05:15 Sodium 141 Potassium 3.8 Chloride 107 Carbon Dioxide 29 BUN 9 D Creatinine 3.15 H D Glucose 65 L Calcium 7.3 L Medications Administered Current Inpatient Medications Acetaminophen (Acetaminophen 325 Mg Tab) 650 mg PO Q4H PRN PRN Reason: Pain or Fever Stop: 11/20/20 07:54 Amlodipine Besylate (Amlodipine Besylate 5 Mg Tab) 5 mg PO BID JW Stop: 11/20/20 08:59 Last Admin: 10/22/20 08:09 Dose: 5 mg Documented by: Carvedilol (Carvedilol 12.5 Mg Tab) 37.5 mg PO BID JW Stop: 11/20/20 08:59 Last Admin: 10/22/20 08:09 Dose: 37.5 mg Documented by: Potassium Chloride/Sodium Chloride (Normal Saline W/20 Meq Kcl) 20 meq in 1,000 mls @ 70 mls/hr IV .[id number] JW Stop: 11/20/20 08:59 Last Admin: 10/22/20 06:00 Dose: 70 mls/hr Documented by: Ganciclovir Sodium 75 mg/ (Sodium Chloride) 101.5 mls @ 101.5 mls/hr IV MoFr@1800 [facility]; Protocol Stop: 11/20/20 17:59 Last Infusion: 10/21/20 20:32 Dose: Infused Documented by: Lisinopril (Lisinopril 20 Mg Tab) 20 mg PO DAILY [facility] Stop: 11/20/20 08:59 Last Admin: 10/22/20 08:10 Dose: 20 mg Documented by: Nitroglycerin (Nitroglycerin Sl 0.4 Mg/Tab Tab) 0.4 mg SL UD PRN PRN Reason: Chest Pain Stop: 11/20/20 07:54 Ondansetron HCl (Ondansetron Inj 2 Mg/Ml 2 Ml Vial) 4 mg IV Q6H PRN PRN Reason: Nausea Stop: 11/20/20 07:54 Pantoprazole Sodium (Pantoprazole 40 Mg Tab) 40 mg PO BID [facility]; Protocol Stop: 11/20/20 08:59 Last Admin: 10/22/20 08:09 Dose: 40 mg Documented by: Tacrolimus (Tacrolimus 1 Mg Cap) 3 mg PO QAM [facility] Stop: 11/20/20 08:59 Last Admin: 10/22/20 08:10 Dose: 3 mg Documented by: Tacrolimus (Tacrolimus 1 Mg Cap) 2 mg PO QPM [facility] Stop: 11/20/20 20:59 Last Admin: 10/21/20 20:39 Dose: 2 mg Documented by: Trimethoprim/Sulfamethoxazole (Sulfa/Trimeth 400/80mg Tab) 1 tab PO MoWeFr@1600 [facility] Stop: 11/20/20 15:59 Last Admin: 10/21/20 16:54 Dose: 1 tab Documented by: Vitamin B Complex/Folic Acid (Nephrocaps) 1 cap PO DAILY [facility] Stop: 11/20/20 08:59 Last Admin: 10/22/20 08:09 Dose: 1 cap Documented by:
[2020-10-23 05:45] LABS: Hematocrit (blood only) 25.2 % (37-47); Hemoglobin 7.9 g/dL (12.0-16.0); Mean Corpuscular Hemoglobin 32.1 pg (25-34); Mean Corpuscular Hgb Conc 31.3 g/dL (32-36); Mean Corpuscular Volume 102.4 fL (80-100); RDW Coefficient of Variation 16.4 % (11.5-14.5); RDW Standard Deviation 60.2 fL (36.4-46.3); Red Blood Count 2.46 M/uL (4.2-5.4); White Blood Count 1.22 K/uL (4.8-10.8)
[2020-10-23 05:49] LABS: Mean Platelet Volume 11.5 fL (7.4-10.4); Platelet Count 47 K/uL (130-400)
[2020-10-23 06:24] LABS: BUN Creatinine Ratio 3.6 (10-20); Calcium 7.7 mg/dl (8.5-10.1); Creatinine Clr Calc Pharmacy 10.8 ml/min; Est GFR (African American) 11.9 ml/min; Est GFR (Non-African American) 10.3 ml/min; Potassium 3.9 mmol/L (3.5-5.1)
[2020-10-23] MEDS ORDERED: DEXTROSE 50% 50 ML SYRINGE IV PRN ×2 (06:45→06:46)
[2020-10-23] MEDS ORDERED: GLUCAGON FOR INJ 1 MG VIAL IM PRN (06:45)
[2020-10-23] MEDS ORDERED: CARBOHYDRATES FOR HYPOGLYCEMIA PO PRN ×2 (06:45→06:46)
[2020-10-23] MEDS ORDERED: GLUCOSE 10 TABS/TUBE PO PRN ×2 (06:45→06:46)
[2020-10-23] MEDS ORDERED: GLUCOSE 40% GEL 15 GM TUBE PO PRN ×2 (06:45→06:46)
[2020-10-23] MEDS ORDERED: GLUCAGON FOR INJ 1 MG VIAL SQ PRN (06:46)
[2020-10-23 06:54] LABS: Ovalocytes 1+; Polychromasia 1+; Tear Drop Cells 1+
[2020-10-23 06:55] LABS: ALC (manual) 0.58 K/uL (1.2-3.4); ANC (manual) 0.54 K/uL (1.4-6.5); Lymphocytes # (manual) 0.58 K/uL (1.2-3.4); Lymphocytes % (manual) 47.5 %; Monocytes % (manual) 8.2 %; Neutrophils # (manual) 0.54 K/uL (1.4-6.5); Neutrophils % (manual) 44.3 %
[2020-10-23] MEDS: NEPHROCAPS PO SCH (08:22)
[2020-10-23] MEDS: NSS + 20MEQ KCL 20 MEQ/1,000 ML BAG IV SCH ×2 (08:22→12:24)
[2020-10-23] MEDS: amLODIPine BESYLATE 5 MG TAB PO SCH ×2 (08:22→21:49)
[2020-10-23] MEDS: carvediloL 12.5 MG TAB PO SCH ×2 (08:23→21:49)
[2020-10-23] MEDS: TACROLIMUS 1 MG CAP PO SCH ×2 (08:23→21:50)
[2020-10-23] MEDS: lisinopril 20 MG TAB PO SCH (08:23)
[2020-10-23] MEDS: PANTOprazole 40 MG TAB PO SCH ×2 (08:23→21:50)
--- NOTE | 2020-10-23 14:17 | Nephrology Progress Note ---
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 HD MWF. AVF has been functioning well. BP and volume status currently acceptable. Clearance has been at goal. Electrolytes controlled. Will coordinate HD as inpatient tomorrow. Medications appropriately dosed for IHD. [place] level pending, dosing per GI. Nephrocap. Repeat metabolic profile tomorrow AM. (2) Anemia: Pancytopenic. Cellcept held. Epogen [id number] units x 1 provided yesterday. Monitor daily CBC. (3) Polycystic kidney disease: (4) Hypertension: BP acceptable. Continue amlodipine, carvedilol, and lisinopril as per home Rx. (5) Neutropenia: Per GI and hospitalist service. CMV and histo pending. Admission and Anticipated Discharge Date Admission Date: October 21, 2020 Subjective No acute events overnight. Orly feels well. She is disappointed that her blood counts have not improved more. She was hoping to be discharged home. She continues to report some weakness but overall otherwise feels well. Review of Systems Review of Systems: All systems reviewed & are unremarkable except as noted in HPI & below Physical Exam Constitutional: well developed; no acute distress Eyes: no scleral abnormality and no corneal abnormality ENMT: Mouth: no oral mucosal abnormality and oral mucous membranes not dry Neck: normal visual inspection and trachea midline Respiratory: normal respiratory effort Auscultation: lungs clear to auscultation bilaterally Cardiovascular: Rate/Rhythm: regular rate Heart Sounds: normal S1, normal S2 and + murmur Extremities: + AV fistula; no edema Musculoskeletal: Extremities: no cyanosis and no clubbing Skin: normal turgor; no lesions Neurologic: Motor/Sensory: no tremor and no asterixis Psychiatric: Orientation: alert and oriented x 3 Results & Data ([facility]) Vital Signs (Past 12 Hours) Vital Signs Temp Pulse Pulse Resp BP Pulse Ox 10/23/20 11:11 36.6 C 73 16 137/56 L 10/23/20 07:50 76 10/23/20 07:25 36.4 C L 74 18 134/85 97 10/23/20 04:00 36.9 C 71 18 135/62 94 Laboratory Results Laboratory Results - last 24 hr 10/23/20 10/23/20 10/23/20 05:18 05:18 06:31 WBC 1.22 L RBC 2.46 L Hgb 7.9 L Hct 25.2 L MCV 102.4 H MCH 32.1 MCHC 31.3 L RDW Std Deviation 60.2 H RDW Coeff of Igor 16.4 H Plt Count 47 L MPV 11.5 H Neutrophils % (Manual) 44.3 Lymphocytes % (Manual) 47.5 Monocytes % (Manual) 8.2 Neutrophils # (Manual) 0.54 L Total Absolute Neuts 0.54 L* Lymphocytes # (Manual) 0.58 L Total Abs Lymphocytes 0.58 L Monocytes # (Manual) 0.10 L Polychromasia 1+ Tear Drop Cells 1+ Ovalocytes 1+ Sodium 142 Potassium 3.9 Chloride 108 H Carbon Dioxide 25 Anion Gap 9.0 BUN 15 D Creatinine 4.22 H D Est Cr Clr Drug Dosing 10.8 Est GFR ( Amer) 11.9 Est GFR (Non-Af Amer) 10.3 BUN/Creatinine Ratio 3.6 L Glucose 49 L* POC Glucose 53 L* Calcium 7.7 L 10/23/20 10/23/20 10/23/20 06:38 06:54 07:09 WBC RBC Hgb Hct MCV MCH MCHC RDW Std Deviation RDW Coeff of Igor Plt Count MPV Neutrophils % (Manual) Lymphocytes % (Manual) Monocytes % (Manual) Neutrophils # (Manual) Total Absolute Neuts Lymphocytes # (Manual) Total Abs Lymphocytes Monocytes # (Manual) Polychromasia Tear Drop Cells Ovalocytes Sodium Potassium Chloride Carbon Dioxide Anion Gap BUN Creatinine Est Cr Clr Drug Dosing Est GFR ( Amer) Est GFR (Non-Af Amer) BUN/Creatinine Ratio Glucose POC Glucose 55 L* 60 L* 72 Calcium PG Care Time/CCT Total # of Minutes Spent Total Time Spent with Patient: Total time spent is greater than 50% in coordination of care (as documented) at patient's floor/unit and/or counseling patient: Coding Level of Care Code 09734 Subseq Hosp Care Lvl 3 Diagnoses End-stage renal disease on hemodialysis N18.6; Z99.2 Anemia D64.9 Polycystic kidney disease Q61.3 Hypertension I10 Neutropenia D70.9
--- NOTE | 2020-10-23 16:14 | Hospitalist Progress Note ---
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 difficile has been negative and stool culture is negative to She is back to her baseline No more diarrhea and/or abdominal discomfort (2) Status post liver transplant: Status post liver transplantation due to congenital cystic liver disease in June of this year The transplant team have been contacted Advised to have continued care in this hospital If her condition deteriorates will need to be transferred Her condition is stable and is back to her baseline (3) Neutropenia: Neutropenia has been improving Blood and urine culture have been sent No antibiotic yet Cultures have been negative and blood counts are reasonable today though a little down compared with yesterday CMV and EBV are pending Remains neutropenic we will monitor (4) End-stage renal disease on hemodialysis: Appreciate nephrology input and recommendation Will have hemodialysis today and as a scheduled (5) Polycystic kidney disease: Status post renal transplantation (6) Cardiomyopathy: History of cardiomyopathy with EF around 40 to 45% No evidence of any fluid overload right now We will continue hemodialysis DVT prophylaxis SCDs due to low platelet Likely discharge tomorrow or day after following improvement of CBC Admission and Anticipated Discharge Date Admission Date: October 21, 2020 Subjective 10/21/2020 The patient was seen and examined in medical telemetry unit She is a status post liver transplantation with ESRD on hemodialysis was admitted early this morning with fever, diarrhea and weakness She has been feeling a lot better since admission and denies to have any more fever and no chills Diarrhea seems to be improved 10/22/2020 The patient was seen and examined in medical telemetry unit She is back to her baseline and denies any significant symptoms No fever, chills, nausea, vomiting or diarrhea 10/23/2020 The patient was seen and examined in medical telemetry unit She denies any sitting on a chair without any acute distress She does not have any more diarrhea and her diet will be advanced Review of Systems Review of Systems: All systems reviewed and are unremarkable except as noted below Neurologic: + generalized weakness Physical Exam Physical Exam: Sitting on a chair without any acute distress Constitutional: + thin; not ill appearing Eyes: PERRL, conjunctivae normal, anicteric sclerae ENMT: external ear and nose normal, oropharynx normal Neck: trachea midline, no thyromegaly Respiratory: no respiratory distress Auscultation: lungs clear to auscultation bilaterally Cardiovascular: Rate/Rhythm: regular rate Heart Sounds: no murmur Extremities: + edema Gastrointestinal (Abdomen): Inspection/Auscultation: normal bowel sounds; abdomen not distended Percussion/Palpation: abdomen soft; abdomen nontender Musculoskeletal: No acute arthritis in any joint Neurologic: Alert, awake and oriented x3. No focal sensory no motor deficit appreciated but generally weak and lethargic Psychiatric: A+Ox3, euthymic affect Lymphatic: no cervical or axillary lymphadenopathy Results & Data Results & Data ([facility]) Vital Signs (Past 12 Hours) Vital Signs Temp Pulse Pulse Resp BP Pulse Ox 10/23/20 15:41 76 10/23/20 14:47 36.4 C L 74 16 137/75 91 10/23/20 11:11 36.6 C 73 16 137/56 L 10/23/20 07:50 76 10/23/20 07:25 36.4 C L 74 18 134/85 97 Laboratory Results Short CBC 10/23/20 Range/Units 05:18 WBC 1.22 L (4.8-10.8) K/uL Hgb 7.9 L (12.0-16.0) g/dL Hct 25.2 L (37-47) % Plt Count 47 L (130-400) K/uL BMP 10/23/20 05:18 Sodium 142 Potassium 3.9 Chloride 108 H Carbon Dioxide 25 BUN 15 D Creatinine 4.22 H D Glucose 49 L* Calcium 7.7 L Medications Administered Current Inpatient Medications Acetaminophen (Acetaminophen 325 Mg Tab) 650 mg PO Q4H PRN PRN Reason: Pain or Fever Stop: 11/20/20 07:54 Amlodipine Besylate (Amlodipine Besylate 5 Mg Tab) 5 mg PO BID JW Stop: 11/20/20 08:59 Last Admin: 10/23/20 08:22 Dose: 5 mg Documented by: Carvedilol (Carvedilol 12.5 Mg Tab) 37.5 mg PO BID JW Stop: 11/20/20 08:59 Last Admin: 10/23/20 08:23 Dose: 37.5 mg Documented by: Dextrose (Dextrose 50% 50 Ml Syringe) 25 - 50 ml IV UD PRN; Protocol PRN Reason: Hypoglycemia Protocol Stop: 11/22/20 06:44 Glucagon (Glucagon For Inj 1 Mg Vial) 1 mg IM UD PRN; Protocol PRN Reason: Hypoglycemia Protocol Stop: 11/22/20 06:44 Glucose (Glucose 40% Gel 15 Gm Tube) 15 - 30 gm PO UD PRN; Protocol PRN Reason: Hypoglycemia Protocol Stop: 11/22/20 06:44 Glucose (Glucose 10 Tabs/Tube) 4 - 8 tabs PO UD PRN; Protocol PRN Reason: Hypoglycemia Protocol Stop: 11/22/20 06:44 Potassium Chloride/Sodium Chloride (Normal Saline W/20 Meq Kcl) 20 meq in 1,000 mls @ 70 mls/hr IV .[id number] [facility] Stop: 11/20/20 08:59 Last Admin: 10/23/20 12:24 Dose: 70 mls/hr Documented by: Ganciclovir Sodium 75 mg/ (Sodium Chloride) 101.5 mls @ 101.5 mls/hr IV MoFr@1800 [facility]; Protocol Stop: 11/20/20 17:59 Last Infusion: 10/21/20 20:32 Dose: Infused Documented by: Lisinopril (Lisinopril 20 Mg Tab) 20 mg PO DAILY [facility] Stop: 11/20/20 08:59 Last Admin: 10/23/20 08:23 Dose: 20 mg Documented by: Miscellaneous (Carbohydrates For Hypoglycemia ) 15 - 30 gm PO UD PRN PRN Reason: Hypoglycemia Treatment Stop: 11/22/20 06:44 Last Admin: 10/23/20 06:44 Dose: 15 gm Documented by: Nitroglycerin (Nitroglycerin Sl 0.4 Mg/Tab Tab) 0.4 mg SL UD PRN PRN Reason: Chest Pain Stop: 11/20/20 07:54 Ondansetron HCl (Ondansetron Inj 2 Mg/Ml 2 Ml Vial) 4 mg IV Q6H PRN PRN Reason: Nausea Stop: 11/20/20 07:54 Pantoprazole Sodium (Pantoprazole 40 Mg Tab) 40 mg PO BID [facility]; Protocol Stop: 11/20/20 08:59 Last Admin: 10/23/20 08:23 Dose: 40 mg Documented by: Tacrolimus (Tacrolimus 1 Mg Cap) 3 mg PO QAM [facility] Stop: 11/20/20 08:59 Last Admin: 10/23/20 08:23 Dose: 3 mg Documented by: Tacrolimus (Tacrolimus 1 Mg Cap) 2 mg PO QPM [facility] Stop: 11/20/20 20:59 Last Admin: 10/22/20 20:52 Dose: 2 mg Documented by: Trimethoprim/Sulfamethoxazole (Sulfa/Trimeth 400/80mg Tab) 1 tab PO MoWeFr@1600 [facility] Stop: 11/20/20 15:59 Last Admin: 10/21/20 16:54 Dose: 1 tab Documented by: Vitamin B Complex/Folic Acid (Nephrocaps) 1 cap PO DAILY [facility] Stop: 11/20/20 08:59 Last Admin: 10/23/20 08:22 Dose: 1 cap Documented by:
[2020-10-24] MEDS: NSS + 20MEQ KCL 20 MEQ/1,000 ML BAG IV SCH (02:07)
[2020-10-24 07:23] LABS: Hematocrit (blood only) 26.9 % (37-47); Hemoglobin 8.1 g/dL (12.0-16.0); Mean Corpuscular Hemoglobin 30.9 pg (25-34); Mean Corpuscular Hgb Conc 30.1 g/dL (32-36); Mean Corpuscular Volume 102.7 fL (80-100); RDW Standard Deviation 59.8 fL (36.4-46.3); Red Blood Count 2.62 M/uL (4.2-5.4); White Blood Count 1.23 K/uL (4.8-10.8)
[2020-10-24 07:35] LABS: Platelet Count 59 K/uL (130-400)
[2020-10-24 08:11] LABS: BUN Creatinine Ratio 3.4 (10-20); Calcium 7.7 mg/dl (8.5-10.1); Creatinine Clr Calc Pharmacy 8.8 ml/min; Est GFR (African American) 9.3 ml/min; Potassium 4.4 mmol/L (3.5-5.1)
[2020-10-24] MEDS ORDERED: IRON SUCROSE 100 MG in SYRINGE 0 ML IV ONE (08:15)
[2020-10-24 08:30] LABS: Eosinophils # (auto) 0.01 K/uL (0-0.5); Eosinophils % (auto) 0.8 %; Immature Granulocytes # (auto) 0.01 K/uL (0.00-0.02); Immature Granulocytes % (auto) 0.8 %; Lymphocytes # (auto) 0.38 K/uL (1.2-3.4); Lymphocytes % (auto) 30.9 %; Mean Platelet Volume 11.3 fL (7.4-10.4); Monocytes # (auto) 0.25 K/uL (0.11-0.59); Monocytes % (auto) 20.3 %; Neutrophils # (auto) 0.58 K/uL (1.4-6.5); Neutrophils % (auto) 47.2 %
--- NOTE | 2020-10-24 11:12 | Nephrology Progress Note ---
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 HD MWF. Orders for HD today entered into EMR and reviewed with nurse. UF goal 3+ L, as tolerated. Qb at goal. AVF functioning well. BP and volume status currently acceptable. Medications appropriately dosed for IHD. Nephrocap daily. Monitor metabolic profile MWF while inpatient. (2) Anemia: Pancytopenic. Cellcept held. Epogen [id number] units x 1 provided 10/22. Venofer 100 mg provided with HD today. (3) Polycystic kidney disease: (4) Hypertension: BP acceptable. Continue amlodipine, carvedilol, and lisinopril as per home Rx. (5) Neutropenia: Per GI and hospitalist service. CMV and histo pending. Admission and Anticipated Discharge Date Admission Date: October 21, 2020 Subjective No acute events overnight. Orly was seen and evaluated during hemodialysis this AM. She is tolerating dialysis well. BP acceptable. Qb at goal. Review of Systems Review of Systems: All systems reviewed & are unremarkable except as noted in HPI & below Physical Exam Constitutional: well developed; no acute distress Eyes: no scleral abnormality and no corneal abnormality ENMT: Mouth: no oral mucosal abnormality and oral mucous membranes not dry Neck: normal visual inspection and trachea midline Respiratory: normal respiratory effort Auscultation: lungs clear to auscultation bilaterally Cardiovascular: Rate/Rhythm: regular rate Heart Sounds: normal S1, normal S2 and + murmur Extremities: + AV fistula; no edema Musculoskeletal: Extremities: no cyanosis and no clubbing Skin: normal turgor; no lesions Neurologic: Motor/Sensory: no tremor and no asterixis Psychiatric: Orientation: alert and oriented x 3 Results & Data ([facility]) Vital Signs (Past 12 Hours) Vital Signs Temp Pulse Pulse Pulse Resp BP BP 10/24/20 10:28 37.0 C 78 10/24/20 10:20 78 141/77 H 10/24/20 10:07 77 143/72 H 10/24/20 07:20 37.0 C 76 16 143/77 H 10/24/20 06:23 76 10/24/20 04:00 36.7 C 73 18 127/69 Pulse Ox 10/24/20 10:28 10/24/20 10:20 10/24/20 10:07 10/24/20 07:20 90 10/24/20 06:23 10/24/20 04:00 92 Laboratory Results Laboratory Results - last 24 hr 10/24/20 10/24/20 07:08 07:08 WBC 1.23 L RBC 2.62 L Hgb 8.1 L Hct 26.9 L MCV 102.7 H MCH 30.9 MCHC 30.1 L RDW Std Deviation 59.8 H RDW Coeff of Igor 16.0 H Plt Count 59 L MPV 11.3 H Immature Gran % (Auto) 0.8 Neut % (Auto) 47.2 Lymph % (Auto) 30.9 Cotton % (Auto) 20.3 Eos % (Auto) 0.8 Baso % (Auto) 0.0 Neut # (Auto) 0.58 L* Lymph # (Auto) 0.38 L Cotton # (Auto) 0.25 Eos # (Auto) 0.01 Baso # (Auto) 0.00 Immature Gran # (Auto) 0.01 Sodium 140 Potassium 4.4 Chloride 109 H Carbon Dioxide 24 Anion Gap 7.0 BUN 17 Creatinine 5.17 H* D Est Cr Clr Drug Dosing 8.8 Est GFR ( Amer) 9.3 Est GFR (Non-Af Amer) 8.0 BUN/Creatinine Ratio 3.4 L Glucose 62 L Calcium 7.7 L PG Care Time/CCT Total # of Minutes Spent Total Time Spent with Patient: Total time spent is greater than 50% in coordination of care (as documented) at patient's floor/unit and/or counseling patient: Coding Level of Care Code 77295 Subseq Hosp Care Lvl 3 Diagnoses End-stage renal disease on hemodialysis N18.6; Z99.2 Anemia D64.9 Polycystic kidney disease Q61.3 Hypertension I10 Neutropenia D70.9
--- NOTE | 2020-10-24 12:13 | Hospitalist Progress Note ---
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 difficile has been negative and stool culture is negative to She is back to her baseline No more diarrhea and/or abdominal discomfort (2) Status post liver transplant: Status post liver transplantation due to congenital cystic liver disease in June of this year The transplant team have been contacted Advised to have continued care in this hospital If her condition deteriorates will need to be transferred Her condition is stable and is back to her baseline (3) Neutropenia: Neutropenia has been improving Blood and urine culture have been sent No antibiotic yet Cultures have been negative and blood counts are reasonable today though a little down compared with yesterday CMV and EBV are pending Leukopenia and neutropenia are persisting Will monitor and will talk to the transplant team tomorrow (4) End-stage renal disease on hemodialysis: Appreciate nephrology input and recommendation Will have hemodialysis today 10/24/2020 and likely discharge tomorrow (5) Polycystic kidney disease: Status post renal transplantation (6) Cardiomyopathy: History of cardiomyopathy with EF around 40 to 45% No evidence of any fluid overload right now We will continue hemodialysis DVT prophylaxis SCDs due to low platelet We will get PT and OT evaluation Admission and Anticipated Discharge Date Admission Date: October 21, 2020 Subjective 10/21/2020 The patient was seen and examined in medical telemetry unit She is a status post liver transplantation with ESRD on hemodialysis was admitted early this morning with fever, diarrhea and weakness She has been feeling a lot better since admission and denies to have any more fever and no chills Diarrhea seems to be improved 10/22/2020 The patient was seen and examined in medical telemetry unit She is back to her baseline and denies any significant symptoms No fever, chills, nausea, vomiting or diarrhea 10/23/2020 The patient was seen and examined in medical telemetry unit She denies any sitting on a chair without any acute distress She does not have any more diarrhea and her diet will be advanced 10/24/2020 The patient was seen and examined in medical telemetry unit She remains weak and lethargic but denies any other symptoms She is a status post hemodialysis today and likely to be discharged tomorrow Review of Systems Review of Systems: All systems reviewed and are unremarkable except as noted below Neurologic: + generalized weakness Physical Exam Physical Exam: Sitting on a chair without any acute distress Constitutional: + thin; not ill appearing Eyes: PERRL, conjunctivae normal, anicteric sclerae ENMT: external ear and nose normal, oropharynx normal Neck: trachea midline, no thyromegaly Respiratory: no respiratory distress Auscultation: lungs clear to auscultation bilaterally Cardiovascular: Rate/Rhythm: regular rate Heart Sounds: no murmur Extremities: + edema Gastrointestinal (Abdomen): Inspection/Auscultation: normal bowel sounds; abdomen not distended Percussion/Palpation: abdomen soft; abdomen nontender Musculoskeletal: No acute arthritis in any joint Neurologic: Alert, awake and oriented x3. Generally weak without any focal neurological deficit Psychiatric: A+Ox3, euthymic affect Lymphatic: no cervical or axillary lymphadenopathy Results & Data Results & Data ([facility]) Vital Signs (Past 12 Hours) Vital Signs Temp Pulse Pulse Pulse Resp BP BP 10/24/20 11:20 76 150/77 H 10/24/20 11:00 75 142/77 H 10/24/20 10:40 74 150/73 H 10/24/20 10:28 37.0 C 78 10/24/20 10:20 78 141/77 H 10/24/20 10:07 77 143/72 H 10/24/20 07:20 37.0 C 76 16 143/77 H 10/24/20 06:23 76 10/24/20 04:00 36.7 C 73 18 127/69 Pulse Ox 10/24/20 11:20 10/24/20 11:00 10/24/20 10:40 10/24/20 10:28 10/24/20 10:20 10/24/20 10:07 10/24/20 07:20 90 10/24/20 06:23 10/24/20 04:00 92 Laboratory Results Short CBC 10/24/20 Range/Units 07:08 WBC 1.23 L (4.8-10.8) K/uL Hgb 8.1 L (12.0-16.0) g/dL Hct 26.9 L (37-47) % Plt Count 59 L (130-400) K/uL BMP 10/24/20 07:08 Sodium 140 Potassium 4.4 Chloride 109 H Carbon Dioxide 24 BUN 17 Creatinine 5.17 H* D Glucose 62 L Calcium 7.7 L Medications Administered Current Inpatient Medications Acetaminophen (Acetaminophen 325 Mg Tab) 650 mg PO Q4H PRN PRN Reason: Pain or Fever Stop: 11/20/20 07:54 Amlodipine Besylate (Amlodipine Besylate 5 Mg Tab) 5 mg PO BID [facility] Stop: 11/20/20 08:59 Last Admin: 10/23/20 21:49 Dose: 5 mg Documented by: Carvedilol (Carvedilol 12.5 Mg Tab) 37.5 mg PO BID [facility] Stop: 11/20/20 08:59 Last Admin: 10/23/20 21:49 Dose: 37.5 mg Documented by: Dextrose (Dextrose 50% 50 Ml Syringe) 25 - 50 ml IV UD PRN; Protocol PRN Reason: Hypoglycemia Protocol Stop: 11/22/20 06:44 Glucagon (Glucagon For Inj 1 Mg Vial) 1 mg IM UD PRN; Protocol PRN Reason: Hypoglycemia Protocol Stop: 11/22/20 06:44 Glucose (Glucose 40% Gel 15 Gm Tube) 15 - 30 gm PO UD PRN; Protocol PRN Reason: Hypoglycemia Protocol Stop: 11/22/20 06:44 Glucose (Glucose 10 Tabs/Tube) 4 - 8 tabs PO UD PRN; Protocol PRN Reason: Hypoglycemia Protocol Stop: 11/22/20 06:44 Ganciclovir Sodium 75 mg/ (Sodium Chloride) 101.5 mls @ 101.5 mls/hr IV MoFr@1800 [facility]; Protocol Stop: 11/20/20 17:59 Last Infusion: 10/21/20 20:32 Dose: Infused Documented by: Lisinopril (Lisinopril 20 Mg Tab) 20 mg PO DAILY [facility] Stop: 11/20/20 08:59 Last Admin: 10/23/20 08:23 Dose: 20 mg Documented by: Miscellaneous (Carbohydrates For Hypoglycemia ) 15 - 30 gm PO UD PRN PRN Reason: Hypoglycemia Treatment Stop: 11/22/20 06:44 Last Admin: 10/23/20 06:44 Dose: 15 gm Documented by: Nitroglycerin (Nitroglycerin Sl 0.4 Mg/Tab Tab) 0.4 mg SL UD PRN PRN Reason: Chest Pain Stop: 11/20/20 07:54 Ondansetron HCl (Ondansetron Inj 2 Mg/Ml 2 Ml Vial) 4 mg IV Q6H PRN PRN Reason: Nausea Stop: 11/20/20 07:54 Pantoprazole Sodium (Pantoprazole 40 Mg Tab) 40 mg PO BID [facility]; Protocol Stop: 11/20/20 08:59 Last Admin: 10/23/20 21:50 Dose: 40 mg Documented by: Tacrolimus (Tacrolimus 1 Mg Cap) 3 mg PO QAM [facility] Stop: 11/20/20 08:59 Last Admin: 10/23/20 08:23 Dose: 3 mg Documented by: Tacrolimus (Tacrolimus 1 Mg Cap) 2 mg PO QPM [facility] Stop: 11/20/20 20:59 Last Admin: 10/23/20 21:50 Dose: 2 mg Documented by: Trimethoprim/Sulfamethoxazole (Sulfa/Trimeth 400/80mg Tab) 1 tab PO MoWeFr@1600 [facility] Stop: 11/20/20 15:59 Last Admin: 10/21/20 16:54 Dose: 1 tab Documented by: Vitamin B Complex/Folic Acid (Nephrocaps) 1 cap PO DAILY [facility] Stop: 11/20/20 08:59 Last Admin: 10/23/20 08:22 Dose: 1 cap Documented by:
[2020-10-24] MEDS: lisinopril 20 MG TAB PO SCH (14:39)
[2020-10-24] MEDS: amLODIPine BESYLATE 5 MG TAB PO SCH ×2 (14:39→21:56)
[2020-10-24] MEDS: carvediloL 12.5 MG TAB PO SCH ×2 (14:39→21:54)
[2020-10-24] MEDS: TACROLIMUS 1 MG CAP PO SCH ×2 (14:40→21:55)
[2020-10-24] MEDS: PANTOprazole 40 MG TAB PO SCH ×2 (14:40→21:54)
[2020-10-24] MEDS: NEPHROCAPS PO SCH (14:40)
[2020-10-24] MEDS: SULFA/TRIMETH 400/80MG TAB PO SCH (17:05)
[2020-10-24] MEDS: GANCICLOVIR SODIUM IV SCH (18:25)
[2020-10-24] MEDS: SODIUM CHLORIDE 0.9% IV SCH (18:25)
[2020-10-25] MEDS: PANTOprazole 40 MG TAB PO SCH (07:29)
[2020-10-25] MEDS: TACROLIMUS 1 MG CAP PO SCH (07:29)
[2020-10-25] MEDS: carvediloL 12.5 MG TAB PO SCH (07:29)
[2020-10-25] MEDS: amLODIPine BESYLATE 5 MG TAB PO SCH (07:29)
[2020-10-25] MEDS: lisinopril 20 MG TAB PO SCH (07:30)
[2020-10-25] MEDS: NEPHROCAPS PO SCH (07:30)
[2020-10-25 08:10] LABS: Hematocrit (blood only) 25.6 % (37-47); Hemoglobin 8.2 g/dL (12.0-16.0); Mean Corpuscular Hemoglobin 32.3 pg (25-34); Mean Corpuscular Volume 100.8 fL (80-100); RDW Coefficient of Variation 16.1 % (11.5-14.5); RDW Standard Deviation 59.9 fL (36.4-46.3); Red Blood Count 2.54 M/uL (4.2-5.4); White Blood Count 1.21 K/uL (4.8-10.8)
[2020-10-25 08:16] LABS: Mean Platelet Volume 11.7 fL (7.4-10.4); Platelet Count 60 K/uL (130-400)
[2020-10-25 08:31] LABS: Immature Granulocytes # (auto) 0.01 K/uL (0.00-0.02); Immature Granulocytes % (auto) 0.8 %; Lymphocytes # (auto) 0.33 K/uL (1.2-3.4); Lymphocytes % (auto) 27.3 %; Monocytes # (auto) 0.24 K/uL (0.11-0.59); Monocytes % (auto) 19.8 %; Neutrophils # (auto) 0.63 K/uL (1.4-6.5); Neutrophils % (auto) 52.1 %; Tear Drop Cells 1+
--- NOTE | 2020-10-25 09:43 | Hospitalist Progress Note ---
Date of Service October 25, 2020 Assessment & Plan (1) Gastroenteritis: She is a status post liver transplant for congenital cystic liver disease in June of this month Presented with abdominal pain with nausea/vomiting and fever Likely secondary to gastroenteritis Denies any abdominal discomfort, nausea, vomiting or diarrhea C. difficile has been negative and stool culture is negative too She is back to her baseline No more diarrhea and/or abdominal discomfort CMV IgM is pending, CMV quantitative PCR is less than 200, Bahman-Espinoza virus capsid IgM is pending and histoplasma antibody is pending (2) Status post liver transplant: Status post liver transplantation due to congenital cystic liver disease in June of this year The transplant team have been contacted Advised to have continued care in this hospital If her condition deteriorates will need to be transferred Her condition is stable and is back to her baseline Pancytopenia is persisting Discussed with the transplant team at [facility] Advised transfer to [facility] Discussed with the patient and the daughter and they are agreeable with the transfer She will be transferred to [facility] under care of Dr. Falk (3) Neutropenia: Neutropenia has been improving Blood and urine culture have been sent No antibiotic yet Cultures have been negative and blood counts are reasonable today though a li ttle down compared with yesterday CMV and EBV are pending Leukopenia and neutropenia are persisting Will monitor and will talk to the transplant team tomorrow No change in pancytopenia with the latest count being as follows White cell count is 1.21 with absolute neutrophil 0.58, hemoglobin 8.2 and platelet 60 (4) End-stage renal disease on hemodialysis: Appreciate nephrology input and recommendation Will have hemodialysis today 10/24/2020 and likely discharge tomorrow (5) Polycystic kidney disease: Status post renal transplantation (6) Cardiomyopathy: History of cardiomyopathy with EF around 40 to 45% No evidence of any fluid overload right now We will continue hemodialysis DVT prophylaxis SCDs due to low platelet We will get PT and OT evaluation Will be transferred to [facility] this afternoon Admission and Anticipated Discharge Date Admission Date: October 21, 2020 Subjective 10/21/2020 The patient was seen and examined in medical telemetry unit She is a status post liver transplantation with ESRD on hemodialysis was admitted early this morning with fever, diarrhea and weakness She has been feeling a lot better since admission and denies to have any more fever and no chills Diarrhea seems to be improved 10/22/2020 The patient was seen and examined in medical telemetry unit She is back to her baseline and denies any significant symptoms No fever, chills, nausea, vomiting or diarrhea 10/23/2020 The patient was seen and examined in medical telemetry unit She denies any sitting on a chair without any acute distress She does not have any more diarrhea and her diet will be advanced 10/24/2020 The patient was seen and examined in medical telemetry unit She remains weak and lethargic but denies any other symptoms She is a status post hemodialysis today and likely to be discharged tomorrow 10/25/2020 The patient was seen and examined in medical telemetry unit She has been stable without any symptoms except weakness No more diarrhea, fever, chills, abdominal pain, nausea, vomiting or diarrhea Review of Systems Review of Systems: All systems reviewed and are unremarkable except as noted below Neurologic: + generalized weakness Physical Exam Physical Exam: Sitting on a chair without any acute distress Constitutional: + thin; not ill appearing Eyes: PERRL, conjunctivae normal, anicteric sclerae ENMT: external ear and nose normal, oropharynx normal Neck: trachea midline, no thyromegaly Respiratory: no respiratory distress Auscultation: lungs clear to auscultation bilaterally Cardiovascular: Rate/Rhythm: regular rate Heart Sounds: no murmur Extremities: + edema Gastrointestinal (Abdomen): Inspection/Auscultation: normal bowel sounds; abdomen not distended Percussion/Palpation: abdomen soft; abdomen nontender Musculoskeletal: No acute arthritis in any joint Neurologic: Alert, awake and oriented x3. Generally weak but no focal sensory and motor deficit appreciated Psychiatric: A+Ox3, euthymic affect Lymphatic: no cervical or axillary lymphadenopathy Results & Data Results & Data ([facility]) Vital Signs (Past 12 Hours) Vital Signs Temp Pulse Pulse Resp BP Pulse Ox 10/25/20 07:58 36.8 C 84 18 160/81 H 93 10/25/20 04:37 37.1 C 85 18 150/75 H 94 10/24/20 23:28 36.9 C 94 H 18 147/74 H 95 10/24/20 22:42 77 Laboratory Results Short CBC 10/25/20 Range/Units 07:20 WBC 1.21 L (4.8-10.8) K/uL Hgb 8.2 L (12.0-16.0) g/dL Hct 25.6 L (37-47) % Plt Count 60 L (130-400) K/uL Medications Administered Current Inpatient Medications Acetaminophen (Acetaminophen 325 Mg Tab) 650 mg PO Q4H PRN PRN Reason: Pain or Fever Stop: 11/20/20 07:54 Amlodipine Besylate (Amlodipine Besylate 5 Mg Tab) 5 mg PO BID JW Stop: 11/20/20 08:59 Last Admin: 10/25/20 07:29 Dose: 5 mg Documented by: Carvedilol (Carvedilol 12.5 Mg Tab) 37.5 mg PO BID JW Stop: 11/20/20 08:59 Last Admin: 10/25/20 07:29 Dose: 37.5 mg Documented by: Dextrose (Dextrose 50% 50 Ml Syringe) 25 - 50 ml IV UD PRN; Protocol PRN Reason: Hypoglycemia Protocol Stop: 11/22/20 06:44 Filgrastim (Filgrastim 300 Mcg/Ml Vial) 300 mcg SQ ONE ONE Stop: 10/25/20 09:05 Glucagon (Glucagon For Inj 1 Mg Vial) 1 mg IM UD PRN; Protocol PRN Reason: Hypoglycemia Protocol Stop: 11/22/20 06:44 Glucose (Glucose 40% Gel 15 Gm Tube) 15 - 30 gm PO UD PRN; Protocol PRN Reason: Hypoglycemia Protocol Stop: 11/22/20 06:44 Glucose (Glucose 10 Tabs/Tube) 4 - 8 tabs PO UD PRN; Protocol PRN Reason: Hypoglycemia Protocol Stop: 11/22/20 06:44 Ganciclovir Sodium 75 mg/ (Sodium Chloride) 101.5 mls @ 101.5 mls/hr IV MoFr@1800 [facility]; Protocol Stop: 11/20/20 17:59 Last Infusion: 10/24/20 19:55 Dose: Infused Documented by: Lisinopril (Lisinopril 20 Mg Tab) 20 mg PO DAILY [facility] Stop: 11/20/20 08:59 Last Admin: 10/25/20 07:30 Dose: 20 mg Documented by: Miscellaneous (Carbohydrates For Hypoglycemia ) 15 - 30 gm PO UD PRN PRN Reason: Hypoglycemia Treatment Stop: 11/22/20 06:44 Last Admin: 10/23/20 06:44 Dose: 15 gm Documented by: Nitroglycerin (Nitroglycerin Sl 0.4 Mg/Tab Tab) 0.4 mg SL UD PRN PRN Reason: Chest Pain Stop: 11/20/20 07:54 Ondansetron HCl (Ondansetron Inj 2 Mg/Ml 2 Ml Vial) 4 mg IV Q6H PRN PRN Reason: Nausea Stop: 11/20/20 07:54 Pantoprazole Sodium (Pantoprazole 40 Mg Tab) 40 mg PO BID [facility]; Protocol Stop: 11/20/20 08:59 Last Admin: 10/25/20 07:29 Dose: 40 mg Documented by: Tacrolimus (Tacrolimus 1 Mg Cap) 3 mg PO QAM [facility] Stop: 11/20/20 08:59 Last Admin: 10/25/20 07:29 Dose: 3 mg Documented by: Tacrolimus (Tacrolimus 1 Mg Cap) 2 mg PO QPM [facility] Stop: 11/20/20 20:59 Last Admin: 10/24/20 21:55 Dose: 2 mg Documented by: Trimethoprim/Sulfamethoxazole (Sulfa/Trimeth 400/80mg Tab) 1 tab PO MoWeFr@1600 [facility] Stop: 11/20/20 15:59 Last Admin: 10/24/20 17:05 Dose: 1 tab Documented by: Vitamin B Complex/Folic Acid (Nephrocaps) 1 cap PO DAILY [facility] Stop: 11/20/20 08:59 Last Admin: 10/25/20 07:30 Dose: 1 cap Documented by:
--- NOTE | 2020-10-25 09:57 | Discharge Summary ---
Date of Service October 25, 2020 Admission HPI Per Admitting Provider DICTATED BY: Artie Wolf MD DATE OF ADMISSION: 10/21/2020 CHIEF COMPLAINT: Diarrhea, nausea, vomiting, fever. HISTORY OF PRESENT ILLNESS: This is a 64-year-old female with past medical history significant for polycystic kidney disease autosomal dominant end-stage renal disease, on hemodialysis, congenital cystic liver disease, status post liver transplant in June of this year, history of dilated cardiomyopathy, chronic systolic CHF, EF of around 40%-45%, hypertension, anemia, lives with her daughter, ambulates with a walker, was brought in because since last 1 week, she is having diarrhea and since yesterday she has nausea, vomiting, could not eat anything and temperature of 101 degrees. The daughter called the transplant center, they asked her to come to the ER. In the ER, she is afebrile, hemodynamically stable, somewhat drowsy. Labs were okay. SARS-CoV-2 PCR negative. ER called the transplant center; they advised to give her some fluids and keep her here and monitor and get her dialysis today. The patient is due for dialysis today. The patient is somewhat drowsy but able to answer questions. Daughter in the room helps with history and physicals. As per daughter after her transplant in June, she had developed C. diff but that was treated, but since last 1 week, she is having some diarrhea. Denies any blood in stools or black stools. No abdominal pain. Yesterday had nausea, vomiting, not able to keep anything and had fever. Denies any headache, no blurred vision, no earache, no runny nose, no sore throat, no dysphagia, no chest pain or shortness of breath, no cough. Admission Exam Per Admitting Provider GENERAL: The patient is of moderate build, not in acute distress. VITAL SIGNS: Temperature 36.8, pulse 83, respiratory rate 22, blood pressure 182/87, oxygen 93% on room air. HEENT: Pupils equal, round, reactive to light. Oral mucosa dry. NECK: No JVD. No neck masses. CARDIOVASCULAR: S1, S2 heard, regular rate and rhythm, no murmur, no gallop. RESPIRATORY SYSTEM: Normal AP diameter. No accessory muscle use. No wheezing, no crackles. ABDOMEN: Soft, bowel sounds present, nontender. No distention. Umbilical hernia seen. Drain seen from recent liver transplant. There is no active drainage seen, no erythema seen. CENTRAL NERVOUS SYSTEM: Cranial nerves II-XII grossly intact. Nonfocal. EXTREMITIES: Mild edema, no erythema seen. Principal Diagnosis Pancytopenia, status post liver transplant-rule out possible resection, end- stage renal disease on hemodialysis Discharge Exam Constitutional + thin; not ill appearing Eyes PERRL, conjunctivae normal, anicteric sclerae ENMT external ear and nose normal, oropharynx normal Neck trachea midline, no thyromegaly Respiratory no respiratory distress Auscultation: lungs clear to auscultation bilaterally Cardiovascular Rate/Rhythm: regular rate Heart Sounds: no murmur Extremities: + edema Gastrointestinal (Abdomen) Inspection/Auscultation: normal bowel sounds; abdomen not distended Percussion/Palpation: abdomen soft; abdomen nontender Psychiatric A+Ox3, euthymic affect Lymphatic no cervical or axillary lymphadenopathy Discharge Data Allergies Allergy/AdvReac Type Severity Reaction Status Date / Time morphine AdvReac Intermediate Nausea Verified 10/21/20 01:00 Consultations 10/21/20 03:30 ED Decision to Admit Stat 10/21/20 07:55 Consult Gastroenterology Routine Consult Nephrology Routine 10/25/20 09:14 Burn CD for patient Routine Hospital Course (1) Gastroenteritis: She is a status post liver transplant for congenital cystic liver disease in June of this month Presented with abdominal pain with nausea/vomiting and fever Likely secondary to gastroenteritis Denies any abdominal discomfort, nausea, vomiting or diarrhea C. difficile has been negative and stool culture is negative too She is back to her baseline No more diarrhea and/or abdominal discomfort CMV IgM is pending, CMV quantitative PCR is less than 200, Bahman-Espinoza virus capsid IgM is pending and histoplasma antibody is pending (2) Status post liver transplant: Status post liver transplantation due to congenital cystic liver disease in June of this year The transplant team have been contacted Advised to have continued care in this hospital If her condition deteriorates will need to be transferred Her condition is stable and is back to her baseline Pancytopenia is persisting Discussed with the transplant team at [facility] Advised transfer to [facility] Discussed with the patient and the daughter and they are agreeable with the transfer She will be transferred to [facility] under care of Dr. Falk (3) Neutropenia: Neutropenia has been improving Blood and urine culture have been sent No antibiotic yet Cultures have been negative and blood counts are reasonable today though a little down compared with yesterday CMV and EBV are pending Leukopenia and neutropenia are persisting Will monitor and will talk to the transplant team tomorrow No change in pancytopenia with the latest count being as follows White cell count is 1.21 with absolute neutrophil 0.58, hemoglobin 8.2 and platelet 60 (4) End-stage renal disease on hemodialysis: Appreciate nephrology input and recommendation Will have hemodialysis today 10/24/2020 and likely discharge tomorrow (5) Polycystic kidney disease: Status post renal transplantation (6) Cardiomyopathy: History of cardiomyopathy with EF around 40 to 45% No evidence of any fluid overload right now We will continue hemodialysis DVT prophylaxis SCDs due to low platelet We will get PT and OT evaluation Will be transferred to [facility] this afternoon Total Time Total Time Spent Total Time Spent (In Minutes): 45 minutes Total Time Includes: Examination of the Patient, Discharge Planning, Medication Reconciliation and Communication With Other Providers Discharge Plan Discharge Items Patient Disposition: Transfer Acute Care Hospital Reason For Visit: FEVER Discharge Diagnosis: Pancytopenia, status post liver transplant-rule out possible resection, end- stage renal disease on hemodialysis Condition on Discharge: Fair Activity: Resume your previous activity Non-emergency contact: Primary Care Provider Call non-emergency contact if: you have any medication questions and your symptoms worsen Follow-up/Referrals: Isaias Dickerson MD [Primary Care Provider] - (Please make an appointment with your primary care physician within 7 days following discharge from the facility) Diet: Dialysis Renal Addtl Attending Provider Instructions: Please take precaution to avoid falls All of her outpatient medications were continued.: All of the inpatient medicines were continued as follows Medications Administered Current Inpatient Medications Acetaminophen (Acetaminophen 325 Mg Tab) 650 mg PO Q4H PRN PRN Reason: Pain or Fever Stop: 11/20/20 07:54 Amlodipine Besylate (Amlodipine Besylate 5 Mg Tab) 5 mg PO BID [facility] Stop: 11/20/20 08:59 Last Admin: 10/25/20 07:29 Dose: 5 mg Documented by: Carvedilol (Carvedilol 12.5 Mg Tab) 37.5 mg PO BID [facility] Stop: 11/20/20 08:59 Last Admin: 10/25/20 07:29 Dose: 37.5 mg Documented by: Dextrose (Dextrose 50% 50 Ml Syringe) 25 - 50 ml IV UD PRN; Protocol PRN Reason: Hypoglycemia Protocol Stop: 11/22/20 06:44 Filgrastim (Filgrastim 300 Mcg/Ml Vial) 300 mcg SQ ONE ONE Stop: 10/25/20 09:05 Glucagon (Glucagon For Inj 1 Mg Vial) 1 mg IM UD PRN; Protocol PRN Reason: Hypoglycemia Protocol Stop: 11/22/20 06:44 Glucose (Glucose 40% Gel 15 Gm Tube) 15 - 30 gm PO UD PRN; Protocol PRN Reason: Hypoglycemia Protocol Stop: 11/22/20 06:44 Glucose (Glucose 10 Tabs/Tube) 4 - 8 tabs PO UD PRN; Protocol PRN Reason: Hypoglycemia Protocol Stop: 11/22/20 06:44 Ganciclovir Sodium 75 mg/ (Sodium Chloride) 101.5 mls @ 101.5 mls/hr IV MoFr@1800 [facility]; Protocol Stop: 11/20/20 17:59 Last Infusion: 10/24/20 19:55 Dose: Infused Documented by: Lisinopril (Lisinopril 20 Mg Tab) 20 mg PO DAILY [facility] Stop: 11/20/20 08:59 Last Admin: 10/25/20 07:30 Dose: 20 mg Documented by: Miscellaneous (Carbohydrates For Hypoglycemia ) 15 - 30 gm PO UD PRN PRN Reason: Hypoglycemia Treatment Stop: 11/22/20 06:44 Last Admin: 10/23/20 06:44 Dose: 15 gm Documented by: Nitroglycerin (Nitroglycerin Sl 0.4 Mg/Tab Tab) 0.4 mg SL UD PRN PRN Reason: Chest Pain Stop: 11/20/20 07:54 Ondansetron HCl (Ondansetron Inj 2 Mg/Ml 2 Ml Vial) 4 mg IV Q6H PRN PRN Reason: Nausea Stop: 11/20/20 07:54 Pantoprazole Sodium (Pantoprazole 40 Mg Tab) 40 mg PO BID [facility]; Protocol Stop: 11/20/20 08:59 Last Admin: 10/25/20 07:29 Dose: 40 mg Documented by: Tacrolimus (Tacrolimus 1 Mg Cap) 3 mg PO QAM [facility] Stop: 11/20/20 08:59 Last Admin: 10/25/20 07:29 Dose: 3 mg Documented by: Tacrolimus (Tacrolimus 1 Mg Cap) 2 mg PO QPM [facility] Stop: 11/20/20 20:59 Last Admin: 10/24/20 21:55 Dose: 2 mg Documented by: Trimethoprim/Sulfamethoxazole (Sulfa/Trimeth 400/80mg Tab) 1 tab PO MoWeFr@1600 [facility] Stop: 11/20/20 15:59 Last Admin: 10/24/20 17:05 Dose: 1 tab Documented by: Vitamin B Complex/Folic Acid (Nephrocaps) 1 cap PO DAILY [facility] Stop: 11/20/20 08:59 Last Admin: 10/25/20 07:30 Dose: 1 cap Documented by: Pending Studies at Discharge: Yes Studies:: CMP and EBV antibodies Stand-Alone Forms: [facility] Skilled Items Patient informed of condition?: Yes DNR: No Discharge Level of Care: Other Communicable Disease: No Discharge Prognosis: Stable Lines: Peripheral IV Urinary Catheter: No Medications and DC Order Prescriptions: Continued amlodipine 5 mg tablet 5 mg PO BID Qty: 180 RF: 3 carvedilol 25 mg tablet 37.5 mg PO BID RF: 0 lisinopril 20 mg tablet 20 mg PO DAILY RF: 0 sulfamethoxazole-trimethoprim 400-80 mg tablet 1 tab PO 3XWK RF: 0 omeprazole 20 mg capsule,delayed release(DR/EC) 2 mg PO BID RF: 0 [place] 0.8 mg tablet 1 tab PO DAILY RF: 0 tacrolimus [Prograf] 1 mg capsule See Rx Instructions .ROUTE .COMPLEX RF: 0 valganciclovir 50 mg/mL recon soln 50 mg PO 2XWK RF: 0 Discharge Orders: Discharge Order (Routine); Ordered 10/25/20 Ordered By: Gerard Ruiz Admission Data Admit Date/Time: 10/21/20 06:15 Attending Provider: Gerard Ruiz Admit Provider: Artie Wolf Primary Care Provider: Isaias Dickerson Other Providers: Artie Wolf ; Florinda Linder ; Myranda Garcia ; Mandeep López ; Loan Avery ; Eliud Iglesias ; Emma Duran ; Rashida Guillermo ; Geronimo Alfonso ; Jess Sutton ; Reanna Strauss ; Sandra Hermosillo ; Lulu Sherman ; Cecilia Hugo ; Colleen Herzog
--- NOTE | 2020-10-25 09:58 | Nephrology Progress Note ---
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 HD MWF. Completed treatment yesterday without complications. Qb at goal. AVF functioning well. BP and volume status currently acceptable. Medications appropriately dosed for IHD. Nephrocap daily. Monitor metabolic profile MWF while inpatient. (2) Anemia: Pancytopenic. Cellcept held. Epogen 15580 units x 1 provided 10/22. Venofer 100 mg provided with HD yesterday. (3) Polycystic kidney disease: (4) Hypertension: BP acceptable. Continue amlodipine, carvedilol, and lisinopril as per home Rx. (5) Neutropenia: Per GI and hospitalist service. CMV and histo pending. Anticipated transfer to [facility] per RN. Admission and Anticipated Discharge Date Admission Date: October 21, 2020 Subjective No acute events overnight. Completed HD yesterday without complications. Net UF 3 L. Review of Systems Review of Systems: All systems reviewed & are unremarkable except as noted in HPI & below Physical Exam Constitutional: well developed; no acute distress Eyes: no scleral abnormality and no corneal abnormality ENMT: Mouth: no oral mucosal abnormality and oral mucous membranes not dry Neck: normal visual inspection and trachea midline Respiratory: normal respiratory effort Auscultation: lungs clear to auscultation bilaterally Cardiovascular: Rate/Rhythm: regular rate Heart Sounds: normal S1, normal S2 and + murmur Extremities: + AV fistula; no edema Musculoskeletal: Extremities: no cyanosis and no clubbing Skin: normal turgor; no lesions Neurologic: Motor/Sensory: no tremor and no asterixis Psychiatric: Orientation: alert and oriented x 3 Results & Data ([facility]) Vital Signs (Past 12 Hours) Vital Signs Temp Pulse Pulse Resp BP Pulse Ox 10/25/20 07:58 36.8 C 84 18 160/81 H 93 10/25/20 04:37 37.1 C 85 18 150/75 H 94 10/24/20 23:28 36.9 C 94 H 18 147/74 H 95 10/24/20 22:42 77 Laboratory Results Laboratory Results - last 24 hr 10/25/20 10/25/20 10/25/20 07:20 09:45 09:45 WBC 1.21 L RBC 2.54 L Hgb 8.2 L Hct 25.6 L MCV 100.8 H MCH 32.3 MCHC 32.0 RDW Std Deviation 59.9 H RDW Coeff of Igor 16.1 H Plt Count 60 L MPV 11.7 H Immature Gran % (Auto) 0.8 Neut % (Auto) 52.1 Lymph % (Auto) 27.3 [place] % (Auto) 19.8 Eos % (Auto) 0.0 Baso % (Auto) 0.0 Neut # (Auto) 0.63 L* Lymph # (Auto) 0.33 L [place] # (Auto) 0.24 Eos # (Auto) 0.00 Baso # (Auto) 0.00 Immature Gran # (Auto) 0.01 Tear Drop Cells 1+ COVID-19 [facility] SARS-CoV-2, RNA, NAAT Pending PG Care Time/CCT Total # of Minutes Spent Total Time Spent with Patient: Total time spent is greater than 50% in coordination of care (as documented) at patient's floor/unit and/or counseling patient: Coding Level of Care Code 41459 Subseq Hosp Care Lvl 3 Diagnoses End-stage renal disease on hemodialysis N18.6; Z99.2 Anemia D64.9 Polycystic kidney disease Q61.3 Hypertension I10 Neutropenia D70.9
[2020-10-25] MEDS ORDERED: FILGRASTIM 300 MCG/ML VIAL SQ ONE (10:30)
[2020-10-25 16:16] LABS: CMV IgM Antibody <30.00 AU/mL
== END 2020-10-25 11:40 | disposition short-term general hospital (02) | DRG 391 ==
LOC: ED 23:37 → SUATTDRO 10-21 06:15 → 2N 10-21 06:15

== ENCOUNTER 2021-02-14 07:10 | Inpatient (IN) ==
[2021-02-14] MEDS ORDERED: FUROSEMIDE 40 MG/4 ML VIAL IV STA (07:46)
[2021-02-14] MEDS ORDERED: NITROGLYCERIN 2% OINTMENT 30GM TUBE EXT STA (07:46)
--- NOTE | 2021-02-14 07:46 | XRay Report ---
XR chest 1V portable HISTORY: 65 years-old Female Dyspnea acute shortness of breath COMPARISON: Chest radiographs 01/31/2021 TECHNIQUE: Portable AP view of the chest FINDINGS: Cardiac silhouette is enlarged. Pulmonary vascular congestion with reticular interstitial coarsening, perihilar and bibasilar consolidation. Layering pleural effusions without pneumothorax. No acute fra cture. Surgical clips project over the abdominal right upper quadrant. IMPRESSION: 1. Cardiomegaly with pulmonary edema. 2. Layering pleural effusions with bibasilar consolidation suggestive of atelectasis or less likely p neumonitis. ACT 112: Negative or not required by law. The above report was generated using voice recognition software. It may contain grammatical, syntax o r spelling errors. Electronically signed by: Valdez Luciano M.D. 02/14/2021 7:44 AM
--- NOTE | 2021-02-14 08:00 | Emergency Department Note ---
Impression & Plan Acute respiratory failure, Pulmonary edema, End stage renal disease on dialysis ED Provider Note INFORMANT: Patient ED PROVIDER(S): Heri Adam MD CHIEF COMPLAINT: Shortness of breath PLAN: Disposition: Admitted Condition: Guarded Outpatient prescription management: none Referral: None MEDICAL DECISION MAKING: Presented with acute dyspnea. She was noted to be 73% on EMS CPAP. She was transitioned to our CPAP and responded well with pressure of 10 and FiO2 was dialed down to 50%. She was in the high 90s with this. She was breathing easier and felt better. Chest x-ray showed significant pulmonary edema and cardiomegaly. She was moderately hypertensive and was given Nitropaste and a dose of Lasix to try and help with the situation to temporize. Nephrology was promptly contacted. Blood work and EKG performed. The patient was found to be hyperkalemic. Stable anemia without leukocytosis. Patient had an ECG that showed a sinus tachycardia. Q waves had slight peaked morphology although were not significantly tall. She was treated with IV dextrose, insulin, calcium and bicarbonate. I discussed the case with Dr. Bob of nephrology. He did prep the patient for dialysis. I also discussed the case with the [facility]. The patient will be admitted by . Triage Nursing notes reviewed and agree them. Vital Signs: reviewed and remarkable for no significant abnormalities Differential diagnosis: Fluid overload, complication of dialysis state, reactive airway disease, pneumonia, pneumothorax, COPD, CHF, infections, cardiac ischemia, pulmonary embolism, musculoskeletal, gastrointestinal, as well as other pathologies. Diagnostics interpreted by me: ECG: Twelve-lead ECG reveals sinus tachycardia 105 bpm. Mild peaked morphology to the T waves. No ST elevation or depression. No PACs or PVCs. Cardiac Monitoring:Cardiac monitoring ordered by me: The patient was placed on continuous cardiac monitoring and observed. It revealed a normal sinus rhythm at 116 beats per minute without ectopy or evidence of dysrhythmia. Imaging studies: Chest x-ray revealed significant cardiomegaly and pulmonary edema. Atelectasis and pleural effusions noted. I refer you to the EMR for further details. HPI: The patient is a 65 year old female who presents to the Emergency Room with complaints of shortness of breath. This started this morning and is rapidly worsening. The patient also notes the following associated symptoms, cough and fatigue. The patient has placed on CPAP by EMS for relieving factors. Current pain is rated as 0/10. Patient is due for dialysis today. Patient is also a liver transplant patient. Patient states she has not missed any recent dialysis. Pt denies LOC, headache, fevers, chills, diaphoresis, visual changes, neck pain, chest pain, nausea, vomiting, abdominal pain, back pain, melena, hematochezia, urinary symptoms, numbness, weakness, lymphadenopathy, rash, or other complaints. ROS: See above HPI for pertinent positives & negatives. A total of 10 systems reviewed and were otherwise negative. PAST MEDICAL HISTORY:See Below , end-stage renal disease, liver transplant, pneumonia, UTI PAST SURGICAL HISTORY:See Below, fistula FAMILY HISTORY:See Below SOCIAL HISTORY:See Below, retired HOME MEDICATIONS:See Below ALLERGIES:See Below VITALS:See Below PHYSICAL EXAMINATION: GENERAL: Awake, alert, dyspneic appearing, in mild distress HENT: Normocephalic, atraumatic. Oropharynx unremarkable. EYES: Normal conjunctiva. Sclera non-icteric. NECK: Inspection normal. Non-tender. Supple. No nuchal rigidity. FROM. No masses. RESPIRATORY: No wheezes but significant rales. Increased respiratory effort. CARDIAC: Borderline tachycardic rate. Normal rhythm. No murmurs. No rubs. Extremities warm and well perfused. AV fistula in the left forearm. No JVD. GI: Soft, non-distended. No tenderness to palpation. No rebound or guarding. No masses. RECTAL: Deferred. MUSCULOSKELETAL: Atraumatic. Chest examination reveals no tenderness. The back is symmetrical on inspection without obvious abnormality. There is no CVA tenderness to palpation. No joint edema. LOWER EXTREMITIES: Calves are equal size bilaterally and non-tender. Trace edema. No discoloration. NEURO: Normal sensorium. No sensory or motor deficits noted. SKIN: No rash or jaundice noted. CRITICAL CARE: I have personally spent greater than 40 minutes of critical care time in the direct management of this patient. This includes bedside care, interpretation of diagnostic studies, and testing, discussion with consultants, patient, and and other required patient management activities. These minutes are in excess of all separately billable procedures. Heri Adma MD Past Med/Surg History Medical History Anemia Cardiomyopathy echo 12/4/18 showed diffuse hypokinesis, LVEF 30-35% End-stage renal disease on hemodialysis Hypertension Neutropenia Polycystic kidney disease Secondary hyperparathyroidism of renal origin Surgical History Hx of tubal ligation Family History (Updated 02/14/21 @ 14:08 by Ana Espinosa PA-C) Other Adopted Social History Smoking Status: Never smoker Hx Alcohol Use: No Hx Substance Use: No Preferred Language: Amharic Communication Ability: Effective Multimedia Services Manager Required: No Beliefs That Will Affect Care: None marital status: / Current Living Situation: Family Current Living Situation Comment: Lives with Daughter. Feels Safe at Home: Yes Assistive Devices: None Allergies Allergies Allergy/AdvReac Type Severity Reaction Status Date / Time morphine AdvReac Intermediate Nausea Verified 02/14/21 08:32 Home Meds Home Medications Medication Instructions Recorded Confirmed carvedilol 25 mg tablet 12.5 mg PO BID 01/18/21 02/14/21 cyclosporine modified 25 mg capsule 75 mg PO Q12H 01/18/21 02/14/21 epoetin beta, methoxy peg 200 200 mcg IV .[id number] 01/18/21 02/14/21 mcg/0.3 mL injection syringe (Mircera) levothyroxine 75 mcg capsule 75 mcg PO QAM 01/18/21 02/14/21 lisinopril 40 mg tablet 40 mg PO DAILY 01/18/21 02/14/21 loperamide 2 mg capsule 2 mg PO BID PRN 01/18/21 02/14/21 megestrol 400 mg/10 mL (10 mL) 400 mg PO QAM 01/18/21 02/14/21 oral suspension pantoprazole 40 mg tablet,delayed 40 mg PO BID 01/18/21 02/14/21 release thiamine HCl (vitamin B1) 100 mg 100 mg PO DAILY 01/18/21 02/14/21 tablet amlodipine 10 mg tablet 10 mg PO DAILY 01/31/21 02/14/21 atovaquone 750 mg/5 mL oral 1,500 mg PO DAILY 01/31/21 02/14/21 suspension vitamin B complex-folic acid 0.4 1 tab PO DAILY 01/31/21 02/14/21 mg tablet (Balance B-50 (with folic acid)) Results & Data (ED) Vital Signs Vital Signs - 24 hr 02/14/21 07:15 02/14/21 07:20 02/14/21 07:33 Temperature 36.8 C Temperature Source Oral Pulse Rate 109 H 102 H Pulse Rate [Left] 112 H Pulse Rhythm Regular Pulse Rhythm [Left] Regular Pulse Strength Normal Pulse Strength [Left] Normal Respiratory Rate 28 H 34 H 18 Respiratory Effort / Characteristics Short of Breath Spontaneous Labored Short of Breath Non-Labored Spontaneous Respiratory Depth Shallow Normal Respiratory Pattern Tachypnea Regular Blood Pressure 160/83 H Blood Pressure Mean 108 Blood Pressure Position Lying Pulse Oximetry 73 L 94 94 Oxygen Delivery Method CPAP CPAP Oxygen Flow Rate 10 Fraction of Inspired Oxygen 40 Sepsis Recent Fever Within 48 Hours No Sepsis New/Unexplained Change in Mental Status N/A Sepsis Action Taken by Nursing No Action Required 02/14/21 07:41 Temperature Temperature Source Pulse Rate Pulse Rate [Left] Pulse Rhythm Pulse Rhythm [Left] Pulse Strength Pulse Strength [Left] Respiratory Rate Respiratory Effort / Characteristics Respiratory Depth Respiratory Pattern Blood Pressure Blood Pressure Mean Blood Pressure Position Pulse Oximetry Oxygen Delivery Method CPAP Oxygen Flow Rate Fraction of Inspired Oxygen Sepsis Recent Fever Within 48 Hours Sepsis New/Unexplained Change in Mental Status Sepsis Action Taken by Nursing Laboratory Data Result diagrams: 02/14/21 08:07 02/14/21 08:07 Lab Results 02/14/21 02/14/21 02/14/21 Range/Units 07:56 07:56 08:07 WBC 6.08 (4.8-10.8) K/uL RBC 2.63 L (4.2-5.4) M/uL Hgb 8.3 L (12.0-16.0) g/dL POC Hgb (12.0-16.0) g/dl Hct 25.9 L (37-47) % POC Hct (37-47) % MCV 98.5 (80-100) fL MCH 31.6 (25-34) pg MCHC 32.0 (32-36) g/dL RDW Std Deviation 67.5 H (36.4-46.3) fL RDW Coeff of Igor 19.2 H (11.5-14.5) % Plt Count 165 (130-400) K/uL MPV 10.3 (7.4-10.4) fL Immature Gran % (Auto) 2.3 % Neut % (Auto) 83.5 % Lymph % (Auto) 8.9 % [place] % (Auto) 2.8 % Eos % (Auto) 2.3 % Baso % (Auto) 0.2 % Neut # (Auto) 5.08 (1.4-6.5) K/uL Lymph # (Auto) 0.54 L (1.2-3.4) K/uL [place] # (Auto) 0.17 (0.11-0.59) K/uL Eos # (Auto) 0.14 (0-0.5) K/uL Baso # (Auto) 0.01 (0-0.2) K/uL Immature Gran # (Auto) 0.14 H (0.00-0.02) K/uL POC Sodium (135-144) mmol/L Sodium (136-145) mmol/L POC Potassium (3.3-5.0) mmol/L Potassium (3.5-5.1) mmol/L POC Chloride (101-112) mmol/L Chloride (98-107) mmol/L Carbon Dioxide (21-32) mmol/L POC Total CO2 (24-31) mmol/L Anion Gap (3-11) POC Anion Gap (16-25) mmol/L POC BUN (7-18) mg/dl BUN (7-18) mg/dl Creatinine (0.6-1.2) mg/dl POC Creatinine (0.6-1.3) mg/dl Est Cr Clr Drug Dosing ml/min Est GFR ( Amer) ml/min Est GFR (Non-Af Amer) ml/min BUN/Creatinine Ratio (10-20) Glucose (70-99) mg/dl POC Glucose (other) (70-99) mg/dl Lactate (0.4-2.0) mmol/L Calcium (8.5-10.1) mg/dl POC Ioniz Calcium Gage (1.12-1.32) mmol/l Magnesium (1.8-2.4) mg/dl Total Bilirubin (0.2-1) mg/dl AST (15-37) U/L ALT (12-78) U/L Alkaline Phosphatase (45-117) U/L Ammonia (11-32) umol/L Troponin I (0-0.045) ng/ml NT-Pro-B Natriuret Pep (0-900) pg/ml Total Protein (6.4-8.2) gm/dl Albumin (3.4-5.0) gm/dl Globulin (2.5-4.0) gm/dl Albumin/Globulin Ratio (0.9-2) COVID-19 Eval Order Covid19 at [facility] SARS-CoV-2 (PCR) NEGATIVE (Negative) 02/14/21 02/14/21 02/14/21 Range/Units 08:07 08:07 08:07 WBC (4.8-10.8) K/uL RBC (4.2-5.4) M/uL Hgb (12.0-16.0) g/dL POC Hgb (12.0-16.0) g/dl Hct (37-47) % POC Hct (37-47) % MCV (80-100) fL MCH (25-34) pg MCHC (32-36) g/dL RDW Std Deviation (36.4-46.3) fL RDW Coeff of Igor (11.5-14.5) % Plt Count (130-400) K/uL MPV (7.4-10.4) fL Immature Gran % (Auto) % Neut % (Auto) % Lymph % (Auto) % [place] % (Auto) % Eos % (Auto) % Baso % (Auto) % Neut # (Auto) (1.4-6.5) K/uL Lymph # (Auto) (1.2-3.4) K/uL [place] # (Auto) (0.11-0.59) K/uL Eos # (Auto) (0-0.5) K/uL Baso # (Auto) (0-0.2) K/uL Immature Gran # (Auto) (0.00-0.02) K/uL POC Sodium (135-144) mmol/L Sodium 138 (136-145) mmol/L POC Potassium (3.3-5.0) mmol/L Potassium 6.7 H* D (3.5-5.1) mmol/L POC Chloride (101-112) mmol/L Chloride 103 (98-107) mmol/L Carbon Dioxide 27 (21-32) mmol/L POC Total CO2 (24-31) mmol/L Anion Gap 8.0 (3-11) POC Anion Gap (16-25) mmol/L POC BUN (7-18) mg/dl BUN 59 H (7-18) mg/dl Creatinine 6.65 H* D (0.6-1.2) mg/dl POC Creatinine (0.6-1.3) mg/dl Est Cr Clr Drug Dosing 6.6 ml/min Est GFR ( Amer) 6.8 ml/min Est GFR (Non-Af Amer) 5.9 ml/min BUN/Creatinine Ratio 8.9 L (10-20) Glucose 91 (70-99) mg/dl POC Glucose (other) (70-99) mg/dl Lactate 1.0 (0.4-2.0) mmol/L Calcium 9.3 (8.5-10.1) mg/dl POC Ioniz Calcium Gage (1.12-1.32) mmol/l Magnesium 2.3 (1.8-2.4) mg/dl Total Bilirubin 0.5 (0.2-1) mg/dl AST 21 (15-37) U/L ALT 16 (12-78) U/L Alkaline Phosphatase 165 H (45-117) U/L Ammonia 39.9 H (11-32) umol/L Troponin I 0.029 (0-0.045) ng/ml NT-Pro-B Natriuret Pep > 48016 H (0-900) pg/ml Total Protein 5.8 L (6.4-8.2) gm/dl Albumin 1.8 L (3.4-5.0) gm/dl Globulin 4.0 (2.5-4.0) gm/dl Albumin/Globulin Ratio 0.4 L (0.9-2) COVID-19 Eval Order SARS-CoV-2 (PCR) (Negative) 02/14/21 Range/Units 08:15 WBC (4.8-10.8) K/uL RBC (4.2-5.4) M/uL Hgb (12.0-16.0) g/dL POC Hgb 7.5 L (12.0-16.0) g/dl Hct (37-47) % POC Hct 22 L (37-47) % MCV (80-100) fL MCH (25-34) pg MCHC (32-36) g/dL RDW Std Deviation (36.4-46.3) fL RDW Coeff of Igor (11.5-14.5) % Plt Count (130-400) K/uL MPV (7.4-10.4) fL Immature Gran % (Auto) % Neut % (Auto) % Lymph % (Auto) % [place] % (Auto) % Eos % (Auto) % Baso % (Auto) % Neut # (Auto) (1.4-6.5) K/uL Lymph # (Auto) (1.2-3.4) K/uL [place] # (Auto) (0.11-0.59) K/uL Eos # (Auto) (0-0.5) K/uL Baso # (Auto) (0-0.2) K/uL Immature Gran # (Auto) (0.00-0.02) K/uL POC Sodium 135 (135-144) mmol/L Sodium (136-145) mmol/L POC Potassium 6.8 H* (3.3-5.0) mmol/L Potassium (3.5-5.1) mmol/L POC Chloride 101 (101-112) mmol/L Chloride (98-107) mmol/L Carbon Dioxide (21-32) mmol/L POC Total CO2 24 (24-31) mmol/L Anion Gap (3-11) POC Anion Gap 18.0 (16-25) mmol/L POC BUN 55 H (7-18) mg/dl BUN (7-18) mg/dl Creatinine (0.6-1.2) mg/dl POC Creatinine 7.1 H* (0.6-1.3) mg/dl Est Cr Clr Drug Dosing ml/min Est GFR ( Amer) ml/min Est GFR (Non-Af Amer) ml/min BUN/Creatinine Ratio (10-20) Glucose (70-99) mg/dl POC Glucose (other) 88 (70-99) mg/dl Lactate (0.4-2.0) mmol/L Calcium (8.5-10.1) mg/dl POC Ioniz Calcium Gage 1.09 L (1.12-1.32) mmol/l Magnesium (1.8-2.4) mg/dl Total Bilirubin (0.2-1) mg/dl AST (15-37) U/L ALT (12-78) U/L Alkaline Phosphatase (45-117) U/L Ammonia (11-32) umol/L Troponin I (0-0.045) ng/ml NT-Pro-B Natriuret Pep (0-900) pg/ml Total Protein (6.4-8.2) gm/dl Albumin (3.4-5.0) gm/dl Globulin (2.5-4.0) gm/dl Albumin/Globulin Ratio (0.9-2) COVID-19 Eval Order SARS-CoV-2 (PCR) (Negative) Administered Medications Epoetin Pillo (Epoetin Pillo 10,000 Units/Ml Vial) 10,000 units IV TODAY@1100 [facility] Stop: 02/14/21 16:00 Last Admin: 02/14/21 12:06 Dose: 10,000 units Documented by: [id number] Heparin Sodium (Porcine) (Heparin Sod (Porcine) 1000 Unit/Ml) 2,000 units IV TODAY@1100 [facility] Stop: 02/14/21 16:00 Last Admin: 02/14/21 12:07 Dose: Not Given Documented by: [id number] Dextrose (D10w) 1,000 mls @ 50 mls/hr IV .Q20H [facility] Stop: 02/15/21 09:59 Last Admin: 02/14/21 14:24 Dose: 50 mls/hr Documented by: [id number] Discontinued Medications Calcium Gluconate (Calcium Gluconate 1000 Mg/60 Ml Nss) 1,000 mg IV ONE STA Stop: 02/14/21 09:48 Last Admin: 02/14/21 10:20 Dose: 1,000 mg Documented by: [id number] Dextrose (Dextrose 50% 50 Ml Syringe) 50 ml IV NOW ONE Stop: 02/14/21 08:29 Last Admin: 02/14/21 09:32 Dose: 50 ml Documented by: [id number] Dextrose (Dextrose 50% 50 Ml Syringe) Confirm Administered Dose 50 ml IV .STK- MED ONE Stop: 02/14/21 11:50 Last Admin: 02/14/21 11:51 Dose: 50 ml Documented by: [id number] Furosemide (Furosemide 40 Mg/4 Ml Vial) 40 mg IV NOW STA Stop: 02/14/21 07:47 Last Admin: 02/14/21 09:31 Dose: 40 mg Documented by: [id number] Heparin Sodium (Porcine) (Heparin Sod (Porcine) 1000 Unit/Ml) 500 units IV Q1H JW Stop: 02/14/21 11:01 Last Admin: 02/14/21 12:07 Dose: Not Given Documented by: [id number] Admin: 02/14/21 12:07 Dose: Not Given Documented by: [id number] Admin: 02/14/21 12:07 Dose: Not Given Documented by: [id number] Insulin Human Regular (Novolin-R Insulin Per Unit Charge) 10 units IV NOW STA Stop: 02/14/21 08:29 Last Admin: 02/14/21 09:33 Dose: 10 units Documented by: [id number] Cosigned by: [id number] Nitroglycerin (Nitroglycerin 2% Ointment 30gm Tube) 0.5 inch EXT NOW STA Stop: 02/14/21 07:47 Last Admin: 02/14/21 09:31 Dose: 0.5 inch Documented by: [id number] Sodium Bicarbonate (Sodium Bicarb 8.4% Inj 50 Meq/50 Ml Syr) 50 meq IV NOW STA Stop: 02/14/21 08:29 Last Admin: 02/14/21 09:34 Dose: 50 meq Documented by: [id number] Imaging Data Radiologist's Impression: Chest X-Ray 02/14/21 07:17 XR chest 1V portable HISTORY: 65 years-old Female Dyspnea acute shortness of breath COMPARISON: Chest radiographs 01/31/2021 TECHNIQUE: Portable AP view of the chest FINDINGS: Cardiac silhouette is enlarged. Pulmonary vascular congestion with reticular interstitial coarsening, perihilar and bibasilar consolidation. Layering pleural effusions without pneumothorax. No acute fracture. Surgical clips project over the abdominal right upper quadrant. IMPRESSION: 1. Cardiomegaly with pulmonary edema. 2. Layering pleural effusions with bibasilar consolidation suggestive of atelectasis or less likely pneumonitis. ACT 112: Negative or not required by law. The above report was generated using voice recognition software. It may contain grammatical, syntax or spelling errors. Electronically signed by: Valdez Luciano M.D. 02/14/2021 7:44 AM Discharge Plan Visit Data Chief Complaint: Shortness of Breath/Dyspnea Stated Complaint: SOB ED Provider: Maciejczyk,Heri F ED Midlevel Provider: Tony Castanon Discharge Problem: Acute respiratory failure, Pulmonary edema, End stage renal disease on dialysis Patient Disposition: Admitted As Inpatient Discharge Instructions Interventions: ED Discharge Assessment Last Done: 02/14/21 10:59
[2021-02-14] MEDS ORDERED: SODIUM BICARB 8.4% INJ 50 MEQ/50 ML SYR IV STA (08:28)
[2021-02-14] MEDS ORDERED: CALCIUM GLUCONATE 10% 10 ML VIAL IV STA (08:28)
[2021-02-14] MEDS ORDERED: NovoLIN-R INSULIN PER UNIT CHARGE IV STA (08:28)
[2021-02-14] MEDS ORDERED: DEXTROSE 50% 50 ML SYRINGE IV ONE ×4 (08:28→14:43)
[2021-02-14 08:30] LABS: iSTAT Creatinine 7.1 mg/dl (0.6-1.3); iSTAT Hemoglobin 7.5 g/dl (12.0-16.0); iSTAT Ionized Calcium 1.09 mmol/l (1.12-1.32); iSTAT Potassium 6.8 mmol/L (3.3-5.0)
[2021-02-14 08:33] LABS: Basophils # (auto) 0.01 K/uL (0-0.2); Basophils % (auto) 0.2 %; Eosinophils # (auto) 0.14 K/uL (0-0.5); Eosinophils % (auto) 2.3 %; Hematocrit (blood only) 25.9 % (37-47); Hemoglobin 8.3 g/dL (12.0-16.0); Immature Granulocytes # (auto) 0.14 K/uL (0.00-0.02); Immature Granulocytes % (auto) 2.3 %; Lymphocytes # (auto) 0.54 K/uL (1.2-3.4); Lymphocytes % (auto) 8.9 %; Mean Corpuscular Hemoglobin 31.6 pg (25-34); Mean Corpuscular Volume 98.5 fL (80-100); Mean Platelet Volume 10.3 fL (7.4-10.4); Monocytes # (auto) 0.17 K/uL (0.11-0.59); Monocytes % (auto) 2.8 %; Neutrophils # (auto) 5.08 K/uL (1.4-6.5); Neutrophils % (auto) 83.5 %; Platelet Count 165 K/uL (130-400); RDW Coefficient of Variation 19.2 % (11.5-14.5); RDW Standard Deviation 67.5 fL (36.4-46.3); Red Blood Count 2.63 M/uL (4.2-5.4); White Blood Count 6.08 K/uL (4.8-10.8)
[2021-02-14] MEDS ORDERED: SODIUM CHLORIDE 0.9% 1000ML 1,000 ML IV PRN (08:54)
[2021-02-14 09:00] LABS: Alanine Aminotransferase 16 U/L (12-78); Albumin Globulin Ratio 0.4 (0.9-2); Albumin Level 1.8 gm/dl (3.4-5.0); Alkaline Phosphatase 165 U/L (45-117); Aspartate Aminotransferase 21 U/L (15-37); BUN Creatinine Ratio 8.9 (10-20); Bilirubin,Total 0.5 mg/dl (0.2-1); Blood Urea Nitrogen 59 mg/dl (7-18); Calcium 9.3 mg/dl (8.5-10.1); Carbon Dioxide 27 mmol/L (21-32); Chloride 103 mmol/L (98-107); Creatinine Clr Calc Pharmacy 6.6 ml/min; Est GFR (African American) 6.8 ml/min; Est GFR (Non-African American) 5.9 ml/min; Glucose 91 mg/dl (70-99); Magnesium 2.3 mg/dl (1.8-2.4); NT Pro B Type Natriuretic Pept > 35000 pg/ml (0-900); Potassium 6.7 mmol/L (3.5-5.1); Sodium 138 mmol/L (136-145); Total Protein 5.8 gm/dl (6.4-8.2); Troponin I 0.029 ng/ml (0-0.045)
--- NOTE | 2021-02-14 09:05 | Nephrology Consultation ---
Date of Consultation February 14, 2021 Assessment & Plan (1) Pulmonary edema: * CHF in part related to progressive weight loss following liver transplant. Will need to reassess HD EDW (2) Cardiomyopathy: * Recommend serial cardiac enzymes, ECG. Consider follow up echocardiogram (3) End stage renal disease on dialysis: * Will provide emergency HD this morning. HD RN notified and orders entered into EMR. Plan of care disussed w/ primary service and ICU team * Will attempt 4 L UF w/ HD today * Outpatient HD orders: TTS 3hr 30 min F-180NR Qb 350 3K 2.5Ca 1Mg 135Na 35HCO3 EDW 53kg L RC AVF 16g needles (4) Status post liver transplant: * On Cyclosporine modified. MMF stopped due to neutropenia (5) Hyperammonemia: * Consider lactulose therapy - recommend discussion w/ transplant team History of Present Illness Reason for Consultation: ESRD on HD, CHF History of Present Illness Ms. Cagle is a 65 year old white female who is seen at the request of Dr. Adam to provide emergency HD. 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 She dialyzes at [facility] TTS 3hr 30 min F-180NR Qb 350 3K 2.5Ca 1Mg 135Na 35HCO3 EDW 53kg L RC AVF 16g needles. Ms. 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 She underwent liver transplant 07/20/20 at [facility]. She is on Cyclosporin modified therapy. Mycophenolate was stopped due to neutropenia. Ms. Cagle has become progressively weak since her transplant and has been losing weight. She has a h/o cardiomyopathy. This morning Ms. Cagle prepared for HD but became acutely dyspneic. She called 911. Her initial O2 sat was in the 70's. BiPAP was started and Ms. Cagle was brought to the ED. She was afebrile but CXR was c/w CHF. Troponin was normal but BNP was markedly elevated. COVID- 19 testing was negative. Hospitalist team has arranged admission to telemetry bed. Nephrology consultation was requested for emergency HD. Allergies Allergy/AdvReac Type Severity Reaction Status Date / Time morphine AdvReac Intermediate Nausea Verified 02/14/21 08:32 Home Medications Medication Instructions Recorded Confirmed Type carvedilol 25 mg tablet 12.5 mg PO BID 01/18/21 02/14/21 History cyclosporine modified 25 mg capsule 75 mg PO Q12H 01/18/21 02/14/21 History epoetin beta, methoxy peg 200 200 mcg IV .[id number] 01/18/21 02/14/21 History mcg/0.3 mL injection syringe (Mircera) levothyroxine 75 mcg capsule 75 mcg PO QAM 01/18/21 02/14/21 History lisinopril 40 mg tablet 40 mg PO DAILY 01/18/21 02/14/21 History loperamide 2 mg capsule 2 mg PO BID PRN 01/18/21 02/14/21 History megestrol 400 mg/10 mL (10 mL) 400 mg PO QAM 01/18/21 02/14/21 History oral suspension pantoprazole 40 mg tablet,delayed 40 mg PO BID 01/18/21 02/14/21 History release thiamine HCl (vitamin B1) 100 mg 100 mg PO DAILY 01/18/21 02/14/21 History tablet amlodipine 10 mg tablet 10 mg PO DAILY 01/31/21 02/14/21 History atovaquone 750 mg/5 mL oral 1,500 mg PO DAILY 01/31/21 02/14/21 History suspension vitamin B complex-folic acid 0.4 1 tab PO DAILY 01/31/21 02/14/21 History mg tablet (Balance B-50 (with folic acid)) Patient History Medical History Anemia Cardiomyopathy echo 04/29/18 showed diffuse hypokinesis, LVEF 30-35% End-stage renal disease on hemodialysis Hypertension Neutropenia Polycystic kidney disease Secondary hyperparathyroidism of renal origin Surgical History Hx of tubal ligation Social History Smoking Status: Never smoker Hx Alcohol Use: No Hx Substance Use: No Preferred Language: Lao Communication Ability: Effective Fruit Grader Required: No Beliefs That Will Affect Care: None marital status: / Current Living Situation: Family Current Living Situation Comment: Lives with Daughter. Feels Safe at Home: Yes Assistive Devices: None Review of Systems Constitutional: + weakness; no fever Eyes: no problem reported Ear, Nose, Mouth, Throat: no problem reported Respiratory: + dyspnea; no cough Cardiovascular: no chest pain Gastrointestinal: no abdominal pain, no nausea, no vomiting and no diarrhea/l oose stools Integumentary: no rash Neurologic: no confusion Physical Exam Constitutional: + ill appearing and + in distress Eyes: PERRL, conjunctivae normal, anicteric sclerae ENMT: external ear and nose normal, oropharynx normal Neck: trachea midline, no thyromegaly Respiratory: + labored breathing Auscultation: + rales Cardiovascular: Rate/Rhythm: + tachycardic AVF + bruit Gastrointestinal (Abdomen): normal bowel sounds, soft, nontender, no hepatosplenomegaly Skin: no rashes, warm and dry Neurologic: awake; not confused Results & Data ([facility]) Vital Signs (Past 12 Hours) Vital Signs Temp Pulse Pulse Resp BP Pulse Ox 02/14/21 07:33 36.8 C 102 H 18 160/83 H 94 02/14/21 07:20 109 H 34 H 94 02/14/21 07:15 112 H 28 H 73 L Laboratory Results Laboratory Tests 02/13/21 02/13/21 02/14/21 08:35 08:35 08:07 WBC 4.27 L 6.08 Hgb 8.5 L 8.3 L Hct 27.5 L 25.9 L Plt Count 158 165 POC Sodium Sodium 139 POC Potassium Potassium 5.4 H POC Chloride Chloride 103 Carbon Dioxide 27 POC Total CO2 BUN 44 H Creatinine 5.49 H* Glucose 104 H Lactate Calcium 9.2 Phosphorus 5.1 H Magnesium 2.0 AST ALT Alkaline Phosphatase 169 H Ammonia NT-Pro-B Natriuret Pep Albumin 1.8 L 02/14/21 02/14/21 02/14/21 08:07 08:07 08:07 WBC Hgb Hct Plt Count POC Sodium Sodium POC Potassium Potassium POC Chloride Chloride Carbon Dioxide POC Total CO2 BUN 59 H Creatinine 6.65 H* D Glucose 91 Lactate 1.0 Calcium Phosphorus Magnesium AST 21 ALT 16 Alkaline Phosphatase 165 H Ammonia 39.9 H NT-Pro-B Natriuret Pep > 50981 H Albumin 1.8 L 02/14/21 08:15 WBC Hgb Hct Plt Count POC Sodium 135 Sodium POC Potassium 6.8 H* Potassium POC Chloride 101 Chloride Carbon Dioxide POC Total CO2 24 BUN Creatinine Glucose Lactate Calcium Phosphorus Magnesium AST ALT Alkaline Phosphatase Ammonia NT-Pro-B Natriuret Pep Albumin Laboratory Tests 02/14/21 07:56 SARS-CoV-2 (PCR) NEGATIVE Diagnostic Findings CXR: Cardiomegaly with pulmonary edema. Layering pleural effusions with bi basilar consolidation suggestive of atelectasis or less likely pneumonitis. PG Care Time/CCT Total # of Minutes Spent Total Time Spent with Patient: Total time spent is greater than 50% in coordination of care (as documented) at patient's floor/unit and/or counseling patient: Coding Level of Care Code 80085 Inpt Consult Level 5 Diagnoses Pulmonary edema J81.1 End stage renal disease on dialysis N18.6; Z99.2 Status post liver transplant Z94.4 Hyperammonemia E72.20 Cardiomyopathy I42.9
--- NOTE | 2021-02-14 09:05 | History & Physical Report ---
Date of Service February 14, 2021 Assessment & Plan (1) Acute respiratory failure: (2) Pulmonary edema: Plan: This is a 65yo F with a PMH of liver transplant at [facility] in June 2020, ESRD on hemodialysis, history of dilated cardiomyopathy, hypertension and other medical problems listed below who presents with dyspnea and was found to be in acute respiratory failure in setting of pulmonary edema. Initially hypoxic in 70s, improved to 91 % on cpap via EMS CXR showed cardiomegaly with pulmonary edema and layering pleural effusions with bibasilar consolidation suggestive of atelectasis or less likely pneumonitis. proBNP over 35,000 Emergent dialysis arranged by Dr. Bob, initiated in Developed respiratory distress - transitioned to bipap by respiratory with significant improvement Now saturating at 95% on bipap, continue to monitor closely (3) End stage renal disease on dialysis: Plan: Undergoing HD in Initial potassium 6.7, creatinine 6.65 Dr. Bob consulted (4) Hyperkalemia: Plan: Initial K 6.7 in setting of ESRD Given D50, IV insulin, calcium gluconate in ER Will recheck labs following HD this afternoon (5) Hypoglycemia: Plan: BSG checked when patient in distress in found to be 38 - given D50 with im proved bsg to 126 Given 10 IV insulin in ER in setting of hyperkalemia, has been hypoglycemic intermittently since Checking bsg every hour, started on d10 @ 60 ml/hr (6) Status post liver transplant: Plan: History of liver transplant at [facility] in June 2020,history of infectious complications since most recently admitted to [place] in October 2020 Discussed case with transplant surgeon, Dr. Falk No beds available at their facility Plan to move to wait list for transfer if patient develops infectious s/sx, abnormalities with LFTs Currently afebrile, no leukocytosis, LFTs unremarkable Dr. Falk: [phone], craft coordinator, [phone] (7) Cardiomyopathy: Plan: CXR with pulmonary edema Echo 04/29/18 showed diffuse hypokinesis, LVEF 30-35% Consider repeat TTE once patient more stable (8) Hyperammonemia: Plan: Initially 39.9, no confusion Continue to monitor (9) Hypertension: Plan: Borderline hypotensive during dialysis Holding home antihypertensives for now DVT Ppx: SQ heparin Code status: FULL PCP: Tuan Dispo: Admitted to [facility] - may need higher level of care following HD Patient seen in collaboration with Dr. Ruiz. Please see addendum. History of Present Illness Chief Complaint: SOB Primary Care Provider: Isaias Dickerson MD This is a 65yo F with a PMH of liver transplant at [facility] in June 2020, ESRD on hemodialysis, history of dilated cardiomyopathy, hypertension and other medical problems listed below who presents with dyspnea. Was preparing for hemodialysis at home this morning when she became acutely short of breath. Had gained 5 lbs since previous weight check and was feeling fatigued as well. Was brought in via EMS for further evaluation. Initial oxygen saturation in the 70s. Patient initially started on CPAP. CXR showed cardiomegaly with pulmonary edema and layering pleural effusions with bibasilar consolidation suggestive of atelectasis or less likely pneumonitis. proBNP over 35,000. Potassium 6.7. Creatinine 6.65. Case discussed with Dr. Bob, who arranged for emergent dialysis on [facility] floor since no rooms available otherwise. Case discussed with liver transplant surgeon Dr. Falk of [facility]. Will coordinate care closely during admission and plan to transfer if patient develops abnormalities of LFTs or infection. Evaluated in 258-1 while undergoing dialysis. Initially tachypneic at 40 and lethargic on CPAP. Respiratory was called and patient transitioned to BiPAP with improved oxygen saturation to 95. Respiratory rate now 20. Was also given D50 due to blood sugar of 38. Patient feels much more alert and is significantly less short of breath. Denies any pain. No chest pain, shortness of breath or abdominal pain. Makes limited urine in setting of end-stage renal disease. No diarrhea or constipation. Allergies Allergy/AdvReac Type Severity Reaction Status Date / Time morphine AdvReac Intermediate Nausea Verified 02/14/21 08:32 Home Medications Medication Instructions Recorded Confirmed Type carvedilol 25 mg tablet 12.5 mg PO BID 01/18/21 02/14/21 History cyclosporine modified 25 mg capsule 75 mg PO Q12H 01/18/21 02/14/21 History epoetin beta, methoxy peg 200 200 mcg IV .[id number] 01/18/21 02/14/21 History mcg/0.3 mL injection syringe (Mircera) levothyroxine 75 mcg capsule 75 mcg PO QAM 01/18/21 02/14/21 History lisinopril 40 mg tablet 40 mg PO DAILY 01/18/21 02/14/21 History loperamide 2 mg capsule 2 mg PO BID PRN 01/18/21 02/14/21 History megestrol 400 mg/10 mL (10 mL) 400 mg PO QAM 01/18/21 02/14/21 History oral suspension pantoprazole 40 mg tablet,delayed 40 mg PO BID 01/18/21 02/14/21 History release thiamine HCl (vitamin B1) 100 mg 100 mg PO DAILY 01/18/21 02/14/21 History tablet amlodipine 10 mg tablet 10 mg PO DAILY 01/31/21 02/14/21 History atovaquone 750 mg/5 mL oral 1,500 mg PO DAILY 01/31/21 02/14/21 History suspension vitamin B complex-folic acid 0.4 1 tab PO DAILY 01/31/21 02/14/21 History mg tablet (Balance B-50 (with folic acid)) Past Med/Surg History Medical History Anemia Cardiomyopathy echo 04/29/18 showed diffuse hypokinesis, LVEF 30-35% End-stage renal disease on hemodialysis Hypertension Neutropenia Polycystic kidney disease Secondary hyperparathyroidism of renal origin Surgical History Hx of tubal ligation Family History (Updated 02/14/21 @ 14:08 by Ana Espinosa PA-C) Other Adopted Social History Smoking Status: Never smoker Hx Alcohol Use: No Hx Substance Use: No Preferred Language: Micronesian Communication Ability: Effective Bag Valver Required: No Beliefs That Will Affect Care: None marital status: / Current Living Situation: Family Current Living Situation Comment: Lives with Daughter. Feels Safe at Home: Yes Assistive Devices: None Review of Systems Review of Systems: At least ten systems reviewed and negative except as noted in the HPI. Physical Exam Physical Exam: General Appearance: WD/WN, vitals as above, NAD, sitting up in bed, bipap mask in place, alert and communicating without issue, undergoing HD Head: normocephalic, atraumatic Eyes: normal inspection, PERRL, conjunctivae normal, anicteric sclerae ENT: external ear and nose normal, bipap mask Neck: normal visual inspection, trachea midline, no thyromegaly Respiratory: increased respiratory effort, bibasilar rales, no wheeze or rhonchi. No accessory muscle use Cardiovascular: tachycardic rate, regular rhythm, no murmur appreciated, normal peripheral pulses, no BLE edema. Vessels: no JVD Chest: normal inspection of chest Abdomen/GI: normal bowel sounds, soft, nontender, no hepatosplenomegaly Extremities/Musculoskeletal: no cyanosis or clubbing, extremities motor strength 5/5 Neurologic: PERRL, EOMI, accommodation nl, no face palsy, no dysarthria, CN's II-XI intact bilaterally and moves all extremities Psychiatric: A+Ox3, euthymic affect Skin: no rashes, normal color, warm/dry Results & Data Results & Data ([facility]) Vital Signs (Past 12 Hours) Vital Signs Temp Pulse Pulse Resp BP Pulse Ox 02/14/21 07:33 36.8 C 102 H 18 160/83 H 94 02/14/21 07:20 109 H 34 H 94 02/14/21 07:15 112 H 28 H 73 L Laboratory Results Short CBC 02/14/21 Range/Units 08:07 WBC 6.08 (4.8-10.8) K/uL Hgb 8.3 L (12.0-16.0) g/dL Hct 25.9 L (37-47) % Plt Count 165 (130-400) K/uL BMP 02/14/21 08:07 Sodium 138 Potassium 6.7 H* D Chloride 103 Carbon Dioxide 27 BUN 59 H Creatinine 6.65 H* D Glucose 91 Calcium 9.3 Cardiac Enzymes 02/14/21 Range/Units 08:07 Troponin I 0.029 (0-0.045) ng/ml Liver Function 02/14/21 Range/Units 08:07 Total Bilirubin 0.5 (0.2-1) mg/dl AST 21 (15-37) U/L ALT 16 (12-78) U/L Alkaline Phosphatase 165 H (45-117) U/L Albumin 1.8 L (3.4-5.0) gm/dl Diagnostic Findings Chest X-Ray 02/14/21 07:17 XR chest 1V portable HISTORY: 65 years-old Female Dyspnea acute shortness of breath COMPARISON: Chest radiographs 01/31/2021 TECHNIQUE: Portable AP view of the chest FINDINGS: Cardiac silhouette is enlarged. Pulmonary vascular congestion with reticular interstitial coarsening, perihilar and bibasilar consolidation. Layering pleural effusions without pneumothorax. No acute fracture. Surgical clips project over the abdominal right upper quadrant. IMPRESSION: 1. Cardiomegaly with pulmonary edema. 2. Layering pleural effusions with bibasilar consolidation suggestive of atelectasis or less likely pneumonitis. ACT 112: Negative or not required by law. The above report was generated using voice recognition software. It may contain grammatical, syntax or spelling errors. Electronically signed by: Valdez Luciano M.D. 02/14/2021 7:44 AM Code Status & VTE Plan VTE Prophylaxis Plan VTE Prophylaxis will be ordered: Yes Supervising Physician Co-Signing Physician Notes Attending addendum: She is a 65yo F with significant PMH of liver transplant at [facility] in June 2020, ESRD on hemodialysis, history of dilated cardiomyopathy, hypertension and other medical condition as mentioned in H&P She has had her usual dialysis session on Saturday and is preparing for dialysis today when she was noted to be very short of breath She was brought into the emergency room and noted to be hypoxic with acute pulmonary edema and hyperkalemia She denied any chest pain, any abdominal pain, nausea and or vomiting She was admitted to medical telemetry unit for continuation of care with involvement of tafe teacher and letting the transplant team about the admission On examination Has been going through dialysis during my examination Has had episode of shortness of breath with desaturation before the dialysis this evening when the blood sugar was noted to be around lower 40s She received a dose of regular insulin of 10 units with dextrose due to hyperkalemia in the emergency room Has been on BiPAP and feels better during examination Chestdecreased breath sounds at the bases HeartS1-S2 Abdomenbenign Extremitiestrace edema bilaterally Her admission labs, EKG and imaging studies reviewed Has acute pulmonary edema/volume overload and hyperkalemia with end-stage renal disease on hemodialysis Status post liver transplant in June of this year The transplant team was informed over the admission, dialysis has been ongoing as per tafe teacher We will get echocardiogram to evaluate cardiac function Agree with assessment and plan as outlined above by ABDIRASHID Nieves Dr
[2021-02-14 09:17] LABS: Allen Test Pos (Pos); Base Excess ABG 2.1 mEq/L (-9-1.8); HCO3 ABG 26 mmol/L (19-24); Oxygen Saturation ABG 95.3 % (90-95); PCO2 ABG 35 mmHg (35-46); PO2 ABG 75 mmHg (80-95); pH ABG 7.48 (7.35-7.45)
[2021-02-14] MEDS ORDERED: CALCIUM GLUCONATE 1000 MG/60 ML NSS IV STA (09:47)
[2021-02-14] MEDS ORDERED: HEPARIN SOD (PORCINE) 1000 UNIT/ML IV SCH (11:00)
[2021-02-14] MEDS ORDERED: EPOETIN ALFA 10,000 UNITS/ML VIAL IV SCH (11:00)
[2021-02-14] MEDS ORDERED: ONDANSETRON INJ 2 MG/ML 2 ML VIAL IV PRN (11:02)
[2021-02-14] MEDS ORDERED: POLYETHYLENE (MIRALAX) 17 GM PACK PO PRN (11:02)
[2021-02-14] MEDS ORDERED: ACETAMINOPHEN 325 MG TAB PO PRN (11:02)
[2021-02-14] MEDS: HEPARIN SOD (PORCINE) 1000 UNIT/ML IV SCH (12:07)
[2021-02-14] MEDS ORDERED: DEXTROSE 10% 1,000 ML IV SCH (14:00)
--- NOTE | 2021-02-14 15:17 | Dialysis Progress Note ---
Date of Service February 14, 2021 Assessment & Plan (1) End stage renal disease on dialysis: Plan: No change to current HD prescription. Attempting 4 L UF. Patient remains hemodynamically stable. Will repeat CXR in am. Admission and Anticipated Discharge Date Admission Date: February 14, 2021 Subjective Ms. Cagle was seen while on HD this afternoon. Her breathing appears less labored. AVF is functioning well. Results & Data ([facility]) Vital Signs (Past 12 Hours) Vital Signs Temp Pulse Pulse Resp BP BP BP 02/14/21 15:00 116 H 138/72 02/14/21 14:40 113 H 124/70 02/14/21 14:20 94 H 130/73 02/14/21 14:00 99 H 131/76 02/14/21 13:40 98 H 134/76 02/14/21 13:20 97 H 150/78 H 02/14/21 12:53 93 H 126/75 02/14/21 12:40 94 H 143/81 H 02/14/21 12:20 90 120/71 02/14/21 12:00 93 H 90/56 L 02/14/21 11:40 103 H 99/63 L 02/14/21 11:20 99 H 135/75 02/14/21 11:16 36.6 C 99 H 02/14/21 11:00 36.6 C 111 H 20 159/81 H 02/14/21 10:59 102 H 18 158/93 H 02/14/21 10:49 112 H 34 H 02/14/21 09:04 107 H 18 170/107 H 02/14/21 07:33 36.8 C 102 H 18 160/83 H 02/14/21 07:20 109 H 34 H 02/14/21 07:15 112 H 28 H Pulse Ox 02/14/21 15:00 02/14/21 14:40 02/14/21 14:20 02/14/21 14:00 02/14/21 13:40 02/14/21 13:20 02/14/21 12:53 02/14/21 12:40 02/14/21 12:20 02/14/21 12:00 02/14/21 11:40 02/14/21 11:20 02/14/21 11:16 02/14/21 11:00 91 02/14/21 10:59 94 02/14/21 10:49 99 02/14/21 09:04 95 02/14/21 07:33 94 02/14/21 07:20 94 02/14/21 07:15 73 L [facility] Procedure Codes (Charges) Renal/Urologic Renal/Urologic: 59531 Hemodialysis, One Evaluation Coding Level of Care Code None Diagnoses End stage renal disease on dialysis N18.6; Z99.2 CPT Codes Renal/Urologic - Renal/Urologic: 19159 Hemodialysis, One Evaluation ([id number])
[2021-02-14] MEDS ORDERED: ACETAMINOPHEN 65 ML IV ONE (16:00)
[2021-02-14] MEDS: HEPARIN SOD 5,000 UNIT/0.5 ML VIAL SQ SCH ×2 (16:26→20:37)
[2021-02-14 16:52] LABS: Hematocrit (blood only) 27.5 % (37-47); Hemoglobin 8.7 g/dL (12.0-16.0); Mean Corpuscular Hemoglobin 31.1 pg (25-34); Mean Corpuscular Volume 98.2 fL (80-100); Platelet Count 129 K/uL (130-400); RDW Coefficient of Variation 19.2 % (11.5-14.5); RDW Standard Deviation 67.8 fL (36.4-46.3)
[2021-02-14 16:56] LABS: Mean Corpuscular Hgb Conc 31.6 g/dL (32-36)
--- NOTE | 2021-02-14 17:00 | Electrocardiogram Report ---
Test Reason : Blood Pressure : / mmHG Vent. Rate : 105 BPM Atrial Rate : 105 BPM P-R Int : 154 ms QRS Dur : 086 ms QT Int : 360 ms P-R-T Axes : 053 027 -15 degrees QTc Int : 475 ms Poor data quality, interpretation may be adversely affected Sinus tachycardia Otherwise normal ECG When compared with ECG of 31-JAN-2021 16:45, No significant change Confirmed by Herminio Edmondson ([id number]) on 02/14/2021 5:00:08 PM Referred By: REFERRED SELF Confirmed By:Herminio Edmondson
[2021-02-14 17:21] LABS: Albumin Globulin Ratio 0.4 (0.9-2); Albumin Level 1.8 gm/dl (3.4-5.0); BUN Creatinine Ratio 6.2 (10-20); Bilirubin,Total 0.7 mg/dl (0.2-1); Calcium 8.4 mg/dl (8.5-10.1); Creatinine Clr Calc Pharmacy 14.2 ml/min; Est GFR (Non-African American) 15.5 ml/min; Globulin 4.1 gm/dl (2.5-4.0); Total Protein 5.9 gm/dl (6.4-8.2)
--- NOTE | 2021-02-14 18:10 | XRay Report ---
XR chest 1V portable CLINICAL HISTORY: following hd COMPARISON STUDY: Chest CT January 16, 2021. Chest radiograph February 14, 2021 performed earlier to day. FINDINGS: Cardiomegaly is unchanged. There is no pneumothorax. Small bilateral pleural effusions with bibasilar opacities are again noted. Interstitial thickening and perihilar opacities have improved. There is no pneumothorax. IMPRESSION: 1. Persistent, but moderately improved, pulmonary edema. 2. Small bilateral pleural effusions with persistent bibasilar opacities. ACT 112: Negative or not required by law. Electronically signed by: Reji Shelley M.D. 02/14/2021 6:09 PM
[2021-02-14 18:27] LABS: Hematocrit (blood only) 23.6 % (37-47); Hemoglobin 7.4 g/dL (12.0-16.0); Mean Corpuscular Hemoglobin 31.4 pg (25-34); Mean Platelet Volume 10.4 fL (7.4-10.4); Platelet Count 132 K/uL (130-400); RDW Standard Deviation 67.5 fL (36.4-46.3); Red Blood Count 2.36 M/uL (4.2-5.4); White Blood Count 3.83 K/uL (4.8-10.8)
[2021-02-14 18:40] LABS: Base Excess ABG 6.6 mEq/L (-9-1.8); HCO3 ABG 29 mmol/L (19-24); PCO2 ABG 33 mmHg (35-46); PO2 ABG 186 mmHg (80-95)
[2021-02-14 18:42] LABS: Albumin Globulin Ratio 0.4 (0.9-2); Albumin Level 1.7 gm/dl (3.4-5.0); Allen Test Pos (Pos); BUN Creatinine Ratio 6.1 (10-20); Bilirubin,Total 0.6 mg/dl (0.2-1); Calcium 8.1 mg/dl (8.5-10.1); Creatinine Clr Calc Pharmacy 14.2 ml/min; Est GFR (African American) 17.9 ml/min; Est GFR (Non-African American) 15.4 ml/min; Globulin 3.8 gm/dl (2.5-4.0); Potassium 4.2 mmol/L (3.5-5.1); Total Protein 5.5 gm/dl (6.4-8.2)
[2021-02-14 18:47] LABS: Mean Corpuscular Hgb Conc 31.4 g/dL (32-36)
[2021-02-14] MEDS ORDERED: LOPERAMIDE HCL 2 MG CAP PO PRN (18:53)
[2021-02-14 18:55] LABS: pH ABG 7.56 (7.35-7.45)
--- NOTE | 2021-02-14 20:31 | CT Scan Report ---
CT OF THE HEAD WITHOUT CONTRAST CLINICAL HISTORY: Altered mental status. COMPARISON STUDY: Head CT January 31, 2021. CT DOSE: 1996.36 mGy.cm TECHNIQUE: Helical axial images of the head were obtained without IV contrast. Automated exposure con trol was utilized for the study. A dose lowering technique was utilized adhering to the principles o f ALARA. FINDINGS: This exam is mildly compromised by motion artifact. Hypodensities within the bilateral basa l ganglia are unchanged and could reflect old lacunar infarcts or prominent perivascular spaces. The appearance of the brain is unchanged. No acute intracranial hemorrhage, midline shift or mass effect is present. The ventricular system is unremarkable. The basal cisterns are patent. No extra-axial col lections are present. There are no findings to suggest acute dural sinus thrombosis or acute territor ial infarct. No significant calvarial abnormalities are present. Visualized portions of the sinuses a nd mastoid air cells are clear. IMPRESSION: 1. No acute intracranial findings. No change in appearance of the brain. 2. Exam mildly compromised by motion artifact. ACT 112: Negative or not required by law. Electronically signed by: Reji Shelley M.D. 02/14/2021 8:30 PM
[2021-02-14] MEDS: carvediloL 12.5 MG TAB PO SCH (20:38)
[2021-02-14] MEDS: cycloSPORINE 25 MG CAP PO SCH (20:38)
[2021-02-15] MEDS: LEVOTHYROXINE SODIUM 75 MCG TABLET PO SCH (06:12)
[2021-02-15] MEDS: HEPARIN SOD 5,000 UNIT/0.5 ML VIAL SQ SCH ×3 (06:12→21:00)
[2021-02-15 06:29] LABS: Albumin Level 1.5 gm/dl (3.4-5.0); BUN Creatinine Ratio 6.2 (10-20); Calcium 8.4 mg/dl (8.5-10.1); Creatinine Clr Calc Pharmacy 9.8 ml/min; Est GFR (African American) 12.6 ml/min; Est GFR (Non-African American) 10.8 ml/min; Potassium 4.8 mmol/L (3.5-5.1)
[2021-02-15 06:31] LABS: Albumin Globulin Ratio 0.4 (0.9-2); Bilirubin,Total 0.6 mg/dl (0.2-1); Globulin 3.4 gm/dl (2.5-4.0); Total Protein 4.9 gm/dl (6.4-8.2)
[2021-02-15 06:41] LABS: Hematocrit (blood only) 21.3 % (37-47); Hemoglobin 6.7 g/dL (12.0-16.0); Mean Corpuscular Hemoglobin 31.3 pg (25-34); Mean Corpuscular Hgb Conc 31.5 g/dL (32-36); Mean Corpuscular Volume 99.5 fL (80-100); Mean Platelet Volume 10.2 fL (7.4-10.4); Platelet Count 106 K/uL (130-400); RDW Coefficient of Variation 19.5 % (11.5-14.5); RDW Standard Deviation 69.4 fL (36.4-46.3); Red Blood Count 2.14 M/uL (4.2-5.4); White Blood Count 2.75 K/uL (4.8-10.8)
[2021-02-15] MEDS ORDERED: diphenhydrAMINE 50 MG/ML VIAL IV ONE (08:31)
[2021-02-15] MEDS ORDERED: SODIUM CHLORIDE 0.9% 250 ML IV PRN ×2 (08:31→08:36)
[2021-02-15] MEDS: MEGESTROL ACETATE SUSP 400 MG/10 ML UDC PO SCH (09:01)
[2021-02-15] MEDS: PANTOprazole 40 MG TAB PO SCH ×2 (09:01→21:00)
[2021-02-15] MEDS: carvediloL 12.5 MG TAB PO SCH ×2 (09:01→21:00)
[2021-02-15] MEDS: VITAMIN B COMPLEX TAB PO SCH (09:01)
[2021-02-15] MEDS: THIAMINE HCL 100 MG TAB PO SCH (09:01)
[2021-02-15] MEDS: cycloSPORINE 25 MG CAP PO SCH ×2 (09:02→21:00)
[2021-02-15] MEDS: amLODIPine BESYLATE 5 MG TAB PO SCH (09:02)
[2021-02-15] MEDS: ATOVAQUONE 750 MG/5 ML UDC PO SCH (09:02)
[2021-02-15] MEDS ORDERED: SODIUM CHLORIDE 0.9% 1000ML 1,000 ML IV PRN (09:09)
[2021-02-15] MEDS ORDERED: EPOETIN ALFA 10,000 UNITS/ML VIAL IV SCH (09:30)
--- NOTE | 2021-02-15 09:33 | Nephrology Progress Note ---
Date of Service February 15, 2021 Assessment & Plan (1) Pulmonary edema: Plan: * CHF in part related to progressive weight loss following liver transplant. Will need to reassess HD EDW (2) Cardiomyopathy: Plan: * Troponin has returned to baseline. ECG revealed on sinus tachycardia * Consider echocardiogram (3) End-stage renal disease on hemodialysis: Plan: * 3.5 L UF obtained w/ HD yesterday. Patient remains clinically volume overloaded. CXR this am shows improvement but still significant pulmonary vascular congestion. Will provide heparin free HD today and attempt additional 3 L UF. HD orders were placed in EMR and HD RN notified * Outpatient HD orders: TTS 3hr 30 min F-180NR Qb 350 3K 2.5Ca 1Mg 135Na 35HCO3 EDW 53kg L RC AVF 16g needles (4) Anemia: Plan: * Abrupt drop in Hgb overnight * On PPI therapy * Will order iron studies and FOBT * Discussed indications/benefits/risks of blood transfusion with patient this am. Written consent obtained and placed in chart. Will transfuse 2 U irradiated leukoreduced PRBC w/ HD today. Discussed w/ primary service and staffing program manager * Will provide PATI w/ HD today (5) Status post liver transplant: Plan: * On Cyclosporine modified (Neoral). MMF stopped due to neutropenia (6) Hyperammonemia: Plan: * Corrected. Recommend monitoring level and consider lactulose therapy if ammonia trends up. Recommend discussion w/ transplant team Admission and Anticipated Discharge Date Admission Date: February 14, 2021 Subjective Ms. Cagle was evaluated in her hospital room this morning. She was A&O x3. She c/o mild abdominal discomfort but denies hematochezia or melena. staffing program manager reports that attempts to wean O2 last evening were unsuccessful. Patient became hypoxemic into the 60's and confused. She was placed back on CPAP therapy. Ms. Cagle hopes to be discharged from the hospital by this weekend to attend a wedding Review of Systems Constitutional: + weakness; no fever Eyes: no problem reported Ear, Nose, Mouth, Throat: no problem reported Respiratory: + dyspnea; no cough Cardiovascular: no chest pain Gastrointestinal: no abdominal pain, no nausea, no vomiting and no diarrhea/loose stools Integumentary: no rash Neurologic: no confusion Physical Exam Constitutional: + ill appearing and + in distress Eyes: PERRL, conjunctivae normal, anicteric sclerae ENMT: external ear and nose normal, oropharynx normal Neck: trachea midline, no thyromegaly Respiratory: no respiratory distress Auscultation: lungs clear to auscultation bilaterally Cardiovascular: Rate/Rhythm: + tachycardic Gastrointestinal (Abdomen): normal bowel sounds, soft, nontender, no hepatosplenomegaly Skin: no rashes, warm and dry Neurologic: awake; not confused Results & Data ([facility]) Vital Signs (Past 12 Hours) Vital Signs Temp Pulse Pulse Resp BP Pulse Ox 02/15/21 07:43 100 H 28 H 94 02/15/21 07:35 99 02/15/21 07:25 69 L 02/15/21 07:00 103 H 02/15/21 04:00 37 C 94 H 16 146/66 H 95 02/15/21 00:18 37.4 C 95 H 137/64 96 02/14/21 23:53 91 H 02/14/21 22:15 22 97 Laboratory Tests 02/15/21 02/15/21 05:20 05:20 WBC 2.75 L Hgb 6.7 L* Hct 21.3 L Plt Count 106 L Sodium 137 Potassium 4.8 Chloride 102 Carbon Dioxide 31 BUN 25 H Creatinine 4.02 H D Glucose 104 H Calcium 8.4 L Total Bilirubin 0.6 AST 21 ALT 12 Alkaline Phosphatase 115 Albumin 1.5 L PG Care Time/CCT Total # of Minutes Spent Total Time Spent with Patient: Total time spent is greater than 50% in coordination of care (as documented) at patient's floor/unit and/or counseling patient: Coding Level of Care Code 61339 Subseq Hosp Care Lvl 3 Diagnoses Pulmonary edema J81.0 Chronicity: acute Cardiomyopathy I42.9 End-stage renal disease on hemodialysis N18.6; Z99.2 Status post liver transplant Z94.4 Hyperammonemia E72.20 Anemia D64.9 Anemia type: unspecified type (1) Pulmonary edema Chronicity: acute Qualified Code(s): J81.0 - Acute pulmonary edema (2) Anemia Anemia type: unspecified type Qualified Code(s): D64.9 - Anemia, unspecified
[2021-02-15 09:44] LABS: Ferritin 2385.2 ng/ml (8-388)
[2021-02-15 10:13] LABS: Vitamin B12 > 2000 pg/ml (193-986)
--- NOTE | 2021-02-15 11:10 | XRay Report ---
XR chest 1V portable CLINICAL HISTORY: CHF COMPARISON STUDY: February 14, 2021 FINDINGS: No pneumothorax. Bilateral pleural effusion are again seen not significantly changed since prior. Out interval worsening of bilateral perihilar reticular and airspace opacities, central distribution of opacities is usually seen in pulmonary edema, worsening since prior. Cardiac silhouette is within upper limits of normal. Aorta is calcified. Pulmonary vasculature is obscured.. Osseous structures: Osteopenia. IMPRESSION: 1. Mild interval worsening of bilateral pulmonary edema. Bilateral pleural effusions are not signifi cantly changed since prior. 2. Atherosclerosis. ACT 112: Negative or not required by law. The above report was generated using voice recognition software. It may contain grammatical, syntax o r spelling errors. Electronically signed by: Regi Rivas DO 02/15/2021 11:08 AM
--- NOTE | 2021-02-15 11:54 | Cardiology Consultation ---
Date of Consultation February 15, 2021 Assessment & Plan (1) Acute respiratory failure: (2) Pulmonary edema: (3) End stage renal disease on dialysis: (4) Status post liver transplant: (5) Cardiomyopathy: At this point I do not have much to offer this patient. She seems to be doing better post dialysis. I agree that the best option is for her to be transferred to [facility] for further care. History of Present Illness Attending Physician: Deandre Benitez MD History of Present Illness This is a 65-year-old female who is well-known to me with a history of polycystic kidney and liver disease as well and idiopathic cardiomyopathy. The patient underwent a liver transplant at [facility] earlier this year. She has had several post transplant issues and complications due to immunosuppression. The patient was admitted to the hospital with pulmonary edema and underwent emergent dialysis. She is feeling improvement. Contact has been made with [facility] transplant team and the plan is for her to be transferred there soon as is available. Allergies Allergy/AdvReac Type Severity Reaction Status Date / Time morphine AdvReac Intermediate Nausea Verified 02/14/21 08:32 Home Medications Medication Instructions Recorded Confirmed Type carvedilol 25 mg tablet 12.5 mg PO BID 01/18/21 02/14/21 History cyclosporine modified 25 mg capsule 75 mg PO Q12H 01/18/21 02/14/21 History epoetin beta, methoxy peg 200 200 mcg IV .[id number] 01/18/21 02/14/21 History mcg/0.3 mL injection syringe (Mircera) levothyroxine 75 mcg capsule 75 mcg PO QAM 01/18/21 02/14/21 History lisinopril 40 mg tablet 40 mg PO DAILY 01/18/21 02/14/21 History loperamide 2 mg capsule 2 mg PO BID PRN 01/18/21 02/14/21 History megestrol 400 mg/10 mL (10 mL) 400 mg PO QAM 01/18/21 02/14/21 History oral suspension pantoprazole 40 mg tablet,delayed 40 mg PO BID 01/18/21 02/14/21 History release thiamine HCl (vitamin B1) 100 mg 100 mg PO DAILY 01/18/21 02/14/21 History tablet amlodipine 10 mg tablet 10 mg PO DAILY 01/31/21 02/14/21 History atovaquone 750 mg/5 mL oral 1,500 mg PO DAILY 01/31/21 02/14/21 History suspension vitamin B complex-folic acid 0.4 1 tab PO DAILY 01/31/21 02/14/21 History mg tablet (Balance B-50 (with folic acid)) Patient History Medical History Anemia Cardiomyopathy echo 04/29/18 showed diffuse hypokinesis, LVEF 30-35% End-stage renal disease on hemodialysis Hypertension Neutropenia Polycystic kidney disease Secondary hyperparathyroidism of renal origin Surgical History Hx of tubal ligation Family History Other Adopted Social History Smoking Status: Never smoker Hx Alcohol Use: No Hx Substance Use: No Preferred Language: Chinese Communication Ability: Effective 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 Feels Safe at Home: Yes Assistive Devices: Oxygen - Continuous Review of Systems Review of Systems: Review of Systems: See HPI for pertinent positives. All other 10 point review of systems are negative. Physical Exam Physical Exam: General: no acute distress and stated age Head: normocephalic, no masses, lesions, tenderness or abnormalities Eyes: conjunctiva are pink and non-injected, sclera clear Neck: supple, no adenopathy, no bruits, normal jugular venous pulse, no hepatojugular reflux Chest: normal shape and normal respiratory effort Lungs: clear to auscultation and percussion Cardiac Exam: - regular rate & rhythm, no murmurs gallops or rubs - normal S1, normal S2 Pulses: 2(+) throughout Abdomen: Post transplant Musculoskeletal: no gait disturbance, no joint inflammation, no deforming arthritis Extremities: no edema and no cyanosis Neuro: grossly normal exam Results & Data ([facility]) Vital Signs (Past 12 Hours) Vital Signs Temp Pulse Pulse Resp BP Pulse Ox 02/15/21 10:41 36.8 C 86 17 134/71 100 02/15/21 07:43 100 H 28 H 94 02/15/21 07:35 99 09/22/21 07:25 69 L 02/15/21 07:00 103 H 02/15/21 04:00 37 C 94 H 16 146/66 H 95 02/15/21 00:18 37.4 C 95 H 137/64 96 02/14/21 23:53 91 H Laboratory Results Laboratory Results - last 24 hr 02/14/21 02/14/21 02/14/21 11:48 12:08 13:02 WBC RBC Hgb Hct MCV MCH MCHC RDW Std Deviation RDW Coeff of Igor Plt Count MPV ABG pH ABG pCO2 ABG pO2 ABG HCO3 ABG O2 Saturation ABG Base Excess Carl Test Barometric Pressure Oxygen Given Sodium Potassium Chloride Carbon Dioxide Anion Gap BUN Creatinine Est Cr Clr Drug Dosing Est GFR ( Amer) Est GFR (Non-Af Amer) BUN/Creatinine Ratio Glucose POC Glucose 38 L* 126 H 80 Calcium Iron TIBC Transferrin Transferrin % Sat Ferritin Total Bilirubin AST ALT Alkaline Phosphatase Ammonia Total Protein Albumin Globulin Albumin/Globulin Ratio Vitamin B12 Folate Blood Type Antibody Screen Crossmatch 02/14/21 02/14/21 02/14/21 14:11 15:03 16:01 WBC RBC Hgb Hct MCV MCH MCHC RDW Std Deviation RDW Coeff of Igor Plt Count MPV ABG pH ABG pCO2 ABG pO2 ABG HCO3 ABG O2 Saturation ABG Base Excess Carl Test Barometric Pressure Oxygen Given Sodium Potassium Chloride Carbon Dioxide Anion Gap BUN Creatinine Est Cr Clr Drug Dosing Est GFR ( Amer) Est GFR (Non-Af Amer) BUN/Creatinine Ratio Glucose POC Glucose 61 L* 112 H 110 H Calcium Iron TIBC Transferrin Transferrin % Sat Ferritin Total Bilirubin AST ALT Alkaline Phosphatase Ammonia Total Protein Albumin Globulin Albumin/Globulin Ratio Vitamin B12 Folate Blood Type Antibody Screen Crossmatch 02/14/21 02/14/21 02/14/21 16:25 16:25 17:18 WBC 5.10 RBC 2.80 L Hgb 8.7 L Hct 27.5 L MCV 98.2 MCH 31.1 MCHC 31.6 L RDW Std Deviation 67.8 H RDW Coeff of Igor 19.2 H Plt Count 129 L MPV 10.0 ABG pH ABG pCO2 ABG pO2 ABG HCO3 ABG O2 Saturation ABG Base Excess Carl Test Barometric Pressure Oxygen Given Sodium 140 Potassium 4.0 D Chloride 103 Carbon Dioxide 31 Anion Gap 6.0 BUN 18 D Creatinine 2.99 H D Est Cr Clr Drug Dosing 14.2 Est GFR ( Amer) 18.0 Est GFR (Non-Af Amer) 15.5 BUN/Creatinine Ratio 6.2 L Glucose 101 H POC Glucose 103 H Calcium 8.4 L Iron TIBC Transferrin Transferrin % Sat Ferritin Total Bilirubin 0.7 AST 25 ALT 17 Alkaline Phosphatase 148 H Ammonia Total Protein 5.9 L Albumin 1.8 L Globulin 4.1 H Albumin/Globulin Ratio 0.4 L Vitamin B12 Folate Blood Type Antibody Screen Crossmatch 02/14/21 02/14/21 02/14/21 18:05 18:05 18:05 WBC 3.83 L RBC 2.36 L Hgb 7.4 L Hct 23.6 L MCV 100.0 MCH 31.4 MCHC 31.4 L RDW Std Deviation 67.5 H RDW Coeff of Igor 19.0 H Plt Count 132 MPV 10.4 ABG pH 7.56 H* ABG pCO2 33 L ABG pO2 186 H ABG HCO3 29 H ABG O2 Saturation 100.0 H ABG Base Excess 6.6 H Carl Test Pos Barometric Pressure 735.0 Oxygen Given 10L Sodium 140 Potassium 4.2 Chloride 105 Carbon Dioxide 30 Anion Gap 5.0 BUN 18 Creatinine 3.00 H Est Cr Clr Drug Dosing 14.2 Est GFR ( Amer) 17.9 Est GFR (Non-Af Amer) 15.4 BUN/Creatinine Ratio 6.1 L Glucose 98 POC Glucose Calcium 8.1 L Iron TIBC Transferrin Transferrin % Sat Ferritin Total Bilirubin 0.6 AST 23 ALT 17 Alkaline Phosphatase 137 H Ammonia Total Protein 5.5 L Albumin 1.7 L Globulin 3.8 Albumin/Globulin Ratio 0.4 L Vitamin B12 Folate Blood Type Antibody Screen Crossmatch 02/14/21 02/14/21 02/14/21 18:25 19:30 20:03 WBC RBC Hgb Hct MCV MCH MCHC RDW Std Deviation RDW Coeff of Igor Plt Count MPV ABG pH ABG pCO2 ABG pO2 ABG HCO3 ABG O2 Saturation ABG Base Excess Carl Test Barometric Pressure Oxygen Given Sodium Potassium Chloride Carbon Dioxide Anion Gap BUN Creatinine Est Cr Clr Drug Dosing Est GFR ( Amer) Est GFR (Non-Af Amer) BUN/Creatinine Ratio Glucose POC Glucose 111 H 102 H Calcium Iron TIBC Transferrin Transferrin % Sat Ferritin Total Bilirubin AST ALT Alkaline Phosphatase Ammonia 21.6 Total Protein Albumin Globulin Albumin/Globulin Ratio Vitamin B12 Folate Blood Type Antibody Screen Crossmatch 02/14/21 02/14/21 02/14/21 20:36 21:36 22:38 WBC RBC Hgb Hct MCV MCH MCHC RDW Std Deviation RDW Coeff of Igor Plt Count MPV ABG pH ABG pCO2 ABG pO2 ABG HCO3 ABG O2 Saturation ABG Base Excess Carl Test Barometric Pressure Oxygen Given Sodium Potassium Chloride Carbon Dioxide Anion Gap BUN Creatinine Est Cr Clr Drug Dosing Est GFR ( Amer) Est GFR (Non-Af Amer) BUN/Creatinine Ratio Glucose POC Glucose 95 110 H 108 H Calcium Iron TIBC Transferrin Transferrin % Sat Ferritin Total Bilirubin AST ALT Alkaline Phosphatase Ammonia Total Protein Albumin Globulin Albumin/Globulin Ratio Vitamin B12 Folate Blood Type Antibody Screen Crossmatch 02/14/21 02/15/21 02/15/21 23:31 01:40 04:41 WBC RBC Hgb Hct MCV MCH MCHC RDW Std Deviation RDW Coeff of Igor Plt Count MPV ABG pH ABG pCO2 ABG pO2 ABG HCO3 ABG O2 Saturation ABG Base Excess Carl Test Barometric Pressure Oxygen Given Sodium Potassium Chloride Carbon Dioxide Anion Gap BUN Creatinine Est Cr Clr Drug Dosing Est GFR ( Amer) Est GFR (Non-Af Amer) BUN/Creatinine Ratio Glucose POC Glucose 135 H 118 H 109 H Calcium Iron TIBC Transferrin Transferrin % Sat Ferritin Total Bilirubin AST ALT Alkaline Phosphatase Ammonia Total Protein Albumin Globulin Albumin/Globulin Ratio Vitamin B12 Folate Blood Type Antibody Screen Crossmatch 02/15/21 02/15/21 02/15/21 05:20 05:20 06:17 WBC 2.75 L RBC 2.14 L Hgb 6.7 L* Hct 21.3 L MCV 99.5 MCH 31.3 MCHC 31.5 L RDW Std Deviation 69.4 H RDW Coeff of Igor 19.5 H Plt Count 106 L MPV 10.2 ABG pH ABG pCO2 ABG pO2 ABG HCO3 ABG O2 Saturation ABG Base Excess Carl Test Barometric Pressure Oxygen Given Sodium 137 Potassium 4.8 Chloride 102 Carbon Dioxide 31 Anion Gap 4.0 BUN 25 H Creatinine 4.02 H D Est Cr Clr Drug Dosing 9.8 Est GFR ( Amer) 12.6 Est GFR (Non-Af Amer) 10.8 BUN/Creatinine Ratio 6.2 L Glucose 104 H POC Glucose 112 H Calcium 8.4 L Iron 20 L TIBC 106 L Transferrin 92 L Transferrin % Sat 15 Ferritin 2385.2 H Total Bilirubin 0.6 AST 21 ALT 12 Alkaline Phosphatase 115 Ammonia Total Protein 4.9 L Albumin 1.5 L Globulin 3.4 Albumin/Globulin Ratio 0.4 L Vitamin B12 Folate Blood Type Antibody Screen Crossmatch 02/15/21 02/15/21 02/15/21 07:16 08:49 08:49 WBC RBC Hgb Hct MCV MCH MCHC RDW Std Deviation RDW Coeff of Igor Plt Count MPV ABG pH ABG pCO2 ABG pO2 ABG HCO3 ABG O2 Saturation ABG Base Excess Carl Test Barometric Pressure Oxygen Given Sodium Potassium Chloride Carbon Dioxide Anion Gap BUN Creatinine Est Cr Clr Drug Dosing Est GFR ( Amer) Est GFR (Non-Af Amer) BUN/Creatinine Ratio Glucose POC Glucose 103 H Calcium Iron TIBC Transferrin Transferrin % Sat Ferritin Total Bilirubin AST ALT Alkaline Phosphatase Ammonia Total Protein Albumin Globulin Albumin/Globulin Ratio Vitamin B12 > 2000 H Folate 16.40 Blood Type O Positive Antibody Screen NEGATIVE Crossmatch See Detail 02/15/21 11:18 WBC RBC Hgb Hct MCV MCH MCHC RDW Std Deviation RDW Coeff of Igor Plt Count MPV ABG pH ABG pCO2 ABG pO2 ABG HCO3 ABG O2 Saturation ABG Base Excess Carl Test Barometric Pressure Oxygen Given Sodium Potassium Chloride Carbon Dioxide Anion Gap BUN Creatinine Est Cr Clr Drug Dosing Est GFR ( Amer) Est GFR (Non-Af Amer) BUN/Creatinine Ratio Glucose POC Glucose 99 Calcium Iron TIBC Transferrin Transferrin % Sat Ferritin Total Bilirubin AST ALT Alkaline Phosphatase Ammonia Total Protein Albumin Globulin Albumin/Globulin Ratio Vitamin B12 Folate Blood Type Antibody Screen Crossmatch Medications Administered Current Inpatient Medications Acetaminophen (Acetaminophen 325 Mg Tab) 650 mg PO Q4H PRN PRN Reason: Pain or Fever Stop: 03/16/21 11:01 Amlodipine Besylate (Amlodipine Besylate 5 Mg Tab) 10 mg PO DAILY JW Stop: 03/17/21 08:59 Last Admin: 02/15/21 09:02 Dose: 10 mg Documented by: Atovaquone (Atovaquone 750 Mg/5 Ml Udc) 1,500 mg PO DAILY JW Stop: 03/17/21 08:59 Last Admin: 02/15/21 09:02 Dose: 1,500 mg Documented by: Carvedilol (Carvedilol 12.5 Mg Tab) 12.5 mg PO BID [facility] Stop: 03/16/21 20:59 Last Admin: 02/15/21 09:01 Dose: 12.5 mg Documented by: Cyclosporine (Cyclosporine 25 Mg Cap) 75 mg PO Q12 [facility] Stop: 03/16/21 20:59 Last Admin: 02/15/21 09:02 Dose: 75 mg Documented by: Diphenhydramine HCl (Diphenhydramine 50 Mg/Ml Vial) 25 mg IV PRE-TREAT ONE Stop: 02/15/21 16:31 Epoetin Pillo (Epoetin Pillo 10,000 Units/Ml Vial) 10,000 units IV TODAY@0930 [facility] Stop: 02/15/21 18:00 Heparin Sodium (Porcine) (Heparin Sod 5,000 Unit/0.5 Ml Vial) 5,000 units SQ Q8 [facility] Stop: 03/16/21 13:59 Last Admin: 02/15/21 06:12 Dose: 5,000 units Documented by: Sodium Chloride (Nss) 250 mls @ 15 mls/hr IV .[id number] PRN PRN Reason: For Transfusion Stop: 02/15/21 18:32 Sodium Chloride (Nss) 250 mls @ 15 mls/hr IV .[id number] PRN PRN Reason: For Transfusion Stop: 02/15/21 18:36 Sodium Chloride (Nss 1000ml) 1,000 mls @ 0 mls/hr IV .Q0M PRN PRN Reason: For Hemodialysis Use ONLY Stop: 02/15/21 15:08 Levothyroxine Sodium (Levothyroxine Sodium 75 Mcg Tablet) 75 mcg PO DAILYBB [facility] Stop: 03/17/21 06:29 Last Admin: 02/15/21 06:12 Dose: 75 mcg Documented by: Loperamide HCl (Loperamide Hcl 2 Mg Cap) 2 mg PO BID PRN PRN Reason: Diarrhea Stop: 03/16/21 18:52 Megestrol Acetate (Megestrol Acetate Susp 400 Mg/10 Ml Udc) 400 mg PO QAM [facility] Stop: 03/17/21 08:59 Last Admin: 02/15/21 09:01 Dose: 400 mg Documented by: Ondansetron HCl (Ondansetron Inj 2 Mg/Ml 2 Ml Vial) 4 mg IV Q6H PRN PRN Reason: Nausea Stop: 03/16/21 11:01 Pantoprazole Sodium (Pantoprazole 40 Mg Tab) 40 mg PO BID [facility] Stop: 03/17/21 08:59 Last Admin: 02/15/21 09:01 Dose: 40 mg Documented by: Polyethylene Glycol (Polyethylene (Miralax) 17 Gm Pack) 17 gm PO DAILY PRN PRN Reason: Constipation Stop: 03/16/21 11:01 Thiamine HCl (Thiamine Hcl 100 Mg Tab) 100 mg PO DAILY JW Stop: 03/17/21 08:59 Last Admin: 02/15/21 09:01 Dose: 100 mg Documented by: Vitamin B Complex (Vitamin B Complex Tab) 1 tab PO DAILY [facility] Stop: 03/17/21 08:59 Last Admin: 02/15/21 09:01 Dose: 1 tab Documented by:
--- NOTE | 2021-02-15 20:35 | Hospitalist Progress Note ---
Date of Service February 15, 2021 Assessment & Plan (1) Acute respiratory failure: (2) Pulmonary edema: (3) Status post liver transplant: (4) Hyperammonemia: (5) End stage renal disease on dialysis: Plan: 65yo F with a PMH of liver transplant at [facility] in June 2020, ESRD on hemodialysis, history of dilated cardiomyopathy, hypertension presented with dyspnea and was found to be in acute respiratory failure in setting of pulmonary edema on 02/14. She is being managed for the following: #. Acute respiratory failure #. Pulmonary edema #. Cardiomyopathy 06/30/2017 echo: EF 30 to 35%, diffuse hypokinesis. Prior to presentation, hypoxic in 70s, improved to 91 % on cpap via EMS Admitting CXR showed cardiomegaly with pulmonary edema and layering pleural effusions with bibasilar consolidation suggestive of atelectasis or less likely pneumonitis. proBNP over 35,000 Status post emergent hemodialysis 02/14 and subsequent dialysis 02/15 Currently on oxygen max at 3 L, chest x-ray slightly worsened compared to yesterday, will get cardiology on board #. Anemia Hemoglobin 6.7 today, status post 2 unit PRBC transfusion FOBT and anemia panel sent, await results Does not complaint of black his stool or bleeding per rectum. Monitor hemoglobin daily #. End stage renal disease on dialysis: Dr. Bob consulted Status post emergent hemodialysis 02/14 [3.5 L out] and subsequent dialysis 02/15 [3 L out]. #. Hyperkalemia: Resolved #. Hypoglycemia: Resolved #. Status post liver transplant History of liver transplant at [facility] in June 2020,history of infectious complications since most recently admitted to [facility] in October 2020 Discussed case with transplant surgeon, Dr. Falk No beds available at their facility, updated Dr. Falk today. Plan to move to wait list for transfer if patient develops infectious s/sx, abnormalities with LFTs Currently afebrile, no leukocytosis, LFTs unremarkable Dr. Falk: [phone], health and wellness coordinator, [facility] [phone] #. Hyperammonemia: Resolved #. Hypertension: Borderline, continue to monitor. Continue with home meds DVT Ppx: SQ heparin Code status: FULL PCP: Tuan Dispo: Continue care in med tele -may need transfer if her liver function worsens or any signs of infection. Admission and Anticipated Discharge Date Admission Date: February 14, 2021 Subjective On Oxy mask 3 L, NAD, no issues overnight. Does not use oxygen at home, uses walker for ambulation at home. She c/o mild abdominal discomfort but denies hematochezia or melena. Denies fever/chills/headache/chest pain/other review of symptoms. Physical Exam Physical Exam: GENERAL: Alert and oriented x3. NAD, on 3L HEENT: No pallor, no icterus. Pupils equal, round and reactive to light. Oral mucosa moist. NECK: No JVD, no neck masses. HEART: S1 and S2 heard. Regular rate and rhythm. systolic murmur in Pulmonic area, no gallop. RESPIRATORY SYSTEM: Normal AP diameter. No accessory muscle use. No wheezing, bibasilar crackles. ABDOMEN: Soft, bowel sounds present, nontender, no distention. CENTRAL NERVOUS SYSTEM: Alert and oriented x3. No facial droop. Speech is clear. Obeys simple commands. Moves extremities. EXTREMITIES: No edema, no erythema seen. Results & Data Results & Data ([facility]) Vital Signs (Past 12 Hours) Vital Signs Temp Pulse Pulse Pulse Resp BP BP 02/15/21 19:03 37.0 C 97 H 20 159/76 H 02/15/21 16:40 36.6 C 84 177/89 H 02/15/21 16:00 75 169/87 H 02/15/21 15:45 75 169/87 H 02/15/21 15:42 79 02/15/21 15:35 36.6 C 82 24 172/90 H 02/15/21 15:30 82 172/90 H 02/15/21 15:15 84 177/85 H 02/15/21 15:00 86 169/86 H 02/15/21 14:45 92 H 164/96 H 02/15/21 14:30 36.6 C 88 24 166/87 H 02/15/21 14:15 36.6 C 87 24 166/81 H 02/15/21 14:00 81 161/81 H 02/15/21 13:45 83 161/67 H 02/15/21 13:40 86 152/77 H 02/15/21 13:20 37.1 C 88 18 144/76 H 02/15/21 13:07 37.1 C 02/15/21 11:02 02/15/21 10:41 36.8 C 86 17 134/71 Pulse Ox Pulse Ox 02/15/21 19:03 95 02/15/21 16:40 02/15/21 16:00 02/15/21 15:45 02/15/21 15:42 02/15/21 15:35 02/15/21 15:30 02/15/21 15:15 02/15/21 15:00 02/15/21 14:45 02/15/21 14:30 02/15/21 14:15 02/15/21 14:00 02/15/21 13:45 02/15/21 13:40 02/15/21 13:20 02/15/21 13:07 02/15/21 11:02 97 02/15/21 10:41 100
[2021-02-15] MEDS ORDERED: CARBOHYDRATES FOR HYPOGLYCEMIA PO ONE (21:14)
[2021-02-15] MEDS: DEXTROSE 5% 1,000 ML IV SCH (21:45)
[2021-02-16] MEDS: LEVOTHYROXINE SODIUM 75 MCG TABLET PO SCH (06:10)
[2021-02-16] MEDS: HEPARIN SOD 5,000 UNIT/0.5 ML VIAL SQ SCH ×3 (06:10→20:39)
[2021-02-16 07:08] LABS: Hematocrit (blood only) 28.6 % (37-47); Hemoglobin 9.4 g/dL (12.0-16.0); Mean Corpuscular Hemoglobin 31.1 pg (25-34); Mean Corpuscular Hgb Conc 32.9 g/dL (32-36); Mean Corpuscular Volume 94.7 fL (80-100); RDW Coefficient of Variation 18.8 % (11.5-14.5); RDW Standard Deviation 62.9 fL (36.4-46.3); Red Blood Count 3.02 M/uL (4.2-5.4); White Blood Count 2.78 K/uL (4.8-10.8)
[2021-02-16 07:32] LABS: Mean Platelet Volume 10.3 fL (7.4-10.4); Platelet Count 97 K/uL (130-400); Platelet Estimate Decreased (Normal)
[2021-02-16 07:35] LABS: BUN Creatinine Ratio 5.2 (10-20); Calcium 8.8 mg/dl (8.5-10.1); Creatinine Clr Calc Pharmacy 11.6 ml/min; Est GFR (African American) 15.5 ml/min; Est GFR (Non-African American) 13.4 ml/min; Potassium 4.1 mmol/L (3.5-5.1)
[2021-02-16] MEDS ORDERED: SODIUM CHLORIDE 0.9% 1000ML 1,000 ML IV PRN (08:41)
--- NOTE | 2021-02-16 09:10 | Nephrology Progress Note ---
Date of Service February 16, 2021 Assessment & Plan (1) Pulmonary edema: Plan: * CHF in part related to progressive weight loss following liver transplant. Patient is now 3kg below her outpatient EDW. CXR shows improvement but still mild vascular congestion * Recommend weaning O2 (2) Cardiomyopathy: Plan: * Troponin has returned to baseline. ECG revealed on sinus tachycardia * Consider echocardiogram (3) End-stage renal disease on hemodialysis: Plan: * 3 L UF obtained w/ HD yesterday. Patient still has evidence of volume overload. She still requires oxygen therapy. CXR shows improvement but still mild pulmonary vascular congestion. Will provide heparin free HD today and attempt additional 2 L UF. HD orders were placed in EMR and HD RN notified * Outpatient HD orders: TTS 3hr 30 min F-180NR Qb 350 3K 2.5Ca 1Mg 135Na 35HCO3 EDW 53kg L RC AVF 16g needles (4) Anemia: Plan: * Transfused 2 U irradiated/leukocyte reduced PRBC 02/15/21 * On PPI therapy * Iron saturation 15% but ferritin > 1200. Will hold IV iron due to high ferritin * FOBT - pending * Will provide PATI w/ HD today (5) Status post liver transplant: Plan: * On Cyclosporine modified (Neoral). MMF stopped due to neutropenia (6) Hyperammonemia: Plan: * Corrected. Recommend monitoring level and consider lactulose therapy if ammonia trends up. Recommend discussion w/ transplant team (7) Weakness generalized: Plan: * Recommend PT evaluation for strengthening/ambulation Admission and Anticipated Discharge Date Admission Date: February 14, 2021 Subjective Ms. Cagle was evaluated in her hospital room this morning. She was A&O x3. She denied hematochezia or melena overnight. She was dialyzed yesterday for 3L UF and transfused 2U PRBC. There were no complications. Ms. Cagle remains on Oxymask at 3L/min. She hopes to be discharged from the hospital by this weekend to attend a Review of Systems Constitutional: + weakness; no fever Eyes: no problem reported Ear, Nose, Mouth, Throat: no problem reported Respiratory: no cough and no dyspnea Cardiovascular: no chest pain Gastrointestinal: no abdominal pain, no nausea, no vomiting and no diarrhea/loose stools Integumentary: no rash Neurologic: no confusion Physical Exam Eyes: PERRL, conjunctivae normal, anicteric sclerae ENMT: external ear and nose normal, oropharynx normal Neck: trachea midline, no thyromegaly Respiratory: no respiratory distress Auscultation: lungs clear to auscultation bilaterally Cardiovascular: Rate/Rhythm: regular rate and regular rhythm Gastrointestinal (Abdomen): normal bowel sounds, soft, nontender, no hepatosplenomegaly Skin: no rashes, warm and dry Neurologic: awake; not confused Results & Data ([facility]) Vital Signs (Past 12 Hours) Vital Signs Temp Pulse Pulse Pulse Resp BP Pulse Ox 02/16/21 07:13 36.8 C 79 20 156/72 H 95 02/16/21 07:00 82 02/16/21 03:03 36.7 C 88 20 155/78 H 95 02/15/21 22:49 37 C 83 20 154/73 H 93 Laboratory Results Laboratory Tests 02/15/21 02/16/21 02/16/21 05:20 06:55 06:55 WBC 2.78 L Hgb 9.4 L Hct 28.6 L Plt Count 97 L Sodium 139 Potassium 4.1 Chloride 106 Carbon Dioxide 27 BUN 18 Creatinine 3.38 H D Glucose 82 Calcium 8.8 Transferrin % Sat 15 Ferritin 2385.2 H PG Care Time/CCT Total # of Minutes Spent Total Time Spent with Patient: Total time spent is greater than 50% in co ordination of care (as documented) at patient's floor/unit and/or counseling patient: Coding Level of Care Code 02316 Subseq Hosp Care Lvl 3 Diagnoses Pulmonary edema J81.0 Chronicity: acute Cardiomyopathy I42.9 End-stage renal disease on hemodialysis N18.6; Z99.2 Anemia D64.9 Anemia type: unspecified type Status post liver transplant Z94.4 Hyperammonemia E72.20 Weakness generalized R53.1 (1) Pulmonary edema Chronicity: acute Qualified Code(s): J81.0 - Acute pulmonary edema (2) Anemia Anemia type: unspecified type Qualified Code(s): D64.9 - Anemia, unspecified
[2021-02-16] MEDS ORDERED: EPOETIN ALFA 10,000 UNITS/ML VIAL IV SCH (10:00)
--- NOTE | 2021-02-16 10:54 | XRay Report ---
XR chest 1V portable CLINICAL HISTORY: CHF COMPARISON STUDY: February 15, 2021 FINDINGS: No pneumothorax. Bilateral pleural effusions are again seen, small on the right and moderate on the left unchanged sin ce prior study. Bilateral mixed reticular and airspace opacities are again seen within perihilar region, unchanged si nce prior study and might represent pulmonary edema. Cardiac silhouette remains mildly enlarged. Aorta is calcified. Pulmonary vasculature is obscured.. Osseous structures: unremarkable IMPRESSION: 1. Stable CHF pattern with bilateral pleural effusions which are unchanged since yesterday. ACT 112: Negative or not required by law. The above report was generated using voice recognition software. It may contain grammatical, syntax o r spelling errors. Electronically signed by: Regi Rivas DO 02/16/2021 10:52 AM
--- NOTE | 2021-02-16 11:30 | Cardiology Progress Note ---
Date of Service February 16, 2021 Assessment & Plan (1) Acute respiratory failure: (2) Pulmonary edema: (3) End stage renal disease on dialysis: (4) Status post liver transplant: (5) Cardiomyopathy: Plan: The patient's pulmonary edema has cleared after she received dialysis. I am going to order an echocardiogram as she has not had a recent study especially post transplant. There is no plan at this time to transfer the patient due to the bed crunch at [place], unless the patient develops a fever or complications related to her liver transplant. Admission and Anticipated Discharge Date Admission Date: February 14, 2021 Subjective The patient has no new cardiac complaints today. She is receiving dialysis Review of Systems Review of Systems: Review of Systems: See HPI for pertinent positives. All other 10 point review of systems are negative. Except that the patient's receiving dialysis no additional information. Physical Exam Physical Exam: General: no acute distress and stated age Head: normocephalic, no masses, lesions, tenderness or abnormalities Eyes: conjunctiva are pink and non-injected, sclera clear Neck: supple, no adenopathy, no bruits, normal jugular venous pulse, no hepatojugular reflux Chest: normal shape and normal respiratory effort Lungs: clear to auscultation and percussion Cardiac Exam: - regular rate & rhythm, no murmurs gallops or rubs - normal S1, normal S2 Pulses: 2(+) throughout Abdomen: Post transplant Musculoskeletal: no gait disturbance, no joint inflammation, no deforming arthritis Extremities: no edema and no cyanosis Neuro: grossly normal exam Results & Data ([facility]) Vital Signs (Past 12 Hours) Vital Signs Temp Pulse Pulse Pulse Resp BP BP 02/16/21 11:00 86 132/76 02/16/21 10:40 86 143/83 H 02/16/21 10:20 81 147/78 H 02/16/21 10:00 76 160/79 H 02/16/21 09:43 79 155/75 H 02/16/21 09:40 36.8 C 83 02/16/21 07:13 36.8 C 79 20 156/72 H 02/16/21 07:00 82 02/16/21 03:03 36.7 C 88 20 155/78 H Pulse Ox 02/16/21 11:00 02/16/21 10:40 02/16/21 10:20 02/16/21 10:00 02/16/21 09:43 02/16/21 09:40 02/16/21 07:13 95 02/16/21 07:00 02/16/21 03:03 95 Laboratory Results Laboratory Results - last 24 hr 02/15/21 02/15/21 02/15/21 08:49 16:03 20:34 WBC RBC Hgb Hct MCV MCH MCHC RDW Std Deviation RDW Coeff of Igor Plt Count MPV Platelet Estimate Sodium Potassium Chloride Carbon Dioxide Anion Gap BUN Creatinine Est Cr Clr Drug Dosing Est GFR ( Amer) Est GFR (Non-Af Amer) BUN/Creatinine Ratio Glucose POC Glucose 70 73 Calcium Blood Type O Positive Antibody Screen NEGATIVE Crossmatch See Detail 02/15/21 02/15/21 02/16/21 21:06 21:39 06:08 WBC RBC Hgb Hct MCV MCH MCHC RDW Std Deviation RDW Coeff of Igor Plt Count MPV Platelet Estimate Sodium Potassium Chloride Carbon Dioxide Anion Gap BUN Creatinine Est Cr Clr Drug Dosing Est GFR ( Amer) Est GFR (Non-Af Amer) BUN/Creatinine Ratio Glucose POC Glucose 65 L* 80 74 Calcium Blood Type Antibody Screen Crossmatch 02/16/21 02/16/21 06:55 06:55 WBC 2.78 L RBC 3.02 L Hgb 9.4 L Hct 28.6 L MCV 94.7 MCH 31.1 MCHC 32.9 RDW Std Deviation 62.9 H RDW Coeff of Igor 18.8 H Plt Count 97 L MPV 10.3 Platelet Estimate Decreased L Sodium 139 Potassium 4.1 Chloride 106 Carbon Dioxide 27 Anion Gap 7.0 BUN 18 Creatinine 3.38 H D Est Cr Clr Drug Dosing 11.6 Est GFR ( Amer) 15.5 Est GFR (Non-Af Amer) 13.4 BUN/Creatinine Ratio 5.2 L Glucose 82 POC Glucose Calcium 8.8 Blood Type Antibody Screen Crossmatch Medications Administered Current Inpatient Medications Acetaminophen (Acetaminophen 325 Mg Tab) 650 mg PO Q4H PRN PRN Reason: Pain or Fever Stop: 03/16/21 11:01 Amlodipine Besylate (Amlodipine Besylate 5 Mg Tab) 10 mg PO DAILY JW Stop: 03/17/21 08:59 Last Admin: 02/15/21 09:02 Dose: 10 mg Documented by: Atovaquone (Atovaquone 750 Mg/5 Ml Udc) 1,500 mg PO DAILY [facility] Stop: 03/17/21 08:59 Last Admin: 02/15/21 09:02 Dose: 1,500 mg Documented by: Carvedilol (Carvedilol 12.5 Mg Tab) 12.5 mg PO BID [facility] Stop: 03/16/21 20:59 Last Admin: 02/15/21 21:00 Dose: 12.5 mg Documented by: Cyclosporine (Cyclosporine 25 Mg Cap) 75 mg PO Q12 JW Stop: 03/16/21 20:59 Last Admin: 02/15/21 21:00 Dose: 75 mg Documented by: Epoetin Pillo (Epoetin Pillo 10,000 Units/Ml Vial) 10,000 units IV 1000 [facility] Stop: 02/16/21 18:00 Last Admin: 02/16/21 10:01 Dose: 10,000 units Documented by: Heparin Sodium (Porcine) (Heparin Sod 5,000 Unit/0.5 Ml Vial) 5,000 units SQ Q8 [facility] Stop: 03/16/21 13:59 Last Admin: 02/16/21 06:10 Dose: 5,000 units Documented by: Dextrose (D5w) 1,000 mls @ 40 mls/hr IV .Q24H [facility] Stop: 03/17/21 21:29 Last Admin: 02/15/21 21:45 Dose: 40 mls/hr Documented by: Sodium Chloride (Nss 1000ml) 1,000 mls @ 0 mls/hr IV .Q0M PRN PRN Reason: For Hemodialysis Use ONLY Stop: 02/16/21 14:40 Levothyroxine Sodium (Levothyroxine Sodium 75 Mcg Tablet) 75 mcg PO DAILYBB [facility] Stop: 03/17/21 06:29 Last Admin: 02/16/21 06:10 Dose: 75 mcg Documented by: Loperamide HCl (Loperamide Hcl 2 Mg Cap) 2 mg PO BID PRN PRN Reason: Diarrhea Stop: 03/16/21 18:52 Megestrol Acetate (Megestrol Acetate Susp 400 Mg/10 Ml Udc) 400 mg PO QAM [facility] Stop: 03/17/21 08:59 Last Admin: 02/15/21 09:01 Dose: 400 mg Documented by: Ondansetron HCl (Ondansetron Inj 2 Mg/Ml 2 Ml Vial) 4 mg IV Q6H PRN PRN Reason: Nausea Stop: 03/16/21 11:01 Pantoprazole Sodium (Pantoprazole 40 Mg Tab) 40 mg PO BID [facility] Stop: 03/17/21 08:59 Last Admin: 02/15/21 21:00 Dose: 40 mg Documented by: Polyethylene Glycol (Polyethylene (Miralax) 17 Gm Pack) 17 gm PO DAILY PRN PRN Reason: Constipation Stop: 03/16/21 11:01 Thiamine HCl (Thiamine Hcl 100 Mg Tab) 100 mg PO DAILY [facility] Stop: 03/17/21 08:59 Last Admin: 02/15/21 09:01 Dose: 100 mg Documented by: Vitamin B Complex (Vitamin B Complex Tab) 1 tab PO DAILY [facility] Stop: 03/17/21 08:59 Last Admin: 02/15/21 09:01 Dose: 1 tab Documented by:
[2021-02-16] MEDS: THIAMINE HCL 100 MG TAB PO SCH (12:46)
[2021-02-16] MEDS: amLODIPine BESYLATE 5 MG TAB PO SCH (12:46)
[2021-02-16] MEDS: MEGESTROL ACETATE SUSP 400 MG/10 ML UDC PO SCH (12:47)
[2021-02-16] MEDS: PANTOprazole 40 MG TAB PO SCH ×2 (12:47→20:39)
[2021-02-16] MEDS: carvediloL 12.5 MG TAB PO SCH ×2 (12:47→20:39)
[2021-02-16] MEDS: VITAMIN B COMPLEX TAB PO SCH (12:47)
[2021-02-16] MEDS: ATOVAQUONE 750 MG/5 ML UDC PO SCH (12:47)
[2021-02-16] MEDS: cycloSPORINE 25 MG CAP PO SCH ×2 (12:47→20:39)
--- NOTE | 2021-02-16 15:25 | Hospitalist Progress Note ---
Date of Service February 16, 2021 Assessment & Plan (1) Acute respiratory failure: (2) Pulmonary edema: (3) Status post liver transplant: (4) Hyperammonemia: (5) End stage renal disease on dialysis: Plan: 65yo F with a PMH of liver transplant at [facility] in June 2020, ESRD on hemodialysis, history of dilated cardiomyopathy, hypertension presented with dyspnea and was found to be in acute respiratory failure in setting of pulmonary edema on 02/14. She is being managed for the following: #. Acute respiratory failure #. Pulmonary edema #. Cardiomyopathy 06/30/2017 echo: EF 30 to 35%, diffuse hypokinesis. Prior to presentation, hypoxic in 70s, improved to 91 % on cpap via EMS Admitting CXR showed cardiomegaly with pulmonary edema and layering pleural effusions with bibasilar consolidation suggestive of atelectasis or less likely pneumonitis. proBNP over 35,000 Status post emergent hemodialysis 02/14 and subsequent dialysis 02/15 and 02/16 Currently on oxygen max at 3 L, chest x-ray slightly stable/improving, Wean down oxygen as tolerated. CXR as needed. #. Anemia Hemoglobin 6.7 today, status post 2 unit PRBC transfusion 02/15 FOBT not collected, iron panel suggestive of anemia of chronic disease with ferritin overload. Folate and vitamin B12 normal Does not complaint of black his stool or bleeding per rectum. Hemoglobin 9.4 today, continue to monitor #. End stage renal disease on dialysis: Dr. Bob consulted Status post emergent hemodialysis 02/14 [3.5 L out] and subsequent dialysis 02/15 [3 L out] and 02/16 [2 L out]. #. Hyperkalemia: Resolved #. Hypoglycemia: Resolved #. Status post liver transplant History of liver transplant at [facility] in June 2020,history of infectious complications since most recently admitted to [facility] in October 2020 Discussed case with transplant surgeon, Dr. Falk No beds available at their facility, updated Dr. Falk today. Plan to move to wait list for transfer if patient develops infectious s/sx, abn ormalities with LFTs Currently afebrile, no leukocytosis, LFTs unremarkable Dr. Falk: [phone], dispatch coordinator, [facility] – [place], [phone] Dr. Falk updated again today. #. Hyperammonemia: Resolved #. Hypertension: Borderline, continue to monitor. Continue with home meds DVT Ppx: SQ heparin Code status: FULL PCP: Tuan Dispo: Continue care in med tele -may need transfer if her liver function worsens or any signs of infection. Await PT/OT recommendation, expect discharge in 1 day unless no new issues arise. Admission and Anticipated Discharge Date Admission Date: February 14, 2021 Subjective Patient lying in bed, on 3 L oxygen, NAD, no issues overnight. Patient feels better. Patient getting hemodialysis. Denies fever/chills/headache/other review of symptoms. We will start her on diet. Physical Exam Physical Exam: GENERAL: Alert and oriented x3. NAD, on 3L HEENT: No pallor, no icterus. Pupils equal, round and reactive to light. Oral mucosa moist. NECK: No JVD, no neck masses. HEART: S1 and S2 heard. Regular rate and rhythm. systolic murmur in Pulmonic area, no gallop. RESPIRATORY SYSTEM: Normal AP diameter. No accessory muscle use. No wheezing, bibasilar cracklesimproving. ABDOMEN: Soft, bowel sounds present, nontender, no distention. CENTRAL NERVOUS SYSTEM: Alert and oriented x3. No facial droop. Speech is clear. Obeys simple commands. Moves extremities. EXTREMITIES: No edema, no erythema seen. Results & Data Results & Data ([facility]) Vital Signs (Past 12 Hours) Vital Signs Temp Pulse Pulse Resp BP BP Pulse Ox 02/16/21 12:14 36.8 C 79 146/79 H 02/16/21 11:44 82 147/77 H 02/16/21 11:20 85 145/70 H 02/16/21 11:00 86 132/76 02/16/21 10:40 86 143/83 H 02/16/21 10:20 81 147/78 H 02/16/21 10:00 76 160/79 H 02/16/21 09:43 79 155/75 H 02/16/21 09:40 36.8 C 83 02/16/21 07:13 36.8 C 79 20 156/72 H 95 02/16/21 07:00 82
--- NOTE | 2021-02-16 18:07 | Electrocardiogram Report ---
Test Reason : Blood Pressure : / mmHG Vent. Rate : 080 BPM Atrial Rate : 080 BPM P-R Int : 128 ms QRS Dur : 082 ms QT Int : 400 ms P-R-T Axes : 000 026 040 degrees QTc Int : 461 ms Normal sinus rhythm Low voltage QRS Diffuse Nonspecific T wave abnormality Abnormal ECG When compared with ECG of 14-FEB-2021 08:56, T wave inversion now evident in Anterior leads Confirmed by Herminio Edmondson ([id number]) on 02/16/2021 6:07:01 PM Referred By: REFERRED SELF Confirmed By:Herminio Edmondson
[2021-02-16 23:42] LABS: Cdiff Antigen Positive
[2021-02-16 23:45] LABS: Cdiff Toxin A+B Positive Cdiff Toxin (Negative)
[2021-02-17] MEDS: DEXTROSE 5% 1,000 ML IV SCH (02:38)
[2021-02-17] MEDS: FIDAXOMICIN 200 MG TAB PO SCH ×3 (02:41→21:07)
[2021-02-17] MEDS: HEPARIN SOD 5,000 UNIT/0.5 ML VIAL SQ SCH ×3 (05:58→21:07)
[2021-02-17] MEDS: PANTOprazole 40 MG TAB PO SCH ×2 (08:25→21:07)
[2021-02-17] MEDS: cycloSPORINE 25 MG CAP PO SCH ×2 (08:25→21:07)
[2021-02-17] MEDS: VITAMIN B COMPLEX TAB PO SCH (08:25)
[2021-02-17] MEDS: LEVOTHYROXINE SODIUM 75 MCG TABLET PO SCH (08:25)
[2021-02-17] MEDS: amLODIPine BESYLATE 5 MG TAB PO SCH (08:25)
[2021-02-17] MEDS: carvediloL 12.5 MG TAB PO SCH ×2 (08:25→21:07)
[2021-02-17] MEDS: ATOVAQUONE 750 MG/5 ML UDC PO SCH (08:25)
[2021-02-17] MEDS: THIAMINE HCL 100 MG TAB PO SCH (08:25)
[2021-02-17] MEDS: MEGESTROL ACETATE SUSP 400 MG/10 ML UDC PO SCH (08:25)
[2021-02-17 09:33] LABS: Hemoglobin 10.2 g/dL (12.0-16.0); Mean Corpuscular Hemoglobin 30.4 pg (25-34); Mean Corpuscular Hgb Conc 31.9 g/dL (32-36); Mean Corpuscular Volume 95.2 fL (80-100); RDW Coefficient of Variation 18.2 % (11.5-14.5); Red Blood Count 3.36 M/uL (4.2-5.4); White Blood Count 2.44 K/uL (4.8-10.8)
[2021-02-17 09:35] LABS: Mean Platelet Volume 10.7 fL (7.4-10.4); Platelet Count 98 K/uL (130-400)
[2021-02-17 09:51] LABS: BUN Creatinine Ratio 6.1 (10-20); Calcium 8.6 mg/dl (8.5-10.1); Creatinine Clr Calc Pharmacy 9.4 ml/min; Est GFR (Non-African American) 10.4 ml/min; Potassium 3.9 mmol/L (3.5-5.1)
--- NOTE | 2021-02-17 09:56 | Nephrology Progress Note ---
Date of Service February 17, 2021 Assessment & Plan (1) Pulmonary edema: Plan: * CHF in part related to progressive weight loss following liver transplant. Patient is now 4kg below her outpatient EDW (53kg) * CXR shows improvement in pulmonary congestion but a moderate L pleural effusion. Will continue to challenge EDW with dialysis. If effusion persists, may need to consider thoracentesis (2) Cardiomyopathy: Plan: * Troponin has returned to baseline. ECG revealed sinus tachycardia * 02/17 echocardiogram: LVEF 30 - 35% (3) End-stage renal disease on hemodialysis: Plan: * Volume status improved. Electrolyte balance is acceptable. No acute indication for HD today. Will schedule next dialysis for am and continue to challenge EDW. * Outpatient HD orders: TTS 3hr 30 min F-180NR Qb 350 3K 2.5Ca 1Mg 135Na 35HCO3 EDW 53kg L RC AVF 16g needles * [facility] contacted this am and advised to adjust EDW down to 48 kg (4) Anemia: Plan: * Transfused 2 U irradiated/leukocyte reduced PRBC 02/15/21 * On PPI therapy * Iron saturation 15% but ferritin > 1200. Will hold IV iron due to high ferritin * FOBT - pending (5) C. difficile colitis: Plan: * Consider Fidaxomicin therapy (6) Status post liver transplant: Plan: * On Cyclosporine modified (Neoral). MMF stopped due to neutropenia (7) Hyperammonemia: Plan: * Corrected. Recommend monitoring level and consider lactulose therapy if ammonia trends up. Recommend discussion w/ transplant team (8) Weakness generalized: Plan: * Recommend PT evaluation for strengthening/ambulation Admission and Anticipated Discharge Date Admission Date: February 14, 2021 Subjective Ms. Cagle was evaluated in her hospital room this morning. She has developed diarrhea and has tested + for C. Difficile toxin. Her oxygen requirements have improved. She is now breathing comfortably flat in bed on . Ms. Cagle is tearful. She was hoping to be discharged to attend a wedding on Saturday. Review of Systems Constitutional: + weakness; no fever Eyes: no problem reported Ear, Nose, Mouth, Throat: no problem reported Respiratory: no cough and no dyspnea Cardiovascular: no chest pain Gastrointestinal: + diarrhea/loose stools; no abdominal pain, no nausea and no vomiting Integumentary: no rash Neurologic: no confusion Physical Exam Constitutional: + ill appearing and + in distress Eyes: PERRL, conjunctivae normal, anicteric sclerae ENMT: external ear and nose normal, oropharynx normal Neck: trachea midline, no thyromegaly Respiratory: no respiratory distress Auscultation: lungs clear to auscultation bilaterally Cardiovascular: Rate/Rhythm: regular rate and regular rhythm Gastrointestinal (Abdomen): normal bowel sounds, soft, nontender, no hepatosplenomegaly Skin: no rashes, warm and dry Neurologic: awake; not confused Results & Data ([facility]) Vital Signs (Past 12 Hours) Vital Signs Temp Pulse Pulse Pulse Resp BP Pulse Ox 02/17/21 07:25 36.5 C 83 18 164/81 H 95 02/17/21 00:58 36.6 C 81 18 156/71 H 93 02/17/21 00:00 89 Laboratory Results Laboratory Tests 02/17/21 02/17/21 09:15 09:15 WBC 2.44 L Hgb 10.2 L Hct 32.0 L Plt Count 98 L Sodium 136 Potassium 3.9 Chloride 104 Carbon Dioxide 26 BUN 25 H Creatinine 4.17 H D Glucose 136 H Calcium 8.6 PG Care Time/CCT Total # of Minutes Spent Total Time Spent with Patient: Total time spent is greater than 50% in coordination of care (as documented) at patient's floor/unit and/or counseling patient: Coding Level of Care Code 28344 Subseq Hosp Care Lvl 3 Diagnoses Pulmonary edema J81.0 Chronicity: acute Cardiomyopathy I42.9 End-stage renal disease on hemodialysis N18.6; Z99.2 Anemia D64.9 Anemia type: unspecified type Status post liver transplant Z94.4 Hyperammonemia E72.20 Weakness generalized R53.1 C. difficile colitis A04.72 (1) Pulmonary edema Chronicity: acute Qualified Code(s): J81.0 - Acute pulmonary edema (2) Anemia Anemia type: unspecified type Qualified Code(s): D64.9 - Anemia, unspecified
[2021-02-17 10:10] LABS: Platelet Estimate CAC (Normal)
--- NOTE | 2021-02-17 11:03 | Cardiology Progress Note ---
Date of Service February 17, 2021 Assessment & Plan (1) Acute respiratory failure: (2) Pulmonary edema: (3) End stage renal disease on dialysis: (4) Status post liver transplant: (5) Cardiomyopathy: Plan: The patient has bilateral pleural effusions with the right being greater than the left. If continue dialysis cannot improve the pleural effusions, then she may benefit from a pleurocentesis. Of note, today she tested positive for C. difficile. Admission and Anticipated Discharge Date Admission Date: February 14, 2021 Subjective The patient has no new complaints today. She is anxious to go to her daughter's wedding tomorrow. Review of Systems Review of Systems: Review of Systems: See HPI for pertinent positives. All other 10 point review of systems are negative. Physical Exam Physical Exam: General: no acute distress and stated age Head: normocephalic, no masses, lesions, tenderness or abnormalities Eyes: conjunctiva are pink and non-injected, sclera clear Neck: supple, no adenopathy, no bruits, normal jugular venous pulse, no hepatojugular reflux Chest: normal shape and normal respiratory effort Lungs: Decreased breath sounds at the bases bilaterally. Cardiac Exam: - regular rate & rhythm, no murmurs gallops or rubs - normal S1, normal S2 Pulses: 2(+) throughout Abdomen: abdomen soft, non-tender, no abnormal masses and no hepatosplenomegaly Musculoskeletal: no gait disturbance, no joint inflammation, no deforming arthritis Extremities: no edema and no cyanosis Neuro: grossly normal exam Results & Data ([facility]) Vital Signs (Past 12 Hours) Vital Signs Temp Pulse Pulse Pulse Resp BP Pulse Ox 02/17/21 07:25 36.5 C 83 18 164/81 H 95 02/17/21 00:58 36.6 C 81 18 156/71 H 93 02/17/21 00:00 89 Laboratory Results Laboratory Results - last 24 hr 02/16/21 02/16/21 02/16/21 12:02 16:31 20:34 WBC RBC Hgb Hct MCV MCH MCHC RDW Std Deviation RDW Coeff of Igor Plt Count MPV Platelet Estimate Sodium Potassium Chloride Carbon Dioxide Anion Gap BUN Creatinine Est Cr Clr Drug Dosing Est GFR ( Amer) Est GFR (Non-Af Amer) BUN/Creatinine Ratio Glucose POC Glucose 70 109 H 96 Calcium Stool Occult Bld Scrn Stl C. diff Tox B Gene Stl C.difficile Tox A&B 02/16/21 02/16/21 02/17/21 21:45 21:45 07:22 WBC RBC Hgb Hct MCV MCH MCHC RDW Std Deviation RDW Coeff of Igor Plt Count MPV Platelet Estimate Sodium Potassium Chloride Carbon Dioxide Anion Gap BUN Creatinine Est Cr Clr Drug Dosing Est GFR ( Amer) Est GFR (Non-Af Amer) BUN/Creatinine Ratio Glucose POC Glucose 75 Calcium Stool Occult Bld Scrn Negative Stl C. diff Tox B Gene Positive Cdiff Gene H Stl C.difficile Tox A&B Positive Cdiff Toxin A* 02/17/21 02/17/21 09:15 09:15 WBC 2.44 L RBC 3.36 L Hgb 10.2 L Hct 32.0 L MCV 95.2 MCH 30.4 MCHC 31.9 L RDW Std Deviation 62.0 H RDW Coeff of Igor 18.2 H Plt Count 98 L MPV 10.7 H Platelet Estimate CAC Sodium 136 Potassium 3.9 Chloride 104 Carbon Dioxide 26 Anion Gap 6.0 BUN 25 H Creatinine 4.17 H D Est Cr Clr Drug Dosing 9.4 Est GFR ( Amer) 12.0 Est GFR (Non-Af Amer) 10.4 BUN/Creatinine Ratio 6.1 L Glucose 136 H POC Glucose Calcium 8.6 Stool Occult Bld Scrn Stl C. diff Tox B Gene Stl C.difficile Tox A&B Diagnostic Findings Echocardiogram reveals the left ventricular ejection fraction to be stable around 35%. Small nonhemodynamically significant pericardial effusion. Pleural effusions noted right greater than left Medications Administered Current Inpatient Medications Acetaminophen (Acetaminophen 325 Mg Tab) 650 mg PO Q4H PRN PRN Reason: Pain or Fever Stop: 03/16/21 11:01 Amlodipine Besylate (Amlodipine Besylate 5 Mg Tab) 10 mg PO DAILY JW Stop: 03/17/21 08:59 Last Admin: 02/17/21 08:25 Dose: 10 mg Documented by: Atovaquone (Atovaquone 750 Mg/5 Ml Udc) 1,500 mg PO DAILY JW Stop: 03/17/21 08:59 Last Admin: 02/17/21 08:25 Dose: 1,500 mg Documented by: Carvedilol (Carvedilol 12.5 Mg Tab) 12.5 mg PO BID JW Stop: 03/16/21 20:59 Last Admin: 02/17/21 08:25 Dose: 12.5 mg Documented by: Cyclosporine (Cyclosporine 25 Mg Cap) 75 mg PO Q12 JW Stop: 03/16/21 20:59 Last Admin: 02/17/21 08:25 Dose: 75 mg Documented by: Fidaxomicin (Fidaxomicin 200 Mg Tab) 200 mg PO BID [facility] Stop: 02/26/21 23:44 Last Admin: 02/17/21 08:25 Dose: 200 mg Documented by: Heparin Sodium (Porcine) (Heparin Sod 5,000 Unit/0.5 Ml Vial) 5,000 units SQ Q8 [facility] Stop: 03/16/21 13:59 Last Admin: 02/17/21 05:58 Dose: 5,000 units Documented by: Heparin Sodium (Porcine) (Heparin Sod (Porcine) 1000 Unit/Ml) 2,000 units IV TODAY@0700 ONE Stop: 02/18/21 07:01 Heparin Sodium (Porcine) (Heparin Sod (Porcine) 1000 Unit/Ml) 500 units IV Q1H JW Stop: 02/18/21 08:01 Dextrose (D5w) 1,000 mls @ 40 mls/hr IV .Q24H JW Stop: 03/17/21 21:29 Last Admin: 02/17/21 02:38 Dose: 40 mls/hr Documented by: Sodium Chloride (Nss 1000ml) 1,000 mls @ 0 mls/hr IV .Q0M PRN PRN Reason: For Hemodialysis Use ONLY Stop: 02/18/21 12:59 Levothyroxine Sodium (Levothyroxine Sodium 75 Mcg Tablet) 75 mcg PO DAILYBB [facility] Stop: 03/17/21 06:29 Last Admin: 02/17/21 08:25 Dose: 75 mcg Documented by: Loperamide HCl (Loperamide Hcl 2 Mg Cap) 2 mg PO BID PRN PRN Reason: Diarrhea Stop: 03/16/21 18:52 Megestrol Acetate (Megestrol Acetate Susp 400 Mg/10 Ml Udc) 400 mg PO QAM [facility] Stop: 03/17/21 08:59 Last Admin: 02/17/21 08:25 Dose: 400 mg Documented by: Ondansetron HCl (Ondansetron Inj 2 Mg/Ml 2 Ml Vial) 4 mg IV Q6H PRN PRN Reason: Nausea Stop: 03/16/21 11:01 Pantoprazole Sodium (Pantoprazole 40 Mg Tab) 40 mg PO BID JW Stop: 03/17/21 08:59 Last Admin: 02/17/21 08:25 Dose: 40 mg Documented by: Polyethylene Glycol (Polyethylene (Miralax) 17 Gm Pack) 17 gm PO DAILY PRN PRN Reason: Constipation Stop: 03/16/21 11:01 Thiamine HCl (Thiamine Hcl 100 Mg Tab) 100 mg PO DAILY JW Stop: 03/17/21 08:59 Last Admin: 02/17/21 08:25 Dose: 100 mg Documented by: Vitamin B Complex (Vitamin B Complex Tab) 1 tab PO DAILY JW Stop: 03/17/21 08:59 Last Admin: 02/17/21 08:25 Dose: 1 tab Documented by:
--- NOTE | 2021-02-17 11:53 | XRay Report ---
XR chest 1V portable CLINICAL HISTORY: CHF COMPARISON STUDY: Chest CT January 18, 2021 and chest radiograph February 16, 2021. FINDINGS: There is no pneumothorax. Moderate pulmonary edema is noted. Slight improvement since prior exam of February 16, 2021 is noted. There are persistent [id number] bilateral pleural effusi ons with bibasilar opacities. The cardiomediastinal silhouette is stable. IMPRESSION: 1. Moderate pulmonary edema, slightly improved since prior exam. 2. No significant change in bilateral pleural effusions and associated bibasilar opacities. ACT 112: Negative or not required by law. Electronically signed by: Reji Shelley M.D. 02/17/2021 11:52 AM
--- NOTE | 2021-02-17 12:50 | Gastrointestinal Consultation ---
Date of Consultation February 17, 2021 Assessment & Plan (1) C. difficile colitis: This is a 65-year-old female with complicated history as above, status post liver transplant, end-stage renal disease on dialysis, admitted with respiratory failure, bilateral pleural effusions, clinically improved since admission. She had some loose stool and tested positive for C. difficile and GI consulted for this reason. This is not her first bout of C diff this year; may be her second or third bout; details aren't well known and the majority of her care is a [facility]; records not available for full review. Today she has had no further diarrhea. Abd soft; she's afebrile and not hypotensive. Labs reviewed; she has no leukocytosis (has pancytopenia) or other findings to suggest fulminant colitis. - Agree with continuing Dificid 200 mg BID x 10 days - Would reinforce hygiene and recommend handwashing with hot soapy water, use bleach to clean the BR and avoid alcohol-based hand sanitizers - Typically once diarrhea resolves pts are no longer contagious - Would recommend she f/u with ID specialist at [facility] should she get a recurrent bout of C diff; may consider MAB (Zinplava) along with ABX regimen - GI will sign off, please call with questions Thank you for allowing us to participate in the care of this patient. Please call with any acute changes, questions or concerns. Please see addendum below with additional recommendation from my supervising physician. Supervising Physician Co-Signing Physician Notes I performed a history and physical examination of the patient today, including specifically on physical exam - soft abdomen. I have discussed the patient's management with the advanced practitioner. Please refer to the nurse practitioner's note for the documented findings and plan of care. History of Present Illness Reason for Consultation: c diff Requesting Physician: Dr. Benitez Attending Physician: Deandre Benitez MD History of Present Illness This is a 65 y/o female w/ complicated PMH of congenital polycystic liver disease [place] [facility] [place] autosomal dominant polycystic kidney disease with ESRD on dialysis, history of dilated cardiomyopathy, HTN and others admitted with dyspnea and was found to be in acute respiratory failure in setting of pulmonary edema. She underwent emergent dialysis and tx with Bipap with significant improvement. She has had some diarrhea (a few episodes yesterday) and was found to be C. diff positive. She was started on Dificid. Labs reviewed; she has no leukocytosis (has pancytopenia) or other findings to suggest fulminant colitis. Today she's had no diarrhea yet today. Has no GI complaints. When I examined her this AM she was not on O2; she's resting comfortably in bed on room air. Denies GI complaints at present. Typically stools are formed for her. Had c diff several times; she can't remember the exact details; believes one time was around July of this year; treated with vancomycin. Currently denies diarrhea, abd pain, n/v, melena, hematochezia, fever, chills, CP, cough, SOB. Allergies Allergy/AdvReac Type Severity Reaction Status Date / Time morphine AdvReac Intermediate Nausea Verified 02/14/21 08:32 Home Medications Medication Instructions Recorded Confirmed Type carvedilol 25 mg tablet 12.5 mg PO BID 01/18/21 02/14/21 History cyclosporine modified 25 mg capsule 75 mg PO Q12H 01/18/21 02/14/21 History epoetin beta, methoxy peg 200 200 mcg IV .[id number] 01/18/21 02/14/21 History mcg/0.3 mL injection syringe (Mircera) levothyroxine 75 mcg capsule 75 mcg PO QAM 01/18/21 02/14/21 History lisinopril 40 mg tablet 40 mg PO DAILY 01/18/21 02/14/21 History loperamide 2 mg capsule 2 mg PO BID PRN 01/18/21 02/14/21 History megestrol 400 mg/10 mL (10 mL) 400 mg PO QAM 01/18/21 02/14/21 History oral suspension pantoprazole 40 mg tablet,delayed 40 mg PO BID 01/18/21 02/14/21 History release thiamine HCl (vitamin B1) 100 mg 100 mg PO DAILY 01/18/21 02/14/21 History tablet amlodipine 10 mg tablet 10 mg PO DAILY 01/31/21 02/14/21 History atovaquone 750 mg/5 mL oral 1,500 mg PO DAILY 01/31/21 02/14/21 History suspension vitamin B complex-folic acid 0.4 1 tab PO DAILY 01/31/21 02/14/21 History mg tablet (Balance B-50 (with folic acid)) Patient History Medical History Anemia Cardiomyopathy echo 04/29/18 showed diffuse hypokinesis, LVEF 30-35% End-stage renal disease on hemodialysis Hypertension Neutropenia Polycystic kidney disease Secondary hyperparathyroidism of renal origin Surgical History Hx of tubal ligation Family History Other Adopted Social History Smoking Status: Never smoker Hx Alcohol Use: No Hx Substance Use: No Preferred Language: Telugu Communication Ability: Effective Last Dipper Required: No Beliefs That Will Affect Care: None marital status: / Current Living Situation: Family Current Living Situation Comment: Lives with Daughter. Feels Safe at Home: Yes Assistive Devices: Glasses and Walker Review of Systems Review of Systems: All systems reviewed & are unremarkable except as noted in HPI & below Physical Exam Constitutional: Chronically ill, no acute distress Eyes: Sclera anicteric Neck: trachea midline, no thyromegaly Respiratory: Normal respiratory effort, decreased breath sounds at both bases, no wheezes or crackles Cardiovascular: RRR, no murmur, no edema Gastrointestinal (Abdomen): normal bowel sounds, soft, nontender, no hepatosplenomegaly Skin: Somewhat sallow, no rash Psychiatric: A+Ox3, euthymic affect Results & Data ([facility]) Vital Signs (Past 12 Hours) Vital Signs Temp Pulse Pulse Pulse Resp BP Pulse Ox 02/17/21 07:25 36.5 C 83 18 164/81 H 95 02/17/21 00:58 36.6 C 81 18 156/71 H 93 02/17/21 00:00 89 Laboratory Results 02/17/21 02/17/21 02/17/21 Range/Units 11:18 09:15 09:15 WBC 2.44 L (4.8-10.8) K/uL RBC 3.36 L (4.2-5.4) M/uL Hgb 10.2 L (12.0-16.0) g/dL Hct 32.0 L (37-47) % MCV 95.2 (80-100) fL MCH 30.4 (25-34) pg MCHC 31.9 L (32-36) g/dL RDW Std Deviation 62.0 H (36.4-46.3) fL RDW Coeff of Igor 18.2 H (11.5-14.5) % Plt Count 98 L (130-400) K/uL MPV 10.7 H (7.4-10.4) fL Platelet Estimate CAC (Normal) Sodium 136 (136-145) mmol/L Potassium 3.9 (3.5-5.1) mmol/L Chloride 104 (98-107) mmol/L Carbon Dioxide 26 (21-32) mmol/L Anion Gap 6.0 (3-11) BUN 25 H (7-18) mg/dl Creatinine 4.17 H D (0.6-1.2) mg/dl Est Cr Clr Drug Dosing 9.4 ml/min Est GFR ( Amer) 12.0 ml/min Est GFR (Non-Af Amer) 10.4 ml/min BUN/Creatinine Ratio 6.1 L (10-20) Glucose 136 H (70-99) mg/dl POC Glucose 106 H (70-99) mg/dl Calcium 8.6 (8.5-10.1) mg/dl Stool Occult Bld Scrn (Negative) Stl C. diff Tox B Gene (Neg) Stl C.difficile Tox A&B (Negative) 02/17/21 02/16/21 02/16/21 Range/Units 07:22 21:45 21:45 WBC (4.8-10.8) K/uL RBC (4.2-5.4) M/uL Hgb (12.0-16.0) g/dL Hct (37-47) % MCV (80-100) fL MCH (25-34) pg MCHC (32-36) g/dL RDW Std Deviation (36.4-46.3) fL RDW Coeff of Igor (11.5-14.5) % Plt Count (130-400) K/uL MPV (7.4-10.4) fL Platelet Estimate (Normal) Sodium (136-145) mmol/L Potassium (3.5-5.1) mmol/L Chloride (98-107) mmol/L Carbon Dioxide (21-32) mmol/L Anion Gap (3-11) BUN (7-18) mg/dl Creatinine (0.6-1.2) mg/dl Est Cr Clr Drug Dosing ml/min Est GFR ( Amer) ml/min Est GFR (Non-Af Amer) ml/min BUN/Creatinine Ratio (10-20) Glucose (70-99) mg/dl POC Glucose 75 (70-99) mg/dl Calcium (8.5-10.1) mg/dl Stool Occult Bld Scrn Negative (Negative) Stl C. diff Tox B Gene Positive Cdiff Gene H (Neg) Stl C.difficile Tox A&B Positive Cdiff Toxin A* (Negative) 02/16/21 02/16/21 Range/Units 20:34 16:31 WBC (4.8-10.8) K/uL RBC (4.2-5.4) M/uL Hgb (12.0-16.0) g/dL Hct (37-47) % MCV (80-100) fL MCH (25-34) pg MCHC (32-36) g/dL RDW Std Deviation (36.4-46.3) fL RDW Coeff of Igor (11.5-14.5) % Plt Count (130-400) K/uL MPV (7.4-10.4) fL Platelet Estimate (Normal) Sodium (136-145) mmol/L Potassium (3.5-5.1) mmol/L Chloride (98-107) mmol/L Carbon Dioxide (21-32) mmol/L Anion Gap (3-11) BUN (7-18) mg/dl Creatinine (0.6-1.2) mg/dl Est Cr Clr Drug Dosing ml/min Est GFR ( Amer) ml/min Est GFR (Non-Af Amer) ml/min BUN/Creatinine Ratio (10-20) Glucose (70-99) mg/dl POC Glucose 96 109 H (70-99) mg/dl Calcium (8.5-10.1) mg/dl Stool Occult Bld Scrn (Negative) Stl C. diff Tox B Gene (Neg) Stl C.difficile Tox A&B (Negative) Diagnostic Findings CXR: FINDINGS: There is no pneumothorax. Moderate pulmonary edema is noted. Slight improvement since prior exam of February 16, 2021 is noted. There are persistent [id number] bilateral pleural effusions with bibasilar opacities. The cardiomediastinal silhouette is stable. IMPRESSION: 1. Moderate pulmonary edema, slightly improved since prior exam. 2. No significant change in bilateral pleural effusions and associated bibasilar opacities.
--- NOTE | 2021-02-17 17:26 | Hospitalist Progress Note ---
Date of Service February 17, 2021 Assessment & Plan (1) Acute respiratory failure: (2) C. difficile colitis: (3) Pulmonary edema: (4) Status post liver transplant: (5) Hyperammonemia: (6) End stage renal disease on dialysis: Plan: 65yo F with a PMH of liver transplant at [facility] in June 2020, ESRD on hemodialysis, history of dilated cardiomyopathy, hypertension presented with dyspnea and was found to be in acute respiratory failure in setting of pulmonary edema on 02/14. She is being managed for the following: #. Acute respiratory failure #. Pulmonary edema #. Cardiomyopathy 06/30/2017 echo: EF 30 to 35%, diffuse hypokinesis. Prior to presentation, hypoxic in 70s, improved to 91 % on cpap via EMS Admitting CXR showed cardiomegaly with pulmonary edema and layering pleural effusions with bibasilar consolidation suggestive of atelectasis or less likely pneumonitis. proBNP over 35,000 Status post emergent hemodialysis 02/14 and subsequent dialysis 02/15 and 02/16 Currently on RA, improved clinically. #. C. difficile Patient has history of chronic diarrhea, and also has history of C. difficile Patient had 3 loose bowel movements on 02/16, C. difficile test was sent, came back positive. Patient is started on fidaxomicin 02/16 Awaiting preauthorization for fidaxomicin, can be discharged once approved. Dr. Falk updated about this new incident. GI consulted: Agrees with fidaxomicin twice daily for 10 days, hand washing with hot soapy water, no isolation once diarrhea resolves, recommends follow-up with ID specialist at [facility]. #. Anemia Hemoglobin 6.7 , status post 2 unit PRBC transfusion 02/15 FOBT negative, iron panel suggestive of anemia of chronic disease with ferritin overload. Folate and vitamin B12 normal Does not complaint of black his stool or bleeding per rectum. Hemoglobin stable after transfusion, continue to monitor #. End stage renal disease on dialysis: Dr. Bob consulted Status post emergent hemodialysis 02/14 [3.5 L out] and subsequent dialysis 02/15 [3 L out] and 02/16 [2 L out]. #. Hyperkalemia: Resolved #. Hypoglycemia: Resolved #. Status post liver transplant History of liver transplant at [facility] in June 2020,history of infectious complications since most recently admitted to [facility] in October 2020 Discussed case with transplant surgeon, Dr. Falk No beds available at their facility, updated Dr. Falk today. Plan to move to wait list for transfer if patient develops infectious s/sx, abnormalities with LFTs Currently afebrile, no leukocytosis, LFTs unremarkable Dr. Falk: [phone], store coordinator, [facility] [phone] Dr. Falk updated again today. #. Hyperammonemia: Resolved #. Hypertension: Borderline, continue to monitor. Continue with home meds DVT Ppx: SQ heparin Code status: FULL PCP: Tuan Dispo: Continue care in med tele -may need transfer if her liver function worsens or any signs of infection. Awaiting preauthorization for fidaxomicin, will DC once approved to home with home health. Admission and Anticipated Discharge Date Admission Date: February 14, 2021 Subjective Patient was lying in bed, on room air, NAD, no issues overnight. Patient AOx3. Patient eating okay. No belly pain. Patient had 3 loose stool yesterday on 02/16, C. difficile came back positive. No further bowel movements today. Patient started on fidaxomicin. Patient does not complain of any other review of symptoms. Physical Exam Physical Exam: GENERAL: Alert and oriented x3. NAD, on RA HEENT: No pallor, no icterus. Pupils equal, round and reactive to light. Oral mucosa moist. NECK: No JVD, no neck masses. HEART: S1 and S2 heard. Regular rate and rhythm. systolic murmur in Pulmonic area, no gallop. RESPIRATORY SYSTEM: Normal AP diameter. No accessory muscle use. No wheezing, bibasilar cracklesimproving. ABDOMEN: Soft, bowel sounds present, nontender, no distention. CENTRAL NERVOUS SYSTEM: No facial droop. Speech is clear. Obeys simple commands. Moves extremities. EXTREMITIES: No edema, no erythema seen. Results & Data Results & Data ([facility]) Vital Signs (Past 12 Hours) Vital Signs Temp Pulse Pulse Resp BP Pulse Ox 02/17/21 16:22 36.8 C 87 20 136/64 96 02/17/21 14:19 80 02/17/21 12:00 36.8 C 82 20 153/72 H 97 02/17/21 10:50 80 02/17/21 07:25 36.5 C 83 18 164/81 H 95
[2021-02-18] MEDS: DEXTROSE 5% 1,000 ML IV SCH (04:27)
[2021-02-18] MEDS: LEVOTHYROXINE SODIUM 75 MCG TABLET PO SCH (06:09)
[2021-02-18] MEDS: HEPARIN SOD 5,000 UNIT/0.5 ML VIAL SQ SCH ×3 (06:09→22:37)
[2021-02-18 06:36] LABS: Hematocrit (blood only) 32.3 % (37-47); Hemoglobin 10.3 g/dL (12.0-16.0); Mean Corpuscular Hemoglobin 29.9 pg (25-34); Mean Corpuscular Hgb Conc 31.9 g/dL (32-36); Mean Corpuscular Volume 93.6 fL (80-100); RDW Coefficient of Variation 17.5 % (11.5-14.5); RDW Standard Deviation 59.6 fL (36.4-46.3); Red Blood Count 3.45 M/uL (4.2-5.4); White Blood Count 2.73 K/uL (4.8-10.8)
[2021-02-18 06:41] LABS: Mean Platelet Volume 10.3 fL (7.4-10.4); Platelet Count 90 K/uL (130-400)
[2021-02-18] MEDS ORDERED: HEPARIN SOD (PORCINE) 1000 UNIT/ML IV ONE (07:00)
[2021-02-18] MEDS ORDERED: SODIUM CHLORIDE 0.9% 1000ML 1,000 ML IV PRN (07:00)
[2021-02-18 07:29] LABS: BUN Creatinine Ratio 7.2 (10-20); Calcium 8.3 mg/dl (8.5-10.1); Est GFR (African American) 8.3 ml/min; Est GFR (Non-African American) 7.2 ml/min; Potassium 4.3 mmol/L (3.5-5.1)
[2021-02-18] MEDS: ATOVAQUONE 750 MG/5 ML UDC PO SCH (09:00)
[2021-02-18] MEDS: PANTOprazole 40 MG TAB PO SCH ×2 (09:01→22:37)
[2021-02-18] MEDS: cycloSPORINE 25 MG CAP PO SCH ×2 (09:01→22:37)
[2021-02-18] MEDS: MEGESTROL ACETATE SUSP 400 MG/10 ML UDC PO SCH (09:01)
[2021-02-18] MEDS: VITAMIN B COMPLEX TAB PO SCH (09:02)
[2021-02-18] MEDS: THIAMINE HCL 100 MG TAB PO SCH (09:02)
[2021-02-18] MEDS: HEPARIN SOD (PORCINE) 1000 UNIT/ML IV SCH (09:40)
--- NOTE | 2021-02-18 09:47 | Cardiology Progress Note ---
Date of Service February 18, 2021 Assessment & Plan (1) Acute respiratory failure: (2) Pulmonary edema: (3) End stage renal disease on dialysis: (4) Status post liver transplant: (5) Cardiomyopathy: Plan: Patient has a longstanding history of autosomal dominant polycystic kidney and liver disease, with history of hepatic transplant. Her cardiac history dates back to 2018 when she was diagnosed with severe left ventricular systolic dysfunction, ejection fraction of 20% at that time. She was screened for ischemic heart disease with a pharmacologic nuclear stress test as an outpatient at that time, with normal perfusion, and she has therefore been felt to have a nonischemic cardiomyopathy. Her ejection fraction is measured on 02/17/2021 was in the range of 30 to 35%. Chest x-ray performed 02/17/2021 revealed ongoing interstitial edema, severe enlargement of the cardiac silhouette. She is now being treated for C. difficile, and remains in the hospital for ongoing dialysis for optimization of her fluid status. Continue carvedilol, amlodipine.Outpatient treatment with lisinopril presently on hold. Continue subcutaneous heparin for DVT prophylaxis. Admission and Anticipated Discharge Date Admission Date: February 14, 2021 Subjective Patient seen in cardiology follow-up. No acute distress noted. Telemetry reveals sinus rhythm in the 70s. She is afebrile. She is tearful with regards to missing her daughter's wedding today. Review of Systems Review of Systems: All systems reviewed & are unremarkable except as noted in HPI & below Physical Exam Physical Exam: Temp Pulse Resp BP Pulse Ox 36.4 C L 80 18 162/81 H 98 02/18/21 09:00 02/18/21 09:20 02/18/21 08:00 02/18/21 09:20 02/18/21 08:00 Constitutional: + cachectic; no acute distress Respiratory: Auscultation: + diminished lung sounds (Mildly decreased breath sounds the bases bilaterally); no rales Cardiovascular: RRR, no murmur, no edema Gastrointestinal (Abdomen): normal bowel sounds, soft, nontender, no hepatosp lenomegaly Neurologic: PERRL, EOMI, accommodation nl, no face palsy, no dysarthria Results & Data ([facility]) Vital Signs (Past 12 Hours) Vital Signs Temp Pulse Pulse Pulse Pulse Resp BP 02/18/21 09:20 80 162/81 H 02/18/21 09:14 79 144/81 H 02/18/21 09:00 36.4 C L 80 02/18/21 08:00 36.4 C L 81 88 18 02/18/21 03:35 36.4 C L 82 20 02/17/21 23:36 72 02/17/21 22:33 36.4 C L 81 16 BP Pulse Ox 02/18/21 09:20 02/18/21 09:14 02/18/21 09:00 02/18/21 08:00 161/73 H 98 02/18/21 03:35 174/82 H 95 02/17/21 23:36 02/17/21 22:33 165/79 H 96 Laboratory Results CBC 02/18/21 Range/Units 06:11 WBC 2.73 L (4.8-10.8) K/uL RBC 3.45 L (4.2-5.4) M/uL Hgb 10.3 L (12.0-16.0) g/dL Hct 32.3 L (37-47) % Plt Count 90 L (130-400) K/uL Comprehensive Metabolic Panel 02/17/21 02/18/21 Range/Units 09:15 06:11 Sodium 136 133 L (136-145) mmol/L Potassium 3.9 4.3 (3.5-5.1) mmol/L Chloride 104 100 (98-107) mmol/L Carbon Dioxide 26 24 (21-32) mmol/L BUN 25 H 41 H D (7-18) mg/dl Creatinine 4.17 H D 5.64 H* D (0.6-1.2) mg/dl Glucose 136 H 84 (70-99) mg/dl Calcium 8.6 8.3 L (8.5-10.1) mg/dl Intake and Output 02/17/21 02/18/21 02/18/21 22:59 06:59 14:59 Intake Total 1000 / 1600 Output Total 4 / 4 Balance 996 / 1596 Intake: IV 1000 / 1000 Dextrose 5% 1,000 ml @ 40 mls/ 1000 / 1000 hr IV .Q24H JW Rx#:[id number] Output: # Bowel Movements / Other: Weight 49.1 kg Weight Measurement Method Built in [facility] Patient Weight 02/19/21 06:59 Weight 49.1 kg Diagnostic Findings Summary of echocardiogram performed 02/16/2021: Borderline concentric left ventricular hypertrophy Moderate to severe left ventricular systolic dysfunction is present, LVEF in the range of 30 to 35% Moderate left atrial dilatation is present. Grade 1 diastolic dysfunction is present. A small pericardial effusion noted with no evidence of tamponade. Large right pleural effusion, small left pleural effusion. EKG performed 02/16/2021 with tracing reviewed independently revealed normal sinus rhythm at 80 bpm, diffuse nonspecific T wave abnormality.
[2021-02-18] MEDS: FIDAXOMICIN 200 MG TAB PO SCH ×2 (10:36→22:37)
--- NOTE | 2021-02-18 10:54 | Nephrology Progress Note ---
Date of Service February 18, 2021 Assessment & Plan (1) End stage renal disease on dialysis: (2) Status post liver transplant: (3) Pulmonary edema: (4) C. difficile colitis: Plan: ESRD on HD,admitted with volume overload, improved with extra UF, EDW adjusted. --OK to DC after HD, dialysis unit informed about new EDW. Will follow Admission and Anticipated Discharge Date Admission Date: February 14, 2021 Subjective Orly has been tolerating HD. denies any concerns. BP stable. Review of Systems Review of Systems: detail ROS was unremarkable. Physical Exam Constitutional: + ill appearing; no acute distress Respiratory: normal respiratory effort, lungs clear to auscultation Cardiovascular: RRR, no murmur, no edema Neurologic: moves all extremities and awake; not confused Psychiatric: A+Ox3, euthymic affect Results & Data ([facility]) Vital Signs (Past 12 Hours) Vital Signs Temp Pulse Pulse Pulse Resp BP BP 02/18/21 10:20 87 152/86 H 02/18/21 10:00 85 152/91 H 02/18/21 09:51 74 167/89 H 02/18/21 09:20 80 162/81 H 02/18/21 09:14 79 144/81 H 02/18/21 09:00 36.4 C L 80 02/18/21 08:00 36.4 C L 81 88 18 161/73 H 02/18/21 03:35 36.4 C L 82 20 174/82 H 02/17/21 23:36 72 Pulse Ox 02/18/21 10:20 02/18/21 10:00 02/18/21 09:51 02/18/21 09:20 02/18/21 09:14 02/18/21 09:00 02/18/21 08:00 98 02/18/21 03:35 95 02/17/21 23:36 PG Care Time/CCT Total # of Minutes Spent Total Time Spent with Patient: Total time spent is greater than 50% in coordination of care (as documented) at patient's floor/unit and/or counseling patient: Coding Level of Care Code 25166 Subseq Hosp Care Lvl 2 Diagnoses End stage renal disease on dialysis N18.6; Z99.2 Status post liver transplant Z94.4 Pulmonary edema J81.1 C. difficile colitis A04.72
[2021-02-18] MEDS: amLODIPine BESYLATE 5 MG TAB PO SCH (12:48)
[2021-02-18] MEDS: carvediloL 12.5 MG TAB PO SCH ×2 (12:48→22:37)
--- NOTE | 2021-02-18 13:45 | Hospitalist Progress Note ---
Date of Service February 18, 2021 Assessment & Plan (1) Acute respiratory failure: (2) C. difficile colitis: (3) Pulmonary edema: (4) Status post liver transplant: (5) Hyperammonemia: (6) End stage renal disease on dialysis: Plan: 65yo F with a PMH of liver transplant at [facility] in June 2020, ESRD on hemodialysis, history of dilated cardiomyopathy, hypertension presented with dyspnea and was found to be in acute respiratory failure in setting of pulmonary edema on 02/14. She is being managed for the following: #. Acute respiratory failure #. Pulmonary edema #. Cardiomyopathy 06/30/2017 echo: EF 30 to 35%, diffuse hypokinesis. Prior to presentation, hypoxic in 70s, improved to 91 % on cpap via EMS Admitting CXR showed cardiomegaly with pulmonary edema and layering pleural effusions with bibasilar consolidation suggestive of atelectasis or less likely pneumonitis. proBNP over 35,000 Status post emergent hemodialysis 02/14 and subsequent dialysis 02/15 and 02/16 Currently on RA, improved clinically. #. C. difficile Patient has history of chronic diarrhea, and also has history of C. difficile Patient had 3 loose bowel movements on 02/16, C. difficile test was sent, came back positive. Patient is started on fidaxomicin 02/16 Awaiting preauthorization for fidaxomicin, can be discharged once approved. Dr. Falk updated about this new incident. GI consulted: Agrees with fidaxomicin twice daily for 10 days, hand washing with hot soapy water, no isolation once diarrhea resolves, recommends follow-up with ID specialist at [place]. #. Anemia Hemoglobin 6.7 , status post 2 unit PRBC transfusion 02/15 FOBT negative, iron panel suggestive of anemia of chronic disease with ferritin overload. Folate and vitamin B12 normal Does not complaint of black his stool or bleeding per rectum. Hemoglobin stable after transfusion, continue to monitor #. End stage renal disease on dialysis: Dr. Bob consulted Status post emergent hemodialysis 02/14 [3.5 L out] and subsequent dialysis 02/15 [3 L out] and 02/16 [2 L out]. Getting dialysis 02/18 #. Hyperkalemia: Resolved #. Hypoglycemia: Resolved #. Status post liver transplant History of liver transplant at [facility] in June 2020,history of infectious complications since most recently admitted to [place] in October 2020 Discussed case with transplant surgeon, Dr. Falk No beds available at their facility, updated Dr. Falk today. Plan to move to wait list for transfer if patient develops infectious s/sx, abnormalities with LFTs Currently afebrile, no leukocytosis, LFTs unremarkable Dr. Falk: [phone], hospital education coordinator, [facility] [phone] #. Hyperammonemia: Resolved #. Hypertension: Borderline, continue to monitor. Continue with home meds DVT Ppx: SQ heparin Code status: FULL PCP: Tuan Dispo: Continue care in med tele -may need transfer if her liver function worsens or any signs of infection. Awaiting preauthorization for fidaxomicin, also working on [employer] since her daughter can't provide 24/7 care at home [PT recommending 24/7 care and home health] and wants her mother to regain some strength back so that she can get back to her baseline. Admission and Anticipated Discharge Date Admission Date: February 14, 2021 Subjective Patient lying in bed, NAD, on room air. Patient had 3 loose bowel movements overnight and one in the morning. Denies any belly pain/fever/chills/shortness of breath/other review of symptoms. Patient is getting hemodialysis today. Physical Exam Physical Exam: GENERAL: Alert and oriented x3. NAD, on RA HEENT: No pallor, no icterus. Pupils equal, round and reactive to light. Oral mucosa moist. NECK: No JVD, no neck masses. HEART: S1 and S2 heard. Regular rate and rhythm. systolic murmur in Pulmonic area, no gallop. RESPIRATORY SYSTEM: Normal AP diameter. No accessory muscle use. No wheezing, bibasilar crackles appreciated. ABDOMEN: Soft, bowel sounds present, nontender, no distention. CENTRAL NERVOUS SYSTEM: No facial droop. Speech is clear. Obeys simple commands. Moves extremities. EXTREMITIES: No edema, no erythema seen. Results & Data Results & Data ([facility]) Vital Signs (Past 12 Hours) Vital Signs Temp Pulse Pulse Pulse Resp BP BP 02/18/21 13:11 36.6 C 82 142/91 H 02/18/21 12:05 89 117/76 02/18/21 12:00 36.6 C 90 20 118/78 02/18/21 11:40 90 118/78 02/18/21 11:20 86 137/88 02/18/21 11:00 87 135/84 02/18/21 10:40 90 137/78 02/18/21 10:20 87 152/86 H 02/18/21 10:00 85 152/91 H 02/18/21 09:51 74 167/89 H 02/18/21 09:20 80 162/81 H 02/18/21 09:14 79 144/81 H 02/18/21 09:00 36.4 C L 80 02/18/21 08:00 36.4 C L 81 88 18 161/73 H 02/18/21 03:35 36.4 C L 82 20 174/82 H Pulse Ox 02/18/21 13:11 02/18/21 12:05 02/18/21 12:00 99 02/18/21 11:40 02/18/21 11:20 02/18/21 11:00 02/18/21 10:40 02/18/21 10:20 02/18/21 10:00 02/18/21 09:51 02/18/21 09:20 02/18/21 09:14 02/18/21 09:00 02/18/21 08:00 98 02/18/21 03:35 95
[2021-02-19] MEDS: LEVOTHYROXINE SODIUM 75 MCG TABLET PO SCH (06:10)
[2021-02-19] MEDS: HEPARIN SOD 5,000 UNIT/0.5 ML VIAL SQ SCH ×3 (06:10→20:39)
[2021-02-19 08:32] LABS: Hematocrit (blood only) 32.9 % (37-47); Hemoglobin 10.5 g/dL (12.0-16.0); Mean Corpuscular Hemoglobin 30.1 pg (25-34); Mean Corpuscular Hgb Conc 31.9 g/dL (32-36); Mean Corpuscular Volume 94.3 fL (80-100); RDW Coefficient of Variation 17.4 % (11.5-14.5); RDW Standard Deviation 58.9 fL (36.4-46.3); Red Blood Count 3.49 M/uL (4.2-5.4); White Blood Count 2.13 K/uL (4.8-10.8)
[2021-02-19] MEDS: ATOVAQUONE 750 MG/5 ML UDC PO SCH (08:51)
[2021-02-19] MEDS: cycloSPORINE 25 MG CAP PO SCH ×2 (08:54→20:38)
[2021-02-19 08:55] LABS: Mean Platelet Volume 11.1 fL (7.4-10.4); Platelet Count 85 K/uL (130-400)
[2021-02-19] MEDS: VITAMIN B COMPLEX TAB PO SCH (08:55)
[2021-02-19] MEDS: carvediloL 12.5 MG TAB PO SCH ×2 (08:55→20:38)
[2021-02-19] MEDS: amLODIPine BESYLATE 5 MG TAB PO SCH (08:56)
[2021-02-19] MEDS: MEGESTROL ACETATE SUSP 400 MG/10 ML UDC PO SCH (08:56)
[2021-02-19] MEDS: THIAMINE HCL 100 MG TAB PO SCH (08:56)
[2021-02-19] MEDS: PANTOprazole 40 MG TAB PO SCH ×2 (08:57→20:38)
[2021-02-19 09:18] LABS: BUN Creatinine Ratio 6.9 (10-20); Calcium 8.6 mg/dl (8.5-10.1); Creatinine Clr Calc Pharmacy 8.4 ml/min; Est GFR (African American) 10.5 ml/min; Est GFR (Non-African American) 9.1 ml/min; Potassium 4.1 mmol/L (3.5-5.1)
--- NOTE | 2021-02-19 09:29 | Nephrology Progress Note ---
Date of Service February 19, 2021 Assessment & Plan (1) End stage renal disease on dialysis: (2) Status post liver transplant: (3) Pulmonary edema: (4) C. difficile colitis: Plan: ESRD on HD,admitted with volume overload, improved with extra UF, EDW adjusted. --had HD yesterday, overall stable but with ongoing diarrhea. --waiting on DC to rehab Will follow Admission and Anticipated Discharge Date Admission Date: February 14, 2021 Subjective Orly has been very emotional and tearful. Continues to have diarrhea and stool incontinence. Electrolyte acceptable. BP stable. Review of Systems Review of Systems: detail ROS was unremarkable. Physical Exam Constitutional: + ill appearing; no acute distress Respiratory: normal respiratory effort, lungs clear to auscultation Cardiovascular: RRR, no murmur, no edema Neurologic: moves all extremities and awake; not confused Psychiatric: A+Ox3, euthymic affect Orientation: oriented x 3 Affect: + tearful affect Results & Data ([facility]) Vital Signs (Past 12 Hours) Vital Signs Temp Pulse Pulse Resp BP Pulse Ox 02/19/21 07:35 77 02/19/21 06:52 36.7 C 75 16 158/82 H 98 02/19/21 04:12 36.8 C 79 16 156/76 H 95 02/18/21 23:34 77 02/18/21 22:00 36.9 C 86 18 146/78 H 96 PG Care Time/CCT Total # of Minutes Spent Total Time Spent with Patient: Total time spent is greater than 50% in coordination of care (as documented) at patient's floor/unit and/or counseling patient: Coding Level of Care Code 10358 Subseq Hosp Care Lvl 2 Diagnoses End stage renal disease on dialysis N18.6; Z99.2 Status post liver transplant Z94.4 Pulmonary edema J81.1 C. difficile colitis A04.72
[2021-02-19] MEDS: FIDAXOMICIN 200 MG TAB PO SCH ×2 (10:20→20:38)
--- NOTE | 2021-02-19 13:35 | Cardiology Progress Note ---
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 * Her cardiac history dates back to 2018 when she was diagnosed with severe left ventricular systolic dysfunction, ejection fraction of 20% at that time. She was screened for ischemic heart disease with a pharmacologic nuclear stress test as an outpatient at that time, with normal perfusion, and she has therefore been felt to have a nonischemic cardiomyopathy. * Her ejection fraction is measured on 02/17/2021 was in the range of 30 to 35%. * Continue carvedilol, amlodipine.Outpatient treatment with lisinopril presently on hold. * Continue HD for volume managment. * Continue treatment for C. Diff colitis. Continue subcutaneous heparin for DVT prophylaxis. Admission and Anticipated Discharge Date Admission Date: February 14, 2021 Subjective No complaints other than diarrhea. Telemetry reveals SR in the 70s to 80s. Results & Data ([facility]) Vital Signs (Past 12 Hours) Vital Signs Temp Pulse Pulse Resp BP Pulse Ox 02/19/21 11:00 37.0 C 72 18 159/73 H 96 02/19/21 07:35 77 02/19/21 06:52 36.7 C 75 16 158/82 H 98 02/19/21 04:12 36.8 C 79 16 156/76 H 95
--- NOTE | 2021-02-19 14:09 | Hospitalist Progress Note ---
Date of Service February 19, 2021 Assessment & Plan (1) Acute respiratory failure: (2) C. difficile colitis: (3) Pulmonary edema: (4) Status post liver transplant: (5) Hyperammonemia: (6) End stage renal disease on dialysis: Plan: 65yo F with a PMH of liver transplant at [facility] in June 2020, ESRD on hemodialysis, history of dilated cardiomyopathy, hypertension presented with dyspnea and was found to be in acute respiratory failure in setting of pulmonary edema on 02/14. She is being managed for the following: #. Acute respiratory failure #. Pulmonary edema #. Cardiomyopathy 06/30/2017 echo: EF 30 to 35%, diffuse hypokinesis. Prior to presentation, hypoxic in 70s, improved to 91 % on cpap via EMS Admitting CXR showed cardiomegaly with pulmonary edema and layering pleural effusions with bibasilar consolidation suggestive of atelectasis or less likely pneumonitis. proBNP over 35,000 Status post emergent hemodialysis 02/14 and subsequent dialysis 02/15 and 02/16 and 02/18 Currently on RA, improved clinically. #. C. difficile Patient has history of chronic diarrhea, and also has history of C. difficile Patient had 3 loose bowel movements on 02/16, C. difficile test was sent, came back positive. Patient is started on fidaxomicin 02/16 Dr. Falk updated about this new incident. GI consulted: Agrees with fidaxomicin twice daily for 10 days, hand washing with hot soapy water, no isolation once diarrhea resolves, recommends follow-up with ID specialist at [place]. #. Anemia Hemoglobin 6.7 , status post 2 unit PRBC transfusion 02/15 FOBT negative, iron panel suggestive of anemia of chronic disease with ferritin overload. Folate and vitamin B12 normal Does not complaint of black his stool or bleeding per rectum. Hemoglobin stable after transfusion, continue to monitor #. End stage renal disease on dialysis: Dr. Bob consulted Status post emergent hemodialysis 02/14 [3.5 L out] and subsequent dialysis 02/15 [3 L out] and 02/16 [2 L out] and 02/18 (3L out) #. Hyperkalemia: Resolved #. Hypoglycemia: Resolved #. Status post liver transplant History of liver transplant at [facility] in June 2020,history of infectious complications since most recently admitted to [place] in October 2020 Discussed case with transplant surgeon, Dr. Falk No beds available at their facility, updated Dr. Falk today. Plan to move to wait list for transfer if patient develops infectious s/sx, abnormalities with LFTs Currently afebrile, no leukocytosis, LFTs unremarkable Dr. Falk: [phone], change management coordinator, [facility] [phone] #. Hyperammonemia: Resolved #. Hypertension: Borderline, continue to monitor. Continue with home meds DVT Ppx: SQ heparin Code status: FULL PCP: Tuan Dispo: Continue care in med tele -may need transfer if her liver function worsens or any signs of infection. Awaiting preauthorization for fidaxomicin, also working on [employer] since her daughter can't provide 24/7 care at home [PT recommending 24/7 care and home health] and wants her mother to regain some strength back so that she can get back to her baseline. Admission and Anticipated Discharge Date Admission Date: February 14, 2021 Subjective Patient lying in bed, on room air, NAD, no issues overnight. Patient had 4 loose bowel movements yesterday and one in the morning. Patient denies any belly pain or shortness of breath or any other review of symptoms. Physical Exam Physical Exam: GENERAL: Alert and oriented x3. NAD, on RA HEENT: No pallor, no icterus. Pupils equal, round and reactive to light. Oral mucosa moist. NECK: No JVD, no neck masses. HEART: S1 and S2 heard. Regular rate and rhythm. systolic murmur in Pulmonic area, no gallop. RESPIRATORY SYSTEM: Normal AP diameter. No accessory muscle use. No wheezing, bibasilar crackles appreciated. ABDOMEN: Soft, bowel sounds present, nontender, no distention. CENTRAL NERVOUS SYSTEM: No facial droop. Speech is clear. Obeys simple commands. Moves extremities. EXTREMITIES: No edema, no erythema seen. Results & Data Results & Data ([facility]) Vital Signs (Past 12 Hours) Vital Signs Temp Pulse Pulse Resp BP Pulse Ox 02/19/21 11:00 37.0 C 72 18 159/73 H 96 02/19/21 07:35 77 02/19/21 06:52 36.7 C 75 16 158/82 H 98 02/19/21 04:12 36.8 C 79 16 156/76 H 95
[2021-02-19 19:44] LABS: Appearance Urine Turbid (Clear); Bacteria Urine Automated Negative (Negative); Bilirubin Urine Negative (Negative); Blood Urine 1+ (Negative); Color Urine Yellow; Epithelial Cell Urine Auto >30 /lpf (0-5); Glucose Urine UA Negative (Negative); Ketones Urine Negative (Negative); Leukocyte Esterase Urine Negative (Negative); Nitrite Urine Negative (Negative); Specific Gravity Urine 1.008 (1.000-1.030); Urobilinogen Urine Negative (Negative); pH Urine 8.5 (4.5-7.5)
[2021-02-19 19:47] LABS: Protein Urine 3+ (Negative)
[2021-02-19 19:55] LABS: RBC Urine Automated 0-4 /hpf (0-4)
[2021-02-20] MEDS: HEPARIN SOD 5,000 UNIT/0.5 ML VIAL SQ SCH ×3 (06:04→21:05)
[2021-02-20] MEDS: LEVOTHYROXINE SODIUM 75 MCG TABLET PO SCH (06:04)
[2021-02-20] MEDS: carvediloL 12.5 MG TAB PO SCH ×2 (07:30→21:09)
[2021-02-20] MEDS: PANTOprazole 40 MG TAB PO SCH ×2 (07:30→21:08)
[2021-02-20] MEDS: VITAMIN B COMPLEX TAB PO SCH (07:31)
[2021-02-20] MEDS: amLODIPine BESYLATE 5 MG TAB PO SCH (07:31)
[2021-02-20] MEDS: cycloSPORINE 25 MG CAP PO SCH ×2 (07:31→21:09)
[2021-02-20] MEDS: MEGESTROL ACETATE SUSP 400 MG/10 ML UDC PO SCH (07:31)
[2021-02-20] MEDS: THIAMINE HCL 100 MG TAB PO SCH (07:31)
[2021-02-20] MEDS: ATOVAQUONE 750 MG/5 ML UDC PO SCH (07:32)
[2021-02-20 08:00] LABS: Hematocrit (blood only) 32.2 % (37-47); Hemoglobin 10.4 g/dL (12.0-16.0); Mean Corpuscular Hemoglobin 29.9 pg (25-34); Mean Corpuscular Hgb Conc 32.3 g/dL (32-36); Mean Corpuscular Volume 92.5 fL (80-100); RDW Coefficient of Variation 17.4 % (11.5-14.5); RDW Standard Deviation 57.3 fL (36.4-46.3); Red Blood Count 3.48 M/uL (4.2-5.4); White Blood Count 1.97 K/uL (4.8-10.8)
[2021-02-20 08:10] LABS: Mean Platelet Volume 10.8 fL (7.4-10.4); Platelet Count 79 K/uL (130-400)
[2021-02-20] MEDS: FIDAXOMICIN 200 MG TAB PO SCH ×2 (08:51→21:20)
--- NOTE | 2021-02-20 08:54 | Nephrology Progress Note ---
Date of Service February 20, 2021 Assessment & Plan (1) End stage renal disease on dialysis: (2) Status post liver transplant: (3) Pulmonary edema: (4) C. difficile colitis: Plan: ESRD on HD, admitted with volume overload, improved with extra UF, EDW adjusted to 48 kg --Plan for HD tomorrow and continue on TTS, EDW 48 kg --waiting on DC to rehab Will follow Admission and Anticipated Discharge Date Admission Date: February 14, 2021 Subjective Orly feeling better today. Reports some improvement in diarrhea and stool incontinence. Electrolyte acceptable. BP stable. Volume status acceptable. Review of Systems Review of Systems: detail ROS was unremarkable. Physical Exam Constitutional: + ill appearing; no acute distress Respiratory: normal respiratory effort, lungs clear to auscultation Cardiovascular: RRR, no murmur, no edema Neurologic: moves all extremities and awake; not confused Psychiatric: A+Ox3, euthymic affect Orientation: oriented x 3 Results & Data ([facility]) Vital Signs (Past 12 Hours) Vital Signs Temp Pulse Resp BP Pulse Ox 02/20/21 07:49 36.6 C 87 17 164/69 H 99 02/20/21 04:00 36.9 C 87 16 159/77 H 98 02/19/21 23:30 36.5 C 80 20 161/80 H 99 PG Care Time/CCT Total # of Minutes Spent Total Time Spent with Patient: Total time spent is greater than 50% in coordination of care (as documented) at patient's floor/unit and/or counseling patient: Coding Level of Care Code 29542 Subseq Hosp Care Lvl 2 Diagnoses End stage renal disease on dialysis N18.6; Z99.2 Status post liver transplant Z94.4 Pulmonary edema J81.1 C. difficile colitis A04.72
[2021-02-20] MEDS: lisinopril 40 MG TAB PO SCH (09:58)
[2021-02-20] MEDS: NEPHROCAPS PO SCH (09:58)
--- NOTE | 2021-02-20 15:52 | Hospitalist Progress Note ---
Date of Service February 20, 2021 Assessment & Plan (1) Acute respiratory failure: (2) C. difficile colitis: (3) Pulmonary edema: (4) Status post liver transplant: (5) Hyperammonemia: (6) End stage renal disease on dialysis: Plan: 65yo F with a PMH of liver transplant at [facility] in June 2020, ESRD on hemodialysis, history of dilated cardiomyopathy, hypertension presented with dyspnea and was found to be in acute respiratory failure in setting of pulmonary edema on 02/14. She is being managed for the following: #. Acute respiratory failure #. Pulmonary edema #. Cardiomyopathy 06/30/2017 echo: EF 30 to 35%, diffuse hypokinesis. Prior to presentation, hypoxic in 70s, improved to 91 % on cpap via EMS Admitting CXR showed cardiomegaly with pulmonary edema and layering pleural effusions with bibasilar consolidation suggestive of atelectasis or less likely pneumonitis. proBNP over 35,000 Status post emergent hemodialysis 02/14 and subsequent dialysis 02/15 and 02/16 and 02/18 Currently on RA, improved clinically. #. C. difficile Patient has history of chronic diarrhea, and also has history of C. difficile Patient had 3 loose bowel movements on 02/16, C. difficile test was sent, came back positive. Patient is started on fidaxomicin 02/16 Dr. Falk updated about this new incident. GI consulted: Agrees with fidaxomicin twice daily for 10 days, hand washing with hot soapy water, no isolation once diarrhea resolves, recommends follow-up with ID specialist at [place]. #. Anemia Hemoglobin 6.7 , status post 2 unit PRBC transfusion 02/15 FOBT negative, iron panel suggestive of anemia of chronic disease with ferritin overload. Folate and vitamin B12 normal Does not complaint of black his stool or bleeding per rectum. Hemoglobin stable after transfusion, continue to monitor #. End stage renal disease on dialysis: Dr. Bob consulted Status post emergent hemodialysis 02/14 [3.5 L out] and subsequent dialysis 02/15 [3 L out] and 02/16 [2 L out] and 02/18 (3L out) #. Hyperkalemia: Resolved #. Hypoglycemia: Resolved #. Status post liver transplant History of liver transplant at [facility] in June 2020,history of infectious complications since most recently admitted to [place] in October 2020 Discussed case with transplant surgeon, Dr. Falk No beds available at their facility, updated Dr. Falk today. Plan to move to wait list for transfer if patient develops infectious s/sx, abnormalities with LFTs Currently afebrile, no leukocytosis, LFTs unremarkable Dr. Falk: [phone], title coordinator, [facility] [phone] #. Hyperammonemia: Resolved #. Hypertension: Borderline, continue to monitor. Continue with home meds DVT Ppx: SQ heparin Code status: FULL PCP: Tuan Dispo: Continue care in med tele -may need transfer if her liver function worsens or any signs of infection. Working on [employer] versus other SNF since her daughter can't provide 24/7 care at home [PT recommending 24/7 care and home health] and wants her mother to regain some strength back so that she can get back to her baseline. Admission and Anticipated Discharge Date Admission Date: February 14, 2021 Subjective T patient was lying in bed, watching television, NAD, on room air. As soon as I entered the room, patient started telling her she was/what year it is and name of the president. She did not have any further diarrhea overnight and in the morning. Patient reports feeling better. Denies any other review of symptoms. Physical Exam Physical Exam: GENERAL: Alert and oriented x3. NAD, on RA HEENT: No pallor, no icterus. Pupils equal, round and reactive to light. Oral mucosa moist. NECK: No JVD, no neck masses. HEART: S1 and S2 heard. Regular rate and rhythm. systolic murmur in Pulmonic area, no gallop. RESPIRATORY SYSTEM: Normal AP diameter. No accessory muscle use. No wheezing, bibasilar crackles appreciated. ABDOMEN: Soft, bowel sounds present, nontender, no distention. CENTRAL NERVOUS SYSTEM: No facial droop. Speech is clear. Obeys simple commands. Moves extremities. EXTREMITIES: No edema, no erythema seen. Results & Data Results & Data ([facility]) Vital Signs (Past 12 Hours) Vital Signs Temp Pulse Pulse Resp BP Pulse Ox 02/20/21 11:16 36.7 C 82 18 145/71 H 99 02/20/21 08:00 81 02/20/21 07:49 36.6 C 87 17 164/69 H 99 02/20/21 04:00 36.9 C 87 16 159/77 H 98
[2021-02-21] MEDS: HEPARIN SOD 5,000 UNIT/0.5 ML VIAL SQ SCH ×3 (05:03→20:13)
[2021-02-21] MEDS: LEVOTHYROXINE SODIUM 75 MCG TABLET PO SCH (05:54)
[2021-02-21 06:14] LABS: Hematocrit (blood only) 29.7 % (37-47); Hemoglobin 9.7 g/dL (12.0-16.0); Mean Corpuscular Hemoglobin 29.8 pg (25-34); Mean Corpuscular Hgb Conc 32.7 g/dL (32-36); Mean Corpuscular Volume 91.4 fL (80-100); RDW Coefficient of Variation 17.3 % (11.5-14.5); RDW Standard Deviation 55.7 fL (36.4-46.3); Red Blood Count 3.25 M/uL (4.2-5.4)
[2021-02-21 06:16] LABS: Mean Platelet Volume 10.8 fL (7.4-10.4); Platelet Count 80 K/uL (130-400)
[2021-02-21 07:01] LABS: Calcium 8.6 mg/dl (8.5-10.1); Creatinine Clr Calc Pharmacy 4.5 ml/min; Est GFR (Non-African American) 4.3 ml/min; Potassium 4.4 mmol/L (3.5-5.1)
[2021-02-21] MEDS: cycloSPORINE 25 MG CAP PO SCH ×2 (08:27→20:12)
[2021-02-21] MEDS: amLODIPine BESYLATE 5 MG TAB PO SCH ×2 (08:27→08:37)
[2021-02-21] MEDS: PANTOprazole 40 MG TAB PO SCH ×2 (08:27→20:12)
[2021-02-21] MEDS: carvediloL 12.5 MG TAB PO SCH ×3 (08:28→20:12)
[2021-02-21] MEDS: lisinopril 40 MG TAB PO SCH (08:28)
[2021-02-21] MEDS: NEPHROCAPS PO SCH (08:28)
[2021-02-21] MEDS: THIAMINE HCL 100 MG TAB PO SCH (08:28)
[2021-02-21] MEDS: ATOVAQUONE 750 MG/5 ML UDC PO SCH (08:28)
[2021-02-21] MEDS: VITAMIN B COMPLEX TAB PO SCH (08:28)
[2021-02-21] MEDS: MEGESTROL ACETATE SUSP 400 MG/10 ML UDC PO SCH (08:29)
[2021-02-21] MEDS ORDERED: EPOETIN ALFA 10,000 UNITS/ML VIAL IV ONE (09:00)
--- NOTE | 2021-02-21 13:02 | Nephrology Progress Note ---
Date of Service February 21, 2021 Assessment & Plan (1) End stage renal disease on dialysis: (2) Status post liver transplant: (3) Pulmonary edema: (4) C. difficile colitis: Plan: ESRD on HD, admitted with volume overload, improved with extra UF, EDW adjusted to 48 kg -- tolerating dialysis now, aim for 2 L UF continue on TTS, EDW 48 kg -- Epogen 27308 units with dialysis today --waiting on DC to rehab Will follow Admission and Anticipated Discharge Date Admission Date: February 14, 2021 Subjective Orly was seen during dialysis this morning, she reports feeling better today. Diarrhea continue to improve. Has been tolerating dialysis, tolerating UF challenge, blood pressure has been stable. Review of Systems Review of Systems: detail ROS was unremarkable. Physical Exam Constitutional: + ill appearing; no acute distress Respiratory: normal respiratory effort, lungs clear to auscultation Cardiovascular: RRR, no murmur, no edema Neurologic: moves all extremities and awake; not confused Psychiatric: A+Ox3, euthymic affect Orientation: oriented x 3 Results & Data ([facility]) Vital Signs (Past 12 Hours) Vital Signs Temp Pulse Pulse Pulse Resp BP BP 02/21/21 12:40 81 151/71 H 02/21/21 12:00 83 133/72 02/21/21 11:40 85 140/74 02/21/21 11:20 89 138/75 02/21/21 11:00 36.5 C 81 71 20 142/82 H 149/81 H 02/21/21 10:40 83 154/77 H 02/21/21 10:20 75 148/74 H 02/21/21 10:00 67 146/76 H 02/21/21 09:40 70 142/79 H 02/21/21 09:26 76 150/73 H 02/21/21 09:25 36.4 C L 81 02/21/21 08:00 36.5 C 76 72 20 149/81 H 02/21/21 03:01 36.5 C 80 16 157/82 H Pulse Ox 02/21/21 12:40 02/21/21 12:00 02/21/21 11:40 02/21/21 11:20 02/21/21 11:00 100 02/21/21 10:40 02/21/21 10:20 02/21/21 10:00 02/21/21 09:40 02/21/21 09:26 02/21/21 09:25 02/21/21 08:00 95 02/21/21 03:01 98 PG Care Time/CCT Total # of Minutes Spent Total Time Spent with Patient: Total time spent is greater than 50% in coordination of care (as documented) at patient's floor/unit and/or counseling patient: Coding Level of Care Code 99656 Subseq Hosp Care Lvl 2 Diagnoses End stage renal disease on dialysis N18.6; Z99.2 Status post liver transplant Z94.4 Pulmonary edema J81.1 C. difficile colitis A04.72
[2021-02-21] MEDS: FIDAXOMICIN 200 MG TAB PO SCH ×2 (13:11→20:11)
--- NOTE | 2021-02-21 15:03 | Hospitalist Progress Note ---
Date of Service February 21, 2021 Assessment & Plan (1) Acute respiratory failure: (2) C. difficile colitis: (3) Pulmonary edema: (4) Status post liver transplant: (5) Hyperammonemia: (6) End stage renal disease on dialysis: Plan: 65yo F with a PMH of liver transplant at [facility] in June 2020, ESRD on hemodialysis, history of dilated cardiomyopathy, hypertension presented with dyspnea and was found to be in acute respiratory failure in setting of pulmonary edema on 02/14. She is being managed for the following: #. Acute respiratory failure #. Pulmonary edema #. Cardiomyopathy 06/30/2017 echo: EF 30 to 35%, diffuse hypokinesis. Prior to presentation, hypoxic in 70s, improved to 91 % on cpap via EMS Admitting CXR showed cardiomegaly with pulmonary edema and layering pleural effusions with bibasilar consolidation suggestive of atelectasis or less likely pneumonitis. proBNP over 35,000 Status post emergent hemodialysis 02/14 and subsequent dialysis 02/15 and 02/16 and 02/18 Currently on RA, improved clinically. #. C. difficile Patient has history of chronic diarrhea, and also has history of C. difficile Patient had 3 loose bowel movements on 02/16, C. difficile test was sent, came back positive. Patient is started on fidaxomicin 02/16 Dr. Falk updated about this new incident. GI consulted: Agrees with fidaxomicin twice daily for 10 days, hand washing with hot soapy water, no isolation once diarrhea resolves, recommends follow-up with ID specialist at [place]. Patient not being accepted to acute inpatient rehab due to the expense associated with Dificid, got a request to change to p.o. vancomycin. GI contacted again 02/21, recommended vancomycin pulse taper to facilitate her discharge: 125mg qid x 2 weeks, 125mg bid x 1week, 125mg daily x 1 week, 125mg every other day x 2 weeks. Continue with Dificid while inpatient, changed to p.o. vanc at the time of discharge. #. Anemia Hemoglobin 6.7 , status post 2 unit PRBC transfusion 02/15 FOBT negative, iron panel suggestive of anemia of chronic disease with ferritin overload. Folate and vitamin B12 normal Does not complaint of black his stool or bleeding per rectum. Hemoglobin stable after transfusion, continue to monitor #. End stage renal disease on dialysis: Dr. Bob consulted Status post emergent hemodialysis 02/14 [3.5 L out] and subsequent dialysis 02/15 [3 L out] and 02/16 [2 L out] and 02/18 (3L out) and 02/21 [1.5 L] #. Hyperkalemia: Resolved #. Hypoglycemia: Resolved #. Status post liver transplant History of liver transplant at [facility] in June 2020,history of infectious complications since most recently admitted to [place] in October 2020 Discussed case with transplant surgeon, Dr. Falk No beds available at their facility, updated Dr. Falk today. Plan to move to wait list for transfer if patient develops infectious s/sx, abnormalities with LFTs Currently afebrile, no leukocytosis, LFTs unremarkable Dr. Falk: [phone], sterile process coordinator, [phone] Dr. Falk updated 02/21. #. Hyperammonemia: Resolved #. Hypertension: Borderline, continue to monitor. Continue with home meds DVT Ppx: SQ heparin Code status: FULL PCP: Tuan Dispo: Continue care in med tele -may need transfer if her liver function worsens or any signs of infection. Working on [facility] versus other SNF since her daughter can't provide 24/7 care at home [PT recommending 24/7 care and home health] and wants her mother to regain some strength back so that she can get back to her baseline. Her liver transplant center wanted her to go to [facility] rehab in [place] but because of the distance being too far from home, patient and her daughter are reluctant to go there, patient is going to [facility] tomorrow at 10:45 AM, will need to change her Dificid to p.o. vancomycin at the time of discharge according to the recommendation above. Admission and Anticipated Discharge Date Admission Date: February 14, 2021 Subjective Patient was lying in bed, room air, NAD, no issues overnight. Per RN, patient has 2 formed bowel movement yesterday. Patient denies any fever/chills/shortness of breath/any other review of symptoms. Physical Exam Physical Exam: GENERAL: Alert and oriented x3. NAD, on RA HEENT: No pallor, no icterus. Pupils equal, round and reactive to light. Oral mucosa moist. NECK: No JVD, no neck masses. HEART: S1 and S2 heard. Regular rate and rhythm. systolic murmur in Pulmonic area, no gallop. RESPIRATORY SYSTEM: Normal AP diameter. No accessory muscle use. No wheezing, bibasilar crackles improved ABDOMEN: Soft, bowel sounds present, nontender, no distention. CENTRAL NERVOUS SYSTEM: No facial droop. Speech is clear. Obeys simple commands. Moves extremities. EXTREMITIES: No edema, no erythema seen. Results & Data Results & Data ([facility]) Vital Signs (Past 12 Hours) Vital Signs Temp Pulse Pulse Pulse Resp BP BP 02/21/21 13:05 36.5 C 77 163/77 H 02/21/21 12:40 81 151/71 H 02/21/21 12:00 83 133/72 02/21/21 11:40 85 140/74 02/21/21 11:20 89 138/75 02/21/21 11:00 36.5 C 81 71 20 142/82 H 149/81 H 02/21/21 10:40 83 154/77 H 02/21/21 10:20 75 148/74 H 02/21/21 10:00 67 146/76 H 02/21/21 09:40 70 142/79 H 02/21/21 09:26 76 150/73 H 02/21/21 09:25 36.4 C L 81 02/21/21 08:00 36.5 C 76 72 20 149/81 H 02/21/21 03:01 36.5 C 80 16 157/82 H Pulse Ox 02/21/21 13:05 02/21/21 12:40 02/21/21 12:00 02/21/21 11:40 02/21/21 11:20 02/21/21 11:00 100 02/21/21 10:40 02/21/21 10:20 02/21/21 10:00 02/21/21 09:40 02/21/21 09:26 02/21/21 09:25 02/21/21 08:00 95 02/21/21 03:01 98
[2021-02-22] MEDS: LEVOTHYROXINE SODIUM 75 MCG TABLET PO SCH (05:37)
[2021-02-22] MEDS: HEPARIN SOD 5,000 UNIT/0.5 ML VIAL SQ SCH (05:37)
[2021-02-22 07:36] LABS: Hematocrit (blood only) 30.7 % (37-47); Hemoglobin 9.9 g/dL (12.0-16.0); Mean Corpuscular Hemoglobin 30.3 pg (25-34); Mean Corpuscular Hgb Conc 32.2 g/dL (32-36); Mean Corpuscular Volume 93.9 fL (80-100); Mean Platelet Volume 10.8 fL (7.4-10.4); Platelet Count 88 K/uL (130-400); RDW Standard Deviation 58.8 fL (36.4-46.3); Red Blood Count 3.27 M/uL (4.2-5.4); White Blood Count 2.02 K/uL (4.8-10.8)
[2021-02-22] MEDS: lisinopril 40 MG TAB PO SCH (07:57)
[2021-02-22] MEDS: THIAMINE HCL 100 MG TAB PO SCH (07:57)
[2021-02-22] MEDS: VITAMIN B COMPLEX TAB PO SCH (07:57)
[2021-02-22] MEDS: carvediloL 12.5 MG TAB PO SCH (07:57)
[2021-02-22] MEDS: NEPHROCAPS PO SCH (07:57)
[2021-02-22] MEDS: amLODIPine BESYLATE 5 MG TAB PO SCH (07:57)
[2021-02-22] MEDS: PANTOprazole 40 MG TAB PO SCH (07:57)
[2021-02-22] MEDS: MEGESTROL ACETATE SUSP 400 MG/10 ML UDC PO SCH (07:57)
[2021-02-22] MEDS: cycloSPORINE 25 MG CAP PO SCH (07:58)
[2021-02-22] MEDS: ATOVAQUONE 750 MG/5 ML UDC PO SCH (07:58)
[2021-02-22 08:04] LABS: BUN Creatinine Ratio 6.3 (10-20); Creatinine Clr Calc Pharmacy 7.4 ml/min; Est GFR (African American) 8.9 ml/min; Est GFR (Non-African American) 7.7 ml/min; Potassium 3.7 mmol/L (3.5-5.1)
[2021-02-22] MEDS: FIDAXOMICIN 200 MG TAB PO SCH (08:05)
--- NOTE | 2021-02-22 09:20 | Hospitalist Progress Note ---
Date of Service February 22, 2021 Assessment & Plan (1) Acute respiratory failure: (2) C. difficile colitis: (3) Pulmonary edema: (4) Status post liver transplant: (5) Hyperammonemia: (6) End stage renal disease on dialysis: Plan: 65yo F with a PMH of liver transplant at [facility] in June 2020, ESRD on hemodialysis, history of dilated cardiomyopathy, hypertension presented with dyspnea and was found to be in acute respiratory failure in setting of pulmonary edema on 02/14. She is being managed for the following: #. Acute respiratory failure #. Pulmonary edema #. Cardiomyopathy 06/30/2017 echo: EF 30 to 35%, diffuse hypokinesis. Prior to presentation, hypoxic in 70s, improved to 91 % on cpap via EMS Admitting CXR showed cardiomegaly with pulmonary edema and layering pleural effusions with bibasilar consolidation suggestive of atelectasis or less likely pneumonitis. proBNP over 35,000 Status post emergent hemodialysis 02/14 and subsequent dialysis 02/15 and 02/16 and 02/18 Appreciate cardiology input and recommendation #. C. difficile Patient has history of chronic diarrhea, and also has history of C. difficile Patient had 3 loose bowel movements on 02/16, C. difficile test was sent, came back positive. Patient is started on fidaxomicin 02/16 Dr. Falk updated about this new incident. GI consulted: Agrees with fidaxomicin twice daily for 10 days, hand washing with hot soapy water, no isolation once diarrhea resolves, recommends follow-up with ID specialist at [place]. Patient not being accepted to acute inpatient rehab due to the expense associated with Dificid, got a request to change to p.o. vancomycin. GI contacted again 02/21, recommended vancomycin pulse taper to facilitate her discharge: 125mg qid x 2 weeks, 125mg bid x 1week, 125mg daily x 1 week, 125mg every other day x 2 weeks. Denies any symptoms of diarrhea She was discharged to [facility] with medications as advised #. Anemia Hemoglobin 6.7 , status post 2 unit PRBC transfusion 02/15 FOBT negative, iron panel suggestive of anemia of chronic disease with ferritin overload. Folate and vitamin B12 normal Does not complaint of black his stool or bleeding per rectum. Hemoglobin stable after transfusion, continue to monitor #. End stage renal disease on dialysis: Dr. Bob consulted Status post emergent hemodialysis 02/14 [3.5 L out] and subsequent dialysis 02/15 [3 L out] and 02/16 [2 L out] and 02/18 (3L out) and 02/21 [1.5 L] Will have hemodialysis to continue as an outpatient #. Hyperkalemia: Resolved #. Hypoglycemia: Resolved #. Status post liver transplant History of liver transplant at [facility] in June 2020,history of infectious complications since most recently admitted to [place] in October 2020 Discussed case with transplant surgeon, Dr. Falk No beds available at their facility, updated Dr. Falk today. Plan to move to wait list for transfer if patient develops infectious s/sx, abnormalities with LFTs Currently afebrile, no leukocytosis, LFTs unremarkable Dr. Falk: [phone], packaging coordinator, [phone] Dr. Falk updated 02/21. Did not have any acute issues on discharge today #. Hyperammonemia: Resolved #. Hypertension: Borderline, continue to monitor. Continue with home meds DVT Ppx: SQ heparin Code status: FULL PCP: Tuan Dispo: Continue care in med tele -may need transfer if her liver function worsens or any signs of infection. Working on [facility] versus other SNF since her daughter can't provide 24/7 care at home [PT recommending 24/7 care and home health] and wants her mother to regain some strength back so that she can get back to her baseline. Her liver transplant center wanted her to go to [facility] rehab in [place] but because of the distance being too far from home, patient and her daughter are reluctant to go there, patient is going [facility] tomorrow at 10:45 AM, will need to change her Dificid to p.o. vancomycin at the time of discharge according to the recommendation above. Admission and Anticipated Discharge Date Admission Date: February 14, 2021 Subjective 02/22/2021 The patient was seen and examined in telemetry unit She has been feeling much better today and wants to get out of the hospital Denies any significant symptoms Review of Systems Review of Systems: All systems reviewed and are unremarkable except as noted below Musculoskeletal: Generalized weakness Physical Exam Physical Exam: Lying in bed comfortably Constitutional: + thin; not ill appearing Eyes: PERRL, conjunctivae normal, anicteric sclerae ENMT: external ear and nose normal, oropharynx normal Neck: trachea midline, no thyromegaly Respiratory: no respiratory distress Auscultation: lungs clear to auscultation bilaterally Cardiovascular: Rate/Rhythm: regular rate Heart Sounds: no murmur Extremities: + edema Gastrointestinal (Abdomen): Inspection/Auscultation: normal bowel sounds; abdomen not distended Percussion/Palpation: abdomen soft; abdomen nontender Musculoskeletal: No acute arthritis in any joint Neurologic: Alert, awake and oriented x3. Generally weak but no focal sensory and motor deficit appreciated Psychiatric: A+Ox3, euthymic affect Lymphatic: no cervical or axillary lymphadenopathy Results & Data Results & Data ([facility]) Vital Signs (Past 12 Hours) Vital Signs Temp Pulse Pulse Pulse Resp BP Pulse Ox 02/22/21 08:00 85 02/22/21 07:39 36.4 C L 84 19 168/86 H 94 02/22/21 03:22 36.7 C 86 18 153/77 H 97 02/21/21 22:44 36.9 C 90 19 150/77 H 97 02/21/21 22:19 80 Laboratory Results Short CBC 02/22/21 Range/Units 06:42 WBC 2.02 L (4.8-10.8) K/uL Hgb 9.9 L (12.0-16.0) g/dL Hct 30.7 L (37-47) % Plt Count 88 L (130-400) K/uL BMP 02/22/21 06:42 Sodium 139 Potassium 3.7 D Chloride 101 Carbon Dioxide 30 BUN 34 H D Creatinine 5.32 H* D Glucose 81 Calcium 9.0
--- NOTE | 2021-02-22 10:24 | Nephrology Progress Note ---
Date of Service February 22, 2021 Assessment & Plan (1) End stage renal disease on dialysis: (2) Status post liver transplant: (3) Pulmonary edema: (4) C. difficile colitis: Plan: ESRD on HD, admitted with volume overload, improved with extra UF, EDW adjusted to 48 kg Had dialysis yesterday, had almost 2 L of UF and currently at her ED W. electrolyte, volume status acceptable. She is ready for discharge this morning. -- Received Epogen 02751 units with dialysis yesterday. --waiting on DC to [facility], dialysis order given to the dialysis nurse, will follow at [facility] weekly. Will follow Admission and Anticipated Discharge Date Admission Date: February 14, 2021 Subjective Orly feeling better, reports improvement in diarrhea and stool incontinence. Electrolyte acceptable. BP stable. Volume status acceptable. Had HD yesterday, now at EDW. Review of Systems Review of Systems: detail ROS was unremarkable. Physical Exam Constitutional: + ill appearing; no acute distress Respiratory: normal respiratory effort, lungs clear to auscultation Cardiovascular: RRR, no murmur, no edema Neurologic: moves all extremities and awake; not confused Psychiatric: A+Ox3, euthymic affect Orientation: oriented x 3 Affect: + tearful affect Results & Data ([facility]) Vital Signs (Past 12 Hours) Vital Signs Temp Pulse Pulse Pulse Pulse Resp BP 02/22/21 09:46 36.4 C L 84 86 81 19 168/86 H 02/22/21 08:00 85 02/22/21 07:39 36.4 C L 84 19 168/86 H 02/22/21 03:22 36.7 C 86 18 153/77 H 02/21/21 22:44 36.9 C 90 19 150/77 H Pulse Ox 02/22/21 09:46 94 02/22/21 08:00 02/22/21 07:39 94 02/22/21 03:22 97 02/21/21 22:44 97 PG Care Time/CCT Total # of Minutes Spent Total Time Spent with Patient: Total time spent is greater than 50% in coordination of care (as documented) at patient's floor/unit and/or counseling patient: Coding Level of Care Code 07489 Subseq Hosp Care Lvl 2 Diagnoses End stage renal disease on dialysis N18.6; Z99.2 Status post liver transplant Z94.4 Pulmonary edema J81.1 C. difficile colitis A04.72
--- NOTE | 2021-02-23 08:19 | Discharge Summary ---
Date of Service February 23, 2021 Admission HPI Per Admitting Provider This is a 65yo F with a PMH of liver transplant at [facility] in June 2020, ESRD on hemodialysis, history of dilated cardiomyopathy, hypertension and other medical problems listed below who presents with dyspnea. Was preparing for hemodialysis at home this morning when she became acutely short of breath. Had gained 5 lbs since previous weight check and was feeling fatigued as well. Was brought in via EMS for further evaluation. Initial oxygen saturation in the 70s. Patient initially started on CPAP. CXR showed cardiomegaly with pulmonary edema and layering pleural effusions with bibasilar consolidation suggestive of atelectasis or less likely pneumonitis. proBNP over 35,000. Potassium 6.7. Creatinine 6.65. Case discussed with Dr. Bob, who arranged for emergent dialysis on [facility] floor since no rooms available otherwise. Case discussed with liver transplant surgeon Dr. Falk of [facility]. Will coordinate care closely during admission and plan to transfer if patient develops abnormalities of LFTs or infection. Evaluated in 258-1 while undergoing dialysis. Initially tachypneic at 40 and lethargic on CPAP. Respiratory was called and patient transitioned to BiPAP with improved oxygen saturation to 95. Respiratory rate now 20. Was also given D50 due to blood sugar of 38. Patient feels much more alert and is significantly less short of breath. Denies any pain. No chest pain, shortness of breath or abdominal pain. Makes limited urine in setting of end-stage renal disease. No diarrhea or constipation. Admission Exam Per Admitting Provider Physical Exam: General Appearance: WD/WN, vitals as above, NAD, sitting up in bed, bipap mask in place, alert and communicating without issue, undergoing HD Head: normocephalic, atraumatic Eyes: normal inspection, PERRL, conjunctivae normal, anicteric sclerae ENT: external ear and nose normal, bipap mask Neck: normal visual inspection, trachea midline, no thyromegaly Respiratory: increased respiratory effort, bibasilar rales, no wheeze or rhonchi. No accessory muscle use Cardiovascular: tachycardic rate, regular rhythm, no murmur appreciated, normal peripheral pulses, no BLE edema. Vessels: no JVD Chest: normal inspection of chest Abdomen/GI: normal bowel sounds, soft, nontender, no hepatosplenomegaly Extremities/Musculoskeletal: no cyanosis or clubbing, extremities motor strength 5/5 Neurologic: PERRL, EOMI, accommodation nl, no face palsy, no dysarthria, CN's II-XI intact bilaterally and moves all extremities Psychiatric: A+Ox3, euthymic affect Skin: no rashes, normal color, warm/dry Principal Diagnosis Acute respiratory failure secondary pulmonary edema/volume overload ESRD on hemodialysis Anemia requiring transfusion Discharge Exam Constitutional + thin; not ill appearing Eyes PERRL, conjunctivae normal, anicteric sclerae ENMT external ear and nose normal, oropharynx normal Neck trachea midline, no thyromegaly Respiratory no respiratory distress Auscultation: lungs clear to auscultation bilaterally Cardiovascular Rate/Rhythm: regular rate Heart Sounds: no murmur Extremities: + edema Gastrointestinal (Abdomen) Inspection/Auscultation: normal bowel sounds; abdomen not distended Percussion/Palpation: abdomen soft; abdomen nontender Psychiatric A+Ox3, euthymic affect Lymphatic no cervical or axillary lymphadenopathy Discharge Data Allergies Allergy/AdvReac Type Severity Reaction Status Date / Time morphine AdvReac Intermediate Nausea Verified 02/14/21 08:32 Consultations 02/14/21 09:13 ED Decision to Admit Stat 02/14/21 11:02 Consult Nephrology Routine 02/15/21 08:51 Consult Cardiology Routine 02/17/21 09:01 Consult Gastroenterology Routine Ordered Studies 02/14/21 19:44 CT head/brain wo con Urgent Hospital Course (1) Acute respiratory failure: (2) C. difficile colitis: (3) Pulmonary edema: (4) Status post liver transplant: (5) Hyperammonemia: (6) End stage renal disease on dialysis: 65yo F with a PMH of liver transplant at [facility] in June 2020, ESRD on hemodialysis, history of dilated cardiomyopathy, hypertension presented with dyspnea and was found to be in acute respiratory failure in setting of pulmonary edema on 02/14. She is being managed for the following: #. Acute respiratory failure #. Pulmonary edema #. Cardiomyopathy 06/30/2017 echo: EF 30 to 35%, diffuse hypokinesis. Prior to presentation, hypoxic in 70s, improved to 91 % on cpap via EMS Admitting CXR showed cardiomegaly with pulmonary edema and layering pleural effusions with bibasilar consolidation suggestive of atelectasis or less likely pneumonitis. proBNP over 35,000 Status post emergent hemodialysis 02/14 and subsequent dialysis 02/15 and 02/16 and 02/18 Appreciate cardiology input and recommendation #. C. difficile Patient has history of chronic diarrhea, and also has history of C. difficile Patient had 3 loose bowel movements on 02/16, C. difficile test was sent, came back positive. Patient is started on fidaxomicin 02/16 Dr. Falk updated about this new incident. GI consulted: Agrees with fidaxomicin twice daily for 10 days, hand washing with hot soapy water, no isolation once diarrhea resolves, recommends follow-up with ID specialist at [facility]. Patient not being accepted to acute inpatient rehab due to the expense associated with Dificid, got a request to change to p.o. vancomycin. GI contacted again 02/21, recommended vancomycin pulse taper to facilitate her discharge: 125mg qid x 2 weeks, 125mg bid x 1week, 125mg daily x 1 week, 125mg every other day x 2 weeks. Denies any symptoms of diarrhea She was discharged to [facility] with medications as advised #. Anemia Hemoglobin 6.7 , status post 2 unit PRBC transfusion 02/15 FOBT negative, iron panel suggestive of anemia of chronic disease with ferritin overload. Folate and vitamin B12 normal Does not complaint of black his stool or bleeding per rectum. Hemoglobin stable after transfusion, continue to monitor #. End stage renal disease on dialysis: Dr. Bob consulted Status post emergent hemodialysis 02/14 [3.5 L out] and subsequent dialysis 02/15 [3 L out] and 02/16 [2 L out] and 02/18 (3L out) and 02/21 [1.5 L] Will have hemodialysis to continue as an outpatient #. Hyperkalemia: Resolved #. Hypoglycemia: Resolved #. Status post liver transplant History of liver transplant at [facility] in June 2020,history of infectious complications since most recently admitted to [facility] in October 2020 Discussed case with transplant surgeon, Dr. Falk No beds available at their facility, updated Dr. Falk today. Plan to move to wait list for transfer if patient develops infectious s/sx, abnormalities with LFTs Currently afebrile, no leukocytosis, LFTs unremarkable Dr. Falk: [phone], [place] coordinator, [facility] [phone]. Falk updated 02/21. Did not have any acute issues on discharge today #. Hyperammonemia: Resolved #. Hypertension: Borderline, continue to monitor. Continue with home meds DVT Ppx: SQ heparin Code status: FULL PCP: Tuan Dispo: Continue care in med tele -may need transfer if her liver function worsens or any signs of infection. Working on [facility] versus other SNF since her daughter can't provide 24/7 care at home [PT recommending 24/7 care and home health] and wants her mother to regain some strength back so that she can get back to her baseline. Her liver transplant center wanted her to go to [facility] in [place] but because of the distance being too far from home, patient and her daughter are reluctant to go there, patient is going to [facility] tomorrow at 10:45 AM, will need to change her Dificid to p.o. vancomycin at the time of discharge according to the recommendation above. Total Time Total Time Spent Total Time Spent (In Minutes): 40 minutes Discharge Plan Discharge Items Patient Disposition: Home - Home Health Services Reason For Visit: RESP FAILURE,ESRD NEEDING HD Discharge Diagnosis: Acute respiratory failure secondary pulmonary edema/volume overload ESRD on hemodialysis Anemia requiring transfusion Condition on Discharge: Fair Activity: Resume your previous activity Non-emergency contact: Primary Care Provider Call non-emergency contact if: you have any medication questions, your symptoms worsen and your rectal temperature is above 100.4 Follow-up/Referrals: Isaias Dickerson MD [Primary Care Provider] - 02/22/21 11:20 am (Please make an appointment with your primary care provider within 7 days following discharge from the facility ) Diet: Dialysis Renal Addtl Attending Provider Instructions: Follow-up with your primary care physician within a week time following discharge from the facility Follow-up with your kidney doctor and continue hemodialysis as an outpatient Take medications as prescribed. Follow-up with the dialysis clinic as instructed. Follow-up with your liver transplant doctor [Dr. Falk] as scheduled. Pending Studies at Discharge: No (02/14 blood culture final results.) Stand-Alone Forms: My [employer], Smoking Cessation Medications and DC Order Prescriptions: New vancomycin 125 mg capsule 125 mg PO UD Qty: 84 RF: 0 Continued levothyroxine 75 mcg capsule 75 mcg PO QAM RF: 0 lisinopril 40 mg tablet 40 mg PO DAILY RF: 0 megestrol 400 mg/10 mL (10 mL) suspension 400 mg PO QAM RF: 0 pantoprazole 40 mg tablet,delayed release (DR/EC) 40 mg PO BID RF: 0 cyclosporine modified 25 mg capsule 75 mg PO Q12H RF: 0 carvedilol 25 mg tablet 12.5 mg PO BID RF: 0 loperamide 2 mg Capsule 2 mg PO BID PRN (Reason: Diarrhea) RF: 0 Mircera 200 mcg/0.3 mL Syringe 200 mcg IV .[id number] RF: 0 thiamine HCl (vitamin B1) 100 mg Tablet 100 mg PO DAILY RF: 0 atovaquone 750 mg/5 mL suspension 1,500 mg PO DAILY RF: 0 amlodipine 10 mg tablet 10 mg PO DAILY RF: 0 vitamin B complex-folic acid [Balance B-50 (with folic acid)] 0.4 mg tablet 1 tab PO DAILY RF: 0 Discharge Orders: Discharge Order (Routine); Ordered 02/22/21 Ordered By: Gerard Ruiz Admission Data Admit Date/Time: 02/14/21 09:04 Attending Provider: Gerard Ruiz Admit Provider: Gerard Ruiz Primary Care Provider: Isaias Dickerson Other Providers: Gerard Ruiz ; Jeet Bob ; Pee Garcia ; [facility] ; Cecilia Hugo ; [facility] ; [facility] ; Deandre Benitez Other Interventions: Discharge Summary Assessment (RN) Last Done: 02/22/21 09:46
== END 2021-02-22 10:46 | DRG 189 ==
LOC: ED 07:10 → SUATTDRO 09:04 → 2W 09:04 → 2S 15:44

== ENCOUNTER 2021-03-07 06:48 | Inpatient (IN) ==
[2021-03-07] MEDS ORDERED: ONDANSETRON 4 MG OD TAB ONE (08:06)
[2021-03-07 08:53] LABS: Hemoglobin 9.3 g/dL (12.0-16.0); Mean Corpuscular Hemoglobin 30.3 pg (25-34); Mean Corpuscular Volume 97.7 fL (80-100); Mean Platelet Volume 10.4 fL (7.4-10.4); Platelet Count 206 K/uL (130-400); RDW Coefficient of Variation 18.3 % (11.5-14.5); RDW Standard Deviation 65.1 fL (36.4-46.3); Red Blood Count 3.07 M/uL (4.2-5.4); White Blood Count 3.27 K/uL (4.8-10.8)
--- NOTE | 2021-03-07 09:02 | XRay Report ---
XR chest 1V portable HISTORY: Dyspnea COMPARISON: Chest 02/17/2021. FINDINGS: No pneumothorax. There are low lung volumes. Moderate pulmonary edema and small bilateral p leural effusions have slightly improved. There are patchy bibasilar densities. The heart remains enla rged. No pneumothorax. IMPRESSION: 1. Slight improvement in the moderate pulmonary edema and small bilateral pleural effusions. 2. Patchy bibasilar densities persist. This favors atelectasis. A pneumonia could also have a similar appearance in the appropriate clinical setting. ACT 112: Negative or not required by law. Electronically signed by: Jhon Wing M.D. 03/07/2021 9:00 AM
[2021-03-07 09:26] LABS: Alanine Aminotransferase 42 U/L (12-78); Albumin Globulin Ratio 0.4 (0.9-2); Albumin Level 2.1 gm/dl (3.4-5.0); Alkaline Phosphatase 304 U/L (45-117); Aspartate Aminotransferase 31 U/L (15-37); BUN Creatinine Ratio 8.1 (10-20); Bilirubin,Total 0.5 mg/dl (0.2-1); Blood Urea Nitrogen 50 mg/dl (7-18); Carbon Dioxide 27 mmol/L (21-32); Chloride 104 mmol/L (98-107); Creatinine Clr Calc Pharmacy 6.9 ml/min; Est GFR (African American) 7.4 ml/min; Est GFR (Non-African American) 6.3 ml/min; Globulin 4.7 gm/dl (2.5-4.0); Glucose 99 mg/dl (70-99); Magnesium 2.1 mg/dl (1.8-2.4); NT Pro B Type Natriuretic Pept > 35000 pg/ml (0-900); Potassium 4.8 mmol/L (3.5-5.1); Sodium 141 mmol/L (136-145); Total Protein 6.8 gm/dl (6.4-8.2); Troponin I 0.018 ng/ml (0-0.045)
[2021-03-07 09:47] LABS: ALC (manual) 0.71 K/uL (1.2-3.4); ANC (manual) 2.16 K/uL (1.4-6.5); Basophils # (manual) 0.06 K/uL (0-0.2); Basophils % (manual) 1.7 %; Dohle Bodies 1+; Eosinophils # (manual) 0.09 K/uL (0-0.5); Eosinophils % (manual) 2.6 %; Lymphocytes # (manual) 0.71 K/uL (1.2-3.4); Lymphocytes % (manual) 21.7 %; Monocytes # (manual) 0.23 K/uL (0.11-0.59); Myelocytes # (manual) 0.03 K/uL (0-0); Myelocytes % (manual) 0.9 %; Neutrophils # (manual) 2.16 K/uL (1.4-6.5); Neutrophils % (manual) 66.1 %; Toxic Granulation 1+
--- NOTE | 2021-03-07 10:25 | Emergency Department Note ---
History of Present Illness General Chief complaint: Shortness of Breath/Dyspnea Stated complaint: SOB Time Seen by Provider: 03/07/21 07:35 History of Present Illness 59-year-old female presents to the ED with a chief complaint of shortness of breath. The patient states that her shortness of breath started when she awoke. She is a dialysis patient and her last dialysis was on Saturday. She has had fluid overload in the past. She states that she does not produce urine. She is not on home oxygen. She has no additional complaints. She was placed on BiPAP by EMS. The patient is now comfortable on BiPAP here. She is due for dialysis today. No other complaints. Denies any chest pains or recent illness. No fevers or cough. Home Medications Medication Instructions Recorded Confirmed Type carvedilol 25 mg tablet 12.5 mg PO BID 01/18/21 03/07/21 History cyclosporine modified 25 mg capsule 75 mg PO Q12H 01/18/21 03/07/21 History epoetin beta, methoxy peg 200 200 mcg IV .[id number] 01/18/21 03/07/21 History mcg/0.3 mL injection syringe (Mircera) levothyroxine 75 mcg capsule 75 mcg PO QAM 01/18/21 03/07/21 History lisinopril 40 mg tablet 40 mg PO DAILY 01/18/21 03/07/21 History loperamide 2 mg capsule 2 mg PO BID PRN 01/18/21 03/07/21 History megestrol 400 mg/10 mL (10 mL) 400 mg PO QAM 01/18/21 03/07/21 History oral suspension pantoprazole 40 mg tablet,delayed 40 mg PO BID 01/18/21 03/07/21 History release thiamine HCl (vitamin B1) 100 mg 100 mg PO DAILY 01/18/21 03/07/21 History tablet amlodipine 10 mg tablet 10 mg PO DAILY 01/31/21 03/07/21 History atovaquone 750 mg/5 mL oral 1,500 mg PO DAILY 01/31/21 03/07/21 History suspension vitamin B complex-folic acid 0.4 1 tab PO DAILY 01/31/21 03/07/21 History mg tablet (Balance B-50 (with folic acid)) vancomycin 125 mg capsule 125 mg PO UD #84 cap 02/22/21 03/07/21 Rx Allergies Allergy/AdvReac Type Severity Reaction Status Date / Time morphine AdvReac Intermediate Nausea Verified 02/14/21 08:32 Past Med/Surg History Medical History Anemia Cardiomyopathy echo 04/29/18 showed diffuse hypokinesis, LVEF 30-35% End-stage renal disease on hemodialysis Hypertension Neutropenia Polycystic kidney disease Secondary hyperparathyroidism of renal origin Surgical History Hx of tubal ligation Family History Other Adopted Social History Smoking Status: Never smoker Hx Alcohol Use: No Hx Substance Use: No Preferred Language: [place] Communication Ability: Effective Entertainment Dancer Required: No Beliefs That Will Affect Care: None marital status: / Current Living Situation: Family Current Living Situation Comment: Lives with Daughter. Feels Safe at Home: Yes Assistive Devices: Walker Review of Systems A total of 10 systems reviewed and were otherwise negative Physical Exam Vital Signs Vital Signs - 24 hr 03/07/21 06:57 03/07/21 07:03 03/07/21 07:25 Pulse Rate 115 H 110 H Pulse Rate from SpO2 Sensor Respiratory Rate 20 30 H Respiratory Effort / Characteristics Short of Breath Spontaneous Short of Breath Respiratory Depth Normal Shallow Respiratory Pattern Regular Tachypnea Blood Pressure 136/115 H Blood Pressure [Right Arm] Blood Pressure Mean 122 Blood Pressure Mean [Right Arm] Pulse Oximetry 98 100 100 Oxygen Delivery Method CPAP Oxygen Flow Rate 10 Fraction of Inspired Oxygen 50 50 Sepsis Recent Fever Within 48 Hours No Sepsis New/Unexplained Change in Mental Status N/A Sepsis Action Taken by Nursing No Action Required 03/07/21 07:50 03/07/21 07:51 03/07/21 08:00 Pulse Rate 105 H 107 H Pulse Rate from SpO2 Sensor 105 H 107 H Respiratory Rate 30 H 24 Respiratory Effort / Characteristics Respiratory Depth Respiratory Pattern Blood Pressure 177/97 H Blood Pressure [Right Arm] 163/94 H Blood Pressure Mean 123 Blood Pressure Mean [Right Arm] 117 Pulse Oximetry 98 97 Oxygen Delivery Method BiPAP BiPAP Oxygen Flow Rate 35 35 Fraction of Inspired Oxygen Sepsis Recent Fever Within 48 Hours Sepsis New/Unexplained Change in Mental Status Sepsis Action Taken by Nursing 03/07/21 08:30 03/07/21 09:00 03/07/21 09:30 Pulse Rate 107 H 100 H 97 H Pulse Rate from SpO2 Sensor 107 H 99 H 96 H Respiratory Rate 36 H 34 H 30 H Respiratory Effort / Characteristics Respiratory Depth Respiratory Pattern Blood Pressure 172/104 H 159/101 H 157/86 H Blood Pressure [Right Arm] Blood Pressure Mean 126 120 109 Blood Pressure Mean [Right Arm] Pulse Oximetry 97 97 98 Oxygen Delivery Method BiPAP BiPAP Oxygen Flow Rate 35 35 Fraction of Inspired Oxygen Sepsis Recent Fever Within 48 Hours Sepsis New/Unexplained Change in Mental Status Sepsis Action Taken by Nursing 03/07/21 10:00 Pulse Rate 105 H Pulse Rate from SpO2 Sensor 104 H Respiratory Rate 30 H Respiratory Effort / Characteristics Respiratory Depth Respiratory Pattern Blood Pressure 169/104 H Blood Pressure [Right Arm] Blood Pressure Mean 125 Blood Pressure Mean [Right Arm] Pulse Oximetry 94 Oxygen Delivery Method BiPAP Oxygen Flow Rate 35 Fraction of Inspired Oxygen Sepsis Recent Fever Within 48 Hours Sepsis New/Unexplained Change in Mental Status Sepsis Action Taken by Nursing CONSTITUTIONAL/VITAL SIGNS: Reviewed / noted above. GENERAL: Non-toxic in appearance. INTEGUMENTARY: Warm, dry, and [employer]. HEAD: Normocephalic. EYES: without scleral icterus or trauma. ENT/OROPHARYNX: clear and moist. LYMPHADENOPATHY/NECK: Is supple without lymphadenopathy or meningismus. RESPIRATORY: Diminished with rales in the bases bilaterally. No increased work of breathing. CARDIOVASCULAR: Regular rate and rhythm. GI/ABDOMEN: Soft and nontender. No organomegaly or pulsatile mass. EXTREMITIES: Warm and well perfused. BACK: No CVA tenderness. NEUROLOGICAL: Intact without focal deficits. PSYCHIATRIC: normal affect. MUSCULOSKELETAL: Normally developed with good muscle tone. TRIAGE NURSING DOCUMENTATION REVIEWED. Course Administered Medications Discontinued Medications Ondansetron HCl (Ondansetron 4 Mg Od Tab) Confirm Administered Dose 4 mg .ROUTE .Ooshot ONE Stop: 03/07/21 08:07 Last Admin: 03/07/21 08:09 Dose: 4 mg Documented by: [id number] Medical Decision Making Differential Diagnosis The differential was considered includes acute myocardial infarction, acute coronary syndrome, myocarditis, pericarditis, pericardial effusions /tamponad, esophageal perforation, pulmonary embolism, pneumonia, pneumothorax, cardiomyopathy, congestive heart, anemia , COPD/asthma exacerbation. Medical Records Attestation: I reviewed the patient's medical records. Home Medications Current Medication List: was personally reviewed by me Laboratory Data Attestation: I reviewed the patient's lab results. Result diagrams: 03/07/21 08:27 03/07/21 08:27 Lab Results 03/07/21 03/07/21 03/07/21 Range/Units 08:27 08:27 08:27 WBC 3.27 L (4.8-10.8) K/uL RBC 3.07 L (4.2-5.4) M/uL Hgb 9.3 L (12.0-16.0) g/dL Hct 30.0 L (37-47) % MCV 97.7 (80-100) fL MCH 30.3 (25-34) pg MCHC 31.0 L (32-36) g/dL RDW Std Deviation 65.1 H (36.4-46.3) fL RDW Coeff of Igor 18.3 H (11.5-14.5) % Plt Count 206 (130-400) K/uL MPV 10.4 (7.4-10.4) fL Neutrophils % (Manual) 66.1 % Lymphocytes % (Manual) 21.7 % Monocytes % (Manual) 7.0 % Eosinophils % (Manual) 2.6 % Basophils % (Manual) 1.7 % Myelocytes % (Man) 0.9 % Neutrophils # (Manual) 2.16 (1.4-6.5) K/uL Total Absolute Neuts 2.16 (1.4-6.5) K/uL Lymphocytes # (Manual) 0.71 L (1.2-3.4) K/uL Total Abs Lymphocytes 0.71 L (1.2-3.4) K/uL Monocytes # (Manual) 0.23 (0.11-0.59) K/uL Eosinophils # (Manual) 0.09 (0-0.5) K/uL Basophils # (Manual) 0.06 (0-0.2) K/uL Myelocytes # (Manual) 0.03 H (0-0) K/uL Toxic Granulation 1+ Dohle Bodies 1+ Sodium 141 (136-145) mmol/L Potassium 4.8 D (3.5-5.1) mmol/L Chloride 104 (98-107) mmol/L Carbon Dioxide 27 (21-32) mmol/L Anion Gap 10.0 (3-11) BUN 50 H (7-18) mg/dl Creatinine 6.26 H* D (0.6-1.2) mg/dl Est Cr Clr Drug Dosing 6.9 ml/min Est GFR ( Amer) 7.4 ml/min Est GFR (Non-Af Amer) 6.3 ml/min BUN/Creatinine Ratio 8.1 L (10-20) Glucose 99 (70-99) mg/dl Lactate 1.2 (0.4-2.0) mmol/L Calcium 10.0 (8.5-10.1) mg/dl Magnesium 2.1 (1.8-2.4) mg/dl Total Bilirubin 0.5 (0.2-1) mg/dl AST 31 (15-37) U/L ALT 42 (12-78) U/L Alkaline Phosphatase 304 H (45-117) U/L Troponin I 0.018 (0-0.045) ng/ml NT-Pro-B Natriuret Pep > 45679 H (0-900) pg/ml Total Protein 6.8 (6.4-8.2) gm/dl Albumin 2.1 L (3.4-5.0) gm/dl Globulin 4.7 H (2.5-4.0) gm/dl Albumin/Globulin Ratio 0.4 L (0.9-2) Anaplasma Smear See Comment A COVID-19 Eval Order SARS-CoV-2 (PCR) (Negative) 03/07/21 03/07/21 Range/Units 08:40 08:40 WBC (4.8-10.8) K/uL RBC (4.2-5.4) M/uL Hgb (12.0-16.0) g/dL Hct (37-47) % MCV (80-100) fL MCH (25-34) pg MCHC (32-36) g/dL RDW Std Deviation (36.4-46.3) fL RDW Coeff of Igor (11.5-14.5) % Plt Count (130-400) K/uL MPV (7.4-10.4) fL Neutrophils % (Manual) % Lymphocytes % (Manual) % Monocytes % (Manual) % Eosinophils % (Manual) % Basophils % (Manual) % Myelocytes % (Man) % Neutrophils # (Manual) (1.4-6.5) K/uL Total Absolute Neuts (1.4-6.5) K/uL Lymphocytes # (Manual) (1.2-3.4) K/uL Total Abs Lymphocytes (1.2-3.4) K/uL Monocytes # (Manual) (0.11-0.59) K/uL Eosinophils # (Manual) (0-0.5) K/uL Basophils # (Manual) (0-0.2) K/uL Myelocytes # (Manual) (0-0) K/uL Toxic Granulation Dohle Bodies Sodium (136-145) mmol/L Potassium (3.5-5.1) mmol/L Chloride (98-107) mmol/L Carbon Dioxide (21-32) mmol/L Anion Gap (3-11) BUN (7-18) mg/dl Creatinine (0.6-1.2) mg/dl Est Cr Clr Drug Dosing ml/min Est GFR ( Amer) ml/min Est GFR (Non-Af Amer) ml/min BUN/Creatinine Ratio (10-20) Glucose (70-99) mg/dl Lactate (0.4-2.0) mmol/L Calcium (8.5-10.1) mg/dl Magnesium (1.8-2.4) mg/dl Total Bilirubin (0.2-1) mg/dl AST (15-37) U/L ALT (12-78) U/L Alkaline Phosphatase (45-117) U/L Troponin I (0-0.045) ng/ml NT-Pro-B Natriuret Pep (0-900) pg/ml Total Protein (6.4-8.2) gm/dl Albumin (3.4-5.0) gm/dl Globulin (2.5-4.0) gm/dl Albumin/Globulin Ratio (0.9-2) Anaplasma Smear COVID-19 Eval Order Covid19 at [facility] SARS-CoV-2 (PCR) NEGATIVE (Negative) Imaging Data Radiologist's Impression: Chest X-Ray 03/07/21 08:18 XR chest 1V portable HISTORY: Dyspnea COMPARISON: Chest 02/17/2021. FINDINGS: No pneumothorax. There are low lung volumes. Moderate pulmonary edema and small bilateral pleural effusions have slightly improved. There are patchy bibasilar densities. The heart remains enlarged. No pneumothorax. IMPRESSION: 1. Slight improvement in the moderate pulmonary edema and small bilateral pleural effusions. 2. Patchy bibasilar densities persist. This favors atelectasis. A pneumonia could also have a similar appearance in the appropriate clinical setting. ACT 112: Negative or not required by law. Electronically signed by: Jhon Wing M.D. 03/07/2021 9:00 AM ECG Data Attestation: I personally reviewed and interpreted this ECG as follows: Additional Comments: Twelve-lead EKG: Per my interpretation shows a sinus tach at a rate of 115. No ST elevation. No PVCs. MDM Narrative Patient presents with shortness of breath likely related to some fluid overload. She is a dialysis dependent renal failure patient and she is due for dialysis today. She does not produce urine. Her EKG shows a sinus tach at a rate of 115. CBC is unremarkable. Chemistry panel was unremarkable. BNP is elevated. BUN and creatinine are also elevated based on chronic dialysis dependent renal failure. Chest x-ray shows moderate pulmonary edema that is slightly improved compared to previous x-ray. The patient seems to be very comfortable on BiPAP. She likely just needs dialysis. She will be seen by the hospitalist for further patient evaluation and care. Impression & Plan Pulmonary edema, Dialysis patient Discharge Plan Visit Data Chief Complaint: Shortness of Breath/Dyspnea Stated Complaint: SOB ED Provider: Florentin Smyth Discharge Problem: Pulmonary edema, Dialysis patient Patient Disposition: Being Evaluated by Hospitalist Forms Stand Alone Forms: My [facility] Prescriptions Prescriptions: No Action levothyroxine 75 mcg capsule 75 mcg PO QAM RF: 0 lisinopril 40 mg tablet 40 mg PO DAILY RF: 0 megestrol 400 mg/10 mL (10 mL) suspension 400 mg PO QAM RF: 0 pantoprazole 40 mg tablet,delayed release (DR/EC) 40 mg PO BID RF: 0 cyclosporine modified 25 mg capsule 75 mg PO Q12H RF: 0 carvedilol 25 mg tablet 12.5 mg PO BID RF: 0 loperamide 2 mg Capsule 2 mg PO BID PRN (Reason: Diarrhea) RF: 0 Mircera 200 mcg/0.3 mL Syringe 200 mcg IV .[id number] RF: 0 thiamine HCl (vitamin B1) 100 mg Tablet 100 mg PO DAILY RF: 0 atovaquone 750 mg/5 mL suspension 1,500 mg PO DAILY RF: 0 amlodipine 10 mg tablet 10 mg PO DAILY RF: 0 vitamin B complex-folic acid [Balance B-50 (with folic acid)] 0.4 mg tablet 1 tab PO DAILY RF: 0 vancomycin 125 mg capsule 125 mg PO UD Qty: 84 RF: 0 Referrals Referrals: Isaias Dickerson MD [Primary Care Provider] -
[2021-03-07 10:56] LABS: Anaplasmosis Smear(Rpt to DOH) Pos for Anaplasma
[2021-03-07] MEDS ORDERED: SODIUM CHLORIDE 0.9% 1000ML 1,000 ML IV PRN (11:26)
[2021-03-07] MEDS ORDERED: NITROGLYCERIN 2% OINTMENT 30GM TUBE ONE (11:26)
[2021-03-07] MEDS ORDERED: NITROGLYCERIN 2% OINTMENT 30GM TUBE EXT ONE (11:27)
[2021-03-07] MEDS ORDERED: HEPARIN SOD (PORCINE) 1000 UNIT/ML IV SCH (11:30)
[2021-03-07] MEDS ORDERED: EPOETIN ALFA 10,000 UNITS/ML VIAL IV SCH (11:45)
--- NOTE | 2021-03-07 12:03 | History & Physical Report ---
Date of Service March 07, 2021 Assessment & Plan (1) Pulmonary edema: (2) Acute respiratory failure: (3) End-stage renal disease on hemodialysis: (4) Non-ischemic cardiomyopathy: Plan: -admit to tele -Patient presenting from home with severe shortness of breath. Placed on BiPap in the ED with improvement in respiratory status. Found to be volume overloaded. Patient is anuric from ESRD (on HD TuThSa, last treatment 03/04) and hx if non- ischemic cardiomyopathy, EF 30-35%. -Patient recently admitted to [facility] 02/14 through 02/23 for acute respiratory failure from volume overload requiring urgent hemodialysis. Patient also diagnosed with C. difficile and placed on vancomycin taper. Discharged to [facility] for rehab and returned home on 03/05. -Seen by Dr. Bob in the ED, arranging for urgent dialysis today -given significant hypertension, will start Nitro paste 0.5in and Hydralazine 10mg IV x 1 -continue home beta kathi and ACEi -cardiology consult, input appreciated (5) Hypertension: Plan: -continue carvedilol and Lisinopril (6) Status post liver transplant: Plan: -s/p liver [place] [facility] [place]mission coordinator, [phone] -case discussed with ABDIRASHID Pérez with transplant medicine ([phone]) - requesting daily update -please fax ALL labs and discharge summary to [phone] -continue cyclosporine and atovaquone (7) Anemia: Plan: -due to CKD -baseline hgb ~ 8.5 -10 -hgb 9.3 today -monitor CBC (8) C. difficile diarrhea: Plan: -tested positive 02/16 -remains on Vanco taper -patient continues to have diarrhea that is slowly improving (9) Abnormal blood smear: Plan: -inclusion bodies noted on peripheral blood smear -question true infection at this time as likelihood of rickettsial illness is low given no known tick exposure. 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 Patient recently admitted to [facility] 02/14 through 02/23 for acute respiratory failure from volume overload requiring urgent hemodialysis. Patient also diagnosed with C. difficile and placed on vancomycin taper. Discharged to [facility] for rehab and returned home on 03/05. Patient reports she felt very good on the day she returned home. Overnight, she reports she woke up and was very diaphoretic and very short of breath. EMS was called and patient was brought to the ED for further evaluation. Patient denies chest pain. No lightheadedness, dizziness, or syncopal events. She continues to have diarrhea from the C. Diff infection however it is improving. No abdominal pain, nausea, or vomiting. Denies BRBPR or dark, tarry stools. No fevers or chills. She is anuric from ESRD. Patient requ ired application of BiPap in the ED. She is hypertensive and tachypneic. CXR shows volume overload. Dr. Bob was notified and patient will go for urgent dialysis. Allergies Allergy/AdvReac Type Severity Reaction Status Date / Time morphine AdvReac Intermediate Nausea Verified 02/14/21 08:32 Home Medications Medication Instructions Recorded Confirmed Type carvedilol 25 mg tablet 12.5 mg PO BID 01/18/21 03/07/21 History cyclosporine modified 25 mg capsule 75 mg PO Q12H 01/18/21 03/07/21 History epoetin beta, methoxy peg 200 200 mcg IV .[id number] 01/18/21 03/07/21 History mcg/0.3 mL injection syringe (Mircera) levothyroxine 75 mcg capsule 75 mcg PO QAM 01/18/21 03/07/21 History lisinopril 40 mg tablet 40 mg PO DAILY 01/18/21 03/07/21 History megestrol 400 mg/10 mL (10 mL) 400 mg PO QAM 01/18/21 03/07/21 History oral suspension pantoprazole 40 mg tablet,delayed 40 mg PO BID 01/18/21 03/07/21 History release thiamine HCl (vitamin B1) 100 mg 100 mg PO DAILY 01/18/21 03/07/21 History tablet amlodipine 10 mg tablet 10 mg PO DAILY 01/31/21 03/07/21 History atovaquone 750 mg/5 mL oral 1,500 mg PO DAILY 01/31/21 03/07/21 History suspension vitamin B complex-folic acid 0.4 1 tab PO DAILY 01/31/21 03/07/21 History mg tablet (Balance B-50 (with folic acid)) vancomycin 125 mg capsule 125 mg PO UD #84 cap 02/22/21 03/07/21 Rx cyanocobalamin (vitamin B-12) 2,000 mcg PO DAILY 03/07/21 03/07/21 History 1,000 mcg tablet (Vitamin B-12) Past Med/Surg History Medical History Anemia End-stage renal disease on hemodialysis Hypertension Non-ischemic cardiomyopathy Polycystic kidney disease Secondary hyperparathyroidism of renal origin Surgical History Hx of tubal ligation Status post liver transplant Family History Other Adopted Social History Smoking Status: Never smoker Hx Alcohol Use: No Hx Substance Use: No Preferred Language: [place] Communication Ability: Effective Metal Bonder Required: No Beliefs That Will Affect Care: None marital status: / Current Living Situation: Family Current Living Situation Comment: Lives with Daughter. Feels Safe at Home: Yes Assistive Devices: Walker Review of Systems Review of Systems: ROS per HPI, all other systems reviewed and negative Physical Exam Constitutional: + ill appearing and + thin; no acute distress vitals as above Eyes: PERRL, conjunctivae normal, anicteric sclerae ENMT: external ear and nose normal, oropharynx normal Respiratory: + tachypneic; no respiratory distress Auscultation: + diminished lung sounds, + crackles (BL bases) and + wheezes (scattered, expiratory) Cardiovascular: Rate/Rhythm: regular rate and regular rhythm Vessels: normal peripheral pulses Extremities: + edema (+1 pitting edema BLE) Gastrointestinal (Abdomen): normal bowel sounds, soft, nontender, no hepatosplenomegaly Musculoskeletal: no cyanosis or clubbing, extremities motor strength 5/5 Skin: no rashes, warm and dry Neurologic: PERRL, EOMI, accommodation nl, no face palsy, no dysarthria Psychiatric: A+Ox3, euthymic affect Results & Data Results & Data ([facility]) Vital Signs (Past 12 Hours) Vital Signs Pulse Resp BP BP Pulse Ox 03/07/21 11:30 120 H 33 H 170/103 H 99 03/07/21 11:00 112 H 33 H 92 03/07/21 10:30 105 H 33 H 180/92 H 94 03/07/21 10:23 113 H 30 H 99 03/07/21 10:00 105 H 30 H 169/104 H 94 03/07/21 09:30 97 H 30 H 157/86 H 98 03/07/21 09:00 100 H 34 H 159/101 H 97 03/07/21 08:30 107 H 36 H 172/104 H 97 03/07/21 08:00 107 H 24 177/97 H 97 03/07/21 07:51 105 H 30 H 98 03/07/21 07:50 163/94 H 03/07/21 07:25 100 03/07/21 07:03 110 H 30 H 100 03/07/21 06:57 115 H 20 136/115 H 98 Laboratory Results Short CBC 03/07/21 03/07/21 Range/Units 08:27 08:27 WBC 3.27 L (4.8-10.8) K/uL Hgb 9.3 L (12.0-16.0) g/dL Hct 30.0 L (37-47) % Plt Count 206 (130-400) K/uL Alkaline Phosphatase 304 H (45-117) U/L BMP 03/07/21 08:27 Sodium 141 Potassium 4.8 D Chloride 104 Carbon Dioxide 27 BUN 50 H Creatinine 6.26 H* D Glucose 99 Calcium 10.0 Cardiac Enzymes 03/07/21 Range/Units 08:27 Troponin I 0.018 (0-0.045) ng/ml Liver Function 03/07/21 Range/Units 08:27 Total Bilirubin 0.5 (0.2-1) mg/dl AST 31 (15-37) U/L ALT 42 (12-78) U/L Alkaline Phosphatase 304 H (45-117) U/L Albumin 2.1 L (3.4-5.0) gm/dl Diagnostic Findings Chest X-Ray 03/07/21 08:18 XR chest 1V portable HISTORY: Dyspnea COMPARISON: Chest 02/17/2021. FINDINGS: No pneumothorax. There are low lung volumes. Moderate pulmonary edema and small bilateral pleural effusions have slightly improved. There are patchy bibasilar densities. The heart remains enlarged. No pneumothorax. IMPRESSION: 1. Slight improvement in the moderate pulmonary edema and small bilateral pleural effusions. 2. Patchy bibasilar densities persist. This favors atelectasis. A pneumonia could also have a similar appearance in the appropriate clinical setting. ACT 112: Negative or not required by law. Electronically signed by: Jhon Wing M.D. 03/07/2021 9:00 AM Code Status & VTE Plan Code Status Patient is a full code as per my discussion with her. VTE Prophylaxis Plan VTE Prophylaxis will be ordered: Yes Supervising Physician Co-Signing Physician Notes I have seen and examined the patient and have discussed the case with the provider above. I agree with the assessment and plan as stated. The patient is a 65 yo cachectic female reporting a 50lb weight loss over the past year, recently admitted to the hospital, discharged two weeks ago who presents for acute shortness of breath. She reports acute SOB in the past 24 hours with associated cough, diaphoresis this morning and chills. However, she denies any cough or productive sputum, fevers, chills or other infectious symptoms prior to this time. She denies chest pain. She was recovered post-discharge at [facility] and went home. She reports feeling well until just yesterday. Recent c-diff infection remains on vancomycin taper, reporting 6 episodes of diarrhea per night. Reports stool isnt inge watery but is semisolid. Denies abdominal pain. Doesnt make any urine at all and reports compliance with hemodialysis, last session two days ago. Reports this same type of issue happened before causing last admission. There may be some adjustments to her HD that have not been made based on her extreme weight loss over the past year. She underwent an orthotopic liver transplant on 07/20/[address] Goldstein for polycystic liver disease causing end stage liver disease. Postoperative course complicated by hematoma requiring ex lap x 2 on 07/22 and 07/23/20. She developed c-diff diarrhea treated with vancomycin and pneumonia treated with IV antibiotics and requiring thoracentesis. On follow-up with gastroenterology for the ongoing diarrhea, she also underwent an EGD revealing gastric ulcers. She was started on immunosuppressives, Bactrim and antiviral therapy. She was also started on prednisone and insulin for hyperglycemia. She underwent a hernia repair at same time of her liver transplant. She was transferred to rehab at [facility] and returned home on 07/2720. She remains on the kidney transplant list for polycystic kidney disease and on hemodialysis. Son is afflicted with same condition. 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 Her last echo was on 02/17/21 revealing EF 30-35%, small pericardial effusion, large right pleural effusion and small left pleural effusion with no evidence of cardiac tamponade. Grade I diastolic dysfunction was noted. Today, consideration for sepsis was given, however, considering elevated BNP and clear clinical picture toward impending respiratory failure 2/2 volume overload, volume resuscitation would be contraindicated. Antibiotics are not thought necessary at this time given more likely diagnosis of acute heart failure from fluid overload causing hypoxia and respiratory distress. Lactate performed and normal. Procalcitonin pending. She is currently on BIPAP at 12/5 60L, 50% FiO2. She is tachypneic and using accessory respiratory muscles to help her breathe. Although not quite in a tripod position she is almost there sitting at 90 degrees in the bed and very anxious and unable to recline back. She is tachycardic and there are visible chills on her legs. Breath sounds are clear in the upper lung marinelli but diminished to absent in the lower lung marinelli bilaterally. She is cachectic, moving all extremities equally. Skin is warm and dry. Abdominal muscles are assisting with respiration and she is sitting upright limiting full exam. Current blood pressure is 180/92 with pulse in the 120s and respiratory rate in the low to mid 30s. She was given nitro paste in the ER and hydralazine. Again, diuretics not given as patient doesnt make urine. Nephrology was immediately contacted and emergently working her onto the schedule. Provider above has reached out to her transplant team to make them aware of her readmission. She also reached out to patients daughter and updated her. Transfer to PCU for emergent dialysis. I did give the automatic developer a heads up in case of worsening respiratory failure. After 45 minutes of nitro paste, her vitals were 168/94, HR 113 RR 31. Hydralazine 10mg IV x 1 now. Will reassess after dialysis. REASSESSMENT (1700): Steel Melter consulted out of precaution and ICU team has assumed care. Procalcitonin slightly elevated at 1.2, however, she is already clinically improving on hemodialysis. With abnormal blood smear, will empirically start her on doxycycline, however, defer additional antibiotics to ICU team. Current vitals are 142/88, HR 115, RR 33 and she continues on BIPAP at 100% FiO2. Jacqueline Topete DO [facility] Hospitalist (1) Anemia Anemia type: unspecified type Qualified Code(s): D64.9 - Anemia, unspecified
[2021-03-07] MEDS ORDERED: hydrALAZINE HCL 20 MG/ML VIAL IV STA ×2 (12:23→13:37)
[2021-03-07] MEDS ORDERED: carvediloL 12.5 MG TAB ONE (12:36)
--- NOTE | 2021-03-07 12:41 | Nephrology Consultation ---
Date of Consultation March 07, 2021 Assessment & Plan (1) End-stage renal disease on hemodialysis: * Unable to provide HD in [facility]. Plan admission to telemetry bed - discussed w/ primary service * Will schedule HD today for 4 hours, attempt 3 L UF * Monitor weight, PRP (2) Hypertension: * Expect elevated BP to improve w/ UF (3) Anemia: * Will provide PATI w/ HD today (4) Non-ischemic cardiomyopathy: * Recommend trending troponin (5) C. difficile colitis: * h/o C. Difficile colitis last hospitalization * Patient reports diarrhea has resolved (6) Status post liver transplant: * Recommend continuing Neoral therapy (7) Anaplasmosis: * Peripheral smear shows intracytoplasmic neutrophilic inclusions suggestive of anaplasmosis * Consider Doxycycline therapy History of Present Illness Reason for Consultation: ESRD on HD History of Present Illness Ms. Cagle is a 65 year old white female who is seen at the request of the [facility] Hospitalist service to provide emergency HD. 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 She dialyzes at [facility] TTS 3hr 30 min F-180NR Qb 350 3K 2.5Ca 1Mg 135Na 35HCO3 L RC AVF 16g needles. Her EDW had been 53 kg. Ms. 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 She underwent liver pineda splant 07/17 at [facility]. She is on Cyclosporine modified therapy (Neoral). Mycophenolate was stopped due to neutropenia. Ms. Cagle was last hospitalized at [facility] 02/14/21 - 02/17/21 due to CHF. She had lost muscle mass. She required frequent HD w/ UF. Her EDW at the time of discharge was reduced to 48 kg. Following discharge from the hospital Ms. Cagle was transferred to [facility] for physical therapy. Despite ongoing dialysis, she returned to the [facility] today for evaluation of dyspnea. She required BiPAP therapy. CXR revealed CHF w/ small bilateral pleural effusions. Admission weight was 57 kg? COVID-19 testing was negative. Allergies Allergy/AdvReac Type Severity Reaction Status Date / Time morphine AdvReac Intermediate Nausea Verified 02/14/21 08:32 Home Medications Medication Instructions Recorded Confirmed Type carvedilol 25 mg tablet 12.5 mg PO BID 01/18/21 03/07/21 History cyclosporine modified 25 mg capsule 75 mg PO Q12H 01/18/21 03/07/21 History epoetin beta, methoxy peg 200 200 mcg IV .[id number] 01/18/21 03/07/21 History mcg/0.3 mL injection syringe (Mircera) levothyroxine 75 mcg capsule 75 mcg PO QAM 01/18/21 03/07/21 History lisinopril 40 mg tablet 40 mg PO DAILY 01/18/21 03/07/21 History megestrol 400 mg/10 mL (10 mL) 400 mg PO QAM 01/18/21 03/07/21 History oral suspension pantoprazole 40 mg tablet,delayed 40 mg PO BID 01/18/21 03/07/21 History release thiamine HCl (vitamin B1) 100 mg 100 mg PO DAILY 01/18/21 03/07/21 History tablet amlodipine 10 mg tablet 10 mg PO DAILY 01/31/21 03/07/21 History atovaquone 750 mg/5 mL oral 1,500 mg PO DAILY 01/31/21 03/07/21 History suspension vitamin B complex-folic acid 0.4 1 tab PO DAILY 01/31/21 03/07/21 History mg tablet (Balance B-50 (with folic acid)) vancomycin 125 mg capsule 125 mg PO UD #84 cap 02/22/21 03/07/21 Rx cyanocobalamin (vitamin B-12) 2,000 mcg PO DAILY 03/07/21 03/07/21 History 1,000 mcg tablet (Vitamin B-12) Patient History Medical History (Updated 03/07/21 @ 12:37 by Jeet Bob MD) Anemia End-stage renal disease on hemodialysis Hypertension Non-ischemic cardiomyopathy Polycystic kidney disease Secondary hyperparathyroidism of renal origin Surgical History (Updated 03/07/21 @ 11:58 by SHE Winter) Hx of tubal ligation Status post liver transplant Family History Other Adopted Social History Smoking Status: Never smoker Hx Alcohol Use: No Hx Substance Use: No Preferred Language: Wolof Communication Ability: Effective Pediatric Physician Assistant Required: No Beliefs That Will Affect Care: None marital status: / Current Living Situation: Family Current Living Situation Comment: Lives with Daughter. Feels Safe at Home: Yes Assistive Devices: Walker Review of Systems Constitutional: + weakness; no fever Eyes: no problem reported Ear, Nose, Mouth, Throat: no problem reported Respiratory: + dyspnea; no cough Cardiovascular: no chest pain Gastrointestinal: no abdominal pain and no nausea Integumentary: no rash Neurologic: no confusion Physical Exam Constitutional: + ill appearing; not in distress Eyes: PERRL, conjunctivae normal, anicteric sclerae ENMT: external ear and nose normal, oropharynx normal Neck: trachea midline, no thyromegaly Respiratory: no respiratory distress Auscultation: + rales Cardiovascular: Rate/Rhythm: regular rhythm and + tachycardic Gastrointestinal (Abdomen): normal bowel sounds, soft, nontender, no hepatosplenomegaly Skin: no rashes, warm and dry Neurologic: awake; not confused Results & Data ([facility]) Vital Signs (Past 12 Hours) Vital Signs Pulse Resp BP BP Pulse Ox 03/07/21 12:00 119 H 35 H 167/103 H 98 03/07/21 11:30 120 H 33 H 170/103 H 99 03/07/21 11:00 112 H 33 H 92 03/07/21 10:30 105 H 33 H 180/92 H 94 03/07/21 10:23 113 H 30 H 99 03/07/21 10:00 105 H 30 H 169/104 H 94 03/07/21 09:30 97 H 30 H 157/86 H 98 03/07/21 09:00 100 H 34 H 159/101 H 97 03/07/21 08:30 107 H 36 H 172/104 H 97 03/07/21 08:00 107 H 24 177/97 H 97 03/07/21 07:51 105 H 30 H 98 03/07/21 07:50 163/94 H 03/07/21 07:25 100 03/07/21 07:03 110 H 30 H 100 03/07/21 06:57 115 H 20 136/115 H 98 Laboratory Results Laboratory Results - last 24 hr 03/07/21 03/07/21 03/07/21 08:27 08:27 08:27 WBC 3.27 L RBC 3.07 L Hgb 9.3 L Hct 30.0 L MCV 97.7 MCH 30.3 MCHC 31.0 L RDW Std Deviation 65.1 H RDW Coeff of Igor 18.3 H Plt Count 206 MPV 10.4 Neutrophils % (Manual) 66.1 Lymphocytes % (Manual) 21.7 Monocytes % (Manual) 7.0 Eosinophils % (Manual) 2.6 Basophils % (Manual) 1.7 Myelocytes % (Man) 0.9 Neutrophils # (Manual) 2.16 Total Absolute Neuts 2.16 Lymphocytes # (Manual) 0.71 L Total Abs Lymphocytes 0.71 L Monocytes # (Manual) 0.23 Eosinophils # (Manual) 0.09 Basophils # (Manual) 0.06 Myelocytes # (Manual) 0.03 H Blood Smear Review Toxic Granulation 1+ Dohle Bodies 1+ Sodium 141 Potassium 4.8 D Chloride 104 Carbon Dioxide 27 Anion Gap 10.0 BUN 50 H Creatinine 6.26 H* D Est Cr Clr Drug Dosing 6.9 Est GFR ( Amer) 7.4 Est GFR (Non-Af Amer) 6.3 BUN/Creatinine Ratio 8.1 L Glucose 99 Lactate 1.2 Calcium 10.0 Magnesium 2.1 Total Bilirubin 0.5 AST 31 ALT 42 Alkaline Phosphatase 304 H Troponin I 0.018 NT-Pro-B Natriuret Pep > 46257 H Total Protein 6.8 Albumin 2.1 L Globulin 4.7 H Albumin/Globulin Ratio 0.4 L Anaplasma Smear See Comment A A. phagocytophilum DNA Anaplasma Comment Pos for Anaplasma COVID-19 Eval Order SARS-CoV-2 (PCR) 03/07/21 03/07/21 03/07/21 08:27 08:40 08:40 WBC RBC Hgb Hct MCV MCH MCHC RDW Std Deviation RDW Coeff of Igor Plt Count MPV Neutrophils % (Manual) Lymphocytes % (Manual) Monocytes % (Manual) Eosinophils % (Manual) Basophils % (Manual) Myelocytes % (Man) Neutrophils # (Manual) Total Absolute Neuts Lymphocytes # (Manual) Total Abs Lymphocytes Monocytes # (Manual) Eosinophils # (Manual) Basophils # (Manual) Myelocytes # (Manual) Blood Smear Review Toxic Granulation Dohle Bodies Sodium Potassium Chloride Carbon Dioxide Anion Gap BUN Creatinine Est Cr Clr Drug Dosing Est GFR ( Amer) Est GFR (Non-Af Amer) BUN/Creatinine Ratio Glucose Lactate Calcium Magnesium Total Bilirubin AST ALT Alkaline Phosphatase Troponin I NT-Pro-B Natriuret Pep Total Protein Albumin Globulin Albumin/Globulin Ratio Anaplasma Smear A. phagocytophilum DNA Pending Anaplasma Comment COVID-19 Eval Order Covid19 at [facility] SARS-CoV-2 (PCR) NEGATIVE PG Care Time/CCT Total # of Minutes Spent Total Time Spent with Patient: Total time spent is greater than 50% in coordination of care (as documented) at patient's floor/unit and/or counseling patient: Coding Level of Care Code 38453 Inpt Consult Level 5 Diagnoses End-stage renal disease on hemodialysis N18.6; Z99.2 Hypertension I10 Anemia D64.9 Anemia type: unspecified type Non-ischemic cardiomyopathy I42.8 C. difficile colitis A04.72 Status post liver transplant Z94.4 Anaplasmosis A77.49 (1) Anemia Anemia type: unspecified type Qualified Code(s): D64.9 - Anemia, unspecified
--- NOTE | 2021-03-07 12:50 | Cardiology Consultation ---
Date of Consultation March 07, 2021 Assessment & Plan (1) Pulmonary edema: (2) Non-ischemic cardiomyopathy: (3) End-stage renal disease on hemodialysis: (4) Hypertensive urgency, malignant: (5) Polycystic kidney disease: (6) Status post liver transplant: Patient is a 65-year-old female with very complex history as outlined with polycystic renal disease on hemodialysis for end-stage renal dysfunction, status post hepatic transplant, nonischemic cardiomyopathy. Patient presents for second admission with acute pulmonary edema and last month's time. Initial evaluation today reveals no acute ischemia by EKG. Troponin not elevated despite marked respiratory distress and renal failure Suspect hypertension is contributing to current presentations with hypertensive urgency today. Plan: Patient for emergent dialysis today. Carvedilol 12.5 mg p.o. now, agree with IV hydralazine and topical nitrates. Will increase carvedilol to 25 mg twice per day ultimately resume outpatient regimen. Hypertension may be driven upward by immunosuppressive therapies versus chronic polycystic kidney disease. (Question nephrectomy and option) We will follow for signs or symptoms of further cardiac deterioration History of Present Illness Reason for Consultation: Pulmonary edema, acute volume overload, hypertensive urgency Requesting Physician: Dr. Topete Attending Physician: Dr. Topete History of Present Illness And was placedPatient is a very complex 65-year-old female recently hospitalized on 02/14/2021 her underlying and ongoing issues include 1. Autosomal dominant polycystic kidney and liver disease end-stage on chronic hemo-dialysis 2. Status post hepatic transplant on immunosuppressive therapy with cyclosporine and atovaquone 3. Nonischemic cardiomyopathy with moderate left ventricular dysfunction 4. Hypertension Patient recently hospitalized with hyper tension and pulmonary edema responsive to urgent dialysis. She represents now in acute respiratory distress today. At the time of examination she is acutely dyspneic and wearing BiPAP but is able to respond to questioning. She denies any chest pains tachypalpitations. Has been compliant with dialysis and medications per patient but did not have a.m. medications today. Patient presented on BiPAP is scheduled for urgent dialysis shortly Allergies Allergy/AdvReac Type Severity Reaction Status Date / Time morphine AdvReac Intermediate Nausea Verified 02/14/21 08:32 Home Medications Medication Instructions Recorded Confirmed Type carvedilol 25 mg tablet 12.5 mg PO BID 01/18/21 03/07/21 History cyclosporine modified 25 mg capsule 75 mg PO Q12H 01/18/21 03/07/21 History epoetin beta, methoxy peg 200 200 mcg IV .[id number] 01/18/21 03/07/21 History mcg/0.3 mL injection syringe (Mircera) levothyroxine 75 mcg capsule 75 mcg PO QAM 01/18/21 03/07/21 History lisinopril 40 mg tablet 40 mg PO DAILY 01/18/21 03/07/21 History megestrol 400 mg/10 mL (10 mL) 400 mg PO QAM 01/18/21 03/07/21 History oral suspension pantoprazole 40 mg tablet,delayed 40 mg PO BID 01/18/21 03/07/21 History release thiamine HCl (vitamin B1) 100 mg 100 mg PO DAILY 01/18/21 03/07/21 History tablet amlodipine 10 mg tablet 10 mg PO DAILY 01/31/21 03/07/21 History atovaquone 750 mg/5 mL oral 1,500 mg PO DAILY 01/31/21 03/07/21 History suspension vitamin B complex-folic acid 0.4 1 tab PO DAILY 01/31/21 03/07/21 History mg tablet (Balance B-50 (with folic acid)) vancomycin 125 mg capsule 125 mg PO UD #84 cap 02/22/21 03/07/21 Rx cyanocobalamin (vitamin B-12) 2,000 mcg PO DAILY 03/07/21 03/07/21 History 1,000 mcg tablet (Vitamin B-12) Patient History Medical History Anemia End-stage renal disease on hemodialysis Hypertension Non-ischemic cardiomyopathy Polycystic kidney disease Secondary hyperparathyroidism of renal origin Surgical History Hx of tubal ligation Status post liver transplant Family History Other Adopted Social History Smoking Status: Never smoker Hx Alcohol Use: No Hx Substance Use: No Preferred Language: Irish Communication Ability: Effective Dashboard Developer Required: No Beliefs That Will Affect Care: None marital status: / Current Living Situation: Family Current Living Situation Comment: Lives with Daughter. Feels Safe at Home: Yes Assistive Devices: Walker Review of Systems Review of Systems: All systems reviewed & are unremarkable except as noted in HPI & below Physical Exam Constitutional: + acute distress and + thin Eyes: PERRL ENMT: external ear and nose normal, oropharynx normal Neck: trachea midline, no thyromegaly Respiratory: + respiratory distress Auscultation: + rales and + rhonchi Cardiovascular: Rate/Rhythm: regular rate, regular rhythm and + tachycardic Heart Sounds: no murmur Extremities: no edema Gastrointestinal (Abdomen): Inspection/Auscultation: abdomen not distended Musculoskeletal: no cyanosis or clubbing, extremities motor strength 5/5 Results & Data ([facility]) Vital Signs (Past 12 Hours) Vital Signs Pulse Resp BP BP Pulse Ox 03/07/21 12:30 113 H 31 H 168/94 H 100 03/07/21 12:00 119 H 35 H 167/103 H 98 03/07/21 11:30 120 H 33 H 170/103 H 99 03/07/21 11:00 112 H 33 H 92 03/07/21 10:30 105 H 33 H 180/92 H 94 03/07/21 10:23 113 H 30 H 99 03/07/21 10:00 105 H 30 H 169/104 H 94 03/07/21 09:30 97 H 30 H 157/86 H 98 03/07/21 09:00 100 H 34 H 159/101 H 97 03/07/21 08:30 107 H 36 H 172/104 H 97 03/07/21 08:00 107 H 24 177/97 H 97 03/07/21 07:51 105 H 30 H 98 03/07/21 07:50 163/94 H 03/07/21 07:25 100 03/07/21 07:03 110 H 30 H 100 03/07/21 06:57 115 H 20 136/115 H 98 Laboratory Results Laboratory Results - last 24 hr 03/07/21 03/07/21 03/07/21 08:27 08:27 08:27 WBC 3.27 L RBC 3.07 L Hgb 9.3 L Hct 30.0 L MCV 97.7 MCH 30.3 MCHC 31.0 L RDW Std Deviation 65.1 H RDW Coeff of Igor 18.3 H Plt Count 206 MPV 10.4 Neutrophils % (Manual) 66.1 Lymphocytes % (Manual) 21.7 Monocytes % (Manual) 7.0 Eosinophils % (Manual) 2.6 Basophils % (Manual) 1.7 Myelocytes % (Man) 0.9 Neutrophils # (Manual) 2.16 Total Absolute Neuts 2.16 Lymphocytes # (Manual) 0.71 L Total Abs Lymphocytes 0.71 L Monocytes # (Manual) 0.23 Eosinophils # (Manual) 0.09 Basophils # (Manual) 0.06 Myelocytes # (Manual) 0.03 H Blood Smear Review Toxic Granulation 1+ Dohle Bodies 1+ Sodium 141 Potassium 4.8 D Chloride 104 Carbon Dioxide 27 Anion Gap 10.0 BUN 50 H Creatinine 6.26 H* D Est Cr Clr Drug Dosing 6.9 Est GFR ( Amer) 7.4 Est GFR (Non-Af Amer) 6.3 BUN/Creatinine Ratio 8.1 L Glucose 99 Lactate 1.2 Calcium 10.0 Magnesium 2.1 Total Bilirubin 0.5 AST 31 ALT 42 Alkaline Phosphatase 304 H Troponin I 0.018 NT-Pro-B Natriuret Pep > 98478 H Total Protein 6.8 Albumin 2.1 L Globulin 4.7 H Albumin/Globulin Ratio 0.4 L Procalcitonin Anaplasma Smear See Comment A A. phagocytophilum DNA Anaplasma Comment Pos for Anaplasma COVID-19 Eval Order SARS-CoV-2 (PCR) 03/07/21 03/07/21 03/07/21 08:27 08:27 08:40 WBC RBC Hgb Hct MCV MCH MCHC RDW Std Deviation RDW Coeff of Igor Plt Count MPV Neutrophils % (Manual) Lymphocytes % (Manual) Monocytes % (Manual) Eosinophils % (Manual) Basophils % (Manual) Myelocytes % (Man) Neutrophils # (Manual) Total Absolute Neuts Lymphocytes # (Manual) Total Abs Lymphocytes Monocytes # (Manual) Eosinophils # (Manual) Basophils # (Manual) Myelocytes # (Manual) Blood Smear Review Toxic Granulation Dohle Bodies Sodium Potassium Chloride Carbon Dioxide Anion Gap BUN Creatinine Est Cr Clr Drug Dosing Est GFR ( Amer) Est GFR (Non-Af Amer) BUN/Creatinine Ratio Glucose Lactate Calcium Magnesium Total Bilirubin AST ALT Alkaline Phosphatase Troponin I NT-Pro-B Natriuret Pep Total Protein Albumin Globulin Albumin/Globulin Ratio Procalcitonin Pending Anaplasma Smear A. phagocytophilum DNA Pending Anaplasma Comment COVID-19 Eval Order Covid19 at [facility] SARS-CoV-2 (PCR) 03/07/21 08:40 WBC RBC Hgb Hct MCV MCH MCHC RDW Std Deviation RDW Coeff of Igor Plt Count MPV Neutrophils % (Manual) Lymphocytes % (Manual) Monocytes % (Manual) Eosinophils % (Manual) Basophils % (Manual) Myelocytes % (Man) Neutrophils # (Manual) Total Absolute Neuts Lymphocytes # (Manual) Total Abs Lymphocytes Monocytes # (Manual) Eosinophils # (Manual) Basophils # (Manual) Myelocytes # (Manual) Blood Smear Review Toxic Granulation Dohle Bodies Sodium Potassium Chloride Carbon Dioxide Anion Gap BUN Creatinine Est Cr Clr Drug Dosing Est GFR ( Amer) Est GFR (Non-Af Amer) BUN/Creatinine Ratio Glucose Lactate Calcium Magnesium Total Bilirubin AST ALT Alkaline Phosphatase Troponin I NT-Pro-B Natriuret Pep Total Protein Albumin Globulin Albumin/Globulin Ratio Procalcitonin Anaplasma Smear A. phagocytophilum DNA Anaplasma Comment COVID-19 Eval Order SARS-CoV-2 (PCR) NEGATIVE Diagnostic Findings Echocardiogram 02/17/2021 personally reviewed Mild left ventricular hypertrophy with ejection fraction of 35%, grade 1 diastolic dysfunction, no significant valvular disease
[2021-03-07] MEDS ORDERED: MoRPHine SULFATE 2 MG/ML CARP ONE (13:28)
[2021-03-07] MEDS ORDERED: MoRPHine SULFATE 2 MG/ML CARP IV STA (13:31)
--- NOTE | 2021-03-07 13:35 | Critical Care Consultation ---
Date of Consultation March 07, 2021 Assessment & Plan (1) Acute respiratory failure: Reason Critically Ill: Ary is a 65-year-/old female with a notable past medical history of autosomal dominant polycystic kidney disease with ESRD requiring dialysis, status post hepatic transplant on cyclosporine, HFrEF, HTN, chronic anemia, and 50lb weight loss over past year who was recently discharged from [facility] for acute hypoxic respiratory failure secondary to volume overload, and now re-presents with flash pulmonary edema. She requires ICU-level care for careful monitoring of her respiratory status. She is hemodynamically stable. Neuro - CAM ICU: NEGATIVE Sedation: None * Fully alert and oriented. No acute needs at this time. Cardiac - Nonischemic Cardiomyopathy * TTE in 02/17 demonstrating moderately-severely reduced LV function, EF 30-35%, with dilated LA and grade I diastolic dysfunction. * Likely contributory, at least in part, to her flash pulmonary edema. * BP control and urgent dialysis, as below, to aid with volume status * Cardiology consulted - appreciate insight and recommendations Hypertensive Urgency vs. Emergency * BPs persistently 160-190/80-100s on arrival, requiring several doses of IV hydralazine * Suspect pressures are contributory to flash pulmonary edema picture * Etiology for HTN urgency unclear at this time - ?from PKD * Hydralazine 10mg IV p.r.n. for BPs > 160/90. Can also consider enalaprilat * Continue home antiHTN agents: Lisinopril, Coreg, amlodipine * Suspect HD will also help towards this Respiratory - Acute Hypoxic Respiratory Failure * Suspect secondary to acute pulmonary edema, as below * Continue CPAP for now. No acute indication for invasive ventilation. * Suspect this will improve throughout and after HD * If failure to improve after HD, can consider CTA. Acute Pulmonary Edema * Clinically patient is presenting with features of volume overload, +and a CXR supportive of the same with small bilateral pleural effusions. Weight up by about ~9kg since last admission. * Thankfully, no evidence of myocardial ischemia as origin of this issue right now. Patient has been attending dialysis and reports taking her medications as prescribed. Very possible that her clinical picture could be secondary to hypertensive emergency, superimposed on already-fragile cardiac and renal systems. Lower suspicion for PE at this time. * Nephrology consulted - proceed with urgent dialysis * Patient an anuric and does not produce urine. Diuretics not indicated at this time. GI - Diet: Dialysis with low sodium s/p Hepatic Transplant * In setting of ADPKD with massive hepatomegaly - s/p transplant in 07/17 at [facility] [place] * LFTs normal. Albumin chronically low at 2.1. * Continue cyclosporine RENAL/LYTES - ESRD from ADPKD * Patient with known history of ADPKD resulting in ESRD -- AVF in LEFT forearm * Receives HD on //Sat - with last dialysis on 03/04, has been compliant * Urgent dialysis today with goal of removing ~3L * Diet -- dialysis with low sodium (<2g) * Monitor daily weight, strict intake * Monitor lytes - * Patient is anuric. No acute needs at this time. ENDO - * ICU hyperglycemia protocol. No other concerns at this time. HEME - Chronic Anemia * Secondary to ESRD. Stable. * EPO during Dialysis today ID - * Reflex anaplasma smear revealing of cytoplasmic inclusions, concerning for anaplasmosis. Leukopenia appreciated, however, platelet count is actually better than baseline (normal) and there is no transaminitis. Clinically, was not reporting symptoms. Await confirmatory PCR testing. Can consider doxycycline if needed. * Lower suspicion for superimposed pneumonia or bloodborne relation at this time. Await cultures. INTEGUMENTARY - * AVF in LEFT forearm. No other acute needs. LINES/IV ACCESS - PIVs intact. DVT PROPHYLAXIS - * SQ Heparin Thank you for allowing us to be part of this patient's care. Please refer to Dr. Hernandez's documentation for any further recommendations. (2) C. difficile colitis: (3) Pulmonary edema: (4) Non-ischemic cardiomyopathy: (5) Status post liver transplant: (6) Anaplasmosis: (7) Hypertensive urgency, malignant: (8) DVT prophylaxis: Supervising Physician Co-Signing Physician Notes Patient seen and examined. EMR reviewed. Images were independently reviewed. Discussed with family practice resident at bedside as well as with the admitting hospitalist. Hypertensive urgency with pulmonary edema. She is currently undergoing urgent dialysis. Will attempt to wean off BiPAP as tolerated. Blood pressure control with hydralazine as needed. Anticipate that with dialysis and blood pressure control, we may be able to avert need for mechanical ventilation. The patient is already feeling better undergoing dialysis and with better blood pressure control. We will continue to follow to ensure that she responds appropriately. Feel free to contact us with questions History of Present Illness Attending Physician: Jacqueline Topete DO History of Present Illness Ary is a 65-year-old female with a notable past medical history of autosomal dominant polycystic kidney disease with ESRD requiring dialysis, status post hepatic transplant on cyclosporine, HFrEF, HTN, chronic anemia, and 50lb weight loss over past year who was recently discharged from [facility] on February 23 for acute hypoxic respiratory failure secondary to volume overload, and now represents with shortness of breath. History is primarily obtained through chart review. Patient was recently discharged from [facility] on March 05 following this hospitalization and apparently felt quite good. No symptoms of illness or respiratory symptoms - e.g., cough, sputum production. Unfortunately, last night, she did develop extensive shortness of breath. She called 911 and was brought to [facility] for evaluation. Of note, she was scheduled for dialysis today. In the ER, patient found to be severely short of breath with a sinus tachycardia with rates between 110 and 120. Hypertensive between 160 - 190s / 80-100s. Chest x-ray was obtained which did show moderate, bilateral pulmonary edema. CBC de monstrated chronic anemia to 9.3 and platelets actually improved from baseline at 206. Chemistry panel revealing of BUN 50 / Cr 6.3 / K 4.8. [place]ytes [place] [address] in setting of renal failure. Procal at 1.2. Anaplasma smear was positive for intracytoplasmic inclusions. For her BPs, patient was given nitro paste x 1 and hydralazine 10mg x 1. She was placed on BiPAP for respiratory support. Paint Mixer Hand consult was placed out of concern for possible respiratory demise and need for intubation. Nephrology was consulted for urgent dialysis. At the bedside, patient endorses feeling short of breath, but improved since being on BiPAP. She was switched over to CPAP. She denies chest pain. Endorsed night sweats last night. No lightheadness or feelings of presyncope. No headache. Allergies Allergy/AdvReac Type Severity Reaction Status Date / Time morphine AdvReac Intermediate Nausea Verified 02/14/21 08:32 Home Medications Medication Instructions Recorded Confirmed Type carvedilol 25 mg tablet 12.5 mg PO BID 01/18/21 03/07/21 History cyclosporine modified 25 mg capsule 75 mg PO Q12H 01/18/21 03/07/21 History epoetin beta, methoxy peg 200 200 mcg IV .[id number] 01/18/21 03/07/21 History mcg/0.3 mL injection syringe (Mircera) levothyroxine 75 mcg capsule 75 mcg PO QAM 01/18/21 03/07/21 History lisinopril 40 mg tablet 40 mg PO DAILY 01/18/21 03/07/21 History megestrol 400 mg/10 mL (10 mL) 400 mg PO QAM 01/18/21 03/07/21 History oral suspension pantoprazole 40 mg tablet,delayed 40 mg PO BID 01/18/21 03/07/21 History release thiamine HCl (vitamin B1) 100 mg 100 mg PO DAILY 01/18/21 03/07/21 History tablet amlodipine 10 mg tablet 10 mg PO DAILY 01/31/21 03/07/21 History atovaquone 750 mg/5 mL oral 1,500 mg PO DAILY 01/31/21 03/07/21 History suspension vitamin B complex-folic acid 0.4 1 tab PO DAILY 01/31/21 03/07/21 History mg tablet (Balance B-50 (with folic acid)) vancomycin 125 mg capsule 125 mg PO UD #84 cap 02/22/21 03/07/21 Rx cyanocobalamin (vitamin B-12) 2,000 mcg PO DAILY 03/07/21 03/07/21 History 1,000 mcg tablet (Vitamin B-12) Patient History Medical History Anemia End-stage renal disease on hemodialysis Hypertension Non-ischemic cardiomyopathy Polycystic kidney disease Secondary hyperparathyroidism of renal origin Surgical History Hx of tubal ligation Status post liver transplant Family History Other Adopted Social History Smoking Status: Never smoker Hx Alcohol Use: No Hx Substance Use: No Preferred Language: Divehi Communication Ability: Effective Computer Lab Aide Required: No Beliefs That Will Affect Care: None marital status: / Current Living Situation: Family Current Living Situation Comment: Lives with Daughter. Feels Safe at Home: Yes Assistive Devices: Walker Review of Systems Review of Systems: Other Largely unobtainable due to BiPAP in place and conversational dyspnea. Please see HPI. Physical Exam Physical Exam: General: Tired appearing 65-year-old female who is evaluated in her hospital bed. She is in an upright tripod position with +positive conversational dyspnea. Mild-moderate distress secondary to respiratory status. HEENT: NCAT. Eyes - Sclera are white, anicteric, and without injection. Mouth - MMM with no tonsillar edema or exudates. Nose - nasal turbinates are uninflamed and without discharge Cardiac: Tachycardic with regular rhythm; S1 and S2 present with no murmurs, rubs, or gallops. JVP appreciated ~3 fingerbreadths above the RIGHT clavicle. Hepatojugular reflux positive. Pulmonary: Moderately increased respiratory effort with symmetric expansion of the chest. Use of accessory muscles noted. Lungs demonstrates diminished sounds throughout with crackles notable at the bases. Abdominal: Abdomen was soft, nondistended, and non-tender to palpation. Extremities: Upper and lower extremities are warm and well perfused. Trace peripheral edema. Capillary refill ~3 seconds. Results & Data Results & Data ([facility]) Vital Signs (Past 12 Hours) Vital Signs Pulse Resp BP BP Pulse Ox 03/07/21 13:00 120 H 32 H 178/97 H 100 03/07/21 12:30 113 H 31 H 168/94 H 100 03/07/21 12:00 119 H 35 H 167/103 H 98 03/07/21 11:30 120 H 33 H 170/103 H 99 03/07/21 11:00 112 H 33 H 92 03/07/21 10:30 105 H 33 H 180/92 H 94 03/07/21 10:23 113 H 30 H 99 03/07/21 10:00 105 H 30 H 169/104 H 94 03/07/21 09:30 97 H 30 H 157/86 H 98 03/07/21 09:00 100 H 34 H 159/101 H 97 03/07/21 08:30 107 H 36 H 172/104 H 97 03/07/21 08:00 107 H 24 177/97 H 97 03/07/21 07:51 105 H 30 H 98 03/07/21 07:50 163/94 H 03/07/21 07:25 100 03/07/21 07:03 110 H 30 H 100 03/07/21 06:57 115 H 20 136/115 H 98 Resident Activity Tracking Resident Involvement: Resident Care Provided Care Provided: Adult Hospital Medicine
[2021-03-07] MEDS ORDERED: ACETAMINOPHEN 325 MG TAB PO PRN (13:38)
[2021-03-07] MEDS ORDERED: hydrALAZINE HCL 20 MG/ML VIAL IV ONE (14:31)
--- NOTE | 2021-03-07 15:26 | Electrocardiogram Report ---
Test Reason : Blood Pressure : / mmHG Vent. Rate : 115 BPM Atrial Rate : 115 BPM P-R Int : 138 ms QRS Dur : 076 ms QT Int : 334 ms P-R-T Axes : 056 040 040 degrees QTc Int : 462 ms Poor data quality, interpretation may be adversely affected Sinus tachycardia Otherwise normal ECG When compared with ECG of 16-FEB-2021 14:43, T wave inversion no longer evident in Anterior leads Confirmed by Ramos Carias ([id number]) on 03/07/2021 3:26:16 PM Referred By: REFERRED SELF Confirmed By:Ramos Carias
--- NOTE | 2021-03-07 15:28 | Billing Data ---
Date of Service March 07, 2021 Coding Level of Care Code Critical Care 1st 30-74 mins Time Spent (min) 35
[2021-03-07] MEDS: HEPARIN SOD (PORCINE) 1000 UNIT/ML IV SCH (15:29)
--- NOTE | 2021-03-07 16:46 | Dialysis Progress Note ---
Date of Service March 07, 2021 Assessment & Plan (1) End-stage renal disease on hemodialysis: Plan: AVF functioning well. Patient is tolerating UF without hemodynamic instability. No change to current HD prescription. Will monitor. Admission and Anticipated Discharge Date Admission Date: March 07, 2021 Subjective Ms. Cagle was evaluated during HD this afternoon. She remains on NIPPV. She remains dyspneic. Review of Systems Constitutional: + weakness; no fever Eyes: no problem reported Ear, Nose, Mouth, Throat: no problem reported Respiratory: + dyspnea; no cough Cardiovascular: no chest pain Gastrointestinal: no abdominal pain and no nausea Integumentary: no rash Neurologic: no confusion Physical Exam Constitutional: + ill appearing; not in distress Eyes: PERRL, conjunctivae normal, anicteric sclerae ENMT: external ear and nose normal, oropharynx normal Neck: trachea midline, no thyromegaly Respiratory: no respiratory distress Auscultation: + rales Cardiovascular: Rate/Rhythm: regular rhythm and + tachycardic Gastrointestinal (Abdomen): normal bowel sounds, soft, nontender, no hepatosplenomegaly Skin: no rashes, warm and dry Neurologic: awake; not confused Results & Data ([facility]) Vital Signs (Past 12 Hours) Vital Signs Temp Pulse Resp BP BP Pulse Ox Pulse Ox 03/07/21 16:30 104 H 129/75 03/07/21 16:12 102 H 119/75 03/07/21 16:00 103 H 117/67 03/07/21 15:45 103 H 106/66 03/07/21 15:30 106 H 108/68 03/07/21 15:15 111 H 131/76 03/07/21 15:00 115 H 155/93 H 03/07/21 14:45 118 H 159/94 H 03/07/21 14:30 170/90 H 03/07/21 13:39 36.9 C 22 181/103 H 100 03/07/21 13:38 99 03/07/21 13:37 123 H 30 H 99 03/07/21 13:20 37 C 30 H 181/103 H 99 03/07/21 13:00 120 H 32 H 178/97 H 100 03/07/21 12:30 113 H 31 H 168/94 H 100 03/07/21 12:00 119 H 35 H 167/103 H 98 03/07/21 11:30 120 H 33 H 170/103 H 99 03/07/21 11:00 112 H 33 H 92 03/07/21 10:30 105 H 33 H 180/92 H 94 03/07/21 10:23 113 H 30 H 99 03/07/21 10:00 105 H 30 H 169/104 H 94 03/07/21 09:30 97 H 30 H 157/86 H 98 03/07/21 09:00 100 H 34 H 159/101 H 97 03/07/21 08:30 107 H 36 H 172/104 H 97 03/07/21 08:00 107 H 24 177/97 H 97 03/07/21 07:51 105 H 30 H 98 03/07/21 07:50 163/94 H 03/07/21 07:25 100 03/07/21 07:03 110 H 30 H 100 03/07/21 06:57 115 H 20 136/115 H 98 [facility] Procedure Codes (Charges) Renal/Urologic Renal/Urologic: 25763 Hemodialysis, One Evaluation Coding Level of Care Code None Diagnoses End-stage renal disease on hemodialysis N18.6; Z99.2 CPT Codes Renal/Urologic - Renal/Urologic: 79701 Hemodialysis, One Evaluation ([id number])
[2021-03-07] MEDS: cycloSPORINE 25 MG CAP PO SCH (17:48)
[2021-03-07] MEDS: HEPARIN SOD 5,000 UNIT/0.5 ML VIAL SQ SCH ×2 (17:48→20:51)
[2021-03-07] MEDS: DOXYCYCLINE HYCLATE 100 MG CAP PO SCH (17:49)
[2021-03-07] MEDS: carvediloL 25 MG TAB PO SCH (20:50)
[2021-03-07] MEDS: PANTOprazole 40 MG TAB PO SCH (20:50)
[2021-03-07] MEDS: VANCOMYCIN HCL 125 MG/2.5ML SOLN PO SCH (20:50)
[2021-03-07] MEDS: RASPBERRY SYRUP 5 ML UDP PO SCH (20:51)
[2021-03-07] MEDS ORDERED: DOXYCYCLINE HYCLATE 100 MG CAP PO SCH (21:00)
[2021-03-08] MEDS: cycloSPORINE 25 MG CAP PO SCH ×2 (01:47→08:44)
[2021-03-08 05:51] LABS: Hematocrit (blood only) 24.6 % (37-47); Hemoglobin 7.6 g/dL (12.0-16.0); Mean Corpuscular Hemoglobin 30.2 pg (25-34); Mean Corpuscular Hgb Conc 30.9 g/dL (32-36); Mean Corpuscular Volume 97.6 fL (80-100); Mean Platelet Volume 10.5 fL (7.4-10.4); Platelet Count 157 K/uL (130-400); RDW Coefficient of Variation 18.3 % (11.5-14.5); RDW Standard Deviation 65.5 fL (36.4-46.3); Red Blood Count 2.52 M/uL (4.2-5.4)
[2021-03-08] MEDS: HEPARIN SOD 5,000 UNIT/0.5 ML VIAL SQ SCH ×3 (05:51→21:00)
[2021-03-08] MEDS: LEVOTHYROXINE SODIUM 75 MCG TABLET PO SCH (05:51)
[2021-03-08] MEDS: DOXYCYCLINE HYCLATE 100 MG CAP PO SCH ×2 (05:52→20:56)
[2021-03-08 06:25] LABS: Albumin Globulin Ratio 0.4 (0.9-2); Albumin Level 1.7 gm/dl (3.4-5.0); Bilirubin,Total 0.6 mg/dl (0.2-1); Calcium 9.3 mg/dl (8.5-10.1); Creatinine Clr Calc Pharmacy 11.9 ml/min; Est GFR (African American) 14.2 ml/min; Est GFR (Non-African American) 12.2 ml/min; Globulin 3.9 gm/dl (2.5-4.0); Phosphorus 3.4 mg/dl (2.5-4.9); Potassium 4.4 mmol/L (3.5-5.1); Total Protein 5.6 gm/dl (6.4-8.2)
--- NOTE | 2021-03-08 06:28 | Critical Care Progress Note ---
Date of Service March 08, 2021 Assessment & Plan (1) Acute respiratory failure: Plan: Reason Critically Ill: Ary is a 65-year-/old female with a notable past medical history of autosomal dominant polycystic kidney disease with ESRD requiring dialysis, status post hepatic transplant on cyclosporine, HFrEF, HTN, chronic anemia, and 50lb weight loss over past year who was recently discharged from [facility] for acute hypoxic respiratory failure secondary to volume overload, and re-presented with flash pulmonary edema. She requires ICU-level care for careful monitoring of her respiratory status which has much improved s/p dialysis and BP control. She is hemodynamically stable. Neuro - CAM ICU: NEGATIVE Sedation: None * Fully alert and oriented. No acute needs at this time. Cardiac - Nonischemic Cardiomyopathy * TTE in 02/17 demonstrating moderately-severely reduced LV function, EF 30-35%, with dilated LA and grade I diastolic dysfunction. * Likely contributory, at least in part, to her flash pulmonary edema. * BP control and urgent dialysis, as below, to aid with volume status * Cardiology consulted - appreciate insight and recommendations * Continue antiHTNs, beta-blockade Hypertensive Urgency vs. Emergency -- Resolved * BPs persistently 160-190/80-100s on arrival, requiring several doses of IV hydralazine * Suspect pressures are contributory to flash pulmonary edema picture * Nicely resolved s/p PRN hydralazine - continue for BPs persistently >160/90 * Continue home antiHTN agents: Lisinopril, Coreg (increased by cardiology), amlodipine Respiratory - Acute Hypoxic Respiratory Failure -- Resolving * Suspect secondary to acute pulmonary edema, as below * Greatly improved s/p HD and BP control -- now only requiring NC * Ween supplemental O2 as able Acute Pulmonary Edema * Clinically patient is presenting with features of volume overload, +and a CXR supportive of the same with small bilateral pleural effusions. Weight up by about ~9kg since last admission. * Thankfully, no evidence of myocardial ischemia as origin of this issue right now. Patient has been attending dialysis and reports taking her medications as prescribed. Very possible that her clinical picture could be secondary to hypertensive emergency, superimposed on already-fragile cardiac and renal systems. Supported by great improvement with dialysis and BP control. * Patient an anuric and does not produce urine. Diuretics not indicated at this time. * Continue ESRD, BP treatment. GI - Diet: Dialysis with low sodium * Consult RD - appreciate aid in nutritional management, recommendations s/p Hepatic Transplant * In setting of ADPKD with massive hepatomegaly - s/p transplant in 07/17 at [facility] * LFTs normal. Albumin chronically low at ~2. * Continue cyclosporine RENAL/LYTES - ESRD from ADPKD * Patient with known history of ADPKD resulting in ESRD -- AVF in LEFT forearm * Receives HD on //Sat - previously last dialysis on 03/04, has been compliant * s/p HD on 03/07 with 3L of fluid removed * Nephrology following - appreciate insight/recommendations * Diet -- dialysis with low sodium (<2g) * Monitor daily weight, strict intake * Monitor lytes - * Patient is anuric. No acute needs at this time. ENDO - Hypothyroidism: Continue levothyroxine * ICU hyperglycemia protocol. 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 Leukopenia appreciated, however, platelet count is actually better than baseline (normal) and there is no transaminitis. Clinically, was not repor ting symptoms. * Given immunocompromised state, will empirically treat with doxy until confirmatory test returns. * Lower suspicion for superimposed pneumonia or bloodborne relation at this time. Await cultures. Resolving C. diff Colitis * From previous admission. Thankfully, no longer symptomatic * Continue oral vancomycin * Contact precautions ordered INTEGUMENTARY - * AVF in LEFT forearm. No other acute needs. LINES/IV ACCESS - PIVs intact. DVT PROPHYLAXIS - * SQ Heparin -- will continue for now. If Hgb dropping lower, can consider discontinuation. Thank you for allowing us to be part of this patient's care. Please refer to Dr. Hernandez's documentation for any further recommendations. (2) C. difficile colitis: (3) Pulmonary edema: (4) Non-ischemic cardiomyopathy: (5) Status post liver transplant: (6) Anaplasmosis: (7) Hypertensive urgency, malignant: (8) DVT prophylaxis: Admission and Anticipated Discharge Date Admission Date: March 07, 2021 Supervising Physician Co-Signing Physician Notes Patient seen and examined. Discussed with family practice resident and on multidisciplinary rounds as well as with bedside critical care nurse. Agree with assessment and plan as noted. The patient is significantly improved after hemodialysis and blood pressure control. She is appropriate to downgrade out of the ICU. We will continue doxycycline pending PCR anaplasmosis study. Continue blood pressure control. Of asked dietary to evaluate the patient given her cachexia, low body mass index, and low albumin. Discussed briefly with nephrology as well. No plans for dialysis today. He will give her a unit of blood with dialysis tomorrow. Okay to transfer out of the ICU. We will sign off at this point time. Feel free to contact us if we can be of additional assistance Subjective Did require CPAP again overnight for symptomatic shortness of breath after being transitioned onto NC. Feeling much better this morning. Saturations stable to upper 90-100%s. Feeling ok since transitioning back to NC this morning. Denies pain. No chest pain or headache. No nausea. Review of Systems Review of Systems: As per HPI Physical Exam Physical Exam: General: Tired appearing 65-year-old female who is evaluated in her hospital bed. Relaxed and lying back in bed on NC. NAD HEENT: NCAT. Eyes - Sclera are white, anicteric, and without injection. Mouth - MMM with no tonsillar edema or exudates. Nose - nasal turbinates are uninflamed and without discharge Cardiac: Normal rate with regular rhythm; S1 and S2 present with no murmurs, rubs, or gallops. JVP appreciated ~2 fingerbreadths above the RIGHT clavicle Pulmonary: Easy (and much improved) respiratory effort with symmetric expansion of the chest. No use of accessory muscles. Lungs demonstrates diminished sounds throughout with crackles notable at the bases. Abdominal: Abdomen was soft, nondistended, and non-tender to palpation. Extremities: Upper and lower extremities are warm and well perfused. Trace peripheral edema. Capillary refill ~3 seconds. Results & Data Results & Data ([facility]) Vital Signs (Past 12 Hours) Vital Signs Temp Pulse Pulse Resp BP BP Pulse Ox 03/08/21 04:30 93 H 23 150/79 H 100 03/08/21 04:00 37.0 C 94 H 28 H 161/91 H 100 03/08/21 03:30 92 H 26 H 135/69 99 03/08/21 03:00 86 23 150/76 H 99 03/08/21 02:30 86 25 H 132/70 99 03/08/21 02:00 96 H 28 H 145/85 H 97 03/08/21 01:30 93 H 27 H 123/69 99 03/08/21 01:00 95 H 28 H 147/78 H 100 03/08/21 00:30 95 H 32 H 129/65 100 03/08/21 00:00 37.3 C 101 H 24 118/65 100 03/07/21 23:30 98 H 36 H 120/62 100 03/07/21 23:00 95 H 30 H 96/58 L 99 03/07/21 22:30 101 H 29 H 102/63 100 03/07/21 22:00 111 H 36 H 98 03/07/21 21:30 117 H 38 H 127/66 98 03/07/21 21:15 118 H 38 H 92 03/07/21 21:00 124 H 32 H 94 03/07/21 20:30 129 H 33 H 92 03/07/21 20:00 37.3 C 128 H 42 H 93 03/07/21 19:30 120 H 39 H 89 L 03/07/21 19:00 118 H 36 H 89 L 03/07/21 18:37 37.3 C 122 H 161/83 H 03/07/21 18:27 118 H 153/79 H Resident Activity Tracking Resident Involvement: Resident Care Provided Care Provided: Adult [facility] Medicine
[2021-03-08] MEDS ORDERED: PNEUMOCOCCAL Polysaccharide Vaccine 25mcg/0.5mL vial/Syr IM ONE (08:00)
[2021-03-08] MEDS: CYANOCOBALAMIN 500 MCG TABLET (VITAMIN B-12) PO SCH (08:44)
[2021-03-08] MEDS: FOLIC ACID 400 MCG TAB PO SCH (08:45)
[2021-03-08] MEDS: carvediloL 25 MG TAB PO SCH ×2 (08:45→20:56)
[2021-03-08] MEDS: THIAMINE HCL 100 MG TAB PO SCH (08:45)
[2021-03-08] MEDS: PANTOprazole 40 MG TAB PO SCH ×2 (08:46→20:56)
[2021-03-08] MEDS: MEGESTROL ACETATE SUSP 400 MG/10 ML UDC PO SCH (08:46)
[2021-03-08] MEDS: RASPBERRY SYRUP 5 ML UDP PO SCH ×2 (08:46→21:34)
[2021-03-08] MEDS: amLODIPine BESYLATE 5 MG TAB PO SCH (08:46)
[2021-03-08] MEDS: lisinopril 40 MG TAB PO SCH (08:46)
[2021-03-08] MEDS: ATOVAQUONE 750 MG/5 ML UDC PO SCH (08:47)
[2021-03-08] MEDS: VANCOMYCIN HCL 125 MG/2.5ML SOLN PO SCH ×2 (08:48→21:34)
[2021-03-08] MEDS ORDERED: VITAMIN B COMPLEX TAB PO SCH (09:00)
--- NOTE | 2021-03-08 10:14 | Nephrology Progress Note ---
Date of Service March 08, 2021 Assessment & Plan (1) End-stage renal disease on hemodialysis: Plan: * Volume status greatly improved following 3L UF late yesterday evening * Electrolyte balance is acceptable * Plan HD in am for continued UF (2) Hypertension: Plan: * Expect elevated BP to improve w/ UF (3) Anemia: Plan: * Epogen 10,000 units administered 03/07/21 * Monitor H&H * Will check iron stores * Will consider blood transfusion on HD tomorrow (4) Non-ischemic cardiomyopathy: Plan: * Recommend trending troponin (5) C. difficile colitis: Plan: * h/o C. Difficile colitis last hospitalization * Patient reports diarrhea has resolved * On oral Vancomycin therapy (6) Status post liver transplant: Plan: * Recommend continuing Neoral therapy (7) Anaplasmosis: Plan: * Peripheral smear shows intracytoplasmic neutrophilic inclusions suggestive of anaplasmosis * On Doxycycline therapy Admission and Anticipated Discharge Date Admission Date: March 07, 2021 Subjective Ms. Cagle was evaluated in the ICU this morning. She was dialyzed yesterday for 4 hours w/ 3L UF. Ms. Cagle is now breathing comfortably flat in bed on O2 at 2L/min NC. Review of Systems Constitutional: + weakness; no fever Eyes: no problem reported Ear, Nose, Mouth, Throat: no problem reported Respiratory: no cough and no dyspnea Cardiovascular: no chest pain Gastrointestinal: no abdominal pain and no nausea Integumentary: no rash Neurologic: no confusion Physical Exam Constitutional: + ill appearing; not in distress Eyes: PERRL, conjunctivae normal, anicteric sclerae ENMT: external ear and nose normal, oropharynx normal Neck: trachea midline, no thyromegaly Respiratory: no respiratory distress Auscultation: + rales Cardiovascular: Rate/Rhythm: regular rhythm and + tachycardic Gastrointestinal (Abdomen): normal bowel sounds, soft, nontender, no hepatosplenomegaly Skin: no rashes, warm and dry Neurologic: awake; not confused Results & Data ([facility]) Vital Signs (Past 12 Hours) Vital Signs Temp Pulse Resp BP Pulse Ox 03/08/21 06:00 89 23 151/84 H 100 03/08/21 05:30 78 21 162/82 H 100 03/08/21 05:00 89 27 H 161/91 H 98 03/08/21 04:30 93 H 23 150/79 H 100 10/13/21 04:00 37.0 C 94 H 28 H 161/91 H 100 03/08/21 03:30 92 H 26 H 135/69 99 03/08/21 03:00 86 23 150/76 H 99 03/08/21 02:30 86 25 H 132/70 99 03/08/21 02:00 96 H 28 H 145/85 H 97 03/08/21 01:30 93 H 27 H 123/69 99 03/08/21 01:00 95 H 28 H 147/78 H 100 03/08/21 00:30 95 H 32 H 129/65 100 03/08/21 00:00 37.3 C 101 H 24 118/65 100 03/07/21 23:30 98 H 36 H 120/62 100 03/07/21 23:00 95 H 30 H 96/58 L 99 03/07/21 22:30 101 H 29 H 102/63 100 Laboratory Results Laboratory Tests 03/08/21 03/08/21 04:58 04:58 WBC 1.60 L Hgb 7.6 L Hct 24.6 L Plt Count 157 Sodium 139 Potassium 4.4 Chloride 106 Carbon Dioxide 28 BUN 22 H D Creatinine 3.64 H D Glucose 78 PG Care Time/CCT Total # of Minutes Spent Total Time Spent with Patient: Total time spent is greater than 50% in coordination of care (as documented) at patient's floor/unit and/or counseling patient: Coding Level of Care Code 11339 Subseq Hosp Care Lvl 3 Diagnoses End-stage renal disease on hemodialysis N18.6; Z99.2 Hypertension I10 Anemia D64.9 Anemia type: unspecified type Non-ischemic cardiomyopathy I42.8 C. difficile colitis A04.72 Status post liver transplant Z94.4 Anaplasmosis A77.49 (1) Anemia Anemia type: unspecified type Qualified Code(s): D64.9 - Anemia, unspecified
--- NOTE | 2021-03-08 11:10 | Billing Data ---
Date of Service March 08, 2021 Coding Level of Care Code 00377 Subseq Hosp Care Lvl 3
--- NOTE | 2021-03-08 12:13 | Hospitalist Progress Note ---
Date of Service March 08, 2021 Assessment & Plan (1) Pulmonary edema: Plan: Patient presenting from home with severe shortness of breath. Found to be volume overloaded. Patient is anuric from ESRD (on HD TuThSa, last treatment 03/04) and hx if non-ischemic cardiomyopathy, EF 30-35%. Placed on BiPap in the ED with improvement in respiratory status. Appreciate nephrology input and status post hemodialysis on 03/07/21 Will monitor patient's weight and intake output chart Continue hemodialysis as per car salter Patient recently admitted to [facility] 02/14 through 02/23 for acute respiratory failure from volume overload requiring urgent hemodialysis. Patient also diagnosed with C. difficile and placed on vancomycin taper. Discharged to [facility] for rehab and returned home on 03/05. Admitted on 03/07 with pulmonary edema (2) Acute respiratory failure: Plan: Likely secondary to acute pulmonary edema (3) End-stage renal disease on hemodialysis: Plan: History of ADPKD resulting in end-stage renal disease and requiring hemodialysis (4) Non-ischemic cardiomyopathy: Plan: History of non-ischemic cardiomyopathy, EF 30-35%. Appreciate cardiology input and recommendation Given significant hypertension, will start Nitro paste 0.5in and Hydralazine 10mg IV x 1 Carvedilol dose has been increased to 25 mg twice daily to control her high blood pressure We will continue her other blood pressure medications Blood pressure remains on the upper side at 151/84 (5) Hypertension: Plan: -continue carvedilol and Lisinopril -Carvedilol doses have been increased as above (6) Status post liver transplant: Plan: -s/p liver transplant Jun 2020 at [place] -perinatal coordinator, [phone] -case discussed with ABDIRASHID Pérez with transplant medicine ([phone]) - requesting daily update -please fax ALL labs and discharge summary to [phone] -continue cyclosporine and atovaquone (7) Anemia: Plan: -due to CKD -baseline hgb ~ 8.5 -10 -hgb 9.3 today -monitor CBC (8) C. difficile diarrhea: Plan: -tested positive 02/16 -remains on Vanco taper -patient continues to have diarrhea that is slowly improving (9) Abnormal blood smear: Plan: -inclusion bodies noted on peripheral blood smear -question true infection at this time as likelihood of rickettsial illness is low given no known tick exposure. -Has been started on doxycycline will continue until he get the confirmatory test (10) DVT prophylaxis: Plan: -SQ heparin Admission and Anticipated Discharge Date Admission Date: March 07, 2021 Subjective 03/08/21 The patient was seen and examined in ICU She has been feeling much better following dialysis yesterday She denies any significant symptoms except weakness and mild shortness of breath at rest No fever and no chills and no chest pain and/or palpitation Review of Systems Review of Systems: All systems reviewed and are unremarkable except as noted below Physical Exam Physical Exam: Lying in bed comfortably though has minimal shortness of breath at rest Constitutional: + ill appearing and + thin Eyes: PERRL, conjunctivae normal, anicteric sclerae ENMT: external ear and nose normal, oropharynx normal Respiratory: + respiratory distress (Minimal respiratory distress at rest); no labored breathing Auscultation: + diminished lung sounds and + crackles (At the bases) Cardiovascular: Rate/Rhythm: regular rate and regular rhythm Heart Sounds: normal S1 and normal S2 Extremities: no edema Gastrointestinal (Abdomen): Inspection/Auscultation: normal bowel sounds; abdomen not distended Percussion/Palpation: abdomen soft; abdomen nontender Musculoskeletal: No acute arthritis in any joint Neurologic: Alert, awake and oriented x3. Generally weak but no focal sensory and motor deficit appreciated Results & Data Results & Data ([facility]) Vital Signs (Past 12 Hours) Vital Signs Temp Pulse Resp BP Pulse Ox 03/08/21 06:00 89 23 151/84 H 100 03/08/21 05:30 78 21 162/82 H 100 03/08/21 05:00 89 27 H 161/91 H 98 03/08/21 04:30 93 H 23 150/79 H 100 03/08/21 04:00 37.0 C 94 H 28 H 161/91 H 100 03/08/21 03:30 92 H 26 H 135/69 99 03/08/21 03:00 86 23 150/76 H 99 03/08/21 02:30 86 25 H 132/70 99 03/08/21 02:00 96 H 28 H 145/85 H 97 03/08/21 01:30 93 H 27 H 123/69 99 03/08/21 01:00 95 H 28 H 147/78 H 100 03/08/21 00:30 95 H 32 H 129/65 100 03/08/21 00:00 37.3 C 101 H 24 118/65 100 Laboratory Results Short CBC 03/08/21 Range/Units 04:58 WBC 1.60 L (4.8-10.8) K/uL Hgb 7.6 L (12.0-16.0) g/dL Hct 24.6 L (37-47) % Plt Count 157 (130-400) K/uL BMP 03/08/21 04:58 Sodium 139 Potassium 4.4 Chloride 106 Carbon Dioxide 28 BUN 22 H D Creatinine 3.64 H D Glucose 78 Calcium 9.3 Cardiac Enzymes 03/07/21 03/07/21 Range/Units 14:27 20:29 Troponin I 0.031 0.040 (0-0.045) ng/ml Liver Function 03/08/21 Range/Units 04:58 Total Bilirubin 0.6 (0.2-1) mg/dl AST 21 (15-37) U/L ALT 29 (12-78) U/L Alkaline Phosphatase 212 H (45-117) U/L Albumin 1.7 L (3.4-5.0) gm/dl Medications Administered Current Inpatient Medications Acetaminophen (Acetaminophen 325 Mg Tab) 650 mg PO Q4H PRN PRN Reason: Pain or Fever Stop: 04/06/21 13:37 Amlodipine Besylate (Amlodipine Besylate 5 Mg Tab) 10 mg PO DAILY JW Stop: 04/07/21 08:59 Last Admin: 03/08/21 08:46 Dose: 10 mg Documented by: Atovaquone (Atovaquone 750 Mg/5 Ml Udc) 1,500 mg PO DAILY JW Stop: 04/07/21 08:59 Last Admin: 03/08/21 08:47 Dose: 1,500 mg Documented by: Carvedilol (Carvedilol 25 Mg Tab) 25 mg PO BID JW Stop: 04/06/21 20:59 Last Admin: 03/08/21 08:45 Dose: 25 mg Documented by: Cyanocobalamin (Cyanocobalamin 500 Mcg Tablet (Vitamin B-12)) 2,000 mcg PO DAILY JW Stop: 04/07/21 08:59 Last Admin: 03/08/21 08:44 Dose: 2,000 mcg Documented by: Cyclosporine (Cyclosporine 25 Mg Cap) 75 mg PO Q12H [facility] Stop: 04/06/21 13:59 Last Admin: 03/08/21 08:44 Dose: 75 mg Documented by: Doxycycline Hyclate (Doxycycline Hyclate 100 Mg Cap) 100 mg PO BID [facility]; Protocol Stop: 03/21/21 15:59 Last Admin: 03/08/21 05:52 Dose: 100 mg Documented by: Folic Acid (Folic Acid 400 Mcg Tab) 400 mcg PO DAILY [facility] Stop: 04/07/21 08:59 Last Admin: 03/08/21 08:45 Dose: 400 mcg Documented by: Heparin Sodium (Porcine) (Heparin Sod 5,000 Unit/0.5 Ml Vial) 5,000 units SQ Q8 [facility] Stop: 04/06/21 13:59 Last Admin: 03/08/21 05:51 Dose: 5,000 units Documented by: Heparin Sodium (Porcine) (Heparin Sod (Porcine) 1000 Unit/Ml) 2,000 units IV Th@0700 [facility] Stop: 03/09/21 18:00 Heparin Sodium (Porcine) (Heparin Sod (Porcine) 1000 Unit/Ml) 500 units IV Q1H [facility] Stop: 03/09/21 08:01 Sodium Chloride (Nss 1000ml) 1,000 mls @ 0 mls/hr IV .Q0M PRN PRN Reason: For Hemodialysis Use ONLY Stop: 03/09/21 12:59 Levothyroxine Sodium (Levothyroxine Sodium 75 Mcg Tablet) 75 mcg PO DAILYBB [facility] Stop: 04/07/21 06:29 Last Admin: 03/08/21 05:51 Dose: 75 mcg Documented by: Lisinopril (Lisinopril 40 Mg Tab) 40 mg PO DAILY [facility] Stop: 04/07/21 08:59 Last Admin: 03/08/21 08:46 Dose: 40 mg Documented by: Megestrol Acetate (Megestrol Acetate Susp 400 Mg/10 Ml Udc) 400 mg PO QAM [facility] Stop: 04/07/21 08:59 Last Admin: 03/08/21 08:46 Dose: 400 mg Documented by: Pantoprazole Sodium (Pantoprazole 40 Mg Tab) 40 mg PO BID [facility] Stop: 04/06/21 20:59 Last Admin: 03/08/21 08:46 Dose: 40 mg Documented by: Raspberry (Raspberry Syrup 5 Ml Udp) 5 ml PO BID JW; Taper Stop: 03/18/21 20:59 Last Admin: 03/08/21 08:46 Dose: 5 ml Documented by: Thiamine HCl (Thiamine Hcl 100 Mg Tab) 100 mg PO DAILY JW Stop: 04/07/21 08:59 Last Admin: 03/08/21 08:45 Dose: 100 mg Documented by: Vancomycin HCl (Vancomycin Hcl 125 Mg/2.5ml Soln) 125 mg PO BID JW; Taper Stop: 03/18/21 20:59 Last Admin: 03/08/21 08:48 Dose: 125 mg Documented by: Vancomycin HCl (Vancomycin Hcl 125 Mg/2.5ml Soln) 125 mg PO Q48H JW Stop: 03/28/21 09:01 Vancomycin HCl (Vancomycin Hcl 125 Mg/2.5ml Soln) 125 mg PO Q72H JW Stop: 04/13/21 09:01 (1) Anemia Anemia type: unspecified type Qualified Code(s): D64.9 - Anemia, unspecified
[2021-03-08] MEDS ORDERED: SODIUM CHLORIDE 0.9% 250 ML IV PRN ×2 (14:31→14:56)
--- NOTE | 2021-03-08 14:47 | Cardiology Progress Note ---
Date of Service March 08, 2021 Assessment & Plan (1) Pulmonary edema: (2) Non-ischemic cardiomyopathy: (3) End-stage renal disease on hemodialysis: (4) Hypertensive urgency, malignant: (5) Polycystic kidney disease: (6) Status post liver transplant: Plan: Patient is a 65-year-old female with very complex history as outlined with polycystic renal disease on hemodialysis for end-stage renal dysfunction, status post hepatic transplant, nonischemic cardiomyopathy. Patient presents for second admission with acute pulmonary edema and last month's time. Initial evaluation today reveals no acute ischemia by EKG. Troponin not elevated despite marked respiratory distress and renal failure Suspect hypertension is contributing to current presentations with hypertensive urgency today. Plan: Patient clinically improved following dialysis. Would continue increased dose carvedilol for hypertension and heart rate control. We will continue to follow Admission and Anticipated Discharge Date Admission Date: March 07, 2021 Subjective Patient seen and examined, chart, medications, telemetry reviewed. She looks much more comfortable today no longer in respiratory distress. Responded very briskly to dialysis. No chest pains no tachypalpitations no arrhythmias Blood pressure improved dramatically Review of Systems Review of Systems: All systems reviewed & are unremarkable except as noted in Subjective Physical Exam Constitutional: + thin; no acute distress Eyes: PERRL ENMT: external ear and nose normal, oropharynx normal Neck: trachea midline, no thyromegaly Respiratory: Auscultation: + diminished lung sounds Cardiovascular: Rate/Rhythm: regular rate and regular rhythm Heart Sounds: no murmur Extremities: no edema Gastrointestinal (Abdomen): Inspection/Auscultation: abdomen not distended Musculoskeletal: no cyanosis or clubbing, extremities motor strength 5/5 Results & Data ([facility]) Vital Signs (Past 12 Hours) Vital Signs Temp Pulse Resp BP Pulse Ox 03/08/21 12:00 81 26 H 103/56 L 97 03/08/21 11:30 81 29 H 97 03/08/21 11:00 84 27 H 110/62 97 03/08/21 10:30 89 28 H 96 03/08/21 10:00 90 31 H 98 03/08/21 09:30 89 30 H 98 03/08/21 09:00 89 23 99 03/08/21 08:30 100 H 24 98 03/08/21 08:00 93 H 28 H 98 03/08/21 07:30 91 H 28 H 148/79 H 99 03/08/21 07:00 87 26 H 100 03/08/21 06:30 81 28 H 100 03/08/21 06:00 89 23 151/84 H 100 03/08/21 05:30 78 21 162/82 H 100 03/08/21 05:00 89 27 H 161/91 H 98 03/08/21 04:30 93 H 23 150/79 H 100 03/08/21 04:00 37.0 C 94 H 28 H 161/91 H 100 03/08/21 03:30 92 H 26 H 135/69 99 03/08/21 03:00 86 23 150/76 H 99 Laboratory Results Laboratory Results - last 24 hr 03/07/21 03/07/21 03/08/21 14:27 20:29 04:58 WBC 1.60 L RBC 2.52 L Hgb 7.6 L Hct 24.6 L MCV 97.6 MCH 30.2 MCHC 30.9 L RDW Std Deviation 65.5 H RDW Coeff of Igor 18.3 H Plt Count 157 MPV 10.5 H Sodium Potassium Chloride Carbon Dioxide Anion Gap BUN Creatinine Est Cr Clr Drug Dosing Est GFR ( Amer) Est GFR (Non-Af Amer) BUN/Creatinine Ratio Glucose Calcium Phosphorus Magnesium Total Bilirubin AST ALT Alkaline Phosphatase Troponin I 0.031 0.040 Total Protein Albumin Globulin Albumin/Globulin Ratio Blood Type Antibody Screen 03/08/21 03/08/21 04:58 10:30 WBC RBC Hgb Hct MCV MCH MCHC RDW Std Deviation RDW Coeff of Igor Plt Count MPV Sodium 139 Potassium 4.4 Chloride 106 Carbon Dioxide 28 Anion Gap 5.0 BUN 22 H D Creatinine 3.64 H D Est Cr Clr Drug Dosing 11.9 Est GFR ( Amer) 14.2 Est GFR (Non-Af Amer) 12.2 BUN/Creatinine Ratio 6.0 L Glucose 78 Calcium 9.3 Phosphorus 3.4 Magnesium 2.0 Total Bilirubin 0.6 AST 21 ALT 29 Alkaline Phosphatase 212 H Troponin I Total Protein 5.6 L Albumin 1.7 L Globulin 3.9 Albumin/Globulin Ratio 0.4 L Blood Type O Positive Antibody Screen NEGATIVE
[2021-03-09] MEDS: cycloSPORINE 25 MG CAP PO SCH ×2 (01:00→13:40)
[2021-03-09] MEDS: HEPARIN SOD 5,000 UNIT/0.5 ML VIAL SQ SCH ×3 (05:40→21:06)
[2021-03-09] MEDS: LEVOTHYROXINE SODIUM 75 MCG TABLET PO SCH (05:40)
[2021-03-09 05:48] LABS: Hematocrit (blood only) 23.8 % (37-47); Hemoglobin 7.6 g/dL (12.0-16.0); Mean Corpuscular Hemoglobin 30.8 pg (25-34); Mean Corpuscular Hgb Conc 31.9 g/dL (32-36); Mean Corpuscular Volume 96.4 fL (80-100); Mean Platelet Volume 9.6 fL (7.4-10.4); Platelet Count 153 K/uL (130-400); RDW Coefficient of Variation 17.8 % (11.5-14.5); RDW Standard Deviation 63.1 fL (36.4-46.3); Red Blood Count 2.47 M/uL (4.2-5.4); White Blood Count 2.07 K/uL (4.8-10.8)
[2021-03-09 06:21] LABS: Albumin Globulin Ratio 0.4 (0.9-2); Albumin Level 1.7 gm/dl (3.4-5.0); BUN Creatinine Ratio 8.4 (10-20); Bilirubin,Total 0.5 mg/dl (0.2-1); Calcium 9.2 mg/dl (8.5-10.1); Creatinine Clr Calc Pharmacy 7.8 ml/min; Est GFR (African American) 8.5 ml/min; Est GFR (Non-African American) 7.3 ml/min; Globulin 4.2 gm/dl (2.5-4.0); Phosphorus 3.9 mg/dl (2.5-4.9); Potassium 4.4 mmol/L (3.5-5.1); Total Protein 5.9 gm/dl (6.4-8.2)
[2021-03-09 06:25] LABS: ALC (manual) 0.72 K/uL (1.2-3.4); ANC (manual) 1.05 K/uL (1.4-6.5); Eosinophils # (manual) 0.09 K/uL (0-0.5); Eosinophils % (manual) 4.3 %; Lymphocytes # (manual) 0.72 K/uL (1.2-3.4); Lymphocytes % (manual) 34.8 %; Metamyelocytes # (manual) 0.02 K/uL (0-0); Metamyelocytes % (manual) 0.9 %; Monocytes # (manual) 0.16 K/uL (0.11-0.59); Monocytes % (manual) 7.8 %; Myelocytes # (manual) 0.04 K/uL (0-0); Myelocytes % (manual) 1.7 %; Neutrophils # (manual) 1.05 K/uL (1.4-6.5); Neutrophils % (manual) 50.5 %; RBC Morphology Unremarkable
[2021-03-09] MEDS ORDERED: HEPARIN SOD (PORCINE) 1000 UNIT/ML IV SCH (07:00)
[2021-03-09] MEDS ORDERED: SODIUM CHLORIDE 0.9% 1000ML 1,000 ML IV PRN (07:00)
[2021-03-09] MEDS: VANCOMYCIN HCL 125 MG/2.5ML SOLN PO SCH ×2 (08:10→20:12)
[2021-03-09] MEDS: ATOVAQUONE 750 MG/5 ML UDC PO SCH (08:10)
[2021-03-09] MEDS: RASPBERRY SYRUP 5 ML UDP PO SCH ×2 (08:10→20:12)
[2021-03-09] MEDS: PANTOprazole 40 MG TAB PO SCH ×2 (08:11→20:11)
[2021-03-09] MEDS: DOXYCYCLINE HYCLATE 100 MG CAP PO SCH ×2 (08:11→20:11)
[2021-03-09] MEDS: THIAMINE HCL 100 MG TAB PO SCH (08:11)
[2021-03-09] MEDS: CYANOCOBALAMIN 500 MCG TABLET (VITAMIN B-12) PO SCH (08:12)
[2021-03-09] MEDS: MEGESTROL ACETATE SUSP 400 MG/10 ML UDC PO SCH (08:12)
[2021-03-09] MEDS: FOLIC ACID 400 MCG TAB PO SCH (08:12)
[2021-03-09] MEDS: HEPARIN SOD (PORCINE) 1000 UNIT/ML IV SCH (09:29)
--- NOTE | 2021-03-09 10:13 | Nephrology Progress Note ---
Date of Service March 09, 2021 Assessment & Plan (1) End-stage renal disease on hemodialysis: Plan: * Will provide HD today and attempt additional 3 L UF * Will note weight post HD and obtain portable CXR in am (2) Hypertension: Plan: * Expect elevated BP to improve w/ UF (3) Anemia: Plan: * Hgb < 8. Will transfuse 2 units PRBC w/ HD today * Monitor H&H * Will administer PATI w/ HD today (4) Non-ischemic cardiomyopathy: Plan: * Asymptomatic. Troponin has not been elevated (5) C. difficile colitis: Plan: * h/o C. Difficile colitis last hospitalization * Patient reports diarrhea has resolved * On oral Vancomycin therapy (6) Status post liver transplant: Plan: * Recommend continuing Neoral therapy (7) Anaplasmosis: Plan: * Peripheral smear shows intracytoplasmic neutrophilic inclusions suggestive of anaplasmosis * On Doxycycline therapy Admission and Anticipated Discharge Date Admission Date: March 07, 2021 Subjective Ms. Cagle was evaluated in her hospital room this morning. She was breathing comfortably flat in bed on RA. She c/o mild nausea Review of Systems Constitutional: + weakness; no fever Eyes: no problem reported Ear, Nose, Mouth, Throat: no problem reported Respiratory: no cough and no dyspnea Cardiovascular: no chest pain Gastrointestinal: no abdominal pain and no nausea Integumentary: no rash Neurologic: no confusion Physical Exam Constitutional: + ill appearing; not in distress Eyes: PERRL, conjunctivae normal, anicteric sclerae ENMT: external ear and nose normal, oropharynx normal Neck: trachea midline, no thyromegaly Respiratory: no respiratory distress Auscultation: lungs clear to aus cultation bilaterally Cardiovascular: Rate/Rhythm: regular rate and regular rhythm Gastrointestinal (Abdomen): normal bowel sounds, soft, nontender, no hepatosplenomegaly Skin: no rashes, warm and dry Neurologic: awake; not confused Results & Data ([facility]) Vital Signs (Past 12 Hours) Vital Signs Temp Pulse Pulse Resp BP BP Pulse Ox 03/09/21 10:00 87 140/71 03/09/21 09:40 89 135/69 03/09/21 09:37 37.1 C 92 H 16 133/71 03/09/21 09:20 87 118/58 L 03/09/21 09:00 83 148/83 H 03/09/21 08:48 88 142/75 H 03/09/21 08:40 37.1 C 88 03/09/21 08:29 36.9 C 89 18 130/66 95 03/09/21 01:00 90 03/09/21 00:03 36.7 C 90 18 138/73 94 Laboratory Results Laboratory Tests 03/09/21 03/09/21 05:31 05:31 WBC 2.07 L Hgb 7.6 L Hct 23.8 L Plt Count 153 Sodium 137 Potassium 4.4 Chloride 105 Carbon Dioxide 27 BUN 46 H D Creatinine 5.56 H* D Glucose 94 PG Care Time/CCT Total # of Minutes Spent Total Time Spent with Patient: Total time spent is greater than 50% in coordination of care (as documented) at patient's floor/unit and/or counseling patient: Coding Level of Care Code 23700 Subseq Hosp Care Lvl 3 Diagnoses End-stage renal disease on hemodialysis N18.6; Z99.2 Hypertension I10 Anemia D64.9 Anemia type: unspecified type Non-ischemic cardiomyopathy I42.8 C. difficile colitis A04.72 Status post liver transplant Z94.4 Anaplasmosis A77.49 (1) Anemia Anemia type: unspecified type Qualified Code(s): D64.9 - Anemia, unspecified
[2021-03-09] MEDS: lisinopril 40 MG TAB PO SCH (13:39)
[2021-03-09] MEDS: carvediloL 25 MG TAB PO SCH (13:39)
[2021-03-09] MEDS: amLODIPine BESYLATE 5 MG TAB PO SCH (13:39)
--- NOTE | 2021-03-09 15:43 | Cardiology Progress Note ---
Date of Service March 09, 2021 Assessment & Plan (1) Pulmonary edema: (2) Non-ischemic cardiomyopathy: (3) End-stage renal disease on hemodialysis: (4) Hypertensive urgency, malignant: (5) Polycystic kidney disease: (6) Status post liver transplant: Plan: Patient is a 65-year-old female with very complex history as outlined with polycystic renal disease on hemodialysis for end-stage renal dysfunction, status post hepatic transplant, nonischemic cardiomyopathy. Patient presents for second admission with acute pulmonary edema and last month's time. Initial evaluation today reveals no acute ischemia by EKG. Troponin not elevated despite marked respiratory distress and renal failure Suspect hypertension is contributing to current presentations with hypertensive urgency on previous and current admission Blood pressure and heart rate still elevated Plan: We will increase carvedilol to 37.5 mg twice per day consider adding hydralazine to her regimen. Blood pressures being driven by longstanding hypertension with polycystic kidney disease as well as immunosuppressive's. Discussed with patient she does note prior discussions have been made regarding possible nephrectomy suspect that this may aid in difficult to control if medical therapy is insufficient Currently no findings to suggest acute cardiac ischemia but will likely repeat stress nuclear imaging post hospital disc Admission and Anticipated Discharge Date Admission Date: March 07, 2021 Subjective Patient was seen and examined post dialysis. Notes blood pressure was running high during procedure with patient complaining of flank pain and low back pain during dialysis. Currently more comfortable. No worsening dyspnea. No fevers or chills. Review of Systems Review of Systems: All systems reviewed & are unremarkable except as noted in Subjective Physical Exam Constitutional: + thin; no acute distress Eyes: PERRL ENMT: external ear and nose normal, oropharynx normal Neck: trachea midline, no thyromegaly Respiratory: + respiratory distress Auscultation: + diminished lung sounds Cardiovascular: Rate/Rhythm: regular rate and regular rhythm Heart Sounds: no murmur Extremities: no edema Gastrointestinal (Abdomen): Inspection/Auscultation: abdomen not distended Musculoskeletal: no cyanosis or clubbing, extremities motor strength 5/5 Results & Data ([facility]) Vital Signs (Past 12 Hours) Vital Signs Temp Pulse Pulse Resp BP BP Pulse Ox 03/09/21 12:19 36.5 C 91 H 180/91 H 03/09/21 12:11 84 184/91 H 03/09/21 12:00 84 178/87 H 03/09/21 11:56 36.8 C 87 18 124/67 96 03/09/21 11:40 87 173/92 H 03/09/21 11:20 88 159/75 H 03/09/21 11:01 37.1 C 88 16 146/82 H 03/09/21 11:00 88 146/82 H 03/09/21 10:56 37.1 C 87 16 134/74 03/09/21 10:40 87 134/74 03/09/21 10:20 90 140/78 03/09/21 10:00 87 140/71 03/09/21 09:40 89 135/69 03/09/21 09:37 37.1 C 92 H 16 133/71 03/09/21 09:20 87 118/58 L 03/09/21 09:00 83 148/83 H 03/09/21 08:48 88 142/75 H 03/09/21 08:40 37.1 C 88 03/09/21 08:29 36.9 C 89 18 130/66 95 Laboratory Results Laboratory Results - last 24 hr 03/08/21 03/09/21 03/09/21 10:30 05:31 05:31 WBC 2.07 L RBC 2.47 L Hgb 7.6 L Hct 23.8 L MCV 96.4 MCH 30.8 MCHC 31.9 L RDW Std Deviation 63.1 H RDW Coeff of Igor 17.8 H Plt Count 153 MPV 9.6 Neutrophils % (Manual) 50.5 Lymphocytes % (Manual) 34.8 Monocytes % (Manual) 7.8 Eosinophils % (Manual) 4.3 Metamyelocytes % (Man) 0.9 Myelocytes % (Man) 1.7 Neutrophils # (Manual) 1.05 L Total Absolute Neuts 1.05 L Lymphocytes # (Manual) 0.72 L Total Abs Lymphocytes 0.72 L Monocytes # (Manual) 0.16 Eosinophils # (Manual) 0.09 Metamyelocytes # (Man) 0.02 H Myelocytes # (Manual) 0.04 H RBC Morphology Unremarkable Sodium 137 Potassium 4.4 Chloride 105 Carbon Dioxide 27 Anion Gap 5.0 BUN 46 H D Creatinine 5.56 H* D Est Cr Clr Drug Dosing 7.8 Est GFR ( Amer) 8.5 Est GFR (Non-Af Amer) 7.3 BUN/Creatinine Ratio 8.4 L Glucose 94 Calcium 9.2 Phosphorus 3.9 Magnesium 2.0 Iron 71 Transferrin 101 L Transferrin % Sat 50 Ferritin 3787.0 H Total Bilirubin 0.5 AST 16 ALT 25 Alkaline Phosphatase 194 H Total Protein 5.9 L Albumin 1.7 L Globulin 4.2 H Albumin/Globulin Ratio 0.4 L Blood Type O Positive Antibody Screen NEGATIVE Crossmatch See Detail
--- NOTE | 2021-03-09 17:00 | Hospitalist Progress Note ---
Date of Service March 09, 2021 Assessment & Plan (1) Pulmonary edema: Plan: Acute on chronic systolic heart failure Patient presenting from home with severe shortness of breath. Found to be volume overloaded. Patient is anuric from ESRD (on HD TuThSa, last treatment 03/04) and hx if non-ischemic cardiomyopathy, EF 30-35%. Placed on BiPap in the ED with improvement in respiratory status. 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 Patient also diagnosed with C. difficile and placed on vancomycin taper. Discharged to [facility] for rehab and returned home on 03/05. Admitted on 03/07 with pulmonary edema She will need to have PT and OT evaluation and possible placement-if she is discharged home she will need more home help (2) Acute respiratory failure: Plan: Likely secondary to acute pulmonary edema (3) End-stage renal disease on hemodialysis: Plan: History of ADPKD resulting in end-stage renal disease and requiring hemodialysis (4) Non-ischemic cardiomyopathy: Plan: History of non-ischemic cardiomyopathy, EF 30-35%. Appreciate cardiology input and recommendation Given significant hypertension, will start Nitro paste 0.5in and Hydralazine 10mg IV x 1 Carvedilol dose has been increased to 25 mg twice daily to control her high blood pressure We will continue her other blood pressure medications Blood pressure remains on the upper side at 151/84 (5) Hypertension: Plan: -continue carvedilol and Lisinopril -Carvedilol doses have been increased as above -Medications are being adjusted by educational director (6) Status post liver transplant: Plan: [place] [facility] [place]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 difficile diarrhea: Plan: -tested positive 02/16 -remains on Vanco taper -patient continues to have diarrhea that is slowly improving (9) Abnormal blood smear: Plan: -inclusion bodies noted on peripheral blood smear -question true infection at this time as likelihood of rickettsial illness is low given no known tick exposure. -Has been started on doxycycline will continue until he get the confirmatory test (10) DVT prophylaxis: Plan: -SQ heparin Admission and Anticipated Discharge Date Admission Date: March 07, 2021 Subjective 03/08/21 The patient was seen and examined in ICU She has been feeling much better following dialysis yesterday She denies any significant symptoms except weakness and mild shortness of breath at rest No fever and no chills and no chest pain and/or palpitation 03/09/2021 The patient was seen and examined in telemetry unit She has been very depressed and is crying today that she has been in and out of hospital frequently She has been having trouble in sleeping at night and the hospital bed is giving her pain at the back She is a status post dialysis today Review of Systems Review of Systems: All systems reviewed and are unremarkable except as noted below Physical Exam Physical Exam: Sitting on a chair without any acute distress Constitutional: + ill appearing and + thin Eyes: PERRL, conjunctivae normal, anicteric sclerae ENMT: external ear and nose normal, oropharynx normal Respiratory: + respiratory distress (Minimal respiratory distress at rest); no labored breathing Auscultation: + diminished lung sounds and + crackles (At the bases) Cardiovascular: Rate/Rhythm: regular rate and regular rhythm Heart Sounds: normal S1 and normal S2 Extremities: no edema Gastrointestinal (Abdomen): Inspection/Auscultation: normal bowel sounds; abdomen not distended Percussion/Palpation: abdomen soft; abdomen nontender Musculoskeletal: No acute arthritis involving any joint Neurologic: Generally weak and lethargic. No focal neuro deficit Results & Data Results & Data ([facility]) Vital Signs (Past 12 Hours) Vital Signs Temp Pulse Pulse Resp BP BP Pulse Ox 03/09/21 16:00 36.5 C 70 18 118/63 94 03/09/21 12:19 36.5 C 91 H 180/91 H 03/09/21 12:11 84 184/91 H 03/09/21 12:00 84 178/87 H 03/09/21 11:56 36.8 C 87 18 124/67 96 03/09/21 11:40 87 173/92 H 03/09/21 11:20 88 159/75 H 03/09/21 11:01 37.1 C 88 16 146/82 H 03/09/21 11:00 88 146/82 H 03/09/21 10:56 37.1 C 87 16 134/74 03/09/21 10:40 87 134/74 03/09/21 10:20 90 140/78 03/09/21 10:00 87 140/71 03/09/21 09:40 89 135/69 03/09/21 09:37 37.1 C 92 H 16 133/71 03/09/21 09:20 87 118/58 L 03/09/21 09:00 83 148/83 H 03/09/21 08:48 88 142/75 H 03/09/21 08:40 37.1 C 88 03/09/21 08:29 36.9 C 89 18 130/66 95 Laboratory Results Short CBC 03/09/21 Range/Units 05:31 WBC 2.07 L (4.8-10.8) K/uL Hgb 7.6 L (12.0-16.0) g/dL Hct 23.8 L (37-47) % Plt Count 153 (130-400) K/uL BMP 03/09/21 05:31 Sodium 137 Potassium 4.4 Chloride 105 Carbon Dioxide 27 BUN 46 H D Creatinine 5.56 H* D Glucose 94 Calcium 9.2 Liver Function 03/09/21 Range/Units 05:31 Total Bilirubin 0.5 (0.2-1) mg/dl AST 16 (15-37) U/L ALT 25 (12-78) U/L Alkaline Phosphatase 194 H (45-117) U/L Albumin 1.7 L (3.4-5.0) gm/dl Medications Administered Current Inpatient Medications Acetaminophen (Acetaminophen 325 Mg Tab) 650 mg PO Q4H PRN PRN Reason: Pain or Fever Stop: 04/06/21 13:37 Last Admin: 03/09/21 00:57 Dose: 650 mg Documented by: Amlodipine Besylate (Amlodipine Besylate 5 Mg Tab) 10 mg PO DAILY JW Stop: 04/07/21 08:59 Last Admin: 03/09/21 13:39 Dose: 10 mg Documented by: Atovaquone (Atovaquone 750 Mg/5 Ml Udc) 1,500 mg PO DAILY [facility] Stop: 04/07/21 08:59 Last Admin: 03/09/21 08:10 Dose: 1,500 mg Documented by: Carvedilol (Carvedilol 12.5 Mg Tab) 37.5 mg PO BID [facility] Stop: 04/08/21 20:59 Cyanocobalamin (Cyanocobalamin 500 Mcg Tablet (Vitamin B-12)) 2,000 mcg PO DAILY JW Stop: 04/07/21 08:59 Last Admin: 03/09/21 08:12 Dose: 2,000 mcg Documented by: Cyclosporine (Cyclosporine 25 Mg Cap) 75 mg PO Q12H [facility] Stop: 04/06/21 13:59 Last Admin: 03/09/21 13:40 Dose: 75 mg Documented by: Doxycycline Hyclate (Doxycycline Hyclate 100 Mg Cap) 100 mg PO BID [facility]; Protocol Stop: 03/21/21 15:59 Last Admin: 03/09/21 08:11 Dose: 100 mg Documented by: Folic Acid (Folic Acid 400 Mcg Tab) 400 mcg PO DAILY [facility] Stop: 04/07/21 08:59 Last Admin: 03/09/21 08:12 Dose: 400 mcg Documented by: Heparin Sodium (Porcine) (Heparin Sod 5,000 Unit/0.5 Ml Vial) 5,000 units SQ Q8 JW Stop: 04/06/21 13:59 Last Admin: 03/09/21 13:46 Dose: Not Given Documented by: Heparin Sodium (Porcine) (Heparin Sod (Porcine) 1000 Unit/Ml) 2,000 units IV Th@0700 [facility] Stop: 03/09/21 18:00 Last Admin: 03/09/21 09:29 Dose: Not Given Documented by: Levothyroxine Sodium (Levothyroxine Sodium 75 Mcg Tablet) 75 mcg PO DAILYBB [facility] Stop: 04/07/21 06:29 Last Admin: 03/09/21 05:40 Dose: 75 mcg Documented by: Lisinopril (Lisinopril 40 Mg Tab) 40 mg PO DAILY [facility] Stop: 04/07/21 08:59 Last Admin: 03/09/21 13:39 Dose: 40 mg Documented by: Megestrol Acetate (Megestrol Acetate Susp 400 Mg/10 Ml Udc) 400 mg PO QAM JW Stop: 04/07/21 08:59 Last Admin: 03/09/21 08:12 Dose: 400 mg Documented by: Pantoprazole Sodium (Pantoprazole 40 Mg Tab) 40 mg PO BID JW Stop: 04/06/21 20:59 Last Admin: 03/09/21 08:11 Dose: 40 mg Documented by: Raspberry (Raspberry Syrup 5 Ml Udp) 5 ml PO BID JW; Taper Stop: 03/18/21 20:59 Last Admin: 03/09/21 08:10 Dose: 5 ml Documented by: Thiamine HCl (Thiamine Hcl 100 Mg Tab) 100 mg PO DAILY JW Stop: 04/07/21 08:59 Last Admin: 03/09/21 08:11 Dose: 100 mg Documented by: Vancomycin HCl (Vancomycin Hcl 125 Mg/2.5ml Soln) 125 mg PO BID JW; Taper Stop: 03/18/21 20:59 Last Admin: 03/09/21 08:10 Dose: 125 mg Documented by: Vancomycin HCl (Vancomycin Hcl 125 Mg/2.5ml Soln) 125 mg PO Q48H JW Stop: 03/28/21 09:01 Vancomycin HCl (Vancomycin Hcl 125 Mg/2.5ml Soln) 125 mg PO Q72H WJ Stop: 04/13/21 09:01 (1) Anemia Anemia type: unspecified type Qualified Code(s): D64.9 - Anemia, unspecified
[2021-03-09] MEDS: carvediloL 12.5 MG TAB PO SCH (20:11)
[2021-03-10] MEDS: cycloSPORINE 25 MG CAP PO SCH ×2 (02:49→13:10)
[2021-03-10] MEDS: HEPARIN SOD 5,000 UNIT/0.5 ML VIAL SQ SCH ×3 (05:47→21:10)
[2021-03-10] MEDS: LEVOTHYROXINE SODIUM 75 MCG TABLET PO SCH (05:47)
[2021-03-10 06:39] LABS: Hemoglobin 10.3 g/dL (12.0-16.0); Mean Corpuscular Hemoglobin 30.3 pg (25-34); Mean Corpuscular Hgb Conc 33.2 g/dL (32-36); Mean Corpuscular Volume 91.2 fL (80-100); Mean Platelet Volume 10.6 fL (7.4-10.4); Platelet Count 146 K/uL (130-400); RDW Coefficient of Variation 18.3 % (11.5-14.5); RDW Standard Deviation 60.3 fL (36.4-46.3); White Blood Count 2.35 K/uL (4.8-10.8)
[2021-03-10 06:40] LABS: Albumin Level 1.7 gm/dl (3.4-5.0); BUN Creatinine Ratio 7.1 (10-20); Calcium 8.8 mg/dl (8.5-10.1); Creatinine Clr Calc Pharmacy 10.6 ml/min; Est GFR (African American) 12.6 ml/min; Est GFR (Non-African American) 10.8 ml/min; Potassium 3.5 mmol/L (3.5-5.1)
[2021-03-10 06:59] LABS: Albumin Globulin Ratio 0.4 (0.9-2); Bilirubin,Total 0.7 mg/dl (0.2-1); Phosphorus 3.7 mg/dl (2.5-4.9); Total Protein 5.7 gm/dl (6.4-8.2)
[2021-03-10] MEDS: VANCOMYCIN HCL 125 MG/2.5ML SOLN PO SCH ×2 (08:45→21:09)
[2021-03-10] MEDS: MEGESTROL ACETATE SUSP 400 MG/10 ML UDC PO SCH (08:45)
[2021-03-10] MEDS: RASPBERRY SYRUP 5 ML UDP PO SCH ×2 (08:45→21:09)
[2021-03-10] MEDS: ATOVAQUONE 750 MG/5 ML UDC PO SCH (08:45)
[2021-03-10] MEDS: amLODIPine BESYLATE 5 MG TAB PO SCH (08:46)
[2021-03-10] MEDS: FOLIC ACID 400 MCG TAB PO SCH (08:46)
[2021-03-10] MEDS: CYANOCOBALAMIN 500 MCG TABLET (VITAMIN B-12) PO SCH (08:47)
[2021-03-10] MEDS: PANTOprazole 40 MG TAB PO SCH ×2 (08:47→21:09)
[2021-03-10] MEDS: DOXYCYCLINE HYCLATE 100 MG CAP PO SCH ×2 (08:47→21:08)
[2021-03-10] MEDS: THIAMINE HCL 100 MG TAB PO SCH (08:48)
[2021-03-10] MEDS: lisinopril 40 MG TAB PO SCH (08:48)
[2021-03-10] MEDS: carvediloL 12.5 MG TAB PO SCH ×2 (08:49→21:08)
--- NOTE | 2021-03-10 08:58 | XRay Report ---
SINGLE VIEW CHEST CLINICAL HISTORY: Congestive heart failure. FINDINGS: 2 AP, portable, upright chest radiographs are compared to study dated 03/07/2021. The exami nation is degraded by portable technique and patient rotation. The heart is enlarged noting atheroscl erotic calcification of the thoracic aorta. There is pulmonary vascular congestion with evidence of i nterstitial edema. There are layering pleural effusions with bibasilar consolidation. No pneumothorax is seen. The skeletal structures are osteopenic. The bony thorax is grossly intact. A common bile du ct stent is partially visualized in the upper abdomen. IMPRESSION: 1. Cardiomegaly with evidence of congestive failure and pulmonary edema. This is unchanged to slightl y worsened as compared to 03/07/2021. 2. Layering pleural effusions with bibasilar consolidation. ACT 112: Negative or not required by law. Electronically signed by: Gustabo Levy M.D. 03/10/2021 8:56 AM
--- NOTE | 2021-03-10 09:34 | Nephrology Progress Note ---
Date of Service March 10, 2021 Assessment & Plan (1) End-stage renal disease on hemodialysis: Plan: * Will provide HD in am and attempt 2L UF * CXR shows mild CHF. Standing weight this am is 48 kg * Will reset HD EDW to 47 kg. Will request each weight to be obtained in the AM using a standing scale (2) Hypertension: Plan: * Expect elevated BP to improve w/ UF (3) Anemia: Plan: * Hgb < 8. Will transfuse 2 units PRBC w/ HD today * Monitor H&H * Will administer PATI w/ HD tomorrow (4) Non-ischemic cardiomyopathy: Plan: * Asymptomatic. Troponin has not been elevated (5) C. difficile colitis: Plan: * h/o C. Difficile colitis last hospitalization * Patient reports diarrhea has resolved * On oral Vancomycin therapy (6) Status post liver transplant: Plan: * Recommend continuing Neoral therapy (7) Anaplasmosis: Plan: * Peripheral smear shows intracytoplasmic neutrophilic inclusions suggestive of anaplasmosis * On Doxycycline therapy (8) Physical deconditioning: Plan: * Await PT/OT evaluation Admission and Anticipated Discharge Date Admission Date: March 07, 2021 Subjective Ms. Cagle was evaluated in her hospital room this morning. She was breathing comfortably flat in bed on RA Review of Systems Constitutional: + weakness; no fever Eyes: no problem reported Ear, Nose, Mouth, Throat: no problem reported Respiratory: no cough and no dyspnea Cardiovascular: no chest pain Gastrointestinal: no abdominal pain and no nausea Integumentary: no rash Neurologic: no confusion Physical Exam Constitutional: + ill appearing; not in distress Eyes: PERRL, conjunctivae normal, anicteric sclerae ENMT: external ear and nose normal, oropharynx normal Neck: trachea midline, no thyromegaly Respiratory: no respiratory distress Auscultation: lungs clear to auscultation bilaterally Cardiovascular: Rate/Rhythm: regular rate and regular rhythm Gastrointestinal (Abdomen): normal bowel sounds, soft, nontender, no hepatosplenomegaly Skin: no rashes, warm and dry Neurologic: awake; not confused Results & Data ([facility]) Vital Signs (Past 12 Hours) Vital Signs Temp Pulse Resp BP Pulse Ox 03/10/21 08:00 36.7 C 74 20 152/81 H 94 03/10/21 02:52 36.6 C 85 16 163/66 H 95 03/10/21 00:51 36.8 C 84 16 148/69 H 93 Laboratory Results Laboratory Tests 03/10/21 03/10/21 05:28 05:28 WBC 2.35 L Hgb 10.3 L Hct 31.0 L Plt Count 146 Sodium 141 Potassium 3.5 D Chloride 108 H Carbon Dioxide 26 BUN 29 H Creatinine 4.02 H D Glucose 86 Calcium 8.8 Phosphorus 3.7 Magnesium 2.0 Albumin 1.7 L PG Care Time/CCT Total # of Minutes Spent Total Time Spent with Patient: Total time spent is greater than 50% in coordination of care (as documented) at patient's floor/unit and/or counseling patient: Coding Level of Care Code 17345 Subseq Hosp Care Lvl 3 Diagnoses End-stage renal disease on hemodialysis N18.6; Z99.2 Hypertension I10 Anemia D64.9 Anemia type: unspecified type Non-ischemic cardiomyopathy I42.8 C. difficile colitis A04.72 Status post liver transplant Z94.4 Anaplasmosis A77.49 Physical deconditioning R53.81 (1) Anemia Anemia type: unspecified type Qualified Code(s): D64.9 - Anemia, unspecified
--- NOTE | 2021-03-10 11:55 | Cardiology Progress Note ---
Date of Service March 10, 2021 Assessment & Plan (1) Pulmonary edema: (2) Non-ischemic cardiomyopathy: (3) End-stage renal disease on hemodialysis: (4) Hypertensive urgency, malignant: (5) Polycystic kidney disease: (6) Status post liver transplant: Plan: Patient is a 65-year-old female with very complex history as outlined with polycystic renal disease on hemodialysis for end-stage renal dysfunction, status post hepatic transplant, nonischemic cardiomyopathy. Patient presents for second admission with acute pulmonary edema and last month's time. Initial evaluation today reveals no acute ischemia by EKG. Troponin not elevated despite marked respiratory distress and renal failure Suspect hypertension is contributing to current presentations with hypertensive urgency on previous and current admission No prior history of ischemic heart disease with evaluation by stress nuclear imaging Plan: Continue increased dose of carvedilol 37.5 mg twice per day. Add low-dose hydralazine 10 mg twice daily. Agree with the ongoing dialysis plans May require repeat stress testing as outpatient. Admission and Anticipated Discharge Date Admission Date: March 07, 2021 Subjective Patient without acute complaints this morning. No arrhythmias on telemetry. Blood pressure improving but still elevated. Chest x-ray demonstrates persistent edema. Patient received transfusion with hemoglobin improved Review of Systems Review of Systems: All systems reviewed & are unremarkable except as noted in Subjective Physical Exam Constitutional: + thin; no acute distress Eyes: PERRL ENMT: external ear and nose normal, oropharynx normal Neck: trachea midline, no thyromegaly Respiratory: Auscultation: + diminished lung sounds and + rales Cardiovascular: Rate/Rhythm: regular rate and regular rhythm Heart Sounds: no murmur Extremities: no edema Gastrointestinal (Abdomen): Inspection/Auscultation: abdomen not distended Musculoskeletal: no cyanosis or clubbing, extremities motor strength 5/5 Results & Data ([facility]) Vital Signs (Past 12 Hours) Vital Signs Temp Pulse Resp BP Pulse Ox 03/10/21 08:00 36.7 C 74 20 152/81 H 94 03/10/21 02:52 36.6 C 85 16 163/66 H 95 03/10/21 00:51 36.8 C 84 16 148/69 H 93 Laboratory Results Laboratory Results - last 24 hr 03/10/21 03/10/21 05:28 05:28 WBC 2.35 L RBC 3.40 L Hgb 10.3 L Hct 31.0 L MCV 91.2 D MCH 30.3 MCHC 33.2 RDW Std Deviation 60.3 H RDW Coeff of Igor 18.3 H Plt Count 146 MPV 10.6 H Sodium 141 Potassium 3.5 D Chloride 108 H Carbon Dioxide 26 Anion Gap 7.0 BUN 29 H Creatinine 4.02 H D Est Cr Clr Drug Dosing 10.6 Est GFR ( Amer) 12.6 Est GFR (Non-Af Amer) 10.8 BUN/Creatinine Ratio 7.1 L Glucose 86 Calcium 8.8 Phosphorus 3.7 Magnesium 2.0 Total Bilirubin 0.7 AST 16 ALT 21 Alkaline Phosphatase 174 H Total Protein 5.7 L Albumin 1.7 L Globulin 4.0 Albumin/Globulin Ratio 0.4 L Medications Administered Current Medications Acetaminophen (Acetaminophen 325 Mg Tab) 650 mg PO Q4H PRN PRN Reason: Pain or Fever Stop: 04/06/21 13:37 Last Admin: 03/09/21 00:57 Dose: 650 mg Documented by: Amlodipine Besylate (Amlodipine Besylate 5 Mg Tab) 10 mg PO DAILY [facility] Stop: 04/07/21 08:59 Last Admin: 03/10/21 08:46 Dose: 10 mg Documented by: Atovaquone (Atovaquone 750 Mg/5 Ml Udc) 1,500 mg PO DAILY [facility] Stop: 04/07/21 08:59 Last Admin: 03/10/21 08:45 Dose: 1,500 mg Documented by: Carvedilol (Carvedilol 12.5 Mg Tab) 37.5 mg PO BID [facility] Stop: 04/08/21 20:59 Last Admin: 03/10/21 08:49 Dose: 37.5 mg Documented by: Cyanocobalamin (Cyanocobalamin 500 Mcg Tablet (Vitamin B-12)) 2,000 mcg PO DAILY [facility] Stop: 04/07/21 08:59 Last Admin: 03/10/21 08:47 Dose: 2,000 mcg Documented by: Cyclosporine (Cyclosporine 25 Mg Cap) 125 mg PO Q12H [facility] Stop: 04/06/21 13:59 Doxycycline Hyclate (Doxycycline Hyclate 100 Mg Cap) 100 mg PO BID [facility]; Protocol Stop: 03/21/21 15:59 Last Admin: 03/10/21 08:47 Dose: 100 mg Documented by: Epoetin Pillo (Epoetin Pillo 4,000 Unit/Ml Vial) 4,000 units IV ONE ONE Stop: 03/11/21 07:01 Folic Acid (Folic Acid 400 Mcg Tab) 400 mcg PO DAILY [facility] Stop: 04/07/21 08:59 Last Admin: 03/10/21 08:46 Dose: 400 mcg Documented by: Heparin Sodium (Porcine) (Heparin Sod 5,000 Unit/0.5 Ml Vial) 5,000 units SQ Q8 [facility] Stop: 04/06/21 13:59 Last Admin: 03/10/21 05:47 Dose: 5,000 units Documented by: Heparin Sodium (Porcine) (Heparin Sod (Porcine) 1000 Unit/Ml) 2,000 units IV ONE ONE Stop: 03/11/21 07:01 Heparin Sodium (Porcine) (Heparin Sod (Porcine) 1000 Unit/Ml) 500 units IV Q1H [facility] Stop: 03/11/21 07:01 Sodium Chloride (Nss 1000ml) 1,000 mls @ 0 mls/hr IV .Q0M PRN PRN Reason: For Hemodialysis Use ONLY Stop: 03/11/21 12:59 Levothyroxine Sodium (Levothyroxine Sodium 75 Mcg Tablet) 75 mcg PO DAILYBB [facility] Stop: 04/07/21 06:29 Last Admin: 03/10/21 05:47 Dose: 75 mcg Documented by: Lisinopril (Lisinopril 40 Mg Tab) 40 mg PO DAILY [facility] Stop: 04/07/21 08:59 Last Admin: 03/10/21 08:48 Dose: 40 mg Documented by: Megestrol Acetate (Megestrol Acetate Susp 400 Mg/10 Ml Udc) 400 mg PO QAM [facility] Stop: 04/07/21 08:59 Last Admin: 03/10/21 08:45 Dose: 400 mg Documented by: Pantoprazole Sodium (Pantoprazole 40 Mg Tab) 40 mg PO BID [facility] Stop: 04/06/21 20:59 Last Admin: 03/10/21 08:47 Dose: 40 mg Documented by: Raspberry (Raspberry Syrup 5 Ml Udp) 5 ml PO BID [facility]; Taper Stop: 03/18/21 20:59 Last Admin: 03/10/21 08:45 Dose: 5 ml Documented by: Thiamine HCl (Thiamine Hcl 100 Mg Tab) 100 mg PO DAILY [facility] Stop: 04/07/21 08:59 Last Admin: 03/10/21 08:48 Dose: 100 mg Documented by: Vancomycin HCl (Vancomycin Hcl 125 Mg/2.5ml Soln) 125 mg PO BID [facility]; Taper Stop: 03/18/21 20:59 Last Admin: 03/10/21 08:45 Dose: 125 mg Documented by: Vancomycin HCl (Vancomycin Hcl 125 Mg/2.5ml Soln) 125 mg PO Q48H [facility] Stop: 03/28/21 09:01 Vancomycin HCl (Vancomycin Hcl 125 Mg/2.5ml Soln) 125 mg PO Q72H [facility] Stop: 04/13/21 09:01
[2021-03-10] MEDS: hydrALAZINE 10 MG TAB PO SCH ×2 (13:13→21:09)
--- NOTE | 2021-03-10 16:18 | Hospitalist Progress Note ---
Date of Service March 10, 2021 Assessment & Plan (1) Pulmonary edema: Plan: Acute on chronic systolic heart failure Patient presenting from home with severe shortness of breath. Found to be volume overloaded. Patient is anuric from ESRD (on HD TuThSa, last treatment 03/04) and hx if non-ischemic cardiomyopathy, EF 30-35%. Placed on BiPap in the ED with improvement in respiratory status. 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 Calcification causing borderline mitral stenosis with mild MR. Small circumferential pericardial effusion more pronounced anteriorly without hemodynamic significance. ECHO on 07/26/2020 at [facility]: Normal LV size and systolic function, EF 65%, no wall motion abnormalities, no concentric LV hypertrophy and ECHO on 02/17/2021, during current admission; there is borderline concentric LVH, LV systolic function is moderate to severely reduced, EF 30 to 35%, RV systolic function is normal, left atrium is moderately dilated, right atrial size is normal, grade 1 diastolic dysfunction, small pericardial effusion, there are no echocardiographic indications of cardiac tamponade, large right pleural effusion and a small left pleural effusion Discussed with the printed circuit layout taper-likely causes episodic uncontrolled hypertension Discussed with transplant physician at [facility]-advised to have a cardiology follow-up as an outpatient sooner than later Patient remains stable and has been feeling a lot better Patient recently admitted to [facility] 02/14 through 02/23 for acute respiratory failure from volume overload requiring urgent hemodialysis. Patient also diagnosed with C. difficile and placed on vancomycin taper. Discharged to [facility] for rehab and returned home on 03/05. Admitted on 03/07 with pulmonary edema She will need to have PT and OT evaluation and possible placement-if she is discharged home she will need more home help PT and OT recommended that she can be discharged home with some home health (2) Acute respiratory failure: Plan: Likely secondary to acute pulmonary edema (3) End-stage renal disease on hemodialysis: Plan: History of ADPKD resulting in end-stage renal disease and requiring hemodialysis Chest x-ray today showed minimal CHF Will have dialysis tomorrow (4) Non-ischemic cardiomyopathy: Plan: History of non-ischemic cardiomyopathy, EF 30-35%. Appreciate cardiology input and recommendation Given significant hypertension, will start Nitro paste 0.5in and Hydralazine 10mg IV x 1 Carvedilol dose has been increased to 25 mg twice daily to control her high blood pressure We will continue her other blood pressure medications Blood pressure remains on the upper side at 151/84 (5) Hypertension: Plan: -continue carvedilol and Lisinopril -Carvedilol doses have been increased as above -Medications are being adjusted by printed circuit layout taper Blood pressure needs to be tightly controlled-nephrectomy will have another way to control blood pressure (6) Status post liver transplant: Plan: -s/p liver transplant Jun 2020 at [facility] -community recreation coordinator, [phone] -case discussed with ABDIRASHID Pérez with transplant medicine ([phone]) - requesting daily update -please fax ALL labs and discharge summary to [phone] -continue cyclosporine and atovaquone -Discussed with the transplant team-we will increase the dose of cyclosporine as advised (7) Anemia: Plan: -due to CKD -baseline hgb ~ 8.5 -10 -hgb 9.3 today -monitor CBC (8) C. difficile diarrhea: Plan: -tested positive 02/16 -remains on Vanco taper -patient continues to have diarrhea that is slowly improving (9) Abnormal blood smear: Plan: -inclusion bodies noted on peripheral blood smear -question true infection at this time as likelihood of rickettsial illness is low given no known tick exposure. -Has been started on doxycycline will continue until he get the confirmatory test (10) DVT prophylaxis: Plan: -SQ heparin Admission and Anticipated Discharge Date Admission Date: March 07, 2021 Subjective 03/08/21 The patient was seen and examined in ICU She has been feeling much better following dialysis yesterday She denies any significant symptoms except weakness and mild shortness of breath at rest No fever and no chills and no chest pain and/or palpitation 03/09/2021 The patient was seen and examined in telemetry unit She has been very depressed and is crying today that she has been in and out of hospital frequently She has been having trouble in sleeping at night and the hospital bed is giving her pain at the back She is a status post dialysis today 03/10/2021 The patient was seen and examined in telemetry unit She has been feeling much better today but anxious that she will be going home today Denies any significant symptoms Has had physical therapy evaluation and did well with that Review of Systems Review of Systems: All systems reviewed and are unremarkable except as noted below Physical Exam Physical Exam: Sitting on a chair without any acute distress Constitutional: + ill appearing and + thin Eyes: PERRL, conjunctivae normal, anicteric sclerae ENMT: external ear and nose normal, oropharynx normal Respiratory: + respiratory distress (Minimal respiratory distress at rest); no labored breathing Auscultation: + diminished lung sounds and + crackles (At the bases) Cardiovascular: Rate/Rhythm: regular rate and regular rhythm Heart Sounds: normal S1 and normal S2 Extremities: no edema Gastrointestinal (Abdomen): Inspection/Auscultation: normal bowel sounds; abdomen not distended Percussion/Palpation: abdomen soft; abdomen nontender Musculoskeletal: No acute arthritis in any joint Neurologic: Alert, awake and oriented x3 Lymphatic: no cervical or axillary lymphadenopathy Results & Data Results & Data ([facility]) Vital Signs (Past 12 Hours) Vital Signs Temp Pulse Resp BP Pulse Ox 03/10/21 12:00 36.9 C 88 22 141/63 H 95 03/10/21 08:00 36.7 C 74 20 152/81 H 94 Laboratory Results Short CBC 03/10/21 Range/Units 05:28 WBC 2.35 L (4.8-10.8) K/uL Hgb 10.3 L (12.0-16.0) g/dL Hct 31.0 L (37-47) % Plt Count 146 (130-400) K/uL BMP 03/10/21 05:28 Sodium 141 Potassium 3.5 D Chloride 108 H Carbon Dioxide 26 BUN 29 H Creatinine 4.02 H D Glucose 86 Calcium 8.8 Liver Function 03/10/21 Range/Units 05:28 Total Bilirubin 0.7 (0.2-1) mg/dl AST 16 (15-37) U/L ALT 21 (12-78) U/L Alkaline Phosphatase 174 H (45-117) U/L Albumin 1.7 L (3.4-5.0) gm/dl Medications Administered Current Inpatient Medications Acetaminophen (Acetaminophen 325 Mg Tab) 650 mg PO Q4H PRN PRN Reason: Pain or Fever Stop: 04/06/21 13:37 Last Admin: 03/09/21 00:57 Dose: 650 mg Documented by: Amlodipine Besylate (Amlodipine Besylate 5 Mg Tab) 10 mg PO DAILY [facility] Stop: 04/07/21 08:59 Last Admin: 03/10/21 08:46 Dose: 10 mg Documented by: Atovaquone (Atovaquone 750 Mg/5 Ml Udc) 1,500 mg PO DAILY [facility] Stop: 04/07/21 08:59 Last Admin: 03/10/21 08:45 Dose: 1,500 mg Documented by: Carvedilol (Carvedilol 12.5 Mg Tab) 37.5 mg PO BID [facility] Stop: 04/08/21 20:59 Last Admin: 03/10/21 08:49 Dose: 37.5 mg Documented by: Cyanocobalamin (Cyanocobalamin 500 Mcg Tablet (Vitamin B-12)) 2,000 mcg PO DAILY [facility] Stop: 04/07/21 08:59 Last Admin: 03/10/21 08:47 Dose: 2,000 mcg Documented by: Cyclosporine (Cyclosporine 25 Mg Cap) 125 mg PO Q12H [facility] Stop: 04/06/21 13:59 Last Admin: 03/10/21 13:10 Dose: 125 mg Documented by: Doxycycline Hyclate (Doxycycline Hyclate 100 Mg Cap) 100 mg PO BID [facility]; Protocol Stop: 03/21/21 15:59 Last Admin: 03/10/21 08:47 Dose: 100 mg Documented by: Epoetin Pillo (Epoetin Pillo 4,000 Unit/Ml Vial) 4,000 units IV ONE ONE Stop: 03/11/21 07:01 Folic Acid (Folic Acid 400 Mcg Tab) 400 mcg PO DAILY [facility] Stop: 04/07/21 08:59 Last Admin: 03/10/21 08:46 Dose: 400 mcg Documented by: Heparin Sodium (Porcine) (Heparin Sod 5,000 Unit/0.5 Ml Vial) 5,000 units SQ Q8 [facility] Stop: 04/06/21 13:59 Last Admin: 03/10/21 13:14 Dose: 5,000 units Documented by: Heparin Sodium (Porcine) (Heparin Sod (Porcine) 1000 Unit/Ml) 2,000 units IV ONE ONE Stop: 03/11/21 07:01 Heparin Sodium (Porcine) (Heparin Sod (Porcine) 1000 Unit/Ml) 500 units IV Q1H [facility] Stop: 03/11/21 07:01 Hydralazine HCl (Hydralazine 10 Mg Tab) 10 mg PO BID [facility] Stop: 04/09/21 11:59 Last Admin: 03/10/21 13:13 Dose: 10 mg Documented by: Sodium Chloride (Nss 1000ml) 1,000 mls @ 0 mls/hr IV .Q0M PRN PRN Reason: For Hemodialysis Use ONLY Stop: 03/11/21 12:59 Levothyroxine Sodium (Levothyroxine Sodium 75 Mcg Tablet) 75 mcg PO DAILYBB [facility] Stop: 04/07/21 06:29 Last Admin: 03/10/21 05:47 Dose: 75 mcg Documented by: Lisinopril (Lisinopril 40 Mg Tab) 40 mg PO DAILY [facility] Stop: 04/07/21 08:59 Last Admin: 03/10/21 08:48 Dose: 40 mg Documented by: Megestrol Acetate (Megestrol Acetate Susp 400 Mg/10 Ml Udc) 400 mg PO QAM [facility] Stop: 04/07/21 08:59 Last Admin: 03/10/21 08:45 Dose: 400 mg Documented by: Pantoprazole Sodium (Pantoprazole 40 Mg Tab) 40 mg PO BID [facility] Stop: 04/06/21 20:59 Last Admin: 03/10/21 08:47 Dose: 40 mg Documented by: Raspberry (Raspberry Syrup 5 Ml Udp) 5 ml PO BID [facility]; Taper Stop: 03/18/21 20:59 Last Admin: 03/10/21 08:45 Dose: 5 ml Documented by: Thiamine HCl (Thiamine Hcl 100 Mg Tab) 100 mg PO DAILY [facility] Stop: 04/07/21 08:59 Last Admin: 03/10/21 08:48 Dose: 100 mg Documented by: Vancomycin HCl (Vancomycin Hcl 125 Mg/2.5ml Soln) 125 mg PO BID [facility]; Taper Stop: 03/18/21 20:59 Last Admin: 03/10/21 08:45 Dose: 125 mg Documented by: Vancomycin HCl (Vancomycin Hcl 125 Mg/2.5ml Soln) 125 mg PO Q48H [facility] Stop: 03/28/21 09:01 Vancomycin HCl (Vancomycin Hcl 125 Mg/2.5ml Soln) 125 mg PO Q72H [facility] Stop: 04/13/21 09:01 (1) Anemia Anemia type: unspecified type Qualified Code(s): D64.9 - Anemia, unspecified
[2021-03-11] MEDS: cycloSPORINE 25 MG CAP PO SCH ×2 (01:49→17:07)
[2021-03-11] MEDS: HEPARIN SOD 5,000 UNIT/0.5 ML VIAL SQ SCH ×2 (05:44→07:47)
[2021-03-11] MEDS: LEVOTHYROXINE SODIUM 75 MCG TABLET PO SCH (05:44)
[2021-03-11] MEDS ORDERED: SODIUM CHLORIDE 0.9% 1000ML 1,000 ML IV PRN (07:00)
[2021-03-11] MEDS ORDERED: HEPARIN SOD (PORCINE) 1000 UNIT/ML IV SCH (07:00)
[2021-03-11] MEDS ORDERED: EPOETIN ALFA 4,000 UNIT/ML VIAL IV ONE (07:00)
[2021-03-11] MEDS ORDERED: HEPARIN SOD (PORCINE) 1000 UNIT/ML IV ONE (07:00)
[2021-03-11] MEDS: amLODIPine BESYLATE 5 MG TAB PO SCH (07:46)
[2021-03-11] MEDS: FOLIC ACID 400 MCG TAB PO SCH (07:47)
[2021-03-11] MEDS: lisinopril 40 MG TAB PO SCH (07:48)
[2021-03-11] MEDS: CYANOCOBALAMIN 500 MCG TABLET (VITAMIN B-12) PO SCH (07:49)
[2021-03-11] MEDS: THIAMINE HCL 100 MG TAB PO SCH (07:50)
[2021-03-11] MEDS: ATOVAQUONE 750 MG/5 ML UDC PO SCH (07:50)
[2021-03-11] MEDS: MEGESTROL ACETATE SUSP 400 MG/10 ML UDC PO SCH (07:51)
[2021-03-11] MEDS: DOXYCYCLINE HYCLATE 100 MG CAP PO SCH (07:51)
[2021-03-11] MEDS: PANTOprazole 40 MG TAB PO SCH (07:52)
[2021-03-11] MEDS: hydrALAZINE 10 MG TAB PO SCH (07:52)
[2021-03-11] MEDS: carvediloL 12.5 MG TAB PO SCH (07:53)
[2021-03-11 09:19] LABS: Hematocrit (blood only) 33.4 % (37-47); Hemoglobin 10.7 g/dL (12.0-16.0); Mean Corpuscular Volume 93.6 fL (80-100); Mean Platelet Volume 10.3 fL (7.4-10.4); Platelet Count 123 K/uL (130-400); RDW Coefficient of Variation 17.6 % (11.5-14.5); RDW Standard Deviation 59.5 fL (36.4-46.3); Red Blood Count 3.57 M/uL (4.2-5.4)
[2021-03-11 10:02] LABS: Albumin Globulin Ratio 0.4 (0.9-2); Albumin Level 1.6 gm/dl (3.4-5.0); BUN Creatinine Ratio 8.9 (10-20); Bilirubin,Total 0.5 mg/dl (0.2-1); Calcium 9.1 mg/dl (8.5-10.1); Est GFR (African American) 7.8 ml/min; Est GFR (Non-African American) 6.8 ml/min; Globulin 3.9 gm/dl (2.5-4.0); Magnesium 1.8 mg/dl (1.8-2.4); Phosphorus 4.9 mg/dl (2.5-4.9); Potassium 3.8 mmol/L (3.5-5.1); Total Protein 5.5 gm/dl (6.4-8.2)
--- NOTE | 2021-03-11 11:47 | Nephrology Progress Note ---
Date of Service March 11, 2021 Assessment & Plan (1) End-stage renal disease on hemodialysis: Plan: End-stage renal disease on hemodialysis, admitted with volume overload and respiratory distress. Received [id number] dialysis and new estimated dry weight is 47 kg considering repeated hospitalization weight loss. Overall she has been otherwise feeling well, no further episode of shortness of breath. -- Will have dialysis this afternoon, will try to challenge further to even go lower than her new dry weight of 47 kg if tolerated. After dialysis if clinically she is otherwise stable, okay to be discharged with outpatient dialysis next Saturday at [facility]. -- Dose medications for GFR less than 10, left arm nephrology precaution, PATI for hemoglobin less than 10. will follow while in hospital however, ready to be discharged if clinically stable as she is looking forward to go home. (2) Physical deconditioning: (3) Status post liver transplant: (4) Secondary hyperparathyroidism of renal origin: (5) Hypertension: (6) Anemia: Admission and Anticipated Discharge Date Admission Date: March 07, 2021 April Mcallister was seen and examined in her room this morning. She denies any shortness of breath, chest pain. She is very emotional and tearful with repeated hospitalization, would like to get discharged if possible. She is due for dialysis today. Electrolyte acceptable. Weight 48 kg with her new dry weight 47. Review of Systems Review of Systems: detailed review of system was otherwise unremarkable. Physical Exam Constitutional: + ill appearing and comfortable; no acute distress Respiratory: normal respiratory effort, lungs clear to auscultation Cardiovascular: RRR, no murmur, no edema Neurologic: moves all extremities and awake; not confused Psychiatric: A+Ox3, euthymic affect Affect: + depressed affect and + tearful affect Results & Data ([facility]) Vital Signs (Past 12 Hours) Vital Signs Temp Pulse Pulse Resp BP Pulse Ox Pulse Ox 03/11/21 09:25 37.0 C 86 16 151/72 H 96 03/11/21 08:00 78 94 03/11/21 04:10 36.6 C 84 16 150/76 H 94 03/10/21 23:53 82 03/10/21 23:40 36.6 C 82 16 151/77 H 94 PG Care Time/CCT Total # of Minutes Spent Total Time Spent with Patient: Total time spent is greater than 50% in coordination of care (as documented) at patient's floor/unit and/or counseling patient: Coding Level of Care Code 84813 Subseq Hosp Care Lvl 2 Diagnoses End-stage renal disease on hemodialysis N18.6; Z99.2 Physical deconditioning R53.81 Status post liver transplant Z94.4 Secondary hyperparathyroidism of renal origin N25.81 Hypertension I10 Anemia D64.9 Anemia type: unspecified type (1) Anemia Anemia type: unspecified type Qualified Code(s): D64.9 - Anemia, unspecified
[2021-03-11] MEDS: RASPBERRY SYRUP 5 ML UDP PO SCH (12:22)
[2021-03-11] MEDS: VANCOMYCIN HCL 125 MG/2.5ML SOLN PO SCH (12:22)
--- NOTE | 2021-03-11 13:45 | Hospitalist Progress Note ---
Date of Service March 11, 2021 Assessment & Plan (1) Pulmonary edema: Plan: Acute on chronic systolic heart failure Patient presenting from home with severe shortness of breath. Found to be volume overloaded. Patient is anuric from ESRD (on HD [facility], last treatment 03/04) and hx if non-ischemic cardiomyopathy, EF 30-35%. Placed on BiPap in the ED with improvement in respiratory status. Appreciate nephrology input and status post hemodialysis on 03/07/21 Will monitor patient's weight and intake output chart Continue hemodialysis as per sorter operator -has had dialysis today again 03/09/2021 Clinically much better today denies any symptoms at rest; Has had another session of dialysis today If she feels lot better following dialysis she will be sent home this afternoon Further information about the ECHO reports at different times as below ::Echo on 07/10/2018; compared to previous study of 04/29/2018 pericardial effusion is now present otherwise unchanged, mildly dilated LV chamber size with normal wall thickness, severely reduced LV systolic function with severe global hypokinesis, EF 25 to 30%, grade 1 diastolic dysfunction, moderately calcified mitral valve. Calcification causing borderline mitral stenosis with mild MR. Small circumferential pericardial effusion more pronounced anteriorly without hemodynamic significance. ::ECHO on 07/26/2020 at [facility]: Normal LV size and systolic function, EF 65%, no wall motion abnormalities, no concentric LV hypertrophy and ::ECHO on 02/17/2021, during current admission; there is borderline concentric LVH, LV systolic function is moderate to severely reduced, EF 30 to 35%, RV systolic function is normal, left atrium is moderately dilated, right atrial size is normal, grade 1 diastolic dysfunction, small pericardial effusion, there are no echocardiographic indications of cardiac tamponade, large right pleural effusion and a small left pleural effusion Discussed with the associate merchandiser-likely causes episodic uncontrolled hypertension Discussed with transplant physician at [facility]-advised to have a cardiology follow-up as an outpatient sooner than later Patient remains stable and has been feeling a lot better She will need to have an outpatient cardiology appointment sooner than later on discharge Patient recently admitted to [facility] 02/14 through 02/23 for acute respiratory failure from volume overload requiring urgent hemodialysis. Patient also diagnosed with C. difficile and placed on vancomycin taper. Discharged to [facility] for rehab and returned home on 03/05. 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 Appreciate cardiology input and recommendation Given significant hypertension, will start Nitro paste 0.5in and Hydralazine 10mg IV x 1 Carvedilol dose has been increased to 25 mg twice daily to control her high blood pressure We will continue her other blood pressure medications Blood pressure remains on the upper side at 151/84 As above (5) Hypertension: Plan: -continue carvedilol and Lisinopril -Carvedilol doses have been increased as above -Medications are being adjusted by associate merchandiser Blood pressure needs to be tightly controlled-nephrectomy will have another way to control blood pressure (6) Status post liver transplant: Plan: -s/p liver transplant Jun 2020 at [facility] -product coordinator, [phone] -case discussed with ABDIRASHID Pérez with transplant medicine ([phone]) - requesting daily update -please fax ALL labs and discharge summary to [phone] -continue cyclosporine and atovaquone -Discussed with the transplant team-we will increase the dose of cyclosporine as advised -Discussed with the transplant team (7) Anemia: Plan: -due to CKD -baseline hgb ~ 8.5 -10 -hgb 9.3 today -monitor CBC (8) C. difficile diarrhea: Plan: -tested positive 02/16 -remains on Vanco taper -patient continues to have diarrhea that is slowly improving (9) Abnormal blood smear: Plan: -inclusion bodies noted on peripheral blood smear -question true infection at this time as likelihood of rickettsial illness is low given no known tick exposure. -Has been started on doxycycline will continue until he get the confirmatory test (10) DVT prophylaxis: Plan: -SQ heparin Admission and Anticipated Discharge Date Admission Date: March 07, 2021 Subjective 03/08/21 The patient was seen and examined in ICU She has been feeling much better following dialysis yesterday She denies any significant symptoms except weakness and mild shortness of breath at rest No fever and no chills and no chest pain and/or palpitation 03/09/2021 The patient was seen and examined in telemetry unit She has been very depressed and is crying today that she has been in and out of hospital frequently She has been having trouble in sleeping at night and the hospital bed is giving her pain at the back She is a status post dialysis today 03/10/2021 The patient was seen and examined in telemetry unit She has been feeling much better today but anxious that she will be going home today Denies any significant symptoms Has had physical therapy evaluation and did well with that 03/11/2021 The patient was seen and examined in telemetry unit She has been feeling a lot better and denies any shortness of breath at rest She wants to go home and she has had physical therapy with recommendation to go home If she feels better following dialysis today she will be discharged home Review of Systems Review of Systems: All systems reviewed and are unremarkable except as noted below Physical Exam Physical Exam: Sitting on a chair without any acute distress Constitutional: + ill appearing and + thin Eyes: PERRL, conjunctivae normal, anicteric sclerae ENMT: external ear and nose normal, oropharynx normal Respiratory: + respiratory distress (Minimal respiratory distress at rest); no labored breathing Auscultation: + diminished lung sounds and + crackles (At the bases) Cardiovascular: Rate/Rhythm: regular rate and regular rhythm Heart Sounds: normal S1 and normal S2 Extremities: no edema Gastrointestinal (Abdomen): Inspection/Auscultation: normal bowel sounds; abdomen not distended Percussion/Palpation: abdomen soft; abdomen nontender Musculoskeletal: No acute arthritis in any joint Neurologic: Alert, awake and oriented x3. Generally weak but no focal sensory and motor deficit appreciated Lymphatic: no cervical or axillary lymphadenopathy Results & Data Results & Data ([facility]) Vital Signs (Past 12 Hours) Vital Signs Temp Pulse Pulse Resp BP BP Pulse Ox 03/11/21 13:20 72 144/69 H 03/11/21 13:02 80 139/75 03/11/21 13:00 36.8 C 80 03/11/21 12:00 36.8 C 83 16 115/69 93 03/11/21 09:25 37.0 C 86 16 151/72 H 96 03/11/21 08:00 78 03/11/21 04:10 36.6 C 84 16 150/76 H 94 Pulse Ox 03/11/21 13:20 03/11/21 13:02 03/11/21 13:00 03/11/21 12:00 03/11/21 09:25 03/11/21 08:00 94 03/11/21 04:10 Laboratory Results Short CBC 03/11/21 Range/Units 09:03 WBC 2.30 L (4.8-10.8) K/uL Hgb 10.7 L (12.0-16.0) g/dL Hct 33.4 L (37-47) % Plt Count 123 L (130-400) K/uL BMP 03/11/21 09:03 Sodium 137 Potassium 3.8 Chloride 107 Carbon Dioxide 25 BUN 53 H D Creatinine 5.94 H* D Glucose 124 H Calcium 9.1 Liver Function 03/11/21 Range/Units 09:03 Total Bilirubin 0.5 (0.2-1) mg/dl AST 17 (15-37) U/L ALT 17 (12-78) U/L Alkaline Phosphatase 160 H (45-117) U/L Albumin 1.6 L (3.4-5.0) gm/dl Medications Administered Current Inpatient Medications Acetaminophen (Acetaminophen 325 Mg Tab) 650 mg PO Q4H PRN PRN Reason: Pain or Fever Stop: 04/06/21 13:37 Last Admin: 03/09/21 00:57 Dose: 650 mg Documented by: Amlodipine Besylate (Amlodipine Besylate 5 Mg Tab) 10 mg PO DAILY JW Stop: 04/07/21 08:59 Last Admin: 03/11/21 07:46 Dose: 10 mg Documented by: Atovaquone (Atovaquone 750 Mg/5 Ml Ud) 1,500 mg PO DAILY JW Stop: 04/07/21 08:59 Last Admin: 03/11/21 07:50 Dose: 1,500 mg Documented by: Carvedilol (Carvedilol 12.5 Mg Tab) 37.5 mg PO BID JW Stop: 04/08/21 20:59 Last Admin: 03/11/21 07:53 Dose: 37.5 mg Documented by: Cyanocobalamin (Cyanocobalamin 500 Mcg Tablet (Vitamin B-12)) 2,000 mcg PO DAILY JW Stop: 04/07/21 08:59 Last Admin: 03/11/21 07:49 Dose: 2,000 mcg Documented by: Cyclosporine (Cyclosporine 25 Mg Cap) 125 mg PO Q12H JW Stop: 04/06/21 13:59 Last Admin: 03/11/21 01:49 Dose: 125 mg Documented by: Doxycycline Hyclate (Doxycycline Hyclate 100 Mg Cap) 100 mg PO BID [facility]; Protocol Stop: 03/21/21 15:59 Last Admin: 03/11/21 07:51 Dose: 100 mg Documented by: Folic Acid (Folic Acid 400 Mcg Tab) 400 mcg PO DAILY [facility] Stop: 04/07/21 08:59 Last Admin: 03/11/21 07:47 Dose: 400 mcg Documented by: Heparin Sodium (Porcine) (Heparin Sod 5,000 Unit/0.5 Ml Vial) 5,000 units SQ Q8 JW Stop: 04/06/21 13:59 Last Admin: 03/11/21 07:47 Dose: 5,000 units Documented by: Hydralazine HCl (Hydralazine 10 Mg Tab) 10 mg PO BID [facility] Stop: 04/09/21 11:59 Last Admin: 03/11/21 07:52 Dose: 10 mg Documented by: Levothyroxine Sodium (Levothyroxine Sodium 75 Mcg Tablet) 75 mcg PO DAILYBB [facility] Stop: 04/07/21 06:29 Last Admin: 03/11/21 05:44 Dose: 75 mcg Documented by: Lisinopril (Lisinopril 40 Mg Tab) 40 mg PO DAILY JW Stop: 04/07/21 08:59 Last Admin: 03/11/21 07:48 Dose: 40 mg Documented by: Megestrol Acetate (Megestrol Acetate Susp 400 Mg/10 Ml Udc) 400 mg PO QAM JW Stop: 04/07/21 08:59 Last Admin: 03/11/21 07:51 Dose: 400 mg Documented by: Pantoprazole Sodium (Pantoprazole 40 Mg Tab) 40 mg PO BID [facility] Stop: 04/06/21 20:59 Last Admin: 03/11/21 07:52 Dose: 40 mg Documented by: Raspberry (Raspberry Syrup 5 Ml Udp) 5 ml PO BID JW; Taper Stop: 03/18/21 20:59 Last Admin: 03/11/21 12:22 Dose: 5 ml Documented by: Thiamine HCl (Thiamine Hcl 100 Mg Tab) 100 mg PO DAILY JW Stop: 04/07/21 08:59 Last Admin: 03/11/21 07:50 Dose: 100 mg Documented by: Vancomycin HCl (Vancomycin Hcl 125 Mg/2.5ml Soln) 125 mg PO BID JW; Taper Stop: 03/18/21 20:59 Last Admin: 03/11/21 12:22 Dose: 125 mg Documented by: Vancomycin HCl (Vancomycin Hcl 125 Mg/2.5ml Soln) 125 mg PO Q48H JW Stop: 03/28/21 09:01 Vancomycin HCl (Vancomycin Hcl 125 Mg/2.5ml Soln) 125 mg PO Q72H JW Stop: 04/13/21 09:01 (1) Anemia Anemia type: unspecified type Qualified Code(s): D64.9 - Anemia, unspecified
--- NOTE | 2021-03-12 15:21 | Discharge Summary ---
Date of Service March 12, 2021 Admission HPI Per Admitting Provider 65-year-old female with PMH cystic liver and kidney disease s/p liver transplant June 2020 and ESRD on HD Saturday, , Saturday, nonischemic cardiomyopathy EF 30 to 35%, HTN, chronic anemia, and other problems listed below who presents to the ED for evaluation of shortness of breath. Patient recently admitted to [facility] 02/14 through 02/23 for acute respiratory failure from volume overload requiring urgent hemodialysis. Patient also diagnosed with C. difficile and placed on vancomycin taper. Discharged to [facility] for rehab and returned home on 03/05. Patient reports she felt very good on the day she returned home. Overnight, she reports she woke up and was very diaphoretic and very short of breath. EMS was called and patient was brought to the ED for further evaluation. Patient denies chest pain. No lightheadedness, dizziness, or syncopal events. She continues to have diarrhea from the C. Diff infection however it is improving. No abdominal pain, nausea, or vomiting. Denies BRBPR or dark, tarry stools. No fevers or chills. She is anuric from ESRD. Patient required application of BiPap in the ED. She is hypertensive and tachypneic. CXR shows volume overload. Dr. Bob was notified and patient will go for urgent dialysis. Admission Exam Per Admitting Provider Constitutional: + ill appearing and + thin; no acute distress vitals as above Eyes: PERRL, conjunctivae normal, anicteric sclerae ENMT: external ear and nose normal, oropharynx normal Respiratory: + tachypneic; no respiratory distress Auscultation: + diminished lung sounds, + crackles (BL bases) and + wheezes (scattered, expiratory) Cardiovascular: Rate/Rhythm: regular rate and regular rhythm Vessels: normal peripheral pulses Extremities: + edema (+1 pitting edema BLE) Gastrointestinal (Abdomen): normal bowel sounds, soft, nontender, no hepatosplenomegaly Musculoskeletal: no cyanosis or clubbing, extremities motor strength 5/5 Skin: no rashes, warm and dry Neurologic: PERRL, EOMI, accommodation nl, no face palsy, no dysarthria Psychiatric: A+Ox3, euthymic affect Principal Diagnosis Acute on chronic systolic heart failure, hypertensive urgency, nonischemic cardiomyopathy, end-stage renal disease on hemodialysis, status post liver transplant Discharge Exam Constitutional + ill appearing and + thin Eyes PERRL, conjunctivae normal, anicteric sclerae ENMT external ear and nose normal, oropharynx normal Respiratory + respiratory distress (Minimal respiratory distress at rest); no labored breathing Auscultation: + diminished lung sounds and + crackles (At the bases) Cardiovascular Rate/Rhythm: regular rate and regular rhythm Heart Sounds: normal S1 and normal S2 Extremities: no edema Gastrointestinal (Abdomen) Inspection/Auscultation: normal bowel sounds; abdomen not distended Percussion/Palpation: abdomen soft; abdomen nontender Lymphatic no cervical or axillary lymphadenopathy Discharge Data Allergies Allergy/AdvReac Type Severity Reaction Status Date / Time morphine AdvReac Intermediate Nausea Verified 02/14/21 08:32 Consultations 03/07/21 09:48 ED Decision to Admit Stat 03/07/21 10:56 Consult Cardiology Routine Consult Nephrology Routine 03/07/21 17:00 Consult Dip Dyer Stat Hospital Course (1) Pulmonary edema: Acute on chronic systolic heart failure Patient presenting from home with severe shortness of breath. Found to be volume overloaded. Patient is anuric from ESRD (on HD [facility], last treatment 03/04) and hx if non-ischemic cardiomyopathy, EF 30-35%. Placed on BiPap in the ED with improvement in respiratory status. Appreciate nephrology input and status post hemodialysis on 03/07/21 Will monitor patient's weight and intake output chart Continue hemodialysis as per stage electrician -has had dialysis today again 03/09/2021 Clinically much better today denies any symptoms at rest; Has had another session of dialysis today If she feels lot better following dialysis she will be sent home this afternoon Further information about the ECHO reports at different times as below ::Echo on 07/10/2018; compared to previous study of 04/29/2018 pericardial effusion is now present otherwise unchanged, mildly dilated LV chamber size with normal wall thickness, severely reduced LV systolic function with severe global hypokinesis, EF 25 to 30%, grade 1 diastolic dysfunction, moderately calcified mitral valve. Calcification causing borderline mitral stenosis with mild MR. Small circumferential pericardial effusion more pronounced anteriorly without hemodynamic significance. ::ECHO on 07/26/2020 at [facility]: Normal LV size and systolic function, EF 65%, no wall motion abnormalities, no concentric LV hypertrophy and ::ECHO on 02/17/2021, during current admission; there is borderline concentric LVH, LV systolic function is moderate to severely reduced, EF 30 to 35%, RV systolic function is normal, left atrium is moderately dilated, right atrial siz e is normal, grade 1 diastolic dysfunction, small pericardial effusion, there are no echocardiographic indications of cardiac tamponade, large right pleural effusion and a small left pleural effusion Discussed with the central stores attendant-likely causes episodic uncontrolled hypertension Discussed with transplant physician at [facility]-advised to have a cardiology follow-up as an outpatient sooner than later Patient remains stable and has been feeling a lot better She will need to have an outpatient cardiology appointment sooner than later on discharge Patient recently admitted to [facility] 02/14 through 02/23 for acute respiratory failure from volume overload requiring urgent hemodialysis. Patient also diagnosed with C. difficile and placed on vancomycin taper. Discharged to [facility] for rehab and returned home on 03/05. 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 Appreciate cardiology input and recommendation Given significant hypertension, will start Nitro paste 0.5in and Hydralazine 10mg IV x 1 Carvedilol dose has been increased to 25 mg twice daily to control her high blood pressure We will continue her other blood pressure medications Blood pressure remains on the upper side at 151/84 As above (5) Hypertension: -continue carvedilol and Lisinopril -Carvedilol doses have been increased as above -Medications are being adjusted by central stores attendant Blood pressure needs to be tightly controlled-nephrectomy will have another way to control blood pressure (6) Status post liver transplant: -s/p liver transplant Jun 2020 at [facility] -quality coordinator, [phone] -case discussed with ABDIRASHID Pérez with transplant medicine ([phone]) - requesting daily update -please fax ALL labs and discharge summary to [phone] -continue cyclosporine and atovaquone -Discussed with the transplant team-we will increase the dose of cyclosporine as advised -Discussed with the transplant team (7) Anemia: -due to CKD -baseline hgb ~ 8.5 -10 -hgb 9.3 today -monitor CBC (8) C. difficile diarrhea: -tested positive 02/16 -remains on Vanco taper -patient continues to have diarrhea that is slowly improving (9) Abnormal blood smear: -inclusion bodies noted on peripheral blood smear -question true infection at this time as likelihood of rickettsial illness is low given no known tick exposure. -Has been started on doxycycline will continue until he get the confirmatory test (10) DVT prophylaxis: -SQ heparin Total Time Total Time Spent Total Time Spent (In Minutes): 35 minutes Discharge Plan Discharge Items Patient Disposition: Home - Home Health Services Reason For Visit: VOLUME OVERLOAD Discharge Diagnosis: Acute on chronic systolic heart failure, hypertensive urgency, nonischemic cardiomyopathy, end-stage renal disease on hemodialysis, status post liver transplant Condition on Discharge: Fair Activity: Resume your previous activity Non-emergency contact: Primary Care Provider Call non-emergency contact if: you have any medication questions and your symptoms worsen Follow-up/Referrals: Isaias Dickerson MD [Primary Care Provider] - (Date & Time 03/17/2021 8:40 AM Provider Isaias Dickerson MD Department Family Medicine [facility] ) Diet: Dialysis Renal and Low Sodium (2gm) Addtl Attending Provider Instructions: Please take precautions to avoid falls Take your blood pressure medications as advised; doses of your carvedilol has been increased to 37.5 mg twice daily, hydralazine 10 mg 3 times daily has been added to your blood pressure regimen. Keep appointment with your PCP and outpatient dialysis unit You will be called with an appointment with the central stores attendant in 1 to 2 weeks Please finish the course of doxycycline You should be taking cyclosporine 125 mg 2 times daily as per your transplant service Pending Studies at Discharge: No Stand-Alone Forms: My [email or web address], Smoking Cessation Medications and DC Order Prescriptions: New doxycycline hyclate 100 mg Capsule 100 mg PO BID Qty: 12 RF: 0 hydralazine 10 mg Tablet 10 mg PO TID Qty: 90 RF: 0 carvedilol 12.5 mg Tablet 37.5 mg PO BID 30 Days Qty: 180 RF: 0 Continued levothyroxine 75 mcg capsule 75 mcg PO QAM RF: 0 lisinopril 40 mg tablet 40 mg PO DAILY RF: 0 megestrol 400 mg/10 mL (10 mL) suspension 400 mg PO QAM RF: 0 pantoprazole 40 mg tablet,delayed release (DR/EC) 40 mg PO BID RF: 0 Mircera 200 mcg/0.3 mL Syringe 200 mcg IV .[id number] RF: 0 thiamine HCl (vitamin B1) 100 mg Tablet 100 mg PO DAILY RF: 0 atovaquone 750 mg/5 mL suspension 1,500 mg PO DAILY RF: 0 amlodipine 10 mg tablet 10 mg PO DAILY RF: 0 vitamin B complex-folic acid [Balance B-50 (with folic acid)] 0.4 mg tablet 1 tab PO DAILY RF: 0 vancomycin 125 mg capsule 125 mg PO UD Qty: 84 RF: 0 cyanocobalamin (vitamin B-12) [Vitamin B-12] 1,000 mcg Tablet 2,000 mcg PO DAILY RF: 0 Changed cyclosporine modified 25 mg capsule 125 mg PO Q12H Qty: 0 RF: 0 Discontinued carvedilol 25 mg tablet 12.5 mg PO BID RF: 0 Discharge Orders: Discharge Order (Routine); Ordered 03/11/21 Ordered By: Gerard Ruiz Admission Data Admit Date/Time: 03/07/21 10:20 Attending Provider: Gerard Ruiz Admit Provider: Jacqueline Topete Primary Care Provider: Isaias Dickerson Other Providers: Jacqueline Topete ; George Henning ; Jeet Bob ; Sukhdev Hernandez ; [facility] Other Interventions: Discharge Summary Assessment (RN) Last Done: 03/11/21 17:16
[2021-03-20] MEDS ORDERED: VANCOMYCIN HCL 125 MG/2.5ML SOLN PO SCH (09:00)
[2021-04-01] MEDS ORDERED: VANCOMYCIN HCL 125 MG/2.5ML SOLN PO SCH (09:00)
== END 2021-03-11 18:22 | disposition home health service (06) | DRG 291 ==
LOC: ED 06:48 → EDINP 10:20 → SUATTDRO 10:20 → 1E 13:10 → 2S 03-08 20:41 → UNDODISIN 03-11 14:49